=== PATIENT | female | born 1970 | race Caucasian/White ===

== ENCOUNTER 2020-04-10 11:01 | Outpatient (REF) | payer OTHER, SELFPAY | END 2020-04-10 11:02 | disposition home or self-care (01) | LOC: HO.LAB 11:01 | PROVIDERS: Visit Provider Internal Medicine | DX: Z20.828 Contact with and (suspected) exposure to other viral communicable diseases (principal) | CPT/HCPCS: 36415; C9803; U0003 ==

== ENCOUNTER 2020-06-02 12:27 | Emergency (ER) | payer OTHER, SELFPAY ==
--- NOTE | ~2020-06-02 | US_ITS ---
EXAMINATION: PELVIC ULTRASOUND CLINICAL INFORMATION: Large ovarian cyst seen on CT scan COMPARISON: CT abdomen pelvis same day TECHNIQUE: Both transabdominal and endovaginal scanning was performed. Color-flow Doppler imaging was utilized. FINDINGS: An anteverted uterus is present measuring 10.2 x 5.1 x 4.9 cm. The endometrium appears normal at 0.6 cm in thickness. The right ovary measures 5.9 x 4.6 x 5.3 cm for a volume of 6 75 mL and includes a benign appearing 5.1 x 4.2 x 4.2 cm cyst that was also demonstrated on CT scan. It is benign in appearance. The left ovary is not seen. Normal arterial and venous Doppler flow is seen in the right ovary No free fluid is seen. US/US pelvic complete IMPRESSION: Right ovarian simple cyst, almost certainly benign. Follow-up in one year is recommended Guidelines adopted from [facility] Consensus Recommendations (2017): ?Technically adequate study: Should include Transvaginal. Transabdominal as needed and Doppler as needed. Entire cyst should be adequately imaged.?Measurements below are for maximum diameter. 5 cm to 7 cm: Recommend a follow-up ultrasound in one year.
--- NOTE | ~2020-06-02 | US_ITS ---
EXAMINATION: PELVIC ULTRASOUND CLINICAL INFORMATION: Large ovarian cyst seen on CT scan COMPARISON: CT abdomen pelvis same day TECHNIQUE: Both transabdominal and endovaginal scanning was performed. Color-flow Doppler imaging was utilized. FINDINGS: An anteverted uterus is present measuring 10.2 x 5.1 x 4.9 cm. The endometrium appears normal at 0.6 cm in thickness. The right ovary measures 5.9 x 4.6 x 5.3 cm for a volume of 6 75 mL and includes a benign appearing 5.1 x 4.2 x 4.2 cm cyst that was also demonstrated on CT scan. It is benign in appearance. The left ovary is not seen. Normal arterial and venous Doppler flow is seen in the right ovary No free fluid is seen. US/US transvaginal IMPRESSION: Right ovarian simple cyst, almost certainly benign. Follow-up in one year is recommended Guidelines adopted from [facility] Consensus Recommendations (2017): ?Technically adequate study: Should include Transvaginal. Transabdominal as needed and Doppler as needed. Entire cyst should be adequately imaged.?Measurements below are for maximum diameter. 5 cm to 7 cm: Recommend a follow-up ultrasound in one year.
--- NOTE | ~2020-06-02 | US_ITS ---
EXAMINATION: PELVIC ULTRASOUND CLINICAL INFORMATION: Large ovarian cyst seen on CT scan COMPARISON: CT abdomen pelvis same day TECHNIQUE: Both transabdominal and endovaginal scanning was performed. Color-flow Doppler imaging was utilized. FINDINGS: An anteverted uterus is present measuring 10.2 x 5.1 x 4.9 cm. The endometrium appears normal at 0.6 cm in thickness. The right ovary measures 5.9 x 4.6 x 5.3 cm for a volume of 6 75 mL and includes a benign appearing 5.1 x 4.2 x 4.2 cm cyst that was also demonstrated on CT scan. It is benign in appearance. The left ovary is not seen. Normal arterial and venous Doppler flow is seen in the right ovary No free fluid is seen. US/US pelvic ovarian doppler IMPRESSION: Right ovarian simple cyst, almost certainly benign. Follow-up in one year is recommended Guidelines adopted from [facility] Consensus Recommendations (2017): ?Technically adequate study: Should include Transvaginal. Transabdominal as needed and Doppler as needed. Entire cyst should be adequately imaged.?Measurements below are for maximum diameter. 5 cm to 7 cm: Recommend a follow-up ultrasound in one year.
--- NOTE | ~2020-06-02 | CT_ITS ---
EXAMINATION: CT ABDOMEN AND PELVIS WITH CONTRAST CLINICAL INFORMATION: Right lower quadrant pain COMPARISON: CT abdomen pelvis 09/08/2005, report only and ultrasound abdomen 05/07/2014 TECHNIQUE: Multidetector volumetric images were obtained from the superior aspect of the liver through the pubic symphysis following administration 85 mL of Omnipaque 350 intravenous contrast. Sagittal and coronal reformatted images were obtained on the technologist's workstation. Oral contrast: No This CT examination was performed using dose optimization techniques as appropriate, variously including the following: *Automated exposure control *Adjustment of mA and/or kV according to patient size (this includes techniques or standardized protocols for targeted exams where dose is matched to indication/reason for exam; i.e. extremities or head) *Use of iterative reconstruction technique DLP: 1778 mGy-cm FINDINGS: LUNG BASES: The visualized lung bases are unremarkable. LIVER, GALLBLADDER, AND BILIARY TREE: The liver is enlarged measuring over 26 cm in greatest length and demonstrates hepatic steatosis. No liver masses or bile duct dilatation is seen. The gallbladder is unremarkable with no evidence of radiopaque gallstones, gallbladder wall thickening, or obvious pericholecystic inflammatory changes. PANCREAS: Unremarkable. SPLEEN: Unremarkable. ADRENAL GLANDS: Unremarkable. KIDNEYS AND URETERS: The kidneys are normal in size, shape, and attenuation. No hydronephrosis, hydroureter, or calculi seen. No perinephric stranding. BLADDER: Unremarkable. GASTROINTESTINAL TRACT: The small and large bowel are unremarkable. The appendix is unremarkable. ABDOMINAL WALL: No significant hernia is appreciated. LYMPH NODES: Normal. VASCULAR: Unremarkable. PELVIC VISCERA: Anteverted uterus appears normal. A right ovarian water density cyst is present measuring 5.7 x 4.5 x 5.2 cm. No free intraperitoneal fluid is seen. OSSEOUS STRUCTURES: Degenerative changes are present predominantly at L4-L5 and L5-S1. CT/CT abdomen pelvis w con IMPRESSION: 1. Enlarged fatty liver 2. 5.7 cm right ovarian cyst.
[2020-06-02 14:21] VITALS: BP 140/84; PULSE 70; RESP 18; TEMP 36.6; O2SAT 97; BMI 54.7
[2020-06-02 15:26] LABS: Glucose Urine UA NEG (NEG); Leukocyte Esterase Urine NEG (NEG); Nitrite Urine NEG (NEG); Urine Blood TRACE (NEG); Urine Ketones NEG (NEG); Urine Protein NEG (NEG-TRACE)
[2020-06-02 15:27] LABS: Appearance Urine CLEAR; Color Urine YELLOW
[2020-06-02 15:55] LABS: Bacteria Urine 1+ /LPF; Squamous Epithelial Cell Urine 2+ /LPF; WBC Urine 0 /HPF (0-4)
[2020-06-02 16:06] LABS: MANUAL DIFF FLAG NO
[2020-06-02 16:16] LABS: Basophils Absolute Auto 0.1 X10*3/uL (0.0-0.2); Basophils Percent Auto 0.5 % (0-2); Eosinophils Absolute Auto 0.3 X10*3/uL (0.0-0.4); Eosinophils Percent Auto 3.5 % (0-4); Hematocrit 40.2 % (37-47); Hemoglobin 12.6 g/dl (12.0-16.0); Imm Gran Abs Auto 0.04 X10*3/uL (0.00-0.03); Imm Gran Pct Auto 0.4 % (0.0-0.4); Lymphocytes Absolute Auto 2.9 X10*3/uL (1.2-4.9); Lymphocytes Percent Auto 29.5 % (20-40); Mean Corpuscular HGB Conc 31.3 g/dl (31.0-35.0); Mean Corpuscular Hemoglobin 24.2 pg (27.0-33.0); Mean Corpuscular Volume 77.2 fL (80-98); Mean Platelet Volume 10.3 fL (9.4-12.3); Monocytes Absolute Auto 0.5 X10*3/uL (0.1-1.2); Monocytes Percent Auto 4.9 % (2-11); Neutrophils Percent Auto 61.2 % (45-73); Platelet Count 372 X10*3/uL (160-400); Red Blood Count 5.21 X10*6/uL (4.20-5.50); Red Cell Distribution Width 15.3 % (11.0-16.0); White Blood Count 9.8 X10*3/uL (4.8-10.8)
[2020-06-02 16:36] LABS: Alanine Aminotransferase 14 U/L (0-31); Albumin Level 3.9 g/dL (3.5-5.0); Alkaline Phosphatase 79 U/L (39-117); Anion Gap 14 (12-20); Aspartate Amino Transferase 13 U/L (5-31); Bilirubin Total 0.5 mg/dL (0.0-1.0); Blood Urea Nitrogen 9 mg/dL (9-16); Calcium 8.5 mg/dL (8.4-10.2); Carbon Dioxide 25 mmol/L (22-29); Chloride 103 mmol/L (96-108); Creatinine Clr Calc Pharmacy 134.1; Estimated Glomerular Filt Rate > 60; Glucose Random 134 mg/dL (60-115); Potassium 4.2 mmol/L (3.3-5.1); Sodium 138 mmol/L (135-145)
[2020-06-02] MEDS: iohexoL 350 MG/ML 100 ML INFUS..BTL IV (16:59)
[2020-06-02 17:58] VITALS: PULSE 69; RESP 17; TEMP 37.2; O2SAT 98
--- NOTE | 2020-06-02 20:14 | ED_ITS ---
HPI - Abdominal Pain General Chief Complaint: Abdominal Pain Stated Complaint: ABD PAIN Time Seen by Provider: 06/02/20 16:29 Source: patient Mode of arrival: ambulatory Limitations: no limitations History of Present Illness HPI narrative: Right-sided lower quadrant abdominal pain for past 4 days gradually and sharp like feeling. Worsened with certain position. There is associated nausea but no vomiting or diarrhea. There is no vaginal bleeding or discharge. There is no dysuria or hematuria. MD elicited complaint: abdominal pain Onset (ago): day(s) Pain Consistency: intermittent Location: none Severity: moderate Quality: stabbing and aching Radiation: RLQ Migration to: no migration Exacerbating factors: nothing Relieving factors: nothing Associated symptoms: nausea Related Data Patient : No Previous Rx's Medication Instructions Recorded ibuprofen 800 mg PO Q8H PRN #30 tab 06/02/20 Allergies Allergy/AdvReac Type Severity Reaction Status Date / Time No Known Allergies Allergy Unknown Verified 06/02/20 14:21 Review of Systems Review of Systems Constitutional: No Weight loss, No Fever, No Chills, No Night Sweats, No Fatigue, No Malaise ENT/Mouth: No Hearing loss, No Ear Pain, No Nasal Congestion, No Sinus Pain, No Hoarseness, No sore throat, No Rhinorrhea, No Swallowing Difficulty Eyes: No Eye Pain, No Swelling, No Redness, No Foreign Body, No Discharge, No Vision Changes Cardiovascular: No Chest Pain, No SOB, No Dyspnea on Exertion, No Orthopnea, No Edema, No Palpitations Respiratory: No Cough, No Sputum, No Wheezing, No Smoke Exposure, No Dyspnea Gastrointestinal: + Nausea, No Vomiting, No Diarrhea, No Constipation, + abdominal Pain, No Hematochezia, No Melena Genitourinary: No Dysuria, No Urinary Frequency, No Hematuria, No Urinary Incontinence, No Urgency, No Flank Pain, No Urinary Flow Changes, No Hesitancy Musculoskeletal: No joint pain, No Myalgias, No Joint Swelling Skin: No Skin Lesions, No rash Neuro: No Weakness, No Numbness, No Paresthesias, No Loss of Consciousness, No Dizziness, No Headache Psych: No Anxiety/Panic, No Depression Heme/Lymph: No Bruising, No Bleeding,No Lymphadenopathy Endocrine: No Polyuria, No Polydipsia, No Temperature Intolerance Yes all other systems are reviewed and are negative Physical Exam Vital Signs: Vital Signs: Last Vital Signs Temp 98.9 F 06/02/20 17:58 Pulse 69 06/02/20 17:58 Resp 17 06/02/20 17:58 BP 140/84 H 06/02/20 14:21 Pulse Ox 98 06/02/20 17:58 Body Mass Index 54.7 Reviewed Const: General: cooperative and healthy appearing; No acute distress or intoxicated appearing Nutritional Appearance: average body habitus Orientation/consciousness: patient oriented x3 HENMT: Head: Yes normal to inspection Ears: hearing grossly normal bilaterally Eyes: General: appearance normal, both eyes and all related structures Visual Cameron: normal visual cameron by confrontation Neck: Neck: Yes normal visual inspection, No positive Brudzinski's sign, No positive Kernig's sign and No tender Thyroid: Thyroid normal Chest: Chest palpation & inspection: normal inspection of the chest Resp: Effort & Inspection: normal respiratory effort Auscultation: clear to auscultation bilaterally Cardio: Jugular venous distension: no JVD Rate: regular rate Rhythm: regular rhythm Heart sounds: S1 normal heart sound present and S2 normal heart sound present GI: Other: Obese Inspection: Yes normal to inspection Palpation (GI): Soft to palpation and Tenderness to palpation present (GI) in the RLQ Percussion: Yes normal to percussion Auscultation: normal bowel sounds : General: Yes no CVA tenderness Back/Spine/Pelvis: Back: no CVA tenderness Skin: General skin exam: no rashes or lesions noted Neuro: General: patient oriented x3 Extrem: General: Yes normal to inspection Course Course Course Narrative: Labs overall reassuring abdominal CT done to rule out appy given right lower quadrant pain however this was unremarkable for acute appy or infectious pathology there was noted to have a large right-sided ovarian cyst subsequently pelvic ovarian ultrasound done showed isolated right-sided ovarian cyst with good flow without evidence of torsion. She is resting comfortably. Will discharge home with short course of NSAIDs and follow-up. Verbalized understanding and comfortable plan. Stable for discharge MDM - Abdominal Pain Lab Data Result diagrams: 06/02/20 15:53 06/02/20 15:53 Labs: Lab Results 06/02/20 06/02/20 06/02/20 Range/Units 14:25 15:53 15:53 WBC 9.8 (4.8-10.8) X10*3/uL RBC 5.21 (4.20-5.50) X10*6/uL Hgb 12.6 (12.0-16.0) g/dl Hct 40.2 (37-47) % MCV 77.2 L (80-98) fL MCH 24.2 L (27.0-33.0) pg MCHC 31.3 (31.0-35.0) g/dl RDW 15.3 (11.0-16.0) % Plt Count 372 (160-400) X10*3/uL MPV 10.3 (9.4-12.3) fL Immature Gran % (Auto) 0.4 (0.0-0.4) % Neut % (Auto) 61.2 (45-73) % Lymph % (Auto) 29.5 (20-40) % [place] % (Auto) 4.9 (2-11) % Eos % (Auto) 3.5 (0-4) % Baso % (Auto) 0.5 (0-2) % Lymph # (Auto) 2.9 (1.2-4.9) X10*3/uL [place] # (Auto) 0.5 (0.1-1.2) X10*3/uL Eos # (Auto) 0.3 (0.0-0.4) X10*3/uL Baso # (Auto) 0.1 (0.0-0.2) X10*3/uL Abs Immat Gran (auto) 0.04 H (0.00-0.03) X10*3/uL Absolute Neuts (auto) 6.0 (2.0-8.3) X10*3/uL Absolute Nucleated RBC 0.000 (0.0-0.012) X10*3/uL Nucleated RBC % (auto) 0.0 (0.0-0.2) /100WBC Hold Blue Top SEE NOTE Sodium (135-145) mmol/L Potassium (3.3-5.1) mmol/L Chloride (96-108) mmol/L Carbon Dioxide (22-29) mmol/L Anion Gap (12-20) BUN (9-16) mg/dL Creatinine (0.5-1.4) mg/dL Estim Creat Clear Calc Estimated GFR Random Glucose (60-115) mg/dL Calcium (8.4-10.2) mg/dL Total Bilirubin (0.0-1.0) mg/dL AST (5-31) U/L ALT (0-31) U/L Alkaline Phosphatase (39-117) U/L Total Protein (6.5-8.0) g/dL Albumin (3.5-5.0) g/dL Urine Color YELLOW Urine Appearance CLEAR Urine pH 6.0 (5.0-8.0) Ur Specific [place] 1.020 (1.005-1.025) Urine Protein NEG (NEG-TRACE) MG/DL Urine Glucose (UA) NEG (NEG) MG/DL Urine Ketones NEG (NEG) MG/DL Urine Blood TRACE (NEG) Urine Nitrite NEG (NEG) Ur Leukocyte Esterase NEG (NEG) Urine RBC 1-4 (0) /HPF Urine WBC 0 (0-4) /HPF Ur Squamous Epith Cells 2+ /LPF Urine Bacteria 1+ /LPF 06/02/20 Range/Units 15:53 WBC (4.8-10.8) X10*3/uL RBC (4.20-5.50) X10*6/uL Hgb (12.0-16.0) g/dl Hct (37-47) % MCV (80-98) fL MCH (27.0-33.0) pg MCHC (31.0-35.0) g/dl RDW (11.0-16.0) % Plt Count (160-400) X10*3/uL MPV (9.4-12.3) fL Immature Gran % (Auto) (0.0-0.4) % Neut % (Auto) (45-73) % Lymph % (Auto) (20-40) % [place] % (Auto) (2-11) % Eos % (Auto) (0-4) % Baso % (Auto) (0-2) % Lymph # (Auto) (1.2-4.9) X10*3/uL [place] # (Auto) (0.1-1.2) X10*3/uL Eos # (Auto) (0.0-0.4) X10*3/uL Baso # (Auto) (0.0-0.2) X10*3/uL Abs Immat Gran (auto) (0.00-0.03) X10*3/uL Absolute Neuts (auto) (2.0-8.3) X10*3/uL Absolute Nucleated RBC (0.0-0.012) X10*3/uL Nucleated RBC % (auto) (0.0-0.2) /100WBC Hold Blue Top Sodium 138 (135-145) mmol/L Potassium 4.2 (3.3-5.1) mmol/L Chloride 103 (96-108) mmol/L Carbon Dioxide 25 (22-29) mmol/L Anion Gap 14 (12-20) BUN 9 (9-16) mg/dL Creatinine 0.83 (0.5-1.4) mg/dL Estim Creat Clear Calc 134.1 Estimated GFR > 60 Random Glucose 134 H (60-115) mg/dL Calcium 8.5 (8.4-10.2) mg/dL Total Bilirubin 0.5 (0.0-1.0) mg/dL AST 13 (5-31) U/L ALT 14 (0-31) U/L Alkaline Phosphatase 79 (39-117) U/L Total Protein 7.0 (6.5-8.0) g/dL Albumin 3.9 (3.5-5.0) g/dL Urine Color Urine Appearance Urine pH (5.0-8.0) Ur Specific [place] (1.005-1.025) Urine Protein (NEG-TRACE) MG/DL Urine Glucose (UA) (NEG) MG/DL Urine Ketones (NEG) MG/DL Urine Blood (NEG) Urine Nitrite (NEG) Ur Leukocyte Esterase (NEG) Urine RBC (0) /HPF Urine WBC (0-4) /HPF Ur Squamous Epith Cells /LPF Urine Bacteria /LPF Discharge Plan Discharge Clinical Impression: Ovarian cyst Qualifiers: Laterality: right Qualified Code(s): N83.201 - Unspecified ovarian cyst, right side Patient Disposition: Home, Self-Care Instructions: Ovarian Cyst (ED) Additional Instructions: Right side ovarian cyst Prescriptions: New ibuprofen 800 mg tablet 800 mg PO Q8H PRN (Reason: pain) Qty: 30 RF: 0 Referrals: Jagdish Evans MD [Primary Care Provider] - 1 week [facility] Past Medical History Medical History (Updated 06/02/20 @ 20:15 by Dominic Clark NP) Asthma Back pain GERD (gastroesophageal reflux disease) Social History Social History Alcohol intake: never Smoking Status: Never smoker Use of substances other than those prescribed or required for medical reasons: No Advance Directives: No Advance Directives Information Provided: Yes
== END 2020-06-02 20:31 | disposition home or self-care (01) ==
PROVIDERS: Emergency Provider Emergency Medicine; PCP Internal Medicine
DX: N83.201 Unspecified ovarian cyst, right side (principal); R10.31 Right lower quadrant pain; K21.9 Gastro-esophageal reflux disease without esophagitis; K76.0 Fatty (change of) liver, not elsewhere classified
CPT/HCPCS: 36415; 74177; 76830; 76856; 80053; 81001; 85025; 93975; 99284; Q9967

== ENCOUNTER 2020-12-11 02:51 | Emergency (ER) | payer OTHER, SELFPAY ==
--- NOTE | ~2020-12-11 | CT_ITS ---
EXAMINATION: CT ABDOMEN AND PELVIS WITH CONTRAST CLINICAL INFORMATION: Back pain, left upper quadrant COMPARISON: CT abdomen pelvis 06/03/2019 TECHNIQUE: Multidetector volumetric images were obtained from the superior aspect of the liver through the pubic symphysis following administration 85 mL of Omnipaque 350 intravenous contrast. Sagittal and coronal reformatted images were obtained on the technologist's workstation. Oral contrast: No This CT examination was performed using dose optimization techniques as appropriate, variously including the following: *Automated exposure control *Adjustment of mA and/or kV according to patient size (this includes techniques or standardized protocols for targeted exams where dose is matched to indication/reason for exam; i.e. extremities or head) *Use of iterative reconstruction technique DLP: 1330 mGy-cm FINDINGS: LUNG BASES: The visualized lung bases are unremarkable. LIVER, GALLBLADDER, AND BILIARY TREE: The liver is again noted to be enlarged measuring over 26 cm in greatest length and demonstrates decreased attenuation consistent with hepatic steatosis. No liver masses or bile duct dilatation is seen. The gallbladder contains a new small calcified stone at the neck of the gallbladder measuring 3 mm in size but is otherwise unremarkable with no evidence of gallbladder wall thickening, or obvious pericholecystic inflammatory changes. PANCREAS: Unremarkable. SPLEEN: Unremarkable. ADRENAL GLANDS: Unremarkable. KIDNEYS AND URETERS: The kidneys are normal in size, shape, and attenuation. No hydronephrosis, hydroureter, or calculi seen. No perinephric stranding. BLADDER: Unremarkable. GASTROINTESTINAL TRACT: The small and large bowel are unremarkable. The appendix is unremarkable. ABDOMINAL WALL: No significant hernia is appreciated. LYMPH NODES: Normal. VASCULAR: Unremarkable. PELVIC VISCERA: Anteverted uterus appears normal. Previously seen benign right ovarian cyst has some.. No free intraperitoneal fluid is seen. OSSEOUS STRUCTURES: Degenerative changes are present predominantly at L4-L5 and L5-S1. CT/CT abdomen pelvis w con IMPRESSION: 1. Enlarged fatty liver 2. Right ovarian cyst has significantly decreased in size.
[2020-12-11 02:59] VITALS: BP 156/81; PULSE 64; RESP 18; TEMP 37; O2SAT 98; BMI 51.7
[2020-12-11 04:29] LABS: Appearance Urine CLEAR; Color Urine YELLOW; Glucose Urine UA NEG (NEG); Leukocyte Esterase Urine NEG (NEG); Nitrite Urine NEG (NEG); Urine Blood NEG (NEG); Urine Ketones NEG (NEG); Urine Protein NEG (NEG-TRACE)
[2020-12-11 05:00] LABS: Basophils Absolute Auto 0.1 X10*3/uL (0.0-0.2); Basophils Percent Auto 0.6 % (0-2); Eosinophils Absolute Auto 0.3 X10*3/uL (0.0-0.4); Eosinophils Percent Auto 3.7 % (0-4); Hematocrit 41.2 % (37-47); Hemoglobin 13.2 g/dl (12.0-16.0); Imm Gran Abs Auto 0.02 X10*3/uL (0.00-0.03); Imm Gran Pct Auto 0.2 % (0.0-0.4); Lymphocytes Percent Auto 32.9 % (20-40); Mean Corpuscular Hemoglobin 24.3 pg (27.0-33.0); Mean Corpuscular Volume 75.7 fL (80-98); Mean Platelet Volume 9.9 fL (9.4-12.3); Monocytes Absolute Auto 0.7 X10*3/uL (0.1-1.2); Monocytes Percent Auto 7.3 % (2-11); Neutrophils Percent Auto 55.3 % (45-73); Platelet Count 347 X10*3/uL (160-400); Red Blood Count 5.44 X10*6/uL (4.20-5.50); Red Cell Distribution Width 15.3 % (11.0-16.0)
[2020-12-11 05:01] LABS: MANUAL DIFF FLAG NO
[2020-12-11] MEDS: ondansetron HCL 4 MG/2 ML VIAL IVPUSH (05:02)
[2020-12-11] MEDS: Ketorolac Tromethamine 15 MG/ML VIAL IVPUSH (05:02)
[2020-12-11] MEDS: Acetaminophen 325 MG TABLET 975 MG PO (05:03)
--- NOTE | 2020-12-11 05:08 | PC.NURSE ---
IV inserted into left forearm. PT medicated per JUN for 8 pain. PT is resting in bed, understands plan to evaluate her pain.
[2020-12-11 05:24] LABS: Alanine Aminotransferase 19 U/L (0-31); Alkaline Phosphatase 74 U/L (39-117); Anion Gap 13 (12-20); Aspartate Amino Transferase 16 U/L (5-31); Bilirubin Total 0.4 mg/dL (0.0-1.0); Blood Urea Nitrogen 8 mg/dL (9-16); Calcium 9.2 mg/dL (8.4-10.2); Carbon Dioxide 25 mmol/L (22-29); Chloride 103 mmol/L (96-108); Creatinine Clr Calc Pharmacy 132.3; Estimated Glomerular Filt Rate > 60; Glucose Random 110 mg/dL (60-115); Lipase 22 U/L (8-78); Sodium 137 mmol/L (135-145); Total Protein 6.9 g/dL (6.5-8.0)
--- NOTE | 2020-12-11 05:52 | PC.NURSE ---
PT transferred to CT scan.
--- NOTE | 2020-12-11 06:00 | ED_ITS ---
HPI - Abdominal Pain General Chief Complaint: Abdominal Pain Stated Complaint: back pain/abd pain Time Seen by Provider: 12/11/20 03:04 Source: patient Mode of arrival: ambulatory History of Present Illness HPI narrative: 50-year-old female who presents without significant past medical history for mid to lower back discomfort that she states has been associated with mild nausea and vomiting that started on Tuesday as well as some diarrhea. Patient states that the pain radiated to the front of her abdomen, specifically the left upper side and she denies any history of kidney stones. Otherwise, she denies any urinary pain/burning/frequency but states that she has been having night sweats and some mild dizziness for the past couple of days. Related Data Previous Rx's Medication Instructions Recorded ibuprofen 800 mg tablet 800 mg PO Q8H PRN #30 tab 06/02/20 Allergies Allergy/AdvReac Type Severity Reaction Status Date / Time No Known Allergies Allergy Unknown Verified 12/11/20 02:59 Review of Systems Review of Systems Pertinent positives and negatives as stated in HPI 10 point review systems is otherwise negative. Physical Exam Vital Signs: Vital Signs: Last Vital Signs Temp 98.2 F 12/11/20 06:30 Pulse 57 12/11/20 06:30 Resp 16 12/11/20 06:30 BP 135/73 12/11/20 06:30 Pulse Ox 98 12/11/20 06:30 Body Mass Index 51.7 VITAL SIGNS: Reviewed. GENERAL: Well developed, well nourished, in no acute distress. HEAD: Normocephalic/atraumatic, EYES: PERRLA, EOMI OROPHARYNX: no oral lesions noted, posterior pharynx clear LUNGS: Normal breath sounds. No adventitious sounds or accessory muscle use. SpO2<98> CARDIOVASCULAR: Regular rate and rhythm without noted murmurs ABDOMEN: Obese, Soft, non-tender, non-distended with bowel sounds, mild CVA tenderness on the left MUSCULOSKELETAL: No tenderness, deformities, or effusions noted on gross inspection. EXTREMITIES: No cyanosis, clubbing or edema. SKIN: Inspection of the skin reveals no rashes NEUROLOGIC: Alert and oriented x 4. Strength and sensation to light touch were grossly intact x 4. Course Course Course Narrative: 50-year-old female with history and clinical presentation suggestive pancreatitis, renal colic, gastritis, gastroenteritis. Review of all investigations without acute findings and on re-evaluation after patient received combination analgesics she reports improvement in her discomfort as well as her nausea. All results were discussed with patient bedside and she was encouraged to follow-up with her primary care provider for re-evaluation. MDM - Abdominal Pain Lab Data Result diagrams: 12/11/20 04:39 12/11/20 04:39 Labs: Lab Results 12/11/20 12/11/20 12/11/20 Range/Units 04:24 04:24 04:39 WBC 9.0 (4.8-10.8) X10*3/uL RBC 5.44 (4.20-5.50) X10*6/uL Hgb 13.2 (12.0-16.0) g/dl Hct 41.2 (37-47) % MCV 75.7 L (80-98) fL MCH 24.3 L (27.0-33.0) pg MCHC 32.0 (31.0-35.0) g/dl RDW 15.3 (11.0-16.0) % Plt Count 347 (160-400) X10*3/uL MPV 9.9 (9.4-12.3) fL Immature Gran % (Auto) 0.2 (0.0-0.4) % Neut % (Auto) 55.3 (45-73) % Lymph % (Auto) 32.9 (20-40) % [place] % (Auto) 7.3 (2-11) % Eos % (Auto) 3.7 (0-4) % Baso % (Auto) 0.6 (0-2) % Lymph # (Auto) 3.0 (1.2-4.9) X10*3/uL [place] # (Auto) 0.7 (0.1-1.2) X10*3/uL Eos # (Auto) 0.3 (0.0-0.4) X10*3/uL Baso # (Auto) 0.1 (0.0-0.2) X10*3/uL Abs Immat Gran (auto) 0.02 (0.00-0.03) X10*3/uL Absolute Neuts (auto) 5.0 (2.0-8.3) X10*3/uL Absolute Nucleated RBC 0.000 (0.0-0.012) X10*3/uL Nucleated RBC % (auto) 0.0 (0.0-0.2) /100WBC Sodium (135-145) mmol/L Potassium (3.3-5.1) mmol/L Chloride (96-108) mmol/L Carbon Dioxide (22-29) mmol/L Anion Gap (12-20) BUN (9-16) mg/dL Creatinine (0.5-1.4) mg/dL Estim Creat Clear Calc Estimated GFR Random Glucose (60-115) mg/dL Calcium (8.4-10.2) mg/dL Total Bilirubin (0.0-1.0) mg/dL AST (5-31) U/L ALT (0-31) U/L Alkaline Phosphatase (39-117) U/L Total Protein (6.5-8.0) g/dL Albumin (3.5-5.0) g/dL Lipase (8-78) U/L Urine Color YELLOW Urine Appearance CLEAR Urine pH 6.0 (5.0-8.0) Ur Specific [place] 1.010 (1.005-1.025) Urine Protein NEG (NEG-TRACE) MG/DL Urine Glucose (UA) NEG (NEG) MG/DL Urine Ketones NEG (NEG) MG/DL Urine Blood NEG (NEG) Urine Nitrite NEG (NEG) Ur Leukocyte Esterase NEG (NEG) Urine Test NEGATIVE (NEGATIVE) 12/11/20 Range/Units 04:39 WBC (4.8-10.8) X10*3/uL RBC (4.20-5.50) X10*6/uL Hgb (12.0-16.0) g/dl Hct (37-47) % MCV (80-98) fL MCH (27.0-33.0) pg MCHC (31.0-35.0) g/dl RDW (11.0-16.0) % Plt Count (160-400) X10*3/uL MPV (9.4-12.3) fL Immature Gran % (Auto) (0.0-0.4) % Neut % (Auto) (45-73) % Lymph % (Auto) (20-40) % [place] % (Auto) (2-11) % Eos % (Auto) (0-4) % Baso % (Auto) (0-2) % Lymph # (Auto) (1.2-4.9) X10*3/uL [place] # (Auto) (0.1-1.2) X10*3/uL Eos # (Auto) (0.0-0.4) X10*3/uL Baso # (Auto) (0.0-0.2) X10*3/uL Abs Immat Gran (auto) (0.00-0.03) X10*3/uL Absolute Neuts (auto) (2.0-8.3) X10*3/uL Absolute Nucleated RBC (0.0-0.012) X10*3/uL Nucleated RBC % (auto) (0.0-0.2) /100WBC Sodium 137 (135-145) mmol/L Potassium 4.0 (3.3-5.1) mmol/L Chloride 103 (96-108) mmol/L Carbon Dioxide 25 (22-29) mmol/L Anion Gap 13 (12-20) BUN 8 L (9-16) mg/dL Creatinine 0.83 (0.5-1.4) mg/dL Estim Creat Clear Calc 132.3 Estimated GFR > 60 Random Glucose 110 (60-115) mg/dL Calcium 9.2 D (8.4-10.2) mg/dL Total Bilirubin 0.4 (0.0-1.0) mg/dL AST 16 (5-31) U/L ALT 19 (0-31) U/L Alkaline Phosphatase 74 (39-117) U/L Total Protein 6.9 (6.5-8.0) g/dL Albumin 4.0 (3.5-5.0) g/dL Lipase 22 (8-78) U/L Urine Color Urine Appearance Urine pH (5.0-8.0) Ur Specific [place] (1.005-1.025) Urine Protein (NEG-TRACE) MG/DL Urine Glucose (UA) (NEG) MG/DL Urine Ketones (NEG) MG/DL Urine Blood (NEG) Urine Nitrite (NEG) Ur Leukocyte Esterase (NEG) Urine Test (NEGATIVE) Discharge Plan Discharge Clinical Impression: Back pain Patient Disposition: Home, Self-Care Instructions: Back Pain (ED), Lower Back Exercises (ED) Additional Instructions: 1. Tylenol 1000 mg, orally, every 6 hours as needed for pain control. Do not exceed 4000 mg within 24 hours. 2. Ibuprofen 400 mg, orally with milk or food, every 6 hours as needed for pain control. 3. Lidocaine patch, these are available [id number], and should be apply to area of maximal pain as directed on the outside packaging. 4. Follow-up with your primary care provider in the next 1-2 days for re- evaluation. Return to the ER for any acute worsening of symptoms. Prescriptions: No Action ibuprofen 800 mg tablet 800 mg PO Q8H PRN (Reason: pain) Qty: 30 RF: 0 Referrals: Jagdish Evans MD [Primary Care Provider] - 2 days Stand Alone Forms: Work/School Release [facility] Past Medical History Source: nursing notes reviewed Medical History Asthma Back pain GERD (gastroesophageal reflux disease) Social History Social History Alcohol intake: never Advance Directives: No Advance Directives Information Provided: Yes Patient : No
[2020-12-11 06:12] LABS: UPreg QC Valid YES; Urine Pregnancy NEGATIVE (NEGATIVE)
[2020-12-11] MEDS: iohexoL 350 MG/ML 100 ML INFUS..BTL IV (06:22)
[2020-12-11 06:30] VITALS: BP 135/73; PULSE 57; RESP 16; TEMP 36.8; O2SAT 98
== END 2020-12-11 07:47 | disposition home or self-care (01) ==
PROVIDERS: Emergency Provider Student in an Organized Health Care Education/Training Program; PCP Internal Medicine
DX: M54.9 Dorsalgia, unspecified (principal)
CPT/HCPCS: 36415; 74177; 80053; 81003; 81025; 83690; 85025; 96374; 96375; 99284; J1885; J2405; Q9967

== ENCOUNTER 2021-03-10 16:58 | Emergency (ER) | payer OTHER, SELFPAY ==
--- NOTE | ~2021-03-10 | XR_ITS ---
EXAMINATION: XR CHEST CLINICAL INFORMATION: Shortness of breath COMPARISON: 03/31/2019 TECHNIQUE: 2 views of the chest were obtained. FINDINGS: No significant abnormality is noted involving the heart, lungs, mediastinum, bony thorax or soft tissues. XR/XR chest 2V IMPRESSION: Unremarkable examination.
[2021-03-10 17:33] VITALS: BP 154/69; PULSE 71; RESP 18; TEMP 37.1; O2SAT 98; BMI 50.2
[2021-03-10 18:18] LABS: MANUAL DIFF FLAG NO
[2021-03-10 18:19] LABS: Basophils Absolute Auto 0.1 X10*3/uL (0.0-0.2); Basophils Percent Auto 0.5 % (0-2); Eosinophils Absolute Auto 0.4 X10*3/uL (0.0-0.4); Eosinophils Percent Auto 4.6 % (0-4); Hematocrit 40.3 % (37.0-47.0); Hemoglobin 12.7 g/dl (12.0-16.0); Imm Gran Abs Auto 0.03 X10*3/uL (0.00-0.03); Imm Gran Pct Auto 0.3 % (0.0-0.4); Lymphocytes Absolute Auto 3.3 X10*3/uL (1.2-4.9); Lymphocytes Percent Auto 35.6 % (20-40); Mean Corpuscular HGB Conc 31.5 g/dl (31.0-35.0); Mean Corpuscular Hemoglobin 24.1 pg (27.0-33.0); Mean Corpuscular Volume 76.5 fL (80.0-98.0); Mean Platelet Volume 9.9 fL (9.4-12.3); Monocytes Absolute Auto 0.7 X10*3/uL (0.1-1.2); Monocytes Percent Auto 7.1 % (2-11); Neutrophils Absolute Auto 4.8 x10*3/uL (2.0-8.3); Neutrophils Percent Auto 51.9 % (45-73); Platelet Count 346 X10*3/uL (160-400); Red Blood Count 5.27 X10*6/uL (4.20-5.50); Red Cell Distribution Width 15.3 % (11.0-16.0); White Blood Count 9.3 X10*3/uL (4.8-10.8)
[2021-03-10 18:38] LABS: Alanine Aminotransferase 14 U/L (0-31); Albumin Level 3.9 g/dL (3.5-5.0); Alkaline Phosphatase 75 U/L (39-117); Anion Gap 12 (12-20); Aspartate Amino Transferase 14 U/L (5-31); Bilirubin Direct < 0.2 mg/dL (0.0-0.5); Bilirubin Total 0.4 mg/dL (0.0-1.0); Blood Urea Nitrogen 10 mg/dL (9-16); Calcium 9.1 mg/dL (8.4-10.2); Carbon Dioxide 25 mmol/L (22-29); Chloride 106 mmol/L (96-108); Estimated Glomerular Filt Rate > 60; Glucose Random 107 mg/dL (60-115); Lipase 24 U/L (8-78); Potassium 4.6 mmol/L (3.3-5.1); Sodium 138 mmol/L (135-145); Total Protein 7.2 g/dL (6.5-8.0)
[2021-03-10 18:39] LABS: COVID-19 Test Negative (Negative)
--- NOTE | 2021-03-10 22:44 | ED_ITS ---
HPI - Nausea/Vomiting/Diarrhea General Chief complaint: Nausea/Vomiting/Diarrhea Stated complaint: diarrhea asthma headache sob Time Seen by Provider: 03/10/21 22:34 Source: patient Mode of arrival: ambulatory Limitations: no limitations History of Present Illness HPI Narrative: 50-year-old female with history of asthma here with multiple complaints. Patient tells me that she has had some abdominal cramping with diarrhea for the last 3 days. She tells me she is having about 4-5 episodes per day but has not had any episodes since waiting here in our emergency department. She denies any associated vomiting or fever. She is also complaining of some cough and some wheezing and has been using her inhaler more frequently. No fevers, chills, productive cough or chest pain. Associated nausea: No Related Data Previous Rx's Medication Instructions Recorded ibuprofen 800 mg tablet 800 mg PO Q8H PRN #30 tab 06/02/20 benzonatate 200 mg capsule 200 mg PO TID PRN #10 cap 03/10/21 prednisone 20 mg tablet 40 mg PO DAILY #10 tab 03/10/21 Allergies Allergy/AdvReac Type Severity Reaction Status Date / Time No Known Allergies Allergy Unknown Verified 12/11/20 02:59 Review of Systems Review of Systems: Yes all other systems are reviewed and are negative Constitutional: Constitutional: Reports no additional constitutional complaints, Reports body ache(s), Denies chills, Denies fever(s), Denies headache(s) and Denies weakness Eyes: Eyes: Reports no additional eye complaints and Denies change in vision ENT: Reports system reviewed and no additional complaints, except as documented, Denies dizziness, Denies headache(s), Denies nasal congestion, Denies nasal discharge and Denies neck pain Cardiovascular: Cardiovascular: Reports no additional cardiovascular complaints, Denies chest pain, Denies leg edema and Denies dyspnea Respiratory: Respiratory: Reports no additional respiratory complaints, Reports cough, Denies dyspnea and Reports wheezing Gastrointestinal: Gastrointestinal: Reports no additional gastrointestinal complaints, Denies abdominal pain, Reports GI cramping, Reports diarrhea, Denies nausea and Denies vomiting Genitourinary: Genitourinary: Reports no additional female genitourinary complaints and Denies urinary incontinence Musculoskeletal: Musculoskeletal: Reports no additional musculoskeletal complaints, Denies back pain, Denies arthralgias, Denies joint swelling, Denies neck pain, Denies numbness and Denies tingling Integumentary/Breasts: Skin/Breast: Reports system reviewed and no additional complaints, except as docu and Denies rash Neurologic: Reports system reviewed and no additional complaints, except as documented, Denies Abnormal speech present, Denies dizziness, Denies headache(s), Denies numbness, Denies tingling and Denies weakness Allergic/Immunologic: Allergic/Immunologic: Reports wheezing PMFSH Past Medical History Attestation statement: The following information was validated with the patient. Source: old records reviewed and nursing notes reviewed Medical History Asthma Back pain GERD (gastroesophageal reflux disease) Social History Social History Alcohol intake: never Patient Tobacco Use Status: Never used Tobacco Use of substances other than those prescribed or required for medical reasons: No Advance Directives: No Advance Directives Information Provided: No Physical Exam Vital Signs: Vital Signs: Last Vital Signs Temp 98.7 F 03/10/21 17:33 Pulse 71 03/10/21 17:33 Resp 18 03/10/21 17:33 BP 154/69 H 03/10/21 17:33 Pulse Ox 98 03/10/21 17:33 BMI result Body Mass Index 50.2 Const: General: cooperative, healthy appearing, comfortable and no acute distress Orientation/consciousness: patient oriented x3 Limitations: no limitations HENMT: Head: Yes normal to inspection Ears: hearing grossly normal bilaterally General nose exam: Normal external nose present Face and sinus: Yes normal facial exam Mouth: Normal oral and palatal mucosa present Throat: Yes posterior oropharynx normal Eyes: General: appearance normal, both eyes and all related structures Pupils: Equal, round and reactive pupils present Neck: Neck: Yes normal visual inspection Chest: Chest palpation & inspection: normal inspection of the chest Resp: Other: mild expiratory wheezing frequent bronchospastic cough Effort & Inspection: normal respiratory effort Cardio: Rate: regular rate Rhythm: regular rhythm Peripheral pulses: Peripheral pulses 2+ throughout GI: Inspection: Yes normal to inspection Palpation (GI): Soft to palpation and nontender Auscultation: normal bowel sounds Back/Spine/Pelvis: Thoracic/Lumbar Spine: thoracic and lumbar spine normal to inspection Skin: General skin exam: no rashes or lesions noted Neuro: General: patient oriented x3, no focal motor deficits and normal sensation to monofilament Cranial nerves: Yes Equal, round and reactive pupils present Cognition (Neuro): normal cognition Speech: No Abnormal speech present Gait exam (Neuro): Normal gait present Motor exam (neuro): 5/5 motor strength present throughout Extrem: General: Yes normal to inspection, Yes no pedal edema and Yes no calf tenderness Course Course Course Narrative: 50-year-old female here with complaints of some diarrhea with abdominal cramping over the last 2 days. No vomiting. On exam no focal abdominal pain and her abdomen is soft. Patient has not had a bowel movement in more than 5 hours. She appears well hydrated with normal labs. Also complaining of some cough and wheezing despite using her home albuterol. On ex am she has some mild expiratory wheezing. Her saturations are normal. She has no tachypnea or tachycardia. Her chest x-ray shows no acute finding her COVID screen is negative. Likely viral syndrome. Will treat with course of prednisone for asthma exacerbation, recommend increase fluids at home and rest. Reviewed worrisome signs and symptoms of when to return to the emergency department. Comfortable discharge home. MDM - Nausea/Vomiting/Diarrhea Medical Records Attestation: I reviewed the patient's medical records. Lab Data Attestation: I reviewed the patient's lab results. Result diagrams: 03/10/21 18:11 03/10/21 18:11 Labs: Lab Results 03/10/21 03/10/21 03/10/21 Range/Units 18:11 18:11 18:11 WBC 9.3 (4.8-10.8) X10*3/uL RBC 5.27 (4.20-5.50) X10*6/uL Hgb 12.7 (12.0-16.0) g/dl Hct 40.3 (37.0-47.0) % MCV 76.5 L (80.0-98.0) fL MCH 24.1 L (27.0-33.0) pg MCHC 31.5 (31.0-35.0) g/dl RDW 15.3 (11.0-16.0) % Plt Count 346 (160-400) X10*3/uL MPV 9.9 (9.4-12.3) fL Immature Gran % (Auto) 0.3 (0.0-0.4) % Neut % (Auto) 51.9 (45-73) % Lymph % (Auto) 35.6 (20-40) % Johnson % (Auto) 7.1 (2-11) % Eos % (Auto) 4.6 H (0-4) % Baso % (Auto) 0.5 (0-2) % Lymph # (Auto) 3.3 (1.2-4.9) X10*3/uL Johnson # (Auto) 0.7 (0.1-1.2) X10*3/uL Eos # (Auto) 0.4 (0.0-0.4) X10*3/uL Baso # (Auto) 0.1 (0.0-0.2) X10*3/uL Abs Immat Gran (auto) 0.03 (0.00-0.03) X10*3/uL Absolute Neuts (auto) 4.8 (2.0-8.3) x10*3/uL Absolute Nucleated RBC 0.000 (0.0-0.012) X10*3/uL Nucleated RBC % (auto) 0.0 (0.0-0.2) /100WBC Sodium 138 (135-145) mmol/L Potassium 4.6 (3.3-5.1) mmol/L Chloride 106 (96-108) mmol/L Carbon Dioxide 25 (22-29) mmol/L Anion Gap 12 (12-20) BUN 10 (9-16) mg/dL Creatinine 0.92 (0.5-1.4) mg/dL Estim Creat Clear Calc 117.0 Estimated GFR > 60 Random Glucose 107 (60-115) mg/dL Calcium 9.1 (8.4-10.2) mg/dL Total Bilirubin 0.4 (0.0-1.0) mg/dL Direct Bilirubin < 0.2 (0.0-0.5) mg/dL AST 14 (5-31) U/L ALT 14 (0-31) U/L Alkaline Phosphatase 75 (39-117) U/L Total Protein 7.2 (6.5-8.0) g/dL Albumin 3.9 (3.5-5.0) g/dL Lipase 24 (8-78) U/L COVID-19 (JOSELINE) Negative (Negative) COVID-19 Clin Com See Note Imaging Data Chest x-ray: Attestation: I personally reviewed and interpreted this imaging study as follows: Radiologist's impression: [id number] [place] [address] XRay Report Signed Patient: Xochilt Thomas MR#: [id number] : 1970 Acct:[id number] Age/Sex: 50 / F ADM Date: 03/10/21 Loc: HO.ED Attending Dr: Ordering Physician: Generic ED Physician Date of Service: 03/10/21 Procedure(s): XR chest 2V Accession Number(s): [id number] cc: Generic ED Physician~ EXAMINATION: XR CHEST CLINICAL INFORMATION: Shortness of breath COMPARISON: 03/31/2019 TECHNIQUE: 2 views of the chest were obtained. FINDINGS: No significant abnormality is noted involving the heart, lungs, mediastinum, bony thorax or soft tissues. XR/XR chest 2V IMPRESSION: Unremarkable examination. Discharge Plan Discharge Clinical Impression: Gastroenteritis, Asthma exacerbation Patient Disposition: Home, Self-Care Instructions: Asthma (ED), Acute Diarrhea (ED) Additional Instructions: your chest x-ray, COVID screen and blood work are all normal. continue to drink fluids Prescriptions: New prednisone 20 mg tablet 40 mg PO DAILY Qty: 10 RF: 0 benzonatate 200 mg capsule 200 mg PO TID PRN (Reason: cough) Qty: 10 RF: 0 No Action ibuprofen 800 mg tablet 800 mg PO Q8H PRN (Reason: pain) Qty: 30 RF: 0 Referrals: Jagdish Evans MD [Primary Care Provider] - 2 days Stand Alone Forms: Work/School Release Interventions: ED Discharge Assessment Last Done: 03/10/21 22:51 Discharge Date/Time: 03/10/21 22:52
== END 2021-03-10 22:52 | disposition home or self-care (01) ==
PROVIDERS: Emergency Provider Emergency Medicine Emergency Medical Services; PCP Internal Medicine
DX: K52.9 Noninfective gastroenteritis and colitis, unspecified (principal); J45.901 Unspecified asthma with (acute) exacerbation; Z79.899 Other long term (current) drug therapy; Z20.822 Contact with and (suspected) exposure to COVID-19
CPT/HCPCS: 36415; 71046; 80048; 80076; 83690; 85025; 87635; 99283; 99284

== ENCOUNTER 2021-03-17 12:14 | Emergency (ER) | payer OTHER, SELFPAY ==
--- NOTE | ~2021-03-17 | XR_ITS ---
EXAMINATION: XR CHEST CLINICAL INFORMATION: Shortness of breath COMPARISON: Chest radiographs 03/10/2021, 03/31/2019 TECHNIQUE: Frontal view of the chest was obtained. FINDINGS: The lungs are clear. There is no airspace consolidation or groundglass opacity. The costophrenic sulci are well-defined. The heart is normal in size. The vascularity is normal. The hilar and mediastinal contours and visualized bony structures are unremarkable. XR/XR chest 1V IMPRESSION: Unremarkable examination.
--- NOTE | ~2021-03-17 | CT_ITS ---
CT head/brain wo con CLINICAL INFORMATION: Reason for Exam pt c headaches and right sided neck pain COMPARISON: No prior CT scan available for comparison. TECHNIQUE: Department standard protocol. This CT examination was performed using dose optimization techniques as appropriate, variously including the following: *Automated exposure control *Adjustment of mA and/or kV according to patient size (this includes techniques or standardized protocols for targeted exams where dose is matched to indication/reason for exam; i.e. extremities or head) *Use of iterative reconstruction technique DLP: 769 mGy-cm FINDINGS: CEREBRAL HEMISPHERES: There is no evidence of intra-axial or extra-axial mass, hemorrhage or acute infarct. BRAIN PARENCHYMA: Normal foster-white matter differentiation. SUBDURAL SPACE: No bleed. BASAL GANGLIA AND PINEAL GLAND: Unremarkable VENTRICLES: Symmetric and normal in size. CEREBELLUM AND BRAINSTEM: No space-occupying mass, hemorrhage or acute infarct. CEREBELLOPONTINE ANGLES: No lesion found. ORBITS: No intraorbital mass. VESSELS: Unremarkable SKULL BASE: Unremarkable INCLUDED SINUSES AT SKULL BASE: Clear SKULL AND SKIN: No fracture or bone lesion found. CT/CT head/brain wo con IMPRESSION: No CT evidence of intracranial space-occupying mass, bleed or infarct. Normal CT scan does not rule out the possibility of hyperacute infarct in the first 12 hours. If patient symptoms persist may consider correlation with MRI, which is more sensitive for early acute infarct.
[2021-03-17 12:41] VITALS: BP 165/77; PULSE 66; RESP 18; TEMP 36.8; O2SAT 98; BMI 50.2
[2021-03-17 16:10] LABS: MANUAL DIFF FLAG NO
[2021-03-17 16:12] LABS: Basophils Absolute Auto 0.1 X10*3/uL (0.0-0.2); Basophils Percent Auto 0.6 % (0-2); Eosinophils Absolute Auto 0.3 X10*3/uL (0.0-0.4); Eosinophils Percent Auto 3.1 % (0-4); Hematocrit 40.8 % (37.0-47.0); Hemoglobin 12.8 g/dl (12.0-16.0); Imm Gran Abs Auto 0.03 X10*3/uL (0.00-0.03); Imm Gran Pct Auto 0.3 % (0.0-0.4); Lymphocytes Absolute Auto 3.4 X10*3/uL (1.2-4.9); Lymphocytes Percent Auto 34.7 % (20-40); Mean Corpuscular HGB Conc 31.4 g/dl (31.0-35.0); Mean Corpuscular Volume 76.5 fL (80.0-98.0); Mean Platelet Volume 10.4 fL (9.4-12.3); Monocytes Absolute Auto 0.7 X10*3/uL (0.1-1.2); Monocytes Percent Auto 7.1 % (2-11); Neutrophils Absolute Auto 5.4 x10*3/uL (2.0-8.3); Neutrophils Percent Auto 54.2 % (45-73); Platelet Count 386 X10*3/uL (160-400); Red Blood Count 5.33 X10*6/uL (4.20-5.50); Red Cell Distribution Width 15.2 % (11.0-16.0); White Blood Count 9.9 X10*3/uL (4.8-10.8)
[2021-03-17 16:26] LABS: Anion Gap 10 (12-20); Blood Urea Nitrogen 8 mg/dL (9-16); Calcium 8.9 mg/dL (8.4-10.2); Carbon Dioxide 26 mmol/L (22-29); Chloride 104 mmol/L (96-108); Creatinine Clr Calc Pharmacy 129.8; Estimated Glomerular Filt Rate > 60; Glucose Random 114 mg/dL (60-115); Sodium 136 mmol/L (135-145)
[2021-03-17 16:31] LABS: COVID-19 Test Negative (Negative)
[2021-03-17 16:32] LABS: B Type Natriuretic Peptide < 10 pg/mL (<100); Troponin-I High Sensitivity < 3.5 ng/L (<3.5-17.0)
--- NOTE | 2021-03-17 17:26 | ED.GENADULT ---
HPI - General Adult General Chief complaint: General Medical Stated complaint: headache/nausea/SOB Time Seen by Provider: 03/17/21 16:55 Source: patient Mode of arrival: ambulatory Limitations: no limitations History of Present Illness HPI narrative: 50-year-old female with a past medical history of asthma presenting to the ED with multiple complaints for the past 8 days which include body aches, lightheadedness when she stands, intermittent headaches right-sided that she describes as pressure and sensation, right-sided neck pain, nausea, cough with white-colored sputum production, chest pain, shortness of breath /dyspnea on exertion, heart flutters, abdominal cramping and resolved diarrhea. She reports that she has been using her albuterol inhaler. She was seen here on 03/10/2021 for same complaints. She denies any measured fevers, dizziness, changes in vision, vomiting, jaw pain, paresthesias, recent travel, bad food exposure, sick contacts, black or bloody stools, constipation, recent hospitalization or antibiotic usage, lower extremity edema or calf tenderness or any other symptoms complaints or concerns at this time. MD complaint: Multiple complaints Onset (ago): day(s) (8) Related Data Previous Rx's Medication Instructions Recorded ibuprofen 800 mg tablet 800 mg PO Q8H PRN #30 tab 06/02/20 benzonatate 200 mg capsule 200 mg PO TID PRN #10 cap 03/10/21 prednisone 20 mg tablet 40 mg PO DAILY #10 tab 03/10/21 azithromycin 250 mg tablet See Rx Instructions .ROUTE 03/17/21 .COMPLEX #6 tab adzxboxkgh-ulyxdszfezxxs-ibkslnre 1 cap PO Q8H PRN #10 cap 03/17/21 50 mg-300 mg-40 mg capsule (Fioricet) diazepam 5 mg tablet (Valium) 5 mg PO TID PRN #14 tab 03/17/21 ondansetron HCl 4 mg tablet 4 mg PO Q8H PRN #14 tab 03/17/21 (Zofran) Allergies Allergy/AdvReac Type Severity Reaction Status Date / Time No Known Allergies Allergy Unknown Verified 12/11/20 02:59 Review of Systems Review of Systems: Constitutional : No Fever, No Chills, No Night Sweats, + Fatigue, + Malaise Cardiovascular : + Chest Pain, + SOB, + NARVAEZ, + Orthopnea, + palpitations Respiratory : + Cough, + Sputum, + Wheezing, + Dyspnea Gastrointestinal : + Nausea, No Vomiting, Resolved Diarrhea, + abdominal cramping, no abdominal pain, Pain, No Hematochezia, No Melena Genitourinary : No irregular bleeding, No Dysuria, No Urinary Frequency, No Hematuria,No Urinary Incontinence, No Urgency, No Flank Pain Musculoskeletal : No joint pain, + Myalgias, No Joint Swelling Skin : No Skin Lesions, No rash Neuro : + headaches, + lightheadedness, No Weakness, No Numbness, No Paresthesias, No Loss of Consciousness, No Dizziness Heme/Lymph: No Lymphadenopathy Endocrine : No Temperature Intolerance Yes all other systems are reviewed and are negative [facility] Past Medical History Attestation statement: The following information was validated with the patient. Medical History Asthma Back pain GERD (gastroesophageal reflux disease) Social History Social History Alcohol intake: never Patient Tobacco Use Status: Never used Tobacco Advance Directives: No Advance Directives Information Provided: No Physical Exam Vital Signs: Vital Signs: Last Vital Signs Temp 98.3 F 03/17/21 12:41 Pulse 75 03/17/21 17:48 Resp 18 03/17/21 17:44 BP 141/66 H 03/17/21 17:48 Pulse Ox 100 03/17/21 17:44 BMI result Body Mass Index 50.2 vital signs have been reviewed as normal and appeared to be correct. Blood pressure normal. Heart rate normal. Respiration rate normal. Temperature normal. Oxygen saturation normal. Appearance: Alert. Oriented X3. No acute distress. Head: Normal external exam. Normocephalic. Atraumatic. No Sanchez signs noted. No raccoon eyes noted Eyes: PERRLA. EOMI. Conjunctiva and sclera normal. Eyelids normal. ENT: EAC normal. TM's Normal. Pharynx normal. Uvula midline. Moist mucous membranes. No trismus noted. No drooling noted. No muffled voice noted. Neck: Normal inspection. Neck supple. FROM. No adenopathy. Thyroid Normal. No meningeal signs. No neck mass noted. CVS: Normal heart rate and rhythm. Heart sound normal. Pulses normal throughout. No murmurs/rales/gallops. Respiratory: No respiratory distress. Painless inspiration. Breath sounds normal. No wheezes/rales/rhonchi noted. Chest nontender. No accessory muscle usage noted or decreased air movement noted. Abdomen: Soft and nontender. Bowel sounds normal in all 4 quadrants. No distention noted. No organomegaly noted. No visible injury noted. Back: No CVA tenderness. Full range of motion noted. No rashes/lesion/induration/fluctuance or signs of infection noted. Skin: Skin warm and dry. Normal skin color. Normal skin turgor. No rashes/lesions/lacerations noted. Extremities: No lower extremity edema. Extremities exhibit normal range of motion. Extremities nontender. Neuro: Oriented X 3. No motor deficit. No sensory deficit. Reflexes normal. Normal steady gait. No focal neuro deficits noted. Vascular: + radial pulses/+ 2 distal pedal pulses/+2 dorsalis pedis b/l. Normal cap refill. No cyanosis noted to upper extremity nails and lower extremity toes nails. Course Course Course Narrative: 18:30pm - CT scan negative for any acute processes therefore at this time I believe patient has viral syndrome and migraine headaches due to her symptoms have been going on for 8 days I do not believe that this is a stroke. Therefore at this time will DC home with symptomatic treatment instructions return if any new or worsening symptoms to follow up with primary care provider. Medical Decision Making [facility] Narrative Medical decision making narrative: 17:20 - 50-year-old female with a past medical history of asthma presenting to the ED with multiple complaints for the past 8 days which include body aches, lightheadedness when she stands, intermittent headaches right-sided that she describes as pressure and sensation, right-sided neck pain, nausea, cough with white-colored sputum production, chest pain, shortness of breath /dyspnea on exertion, heart flutters, abdominal cramping and resolved diarrhea. She reports that she has been using her albuterol inhaler. She was seen here on 03/10/2021 for same complaints. She denies any measured fevers, dizziness, changes in vision, vomiting, jaw pain, paresthesias, recent travel, bad food exposure, sick contacts, black or bloody stools, constipation, recent hospitalization or antibiotic usage, lower extremity edema or calf tenderness or any other symptoms complaints or concerns at this time. On exam patient is alert and oriented x3. Not in any acute distress. No focal Neuro deficits are noted. Normal steady gait. labs were obtained in triage and all within normal limits including troponin BNP. Patient negative for COVID again. Chest x-ray within normal limits no acute processes are noted. EKG is normal sinus rhythm no acute ischemic change are noted. Therefore this time will obtain a CT scan of brain provide symptomatic treatment with 4 mg of Zofran and if all within normal limits will DC home with viral syndrome and symptomatic treatment instructions return if any new or worsening symptoms as all the patient's labs were within normal limits and she had 2- COVID no imaging of her abdomen indicated as patient reports abdominal cramping although her abdomen is soft and nontender and she reports she does not have any pain on palpation either and she is agreeable to this. Will re-evaluate. Medical Records Medical records reviewed: Yes I reviewed the patient's medical records. Lab Data Lab results reviewed: Yes I reviewed the patient's lab results. Result diagrams: 03/17/21 16:05 03/17/21 16:05 Labs: Lab Results 03/17/21 03/17/21 03/17/21 Range/Units 16:05 16:05 16:05 WBC 9.9 (4.8-10.8) X10*3/uL RBC 5.33 (4.20-5.50) X10*6/uL Hgb 12.8 (12.0-16.0) g/dl Hct 40.8 (37.0-47.0) % MCV 76.5 L (80.0-98.0) fL MCH 24.0 L (27.0-33.0) pg MCHC 31.4 (31.0-35.0) g/dl RDW 15.2 (11.0-16.0) % Plt Count 386 (160-400) X10*3/uL MPV 10.4 (9.4-12.3) fL Immature Gran % (Auto) 0.3 (0.0-0.4) % Neut % (Auto) 54.2 (45-73) % Lymph % (Auto) 34.7 (20-40) % Wythe % (Auto) 7.1 (2-11) % Eos % (Auto) 3.1 (0-4) % Baso % (Auto) 0.6 (0-2) % Lymph # (Auto) 3.4 (1.2-4.9) X10*3/uL Wythe # (Auto) 0.7 (0.1-1.2) X10*3/uL Eos # (Auto) 0.3 (0.0-0.4) X10*3/uL Baso # (Auto) 0.1 (0.0-0.2) X10*3/uL Abs Immat Gran (auto) 0.03 (0.00-0.03) X10*3/uL Absolute Neuts (auto) 5.4 (2.0-8.3) x10*3/uL Absolute Nucleated RBC 0.000 (0.0-0.012) X10*3/uL Nucleated RBC % (auto) 0.0 (0.0-0.2) /100WBC Sodium 136 (135-145) mmol/L Potassium 4.0 (3.3-5.1) mmol/L Chloride 104 (96-108) mmol/L Carbon Dioxide 26 (22-29) mmol/L Anion Gap 10 L (12-20) BUN 8 L (9-16) mg/dL Creatinine 0.83 (0.5-1.4) mg/dL Estim Creat Clear Calc 129.8 Estimated GFR > 60 Random Glucose 114 (60-115) mg/dL Calcium 8.9 (8.4-10.2) mg/dL Troponin I High Sens < 3.5 (<3.5-17.0) ng/L B-Natriuretic Peptide < 10 (<100) pg/mL COVID-19 (JOSELINE) (Negative) COVID-19 Clin Com 03/17/21 Range/Units 16:05 WBC (4.8-10.8) X10*3/uL RBC (4.20-5.50) X10*6/uL Hgb (12.0-16.0) g/dl Hct (37.0-47.0) % MCV (80.0-98.0) fL MCH (27.0-33.0) pg MCHC (31.0-35.0) g/dl RDW (11.0-16.0) % Plt Count (160-400) X10*3/uL MPV (9.4-12.3) fL Immature Gran % (Auto) (0.0-0.4) % Neut % (Auto) (45-73) % Lymph % (Auto) (20-40) % Wythe % (Auto) (2-11) % Eos % (Auto) (0-4) % Baso % (Auto) (0-2) % Lymph # (Auto) (1.2-4.9) X10*3/uL Wythe # (Auto) (0.1-1.2) X10*3/uL Eos # (Auto) (0.0-0.4) X10*3/uL Baso # (Auto) (0.0-0.2) X10*3/uL Abs Immat Gran (auto) (0.00-0.03) X10*3/uL Absolute Neuts (auto) (2.0-8.3) x10*3/uL Absolute Nucleated RBC (0.0-0.012) X10*3/uL Nucleated RBC % (auto) (0.0-0.2) /100WBC Sodium (135-145) mmol/L Potassium (3.3-5.1) mmol/L Chloride (96-108) mmol/L Carbon Dioxide (22-29) mmol/L Anion Gap (12-20) BUN (9-16) mg/dL Creatinine (0.5-1.4) mg/dL Estim Creat Clear Calc Estimated GFR Random Glucose (60-115) mg/dL Calcium (8.4-10.2) mg/dL Troponin I High Sens (<3.5-17.0) ng/L B-Natriuretic Peptide (<100) pg/mL COVID-19 (JOSELINE) Negative (Negative) COVID-19 Clin Com See Note Imaging Data Chest x-ray: Attestation: I personally reviewed and interpreted this imaging study as follows: Radiologist's impression: FINDINGS: The lungs are clear. There is no airspace consolidation or groundglass opacity. The costophrenic sulci are well-defined. The heart is normal in size. The vascularity is normal. The hilar and mediastinal contours and visualized bony structures are unremarkable. XR/XR chest 1V IMPRESSION: Unremarkable examination. CT scan of brain without contrast: Attestation: I personally reviewed and interpreted this imaging study as follows: Radiologist's impression: FINDINGS: ? CEREBRAL HEMISPHERES: There is no evidence of intra-axial or extra-axial mass, hemorrhage or acute infarct. BRAIN PARENCHYMA: Normal foster-white matter differentiation. SUBDURAL SPACE: No bleed. BASAL GANGLIA AND PINEAL GLAND: Unremarkable VENTRICLES: Symmetric and normal in size. CEREBELLUM AND BRAINSTEM: No space-occupying mass, hemorrhage or acute infarct. CEREBELLOPONTINE ANGLES: No lesion found. ORBITS: No intraorbital mass. VESSELS: Unremarkable SKULL BASE: Unremarkable INCLUDED SINUSES AT SKULL BASE: Clear SKULL AND SKIN: No fracture or bone lesion found. CT/CT head/brain wo con IMPRESSION: No CT evidence of intracranial space-occupying mass, bleed or infarct. ? Normal CT scan does not rule out the possibility of hyperacute infarct in the first 12 hours. If patient symptoms persist may consider correlation with MRI, which is more sensitive for early acute infarct. ECG Data Attestation: I personally reviewed and interpreted this ECG as follows: Interpretation: Normal sinus rhythm with a ventricular rate of 63 with a normal PA interval normal QRS duration normal QT/ QTC interval. No acute ischemic change are noted. No prior EKGs to compare to at this time. Discharge Plan Discharge Clinical Impression: Acute viral syndrome, Headache, migraine, Bronchitis Patient Disposition: Home, Self-Care Instructions: Migraine Headache (ED), Acute Bronchitis (ED), Viral Syndrome (ED) Prescriptions: New azithromycin 250 mg tablet See Rx Instructions .ROUTE .COMPLEX Qty: 6 RF: 0 ondansetron HCl [Zofran] 4 mg tablet 4 mg PO Q8H PRN (Reason: nausea and vomiting) Qty: 14 RF: 0 diazepam [Valium] 5 mg tablet 5 mg PO TID PRN (Reason: muscle spasm) Qty: 14 RF: 0 byaybbshan-hwjzrwbzpubhw-tahz [Fioricet] 50-300-40 mg capsule 1 cap PO Q8H PRN (Reason: pain) Qty: 10 RF: 0 No Action ibuprofen 800 mg tablet 800 mg PO Q8H PRN (Reason: pain) Qty: 30 RF: 0 prednisone 20 mg tablet 40 mg PO DAILY Qty: 10 RF: 0 benzonatate 200 mg capsule 200 mg PO TID PRN (Reason: cough) Qty: 10 RF: 0 Referrals: Jagdish Evans MD [Primary Care Provider] - 2 days Print Language: Grenadian
--- NOTE | 2021-03-17 17:39 | ECG_ITS ---
Test Reason : HEADACHE Blood Pressure : / mmHG Vent. Rate : 063 BPM Atrial Rate : 063 BPM P-R Int : 148 ms QRS Dur : 092 ms QT Int : 432 ms P-R-T Axes : 054 024 030 degrees QTc Int : 442 ms Normal sinus rhythm Normal ECG When compared with ECG of 09-AUG-2011 13:40, Vent. rate has decreased BY 38 BPM Referred By: Carmelita Raya Electronically Signed By:BOOGIE MANN MD
[2021-03-17] MEDS: Ondansetron ODT 4 MG TAB.RAPDIS TRANSLINGU (17:43)
[2021-03-17 17:44] VITALS: BP 138/71; PULSE 61; RESP 18; O2SAT 100
[2021-03-17 17:46] VITALS: BP 138/71; PULSE 65
[2021-03-17 17:47] VITALS: BP 137/64; PULSE 74
[2021-03-17 17:48] VITALS: BP 141/66; PULSE 75
[2021-03-17] MEDS: Ketorolac Tromethamine 30 MG/ML VIAL 15 MG IM (19:11)
[2021-03-17] MEDS: Butalb/Acetamin/Caff 50/325/40 TABLET 1 TAB PO (19:11)
== END 2021-03-17 19:18 | disposition home or self-care (01) ==
PROVIDERS: Emergency Provider Emergency Medicine; PCP Internal Medicine
DX: B34.9 Viral infection, unspecified (principal); G43.909 Migraine, unspecified, not intractable, without status migrainosus; J40 Bronchitis, not specified as acute or chronic; R06.02 Shortness of breath; Z20.822 Contact with and (suspected) exposure to COVID-19
CPT/HCPCS: 36415; 70450; 71045; 80048; 83880; 84484; 85025; 87635; 93005; 96372; 99284; J1885

== ENCOUNTER 2021-11-16 09:17 | Outpatient (REF) | payer OTHER, SELFPAY ==
[2021-11-16 10:09] LABS: COVID-19 Test Negative (Negative); IDNOW Serial# 9DB6401D
== END 2021-11-16 09:18 | disposition home or self-care (01) ==
LOC: HO.LAB 09:17
PROVIDERS: PCP Internal Medicine; Visit Provider Internal Medicine
DX: Z20.822 Contact with and (suspected) exposure to COVID-19 (principal)
CPT/HCPCS: 87635; C9803

== ENCOUNTER 2021-12-24 05:54 | Emergency (ER) | payer OTHER, SELFPAY ==
--- NOTE | ~2021-12-24 | CT_ITS ---
EXAMINATION: CT ABDOMEN AND PELVIS WITHOUT CONTRAST CLINICAL INFORMATION: Right-sided flank pain COMPARISON: CT abdomen pelvis 12/11/2020 TECHNIQUE: Multidetector volumetric imaging was performed from the superior aspect of the liver through the pubic symphysis. Sagittal and coronal reformatted images were obtained on the technologist's workstation. This CT examination was performed using dose optimization techniques as appropriate, variously including the following: *Automated exposure control *Adjustment of mA and/or kV according to patient size (this includes techniques or standardized protocols for targeted exams where dose is matched to indication/reason for exam; i.e. extremities or head) *Use of iterative reconstruction technique DLP: 1491 mGy-cm FINDINGS: LUNG BASES: The visualized lung bases are unremarkable. LIVER, GALLBLADDER, AND BILIARY TREE: The liver is again noted to be enlarged measuring 22 cm decreased from 26 cm in greatest length and still demonstrates decreased attenuation consistent with hepatic steatosis. No liver masses or bile duct dilatation is seen. Again seen is a small calcified stone at the neck of the gallbladder measuring 3 mm in size but is otherwise unremarkable with no evidence of gallbladder wall thickening, or obvious pericholecystic inflammatory changes. PANCREAS: Unremarkable. SPLEEN: Unremarkable. ADRENAL GLANDS: Unremarkable. KIDNEYS AND URETERS: The kidneys are normal in size, shape, and attenuation. No hydronephrosis, hydroureter, or calculi seen. No perinephric stranding. BLADDER: Unremarkable. GASTROINTESTINAL TRACT: The small and large bowel are unremarkable aside from some minimal colonic diverticular changes without diverticulitis. The appendix is unremarkable. ABDOMINAL WALL: No significant hernia is appreciated. LYMPH NODES: Normal. VASCULAR: Unremarkable. PELVIC VISCERA: Anteverted uterus appears normal. An abnormal adnexal mass is not seen. No free intraperitoneal fluid is seen. OSSEOUS STRUCTURES: Degenerative changes are present predominantly at L4-L5 and L5-S1. CT/CT abdomen pelvis wo IV con IMPRESSION: 1. Enlarged fatty liver, however decreased in size since the prior study 2. A cause for the patient's right-sided flank pain has not been found.
[2021-12-24 06:35] VITALS: BP 146/73; PULSE 74; RESP 19; TEMP 36.9; O2SAT 97; BMI 50.9
[2021-12-24 08:50] VITALS: BP 127/78; RESP 14; TEMP 36.8; O2SAT 99
--- NOTE | 2021-12-24 08:54 | ED.FEMALEGU ---
HPI - Female Genitourinary General Chief complaint: Urogenital-Female Stated complaint: lower/middle back pain Time Seen by Provider: 12/24/21 08:49 Source: patient Mode of arrival: ambulatory Limitations: no limitations History of Present Illness HPI Narrative: 51 yo female with history of GERD, asthma here with complaints of mid/low back pain with radiation to right abdomen since yesterday. No urinary symptoms, fevers, chills, nausea, vomiting, diarrhea. Related Data Previous Rx's Medication Instructions Recorded ibuprofen 800 mg tablet 800 mg PO Q8H PRN pain #30 tabs 06/02/20 benzonatate 200 mg capsule 200 mg PO TID PRN cough #10 caps 03/10/21 prednisone 20 mg tablet 40 mg PO DAILY #10 tabs 03/10/21 azithromycin 250 mg tablet See Rx Instructions PO .COMPLEX #6 03/17/21 tabs vckxcaxjkb-eyvusidzqnpst-uguernrx 1 cap PO Q8H PRN pain #10 caps 03/17/21 50 mg-300 mg-40 mg capsule (Fioricet) diazepam 5 mg tablet (Valium) 5 mg PO TID PRN muscle spasm #14 03/17/21 tabs ondansetron HCl 4 mg tablet 4 mg PO Q8H PRN nausea and 03/17/21 (Zofran) vomiting #14 tabs Allergies Allergy/AdvReac Type Severity Reaction Status Date / Time No Known Allergies Allergy Unknown Verified 12/24/21 06:34 Review of Systems Review of Systems: Yes all other systems are reviewed and are negative Constitutional: Constitutional: Reports no additional constitutional complaints, Denies body ache(s), Denies chills, Denies fever(s), Denies headache(s) and Denies weakness Eyes: Eyes: Reports no additional eye complaints and Denies change in vision ENT: Reports system reviewed and no additional complaints, except as documented, Denies dizziness, Denies headache(s), Denies nasal congestion, Denies nasal discharge and Denies neck pain Cardiovascular: Cardiovascular: Reports no additional cardiovascular complaints, Denies chest pain, Denies leg edema and Denies dyspnea Respiratory: Respiratory: Reports no additional respiratory complaints, Denies cough and Denies dyspnea Gastrointestinal: Gastrointestinal: Reports no additional gastrointestinal complaints, Reports abdominal pain, Denies diarrhea, Denies nausea and Denies vomiting Genitourinary: Genitourinary: Reports no additional female genitourinary complaints and Denies urinary incontinence Musculoskeletal: Musculoskeletal: Reports no additional musculoskeletal complaints, Reports back pain, Denies arthralgias, Denies joint swelling, Denies neck pain, Denies numbness and Denies tingling Integumentary/Breasts: Skin/Breast: Reports system reviewed and no additional complaints, except as docu and Denies rash Neurologic: Reports system reviewed and no additional complaints, except as documented, Denies Abnormal speech present, Denies dizziness, Denies headache(s), Denies numbness, Denies tingling and Denies weakness [facility] Past Medical History Attestation statement: The following information was validated with the patient. Source: old records reviewed and nursing notes reviewed Medical History Asthma Back pain GERD (gastroesophageal reflux disease) Social History Social History Alcohol intake: never Patient Tobacco Use Status: Never used Tobacco Advance Directives: No Advance Directives Information Provided: No Physical Exam Vital Signs: Vital Signs: Last Vital Signs Temp 98.3 F 12/24/21 11:10 Pulse 56 12/24/21 11:10 Resp 18 12/24/21 11:10 BP 150/82 H 12/24/21 11:10 Pulse Ox 100 12/24/21 11:10 O2 Del Method 12/24/21 11:10 BMI result Body Mass Index 50.9 Const: General: cooperative, healthy appearing, comfortable and no acute distress Orientation/consciousness: patient oriented x3 Limitations: no limitations HEENT: Head: Yes normal to inspection Ears: hearing grossly normal bilaterally General nose exam: Normal external nose present Face and sinus: Yes normal facial exam Mouth: Normal oral and palatal mucosa present Throat: Yes posterior oropharynx normal Eyes: General: appearance normal, both eyes and all related structures Pupils: Equal, round and reactive pupils present Neck: Neck: Yes normal visual inspection Chest: Chest palpation & inspection: normal inspection of the chest Resp: Effort & Inspection: normal respiratory effort Auscultation: clear to auscultation bilaterally Cardio: Rate: regular rate Rhythm: regular rhythm Peripheral pulses: Peripheral pulses 2+ throughout GI: Inspection: Yes normal to inspection Palpation (GI): Soft to palpation and Tenderness to palpation present (GI) (RUQ/RLQ) Auscultation: normal bowel sounds : General: Yes no CVA tenderness Back/Spine/Pelvis: Back: no CVA tenderness Thoracic/Lumbar Spine: thoracic and lumbar spine normal to inspection Skin: General skin exam: no rashes or lesions noted Neuro: General: patient oriented x3, no focal motor deficits and normal sensation to monofilament Cranial nerves: Yes Equal, round and reactive pupils present Cognition (Neuro): normal cognition Speech: No Abnormal speech present Gait exam (Neuro): Normal gait present Motor exam (neuro): 5/5 motor strength present throughout Extrem: General: Yes normal to inspection Course Course Course Narrative: 1000-Ct shows small calcified stone in GB measuring 3mm with no evidence of acute kim. No leukocytosis or fever. Normal liver panel and lipase. Pain well controlled after toradol. Likely biliary colic. Reviewed this with patient. Will refer to general surgery for follow-up outpatient. UA shows moderate RBC. No signs of infection. No gross hematuria. Reviewed worrisome signs/symptoms with patient and when to seek additional care. Comfortable with discharge home. MDM - Female Genitourinary MDM Narrative Medical decision making narrative: 51 yo female here with back pain with radiation to right abdomen since yesterday Will need labs, UA, CT, analgesia Differential Diagnosis Differential diagnosis: Likely urinary tract infection (pyelo, renal colic, cholecystitis ) Medical Records Attestation: I reviewed the patient's medical records. Lab Data Attestation: I reviewed the patient's lab results. Result diagrams: 12/24/21 09:12/24/21 09:28 Labs: Lab Results 12/24/21 12/24/21 12/24/21 Range/Units 09:28 09:28 09:28 WBC 10.5 (4.8-10.8) X10*3/uL RBC 5.60 H (4.20-5.50) X10*6/uL Hgb 13.4 (12.0-16.0) g/dl Hct 42.6 (37.0-47.0) % MCV 76.1 L (80.0-98.0) fL MCH 23.9 L (27.0-33.0) pg MCHC 31.5 (31.0-35.0) g/dl RDW 15.9 (11.0-16.0) % Plt Count 384 (160-400) X10*3/uL MPV 10.2 (9.4-12.3) fL Immature Gran % (Auto) 0.5 H (0.0-0.4) % Neut % (Auto) 55.9 (45-73) % Lymph % (Auto) 33.7 (20-40) % Crisp % (Auto) 6.6 (2-11) % Eos % (Auto) 2.6 (0-4) % Baso % (Auto) 0.7 (0-2) % Lymph # (Auto) 3.5 (1.2-4.9) X10*3/uL Crisp # (Auto) 0.7 (0.1-1.2) X10*3/uL Eos # (Auto) 0.3 (0.0-0.4) X10*3/uL Baso # (Auto) 0.1 (0.0-0.2) X10*3/uL Abs Immat Gran (auto) 0.05 H (0.00-0.03) X10*3/uL Absolute Neuts (auto) 5.9 (2.0-8.3) x10*3/uL Absolute Nucleated RBC 0.000 (0.0-0.012) X10*3/uL Nucleated RBC % (auto) 0.0 (0.0-0.2) /100WBC Sodium 138 (135-145) mmol/L Potassium 4.4 (3.3-5.1) mmol/L Chloride 103 (96-108) mmol/L Carbon Dioxide 24 (22-29) mmol/L Anion Gap 15 (12-20) BUN 10 (9-16) mg/dL Creatinine 0.87 (0.5-1.4) mg/dL Estim Creat Clear Calc 123.5 Estimated GFR > 60 Random Glucose 108 (60-115) mg/dL Calcium 9.1 (8.4-10.2) mg/dL Total Bilirubin 0.5 (0.0-1.0) mg/dL Direct Bilirubin 0.2 (0.0-0.5) mg/dL AST 16 (5-31) U/L ALT 19 (0-31) U/L Alkaline Phosphatase 76 (39-117) U/L Total Protein 7.3 (6.5-8.0) g/dL Albumin 4.0 (3.5-5.0) g/dL Lipase 26 (8-78) U/L Urine Color Yellow Urine Appearance Clear Urine pH 5.5 (5.0-9.0) Ur Specific Artemas 1.010 (1.005-1.025) Urine Protein Negative (Neg-Trace) mg/dL Urine Glucose (UA) Negative (Negative) mg/dL Urine Ketones Negative (Negative) mg/dL Urine Blood Moderate (2+) H (Negative) Urine Nitrite Negative (Negative) Ur Leukocyte Esterase Negative (Negative) Urine RBC 0-2 (0-2) /HPF Urine WBC 0-5 (0-5) /HPF Ur Squamous Epith Cells 3-5 (0-2) /HPF Urine Bacteria None Seen (None Seen) Hyaline Casts 0-2 (0-2) /LPF Imaging Data CT scan - abdomen: Attestation: I personally reviewed and interpreted this imaging study as follows: Radiologist's impression: [place] [id number] CT Scan Report Signed Patient: Xochilt Thomas MR#: [id number] : 1970 Acct:[id number] Age/Sex: 51 / F ADM Date: 12/24/21 Loc: .ED Attending Dr: Ordering Physician: Lindsay Sampson NP Date of Service: 12/24/21 Procedure(s): CT abdomen pelvis wo IV con Accession Number(s): [id number] cc: Lindsay Sampson NP~ EXAMINATION: CT ABDOMEN AND PELVIS WITHOUT CONTRAST? CLINICAL INFORMATION: Right-sided flank pain? COMPARISON: CT abdomen pelvis 12/11/2020? TECHNIQUE: Multidetector volumetric imaging was performed from the superior aspect of the liver through the pubic symphysis. Sagittal and coronal reformatted images were obtained on the technologist's workstation.? This CT examination was performed using dose optimization techniques as appropriate, variously including the following: *Automated exposure control *Adjustment of mA and/or kV according to patient size (this includes techniques or standardized protocols for targeted exams where dose is matched to indication/reason for exam; i.e. extremities or head) *Use of iterative reconstruction technique DLP: 1491 mGy-cm FINDINGS: LUNG BASES: The visualized lung bases are unremarkable.? LIVER, GALLBLADDER, AND BILIARY TREE: The liver is again noted to be enlarged measuring 22 cm decreased from 26 cm in greatest length and still demonstrates decreased attenuation consistent with hepatic steatosis. No liver masses or bile duct dilatation is seen. Again seen is a small calcified stone at the neck of the gallbladder measuring 3 mm in size but is otherwise unremarkable with no evidence of gallbladder wall thickening, or obvious pericholecystic inflammatory changes. PANCREAS: Unremarkable.? SPLEEN: Unremarkable.? ADRENAL GLANDS: Unremarkable.? KIDNEYS AND URETERS: The kidneys are normal in size, shape, and attenuation. No hydronephrosis, hydroureter, or calculi seen. No perinephric stranding. ? BLADDER: Unremarkable.? GASTROINTESTINAL TRACT: The small and large bowel are unremarkable aside from some minimal colonic diverticular changes without diverticulitis. The appendix is unremarkable.? ABDOMINAL WALL: No significant hernia is appreciated.? LYMPH NODES: Normal. VASCULAR: Unremarkable. PELVIC VISCERA: Anteverted uterus appears normal. An abnormal adnexal mass is not seen. No free intraperitoneal fluid is seen. OSSEOUS STRUCTURES: Degenerative changes are present predominantly at L4-L5 and L5-S1.? CT/CT abdomen pelvis wo IV con IMPRESSION: 1.? Enlarged fatty liver, however decreased in size since the prior study 2.? A cause for the patient's right-sided flank pain has not been found. ? Discharge Plan Discharge Clinical Impression: Gallstone Patient Disposition: Home, Self-Care Instructions: Gallstones (ED) Additional Instructions: Low fat diet Return for severe pain, fever, vomiting Follow-up with general surgery for removal for continued episodes Prescriptions: No Action ibuprofen 800 mg tablet 800 mg PO Q8H PRN (Reason: pain) Qty: 30 0RF prednisone 20 mg tablet 40 mg PO DAILY Qty: 10 0RF benzonatate 200 mg capsule 200 mg PO TID PRN (Reason: cough) Qty: 10 0RF azithromycin 250 mg tablet See Rx Instructions .ROUTE .COMPLEX Qty: 6 0RF Rx Instructions: take 500 mg today (day 1), then 250 mg for 4 days (days 2-5) ondansetron HCl [Zofran] 4 mg tablet 4 mg PO Q8H PRN (Reason: nausea and vomiting) Qty: 14 0RF diazepam [Valium] 5 mg tablet 5 mg PO TID PRN (Reason: muscle spasm) Qty: 14 0RF tynrsfoacc-ailwnljclxykq-xgzj [Fioricet] 50-300-40 mg capsule 1 cap PO Q8H PRN (Reason: pain) Qty: 10 0RF Referrals: Isaías Pickard MD [Physician] - 1 week Stand Alone Forms: Work/School Release
[2021-12-24] MEDS: Ketorolac Tromethamine 60 MG/2 ML VIAL IM (09:31)
[2021-12-24 09:33] LABS: MANUAL DIFF FLAG NO
[2021-12-24 09:39] LABS: Appearance Urine Clear; Color Urine Yellow; Glucose Urine UA Negative (Negative); Leukocyte Esterase Urine Negative (Negative); Nitrite Urine Negative (Negative); PH 5.5 (5.0-9.0); UMIC TRIGGER UACC YES; Urine Blood Moderate (2+) (Negative); Urine Ketones Negative (Negative); Urine Protein Negative (Neg-Trace)
[2021-12-24 09:49] LABS: Bacteria Urine None Seen (None Seen); Hyaline Casts Urine 0-2 /LPF (0-2); RBC Urine 0-2 /HPF (0-2); WBC Urine 0-5 /HPF (0-5)
[2021-12-24 09:50] LABS: Basophils Absolute Auto 0.1 X10*3/uL (0.0-0.2); Basophils Percent Auto 0.7 % (0-2); Eosinophils Absolute Auto 0.3 X10*3/uL (0.0-0.4); Eosinophils Percent Auto 2.6 % (0-4); Hematocrit 42.6 % (37.0-47.0); Hemoglobin 13.4 g/dl (12.0-16.0); Imm Gran Abs Auto 0.05 X10*3/uL (0.00-0.03); Imm Gran Pct Auto 0.5 % (0.0-0.4); Lymphocytes Absolute Auto 3.5 X10*3/uL (1.2-4.9); Lymphocytes Percent Auto 33.7 % (20-40); Mean Corpuscular HGB Conc 31.5 g/dl (31.0-35.0); Mean Corpuscular Hemoglobin 23.9 pg (27.0-33.0); Mean Corpuscular Volume 76.1 fL (80.0-98.0); Mean Platelet Volume 10.2 fL (9.4-12.3); Monocytes Absolute Auto 0.7 X10*3/uL (0.1-1.2); Monocytes Percent Auto 6.6 % (2-11); Neutrophils Absolute Auto 5.9 x10*3/uL (2.0-8.3); Neutrophils Percent Auto 55.9 % (45-73); Platelet Count 384 X10*3/uL (160-400); Red Cell Distribution Width 15.9 % (11.0-16.0); White Blood Count 10.5 X10*3/uL (4.8-10.8)
[2021-12-24 10:01] LABS: Alanine Aminotransferase 19 U/L (0-31); Alkaline Phosphatase 76 U/L (39-117); Anion Gap 15 (12-20); Aspartate Amino Transferase 16 U/L (5-31); Bilirubin Direct 0.2 mg/dL (0.0-0.5); Bilirubin Total 0.5 mg/dL (0.0-1.0); Blood Urea Nitrogen 10 mg/dL (9-16); Calcium 9.1 mg/dL (8.4-10.2); Carbon Dioxide 24 mmol/L (22-29); Chloride 103 mmol/L (96-108); Creatinine Clr Calc Pharmacy 123.5; Estimated Glomerular Filt Rate > 60; Glucose Random 108 mg/dL (60-115); Potassium 4.4 mmol/L (3.3-5.1); Sodium 138 mmol/L (135-145); Total Protein 7.3 g/dL (6.5-8.0)
[2021-12-24 10:56] LABS: Lipase 26 U/L (8-78)
[2021-12-24 11:10] VITALS: BP 150/82; PULSE 56; RESP 18; TEMP 36.8; O2SAT 100
== END 2021-12-24 11:24 | disposition home or self-care (01) ==
PROVIDERS: Nurse Practitioner Family; Emergency Provider Emergency Medicine; PCP Internal Medicine
DX: K80.80 Other cholelithiasis without obstruction (principal); M54.50 Low back pain, unspecified; R10.9 Unspecified abdominal pain; Z79.899 Other long term (current) drug therapy
CPT/HCPCS: 36415; 74176; 80048; 80076; 81001; 83690; 85025; 96372; 99284; J1885

== ENCOUNTER 2022-11-04 21:46 | Emergency (ER) | payer OTHER, SELFPAY ==
--- NOTE | 2022-11-04 | ECG_ITS ---
Test Reason : cp Blood Pressure : / mmHG Vent. Rate : 061 BPM Atrial Rate : 061 BPM P-R Int : 160 ms QRS Dur : 100 ms QT Int : 416 ms P-R-T Axes : 004 004 031 degrees QTc Int : 418 ms Normal sinus rhythm Low voltage QRS Borderline ECG When compared with ECG of 17-MAR-2021 17:53, No significant change was found Referred By: Mickie Diez Electronically Signed By:BRITTANY AVILES
--- NOTE | ~2022-11-04 | XR_ITS ---
XR/XR chest 2V IMPRESSION: Unremarkable chest examination. EXAMINATION: XR CHEST CLINICAL INFORMATION: Chest pain COMPARISON: Chest x-ray 03/17/2021 TECHNIQUE: 2 views of the chest were obtained. FINDINGS: No significant abnormality is noted involving the heart, lungs, mediastinum, bony thorax or soft tissues.
[2022-11-04 21:48] VITALS: BP 142/86; PULSE 62; RESP 22; TEMP 36.8; O2SAT 96; BMI 50.2
[2022-11-04 22:11] LABS: MANUAL DIFF FLAG NO
[2022-11-04 22:13] LABS: Basophils Absolute Auto 0.1 X10*3/uL (0.0-0.2); Basophils Percent Auto 0.7 % (0-2); Eosinophils Absolute Auto 0.4 X10*3/uL (0.0-0.4); Eosinophils Percent Auto 4.3 % (0-4); Hemoglobin 12.6 g/dl (12.0-16.0); Imm Gran Abs Auto 0.03 X10*3/uL (0.00-0.03); Imm Gran Pct Auto 0.3 % (0.0-0.4); Lymphocytes Absolute Auto 3.3 X10*3/uL (1.2-4.9); Lymphocytes Percent Auto 33.6 % (20-40); Mean Corpuscular HGB Conc 31.5 g/dl (31.0-35.0); Mean Corpuscular Hemoglobin 23.6 pg (27.0-33.0); Mean Corpuscular Volume 74.8 fL (80.0-98.0); Mean Platelet Volume 10.1 fL (9.4-12.3); Monocytes Absolute Auto 0.7 X10*3/uL (0.1-1.2); Monocytes Percent Auto 6.8 % (2-11); Neutrophils Absolute Auto 5.4 x10*3/uL (2.0-8.3); Neutrophils Percent Auto 54.3 % (45-73); Platelet Count 342 X10*3/uL (160-400); Red Blood Count 5.35 X10*6/uL (4.20-5.50); Red Cell Distribution Width 15.6 % (11.0-16.0); White Blood Count 9.9 X10*3/uL (4.8-10.8)
[2022-11-04 22:25] LABS: COVID-19 Test Negative (Negative); IDNOW Serial# BCCEAD1C
[2022-11-04 22:30] LABS: Alanine Aminotransferase 17 U/L (0-31); Albumin Level 3.8 g/dL (3.5-5.0); Alkaline Phosphatase 68 U/L (39-117); Anion Gap 16 (12-20); Aspartate Amino Transferase 13 U/L (5-31); Bilirubin Total 0.3 mg/dL (0.0-1.0); Blood Urea Nitrogen 11 mg/dL (9-16); Calcium 9.2 mg/dL (8.4-10.2); Carbon Dioxide 21 mmol/L (22-29); Chloride 105 mmol/L (96-108); Creatinine Clr Calc Pharmacy 125.3; Estimated Glomerular Filt Rate > 60; Glucose Random 108 mg/dL (60-115); Sodium 138 mmol/L (135-145); Total Protein 7.3 g/dL (6.5-8.0)
[2022-11-04 22:37] LABS: Troponin-I High Sensitivity < 2.7 ng/L (<3.5-17.0)
[2022-11-04 22:42] VITALS: BP 153/92; PULSE 56; RESP 19; TEMP 36.9; O2SAT 98
--- NOTE | 2022-11-04 22:43 | ED.ASTHMA ---
HPI - Asthma General Chief Complaint: Asthma Stated Complaint: Chest Pain/asthma Time Seen by Provider: 11/04/22 22:35 Source: patient Mode of arrival: ambulatory Limitations: no limitations History of Present Illness HPI Narrative: 51-year-old female with history of asthma came in for evaluation of SOB with wheezing and coughing for 3 days, mid chest pain for 1 day. Known history of asthma patient use albuterol at home with no relief for the past 3 days patient overall feel body ache, no recent travel, no recent exposure to a sick contacts, no lower extremity swelling or tenderness. Patient with coughing is getting sharp mid chest pain with no radiation that comes and goes mainly worsening with coughing. No fever, no chills. Related Data Home Medications Medication Instructions Recorded Confirmed albuterol sulfate 2.5 mg/3 mL mg inhalation Q6H PRN wheezing 12/29/21 01/22/22 (0.083 %) solution for nebulization albuterol sulfate 90 mcg/actuation 2 puff inhalation Q4H PRN wheezing 12/29/21 01/22/22 aerosol inhaler (ProAir HFA) fluticasone furoate 200 1 ea inhalation DAILY 12/29/21 01/22/22 mcg-vilanterol 25 mcg/dose inhalation powder (Breo Ellipta) omeprazole 20 mg capsule,delayed 20 mg PO DAILY 12/29/21 01/22/22 release Previous Rx's Medication Instructions Recorded ibuprofen 800 mg tablet 800 mg PO Q8H PRN pain #30 tabs 06/02/20 benzonatate 200 mg capsule 200 mg PO TID PRN cough #10 caps 03/10/21 prednisone 20 mg tablet 40 mg PO DAILY #10 tabs 03/10/21 azithromycin 250 mg tablet See Rx Instructions PO .COMPLEX #6 03/17/21 tabs etkdqxwgpc-xjijxscacfwvr-yacyhhzr 1 cap PO Q8H PRN pain #10 caps 03/17/21 50 mg-300 mg-40 mg capsule (Fioricet) diazepam 5 mg tablet (Valium) 5 mg PO TID PRN muscle spasm #14 03/17/21 tabs ondansetron HCl 4 mg tablet 4 mg PO Q8H PRN nausea and 03/17/21 (Zofran) vomiting #14 tabs azithromycin 250 mg tablet See Rx Instructions PO .COMPLEX #6 11/04/22 (Zithromax Z-Ji) tabs prednisone 20 mg tablet 20 mg PO BID #10 tabs 11/04/22 Allergies Allergy/AdvReac Type Severity Reaction Status Date / Time No Known Allergies Allergy Unknown Verified 11/04/22 21:47 Review of Systems Review of Systems: All other systems are reviewed and are negative Constitutional: Reports as per HPI and Reports no additional constitutional complaints Eyes: Reports as per HPI and Reports no additional eye complaints Reports system reviewed and no additional complaints, except as documented Cardiovascular: Reports as per HPI and Reports no additional cardiovascular complaints Respiratory: Reports as per HPI and Reports no additional respiratory complaints Gastrointestinal: Reports as per HPI and Reports no additional gastrointestinal complaints Genitourinary: Reports no additional female genitourinary complaints Musculoskeletal: Reports no additional musculoskeletal complaints Skin/Breast: Reports system reviewed and no additional complaints, except as docu Psychiatric: Reports no additional psychiatric complaints Endocrine: Reports no additional endocrine complaints Hematologic/Lymphatic: Reports no additional hematologic/lymphatic complaints Allergic/Immunologic: Reports no additional allergic/immunologic complaints Reports system reviewed and no additional complaints, except as documented and Reports Abnormal speech present COUNTS INCLUDE 234 BEDS AT THE [facility] Past Medical History Medical History Asthma Back pain GERD (gastroesophageal reflux disease) Social History Social History Household Members: Spouse Housing: House Alcohol intake: never Patient Tobacco Use Status: Never used Tobacco Advance Directives: No Advance Directives Information Provided: No Physical Exam Vital Signs: Vital Signs: Last Vital Signs Temp 98.3 F 11/04/22 21:48 Pulse 62 11/04/22 21:48 Resp 22 H 11/04/22 21:48 BP 142/86 H 11/04/22 21:48 Pulse Ox 96 11/04/22 21:48 O2 Del Method Room Air 11/04/22 21:48 BMI result Body Mass Index 50.2 vital signs have been reviewed as appeared to be correct. Blood pressure normal. Heart rate normal. Respiration rate normal. Temperature normal. Oxygen saturation normal. Appearance: Alert. Oriented X3. No acute distress. Head: Normal external exam. Normocephalic. Atraumatic. No Sanchez signs noted. No raccoon eyes noted Eyes: PERRLA. EOMI. Conjunctiva and sclera normal. Eyelids normal. ENT: TM's Normal. Pharynx normal. Uvula midline. Moist mucous membranes. No trismus noted. No drooling noted. No muffled voice noted. Neck: Normal inspection. Neck supple. FROM. No adenopathy. Thyroid Normal. No meningeal signs. No neck mass noted. CVS: Normal heart rate and rhythm. Heart sound normal. No murmurs noted. Pulses normal throughout. Respiratory: No respiratory distress. Painless inspiration. Breath sounds normal. Diffuse expiratory wheezing with prolonged expiration. mid chest reproducible tenderness localized to the mid sternum, no step-off or deformity. No accessory muscle usage noted or decreased air movement noted. Abdomen: Soft and nontender. Bowel sounds normal in all 4 quadrants. No distention noted. No organomegaly noted. No visible injury noted. Back: No CVA tenderness. Full range of motion noted. Skin: Skin warm and dry. Normal skin color. Normal skin turgor. No rashes/lesions/lacerations noted. Extremities: No lower extremity edema. Extremities exhibit normal range of motion. Extremities nontender. Neuro: Oriented X 3. Cranial nerve exam: II-XII are grossly intact No motor deficit. No sensory deficit. Reflexes normal. Course Reevaluation(s) Reevaluation #1: 51-year-old female with history of asthma came in with SOB and CP, physical exam is revealing acute asthma exacerbation patient had partial improvement with bronchodilator and prednisone. Troponin is negative with unremarkable EKG. Will discharge home on bronchodilator ( patient has enough albuterol inhaler and for the nebulizer at home) and short course of prednisone with a course of Z-Ji. Time: 23:00 Medical Decision Making Differential Diagnosis Differential Diagnoses: The differential diagnosis associated with the presentation includes ( ACS, pneumonia, asthma exacerbation, bronchitis, URI, pneumothorax, ACS, electrolyte abnormality, severe anemia.) Admission/Observation Consideration of admission/observation: Escalation of care including admission/observation considered Lab Data MDM Lab Attestation statement: I reviewed the patient's lab results. 11/04/22 22:07 11/04/22 22:07 Labs: Lab Results 11/04/22 11/04/22 11/04/22 Range/Units 22:07 22:07 22:07 WBC 9.9 (4.8-10.8) X10*3/uL RBC 5.35 (4.20-5.50) X10*6/uL Hgb 12.6 (12.0-16.0) g/dl Hct 40.0 (37.0-47.0) % MCV 74.8 L (80.0-98.0) fL MCH 23.6 L (27.0-33.0) pg MCHC 31.5 (31.0-35.0) g/dl RDW 15.6 (11.0-16.0) % Plt Count 342 (160-400) X10*3/uL MPV 10.1 (9.4-12.3) fL Immature Gran % (Auto) 0.3 (0.0-0.4) % Neut % (Auto) 54.3 (45-73) % Lymph % (Auto) 33.6 (20-40) % Bollinger % (Auto) 6.8 (2-11) % Eos % (Auto) 4.3 H (0-4) % Baso % (Auto) 0.7 (0-2) % Lymph # (Auto) 3.3 (1.2-4.9) X10*3/uL Bollinger # (Auto) 0.7 (0.1-1.2) X10*3/uL Eos # (Auto) 0.4 (0.0-0.4) X10*3/uL Baso # (Auto) 0.1 (0.0-0.2) X10*3/uL Abs Immat Gran (auto) 0.03 (0.00-0.03) X10*3/uL Absolute Neuts (auto) 5.4 (2.0-8.3) x10*3/uL Absolute Nucleated RBC 0.000 (0.0-0.012) X10*3/uL Nucleated RBC % (auto) 0.0 (0.0-0.2) /100WBC Sodium 138 (135-145) mmol/L Potassium 4.0 (3.3-5.1) mmol/L Chloride 105 (96-108) mmol/L Carbon Dioxide 21 L (22-29) mmol/L Anion Gap 16 (12-20) BUN 11 (9-16) mg/dL Creatinine 0.85 (0.5-1.4) mg/dL Estim Creat Clear Calc 125.3 Estimated GFR > 60 Random Glucose 108 (60-115) mg/dL Calcium 9.2 (8.4-10.2) mg/dL Total Bilirubin 0.3 (0.0-1.0) mg/dL AST 13 (5-31) U/L ALT 17 (0-31) U/L Alkaline Phosphatase 68 (39-117) U/L Troponin I High Sens < 2.7 (<3.5-17.0) ng/L Total Protein 7.3 (6.5-8.0) g/dL Albumin 3.8 (3.5-5.0) g/dL COVID-19 (JOSELINE) (Negative) COVID-19 Clin Com 11/04/22 Range/Units 22:07 WBC (4.8-10.8) X10*3/uL RBC (4.20-5.50) X10*6/uL Hgb (12.0-16.0) g/dl Hct (37.0-47.0) % MCV (80.0-98.0) fL MCH (27.0-33.0) pg MCHC (31.0-35.0) g/dl RDW (11.0-16.0) % Plt Count (160-400) X10*3/uL MPV (9.4-12.3) fL Immature Gran % (Auto) (0.0-0.4) % Neut % (Auto) (45-73) % Lymph % (Auto) (20-40) % Bollinger % (Auto) (2-11) % Eos % (Auto) (0-4) % Baso % (Auto) (0-2) % Lymph # (Auto) (1.2-4.9) X10*3/uL Bollinger # (Auto) (0.1-1.2) X10*3/uL Eos # (Auto) (0.0-0.4) X10*3/uL Baso # (Auto) (0.0-0.2) X10*3/uL Abs Immat Gran (auto) (0.00-0.03) X10*3/uL Absolute Neuts (auto) (2.0-8.3) x10*3/uL Absolute Nucleated RBC (0.0-0.012) X10*3/uL Nucleated RBC % (auto) (0.0-0.2) /100WBC Sodium (135-145) mmol/L Potassium (3.3-5.1) mmol/L Chloride (96-108) mmol/L Carbon Dioxide (22-29) mmol/L Anion Gap (12-20) BUN (9-16) mg/dL Creatinine (0.5-1.4) mg/dL Estim Creat Clear Calc Estimated GFR Random Glucose (60-115) mg/dL Calcium (8.4-10.2) mg/dL Total Bilirubin (0.0-1.0) mg/dL AST (5-31) U/L ALT (0-31) U/L Alkaline Phosphatase (39-117) U/L Troponin I High Sens (<3.5-17.0) ng/L Total Protein (6.5-8.0) g/dL Albumin (3.5-5.0) g/dL COVID-19 (JOSELINE) Negative (Negative) COVID-19 Clin Com See Note Independent Interpretation I performed an independent interpretation of an: Plain X-Ray ( Chest: No acute intrathoracic pathology.) Chronic Conditions Patient?s care impacted by: Other ( Asthma.) Discharge Plan Discharge Clinical Impression: Asthma with acute exacerbation, Acute chest wall pain Patient Disposition: Home, Self-Care Instructions: Asthma (ED) Prescriptions: New azithromycin [Zithromax Z-Ji] 250 mg tablet See Rx Instructions .ROUTE .COMPLEX Qty: 6 0RF Rx Instructions: For 250 mg dose pack: take 500 mg today (day 1), then 250 mg for 4 days (days 2-5) prednisone 20 mg tablet 20 mg PO BID Qty: 10 0RF No Action ibuprofen 800 mg tablet 800 mg PO Q8H PRN (Reason: pain) Qty: 30 0RF prednisone 20 mg tablet 40 mg PO DAILY Qty: 10 0RF benzonatate 200 mg capsule 200 mg PO TID PRN (Reason: cough) Qty: 10 0RF azithromycin 250 mg tablet See Rx Instructions .ROUTE .COMPLEX Qty: 6 0RF Rx Instructions: take 500 mg today (day 1), then 250 mg for 4 days (days 2-5) ondansetron HCl [Zofran] 4 mg tablet 4 mg PO Q8H PRN (Reason: nausea and vomiting) Qty: 14 0RF diazepam [Valium] 5 mg tablet 5 mg PO TID PRN (Reason: muscle spasm) Qty: 14 0RF lempikukss-svkiqjuovpwjw-wawc [Fioricet] 50-300-40 mg capsule 1 cap PO Q8H PRN (Reason: pain) Qty: 10 0RF omeprazole 20 mg capsule,delayed release(DR/EC) 20 mg PO DAILY albuterol sulfate [ProAir HFA] 90 mcg/actuation HFA aerosol inhaler 2 puff inhalation Q4H PRN (Reason: wheezing) albuterol sulfate 2.5 mg /3 mL (0.083 %) solution for nebulization inhalation Q6H PRN (Reason: wheezing) fluticasone furoate-vilanterol [Breo Ellipta] 200-25 mcg/dose blister with device 1 ea inhalation DAILY Referrals: Jagdish Evans III, MD [Primary Care Provider] -
[2022-11-04] MEDS: predniSONE 20 MG TABLET 40 MG PO (22:46)
[2022-11-04] MEDS: Albuterol Sulfate (0.083%) 2.5 MG/3 ML VIAL.NEB 5 MG INHALE (22:54)
[2022-11-04] MEDS: Albuterol/Iprat 2.5/0.5MG 3 ML AMPUL.NEB INHALE (22:54)
[2022-11-04 22:55] VITALS: PULSE 59; RESP 16; O2SAT 99
[2022-11-04 23:37] LABS: Influenza A PCR NEGATIVE (Negative); Influenza B PCR NEGATIVE (Negative); Resp Syncy Virus RNA Qual PCR NEGATIVE (Negative); SARS COV2 PCR INHOUSE NEGATIVE (Negative)
[2022-11-04 23:41] VITALS: BP 157/67; PULSE 86; RESP 18; TEMP 36.6; O2SAT 99
--- NOTE | 2022-11-04 23:43 | MHC.EDTECH ---
This tech assumed care of patient at 2300,patient ambulated to bathroom without difficulty, vitals taken and patient is resting comfortably at this time.
== END 2022-11-05 00:50 | disposition home or self-care (01) ==
PROVIDERS: Emergency Provider Emergency Medicine; PCP Internal Medicine
DX: J45.901 Unspecified asthma with (acute) exacerbation (principal); R07.89 Other chest pain; J45.909 Unspecified asthma, uncomplicated; Z20.822 Contact with and (suspected) exposure to COVID-19; Z20.828 Contact with and (suspected) exposure to other viral communicable diseases; Z79.899 Other long term (current) drug therapy
CPT/HCPCS: 0241U; 36415; 71046; 80053; 84484; 85025; 87635; 93005; 94640; 99284; 99285

== ENCOUNTER → 2022-11-04 21:57 | Outpatient (BNV) | payer OTHER, SELFPAY | PROVIDERS: Emergency Provider Emergency Medicine; PCP Internal Medicine; Visit Provider Internal Medicine | DX: R07.9 Chest pain, unspecified (principal); R94.31 Abnormal electrocardiogram [ECG] [EKG] | CPT/HCPCS: 93010 ==

== ENCOUNTER 2023-02-28 13:57 | Outpatient (REF) | payer OTHER, SELFPAY ==
[2023-02-28 16:32] LABS: Estimated Average Glucose 131 mg/dL; Hemoglobin A1C 151.5016 umol/L; Hemoglobin A1c % 6.2 % (<6.0)
[2023-02-28 16:36] LABS: Alanine Aminotransferase 17 U/L (0-31); Albumin Level 3.8 g/dL (3.5-5.0); Alkaline Phosphatase 69 U/L (39-117); Anion Gap 12 (12-20); Aspartate Amino Transferase 12 U/L (5-31); Bilirubin Total 0.2 mg/dL (0.0-1.0); Blood Urea Nitrogen 10 mg/dL (9-16); Calcium 8.7 mg/dL (8.4-10.2); Carbon Dioxide 24 mmol/L (22-29); Chloride 105 mmol/L (96-108); Cholesterol 186 mg/dL (<200); Estimated Glomerular Filt Rate > 60; Glucose Random 98 mg/dL (60-115); HDL Cholesterol 47 mg/dL (>40); LDL Cholesterol Calculated 93 mg/dL (<100); Potassium 3.7 mmol/L (3.3-5.1); Sodium 137 mmol/L (135-145); Total Protein 7.4 g/dL (6.5-8.0); Triglycerides 232 mg/dL (<150)
[2023-03-01 07:50] LABS: HIV AB/AG Nonreactive (Nonreactive); HIV Num 1 0.05 S/CO (0.00-0.99); ~Hepatitis C Antibody Nonreactive (Nonreactive)
== END 2023-02-28 13:58 | disposition home or self-care (01) ==
LOC: HO.HHCL 13:57
PROVIDERS: Visit Provider General Practice
DX: Z00.01 Encounter for general adult medical examination with abnormal findings (principal); R03.0 Elevated blood-pressure reading, without diagnosis of hypertension
CPT/HCPCS: 36415; 80053; 80061; 83036; 86803; 87389

== ENCOUNTER 2023-04-13 12:16 | Outpatient (REF) | payer OTHER, SELFPAY ==
[2023-04-14 13:05] LABS: Influenza A PCR NEGATIVE (Negative); Influenza B PCR NEGATIVE (Negative); Resp Syncy Virus RNA Qual PCR NEGATIVE (Negative); SARS COV2 PCR INHOUSE NEGATIVE (Negative)
== END 2023-04-13 12:17 | disposition home or self-care (01) ==
LOC: HO.HHCLNP 12:16
PROVIDERS: Visit Provider Emergency Medicine
DX: Z11.52 Encounter for screening for COVID-19 (principal); J06.9 Acute upper respiratory infection, unspecified
CPT/HCPCS: 0241U; 87070

== ENCOUNTER 2023-05-03 14:56 | Outpatient (REF) | payer OTHER, SELFPAY ==
--- NOTE | ~2023-05-03 | XR_ITS ---
EXAMINATION: XR CHEST CLINICAL INFORMATION: Persistent asthma. Acute exacerbation of cough. COMPARISON: Chest 11/04/2022 TECHNIQUE: 2 views of the chest were obtained. FINDINGS: The lungs are well-expanded and clear of acute pneumonic process. There is slight bilateral prominent hilar markings and bronchial wall thickening likely reactive airway disease. No pleural effusion or thickening seen Heart size and pulmonary vascularity is normal. No gross bony abnormality seen. XR/XR chest 2V IMPRESSION: Findings suspicious for reactive airway disease without any consolidation or pleural effusion.
== END 2023-05-03 14:57 | disposition home or self-care (01) ==
LOC: HO.MAMMO 14:56
PROVIDERS: PCP General Practice; Visit Provider General Practice
DX: Z12.31 Encounter for screening mammogram for malignant neoplasm of breast (principal); J45.41 Moderate persistent asthma with (acute) exacerbation
CPT/HCPCS: 71046; 77063; 77067

== ENCOUNTER → 2023-05-03 15:15 | Outpatient (BNV) | payer OTHER, SELFPAY | PROVIDERS: PCP General Practice; Visit Provider Radiology Diagnostic Radiology | DX: Z12.31 Encounter for screening mammogram for malignant neoplasm of breast (principal) | CPT/HCPCS: 77063; 77067 ==

== ENCOUNTER 2023-05-11 09:22 | Emergency (ER) | payer OTHER, SELFPAY ==
--- NOTE | 2023-05-11 | ECG_ITS ---
Test Reason : cp Blood Pressure : / mmHG Vent. Rate : 082 BPM Atrial Rate : 082 BPM P-R Int : 162 ms QRS Dur : 100 ms QT Int : 366 ms P-R-T Axes : 048 010 038 degrees QTc Int : 427 ms Normal sinus rhythm Low voltage QRS Borderline ECG When compared with ECG of 04-NOV-2022 21:57, No significant change was found Referred By: Generic ED Physician Electronically Signed By:BRITTANY AVILES
--- NOTE | ~2023-05-11 | XR_ITS ---
EXAMINATION: XR CHEST CLINICAL INFORMATION: Cough. Difficulty breathing COMPARISON: 05/03/2023 TECHNIQUE: Frontal view of the chest was obtained. FINDINGS: Heart and pulmonary vessels normal. Lungs clear. No pleural effusion. XR/XR chest 1V IMPRESSION: No active disease.
[2023-05-11 10:06] VITALS: BP 149/77; PULSE 71; RESP 24; TEMP 36.6; O2SAT 97; BMI 51.6
[2023-05-11 10:42] LABS: COVID-19 Test Negative (Negative); IDNOW Serial# 58CA691E; Influenza A Negative (Negative); Influenza B2 Negative (Negative)
--- NOTE | 2023-05-11 12:14 | ED.GENADULT ---
HPI - General Adult General Chief complaint: Upper Respiratory Symptoms Stated complaint: Chest pain, asthma Time Seen by Provider: 05/11/23 12:04 History of Present Illness HPI narrative: patient complains of 10 days of cough and shortness of breath, she did see her doctor a week ago who started her on a steroid taper but her asthma symptoms continue and she is using her machine frequently, she did take 10 mg of prednisone today She has no nausea or vomiting she is tolerating p.o., her chest does hurt but only when she coughs no other chest pain, no abdominal pain no leg swelling no calf pain Related Data Home Medications Medication Instructions Recorded Confirmed albuterol sulfate 2.5 mg/3 mL mg inhalation Q6H PRN wheezing 12/29/21 01/22/22 (0.083 %) solution for nebulization albuterol sulfate 90 mcg/actuation 2 puff inhalation Q4H PRN wheezing 12/29/21 01/22/22 aerosol inhaler (ProAir HFA) fluticasone furoate 200 1 ea inhalation DAILY 12/29/21 01/22/22 mcg-vilanterol 25 mcg/dose inhalation powder (Breo Ellipta) omeprazole 20 mg capsule,delayed 20 mg PO DAILY 12/29/21 01/22/22 release Previous Rx's Medication Instructions Recorded ibuprofen 800 mg tablet 800 mg PO Q8H PRN pain #30 tabs 06/02/20 benzonatate 200 mg capsule 200 mg PO TID PRN cough #10 caps 03/10/21 prednisone 20 mg tablet 40 mg (2 x 20 mg) PO DAILY #10 tabs 03/10/21 azithromycin 250 mg tablet See Rx Instructions PO .COMPLEX #6 03/17/21 tabs ddocmgzvvu-figytclfxmsju-evbkibxw 1 cap PO Q8H PRN pain #10 caps 03/17/21 50 mg-300 mg-40 mg capsule (Fioricet) diazepam 5 mg tablet (Valium) 5 mg PO TID PRN muscle spasm #14 03/17/21 tabs ondansetron HCl 4 mg tablet 4 mg PO Q8H PRN nausea and 03/17/21 (Zofran) vomiting #14 tabs azithromycin 250 mg tablet See Rx Instructions PO .COMPLEX #6 11/04/22 (Zithromax Z-Ji) tabs prednisone 20 mg tablet 20 mg PO BID #10 tabs 11/04/22 azithromycin 250 mg tablet See Rx Instructions PO .COMPLEX #6 05/11/23 (Zithromax Z-Ji) tabs prednisone 10 mg tablet 10 mg PO DIRECTED #39 tabs 05/11/23 Allergies Allergy/AdvReac Type Severity Reaction Status Date / Time No Known Allergies Allergy Unknown Verified 05/11/23 10:05 [facility] Past Medical History Source: nursing notes reviewed Medical History Asthma Back pain GERD (gastroesophageal reflux disease) Social History Social History Household Members: Spouse Housing: House Alcohol intake: never Patient Tobacco Use Status: Never used Tobacco Advance Directives: No Advance Directives Information Provided: Yes Physical Exam ED Vital Signs: Vital Signs - 24 hr 05/11/23 10:06 05/11/23 12:33 05/11/23 14:25 Temperature 97.9 F 97.2 F Pulse Rate 71 80 78 Respiratory Rate 24 H 18 18 Blood Pressure 149/77 H 125/65 Pulse Oximetry 97 100 Oxygen Delivery Method Room Air Room Air BMI result Body Mass Index 51.6 general appearance is no acute distress, she is speaking full sentences, comfortable appearing The eyes no redness or discharge The pharynx is clear without redness swelling or exudate membranes are moist Neck is supple Chest had good air movement but there was bilateral expiratory wheezing The heart no murmur auscultated Abdomen soft nontender Extremities no calf tenderness or swelling Neuro gait and balance are normal, interaction comprehension and expression are normal Course Course Course Narrative: testing for COVID and flu was negative EKG was normal sinus rhythm, no acute ischemic changes no acute ST elevations Chest x-ray was negative Patient responded well to an albuterol treatment with decreased wheezing, pen very improved shortness of breath, she was not short of breath on discharge despite faint wheezing As she has been coughing with sputum production for over 10 days I wrote a prescription for Zithromax antibiotic As her taper from primary doctor for asthma is now down to 10 mg a day I am restarting it we will do a taper starting with a few days at 60 to make sure she has enough steroid in her system Well-appearing patient tolerating p.o. breathing easily is discharged feeling improved Medications Administered Discontinued Medications Generic Name Dose Route Start Last Admin Trade Name Freq PRN Reason Stop Dose Admin Albuterol Sulfate 7.5 mg/ 10 mg 05/11/23 12:17 05/11/23 12:32 Albuterol Sulfate 2.5 mg INHALE 05/11/23 12:18 10 mg ONCE ONE Administration Medical Decision Making Lab Data Labs: Lab Results 05/11/23 Range/Units 10:17 COVID-19 (JOSELINE) Negative (Negative) COVID-19 Clin Com See Note Influenza Type A (ANGY) Negative (Negative) Influenza Type B (ANGY) Negative (Negative) Influenza A & B Note See Note Discharge Plan Discharge Clinical Impression: Asthma, Bronchitis Patient Disposition: Home, Self-Care Additional Instructions: chest x-ray did not show any visible pneumonia, EKG was normal, testing for COVID and flu were negative Your breathing improved with the treatment As you are still having asthma symptoms your daily dose of 10 mg of steroid is too low so we are starting again with a higher dose of steroid As you have been coughing for 10 days without improvement we are treating bronchitis with Zithromax antibiotic Return any time for difficulty breathing, any worse condition or any concerns Prescriptions: New azithromycin [Zithromax Z-Ji] 250 mg tablet See Rx Instructions .ROUTE .COMPLEX Qty: 6 0RF Rx Instructions: For 250 mg dose pack: take 500 mg today (day 1), then 250 mg for 4 days (days 2-5) prednisone 10 mg tablet 10 mg PO DIRECTED Qty: 39 0RF Rx Instructions: see taper instructions 60 mg p.o. once a day for 3 days, then 40 mg p.o. once a day for 3 days then 20 mg p.o. once a day for 3 days then 10 mg p.o. once a day for 3 days No Action ibuprofen 800 mg tablet 800 mg PO Q8H PRN (Reason: pain) Qty: 30 0RF prednisone 20 mg tablet 40 mg PO DAILY Qty: 10 0RF benzonatate 200 mg capsule 200 mg PO TID PRN (Reason: cough) Qty: 10 0RF azithromycin 250 mg tablet See Rx Instructions .ROUTE .COMPLEX Qty: 6 0RF Rx Instructions: take 500 mg today (day 1), then 250 mg for 4 days (days 2-5) ondansetron HCl [Zofran] 4 mg tablet 4 mg PO Q8H PRN (Reason: nausea and vomiting) Qty: 14 0RF diazepam [Valium] 5 mg tablet 5 mg PO TID PRN (Reason: muscle spasm) Qty: 14 0RF ulvezjpcec-feoaphbulvsyp-nmqc [Fioricet] 50-300-40 mg capsule 1 cap PO Q8H PRN (Reason: pain) Qty: 10 0RF azithromycin [Zithromax Z-Ji] 250 mg tablet See Rx Instructions .ROUTE .COMPLEX Qty: 6 0RF Rx Instructions: For 250 mg dose pack: take 500 mg today (day 1), then 250 mg for 4 days (days 2-5) prednisone 20 mg tablet 20 mg PO BID Qty: 10 0RF omeprazole 20 mg capsule,delayed release(DR/EC) 20 mg PO DAILY albuterol sulfate [ProAir HFA] 90 mcg/actuation HFA aerosol inhaler 2 puff inhalation Q4H PRN (Reason: wheezing) albuterol sulfate 2.5 mg /3 mL (0.083 %) solution for nebulization inhalation Q6H PRN (Reason: wheezing) fluticasone furoate-vilanterol [Breo Ellipta] 200-25 mcg/dose blister with device 1 ea inhalation DAILY Stand Alone Forms: Work/School Release
[2023-05-11] MEDS: Albuterol Sulfate 7.5 MG, Albuterol Sulfate (0.083%) 2.5 MG 10 MG INHALE (12:32)
[2023-05-11 12:33] VITALS: PULSE 80; RESP 18; O2SAT 94
[2023-05-11 14:25] VITALS: BP 125/65; PULSE 78; RESP 18; TEMP 36.2; O2SAT 100
[2023-05-11] MEDS: predniSONE 20 MG TABLET 60 MG PO (15:00)
== END 2023-05-11 15:05 | disposition home or self-care (01) ==
PROVIDERS: Emergency Provider Emergency Medicine; PCP General Practice
DX: J45.909 Unspecified asthma, uncomplicated (principal); J40 Bronchitis, not specified as acute or chronic; Z11.52 Encounter for screening for COVID-19; R06.02 Shortness of breath
CPT/HCPCS: 71045; 87502; 87635; 93005; 94640; 99284

== ENCOUNTER → 2023-05-11 09:31 | Outpatient (BNV) | payer OTHER, SELFPAY | PROVIDERS: Emergency Provider Emergency Medicine; PCP General Practice; Visit Provider Internal Medicine | DX: R07.9 Chest pain, unspecified (principal); R94.31 Abnormal electrocardiogram [ECG] [EKG] | CPT/HCPCS: 93010 ==

== ENCOUNTER 2023-06-28 11:14 | Emergency (ER) | payer OTHER, SELFPAY ==
--- NOTE | ~2023-06-28 | XR_ITS ---
EXAMINATION: XR CHEST CLINICAL INFORMATION: Pneumonia COMPARISON: 05/11/2023 TECHNIQUE: Frontal view of the chest was obtained. FINDINGS: The heart and pulmonary vessels appear normal. No convincing evidence of consolidation or lung masses. Some mild peribronchial thickening is seen. There is some ill-defined patchy nodular density seen in the left mid lung/lower lobe which could represent subtle interstitial infiltrate. No pleural effusions are seen. XR/XR chest 1V IMPRESSION: Mild peribronchial thickening with possible subtle interstitial infiltrate left mid lung/lower lobe.
[2023-06-28 11:28] VITALS: BP 119/77; PULSE 92; RESP 20; TEMP 37; O2SAT 94; BMI 63.6
--- NOTE | 2023-06-28 11:33 | ED_ITS ---
HPI - General Adult General Chief complaint: Dyspnea Stated complaint: Flu symptoms sent by urgentcare Time Seen by Provider: 06/28/23 11:55 Source: patient and RN notes reviewed Mode of arrival: ambulatory Limitations: no limitations History of Present Illness HPI narrative: This is a 52-year-old female, with a history of asthma, presenting to the emergency department with complaints of shortness of breath, congestion, cough x3 days. Patient states that she developed congestion, cough, chills, and shortness of breath 3 days ago which has since worsened since yesterday. She was seen by her primary care physician and was given 40 mg of prednisone, and albuterol. Their concern as her oxygen saturation did not go above 95%. Patient reporting subjective fevers, chills, wheezing. She reports tightness sensation in her chest however denies chest pain. No abdominal pain, nausea, vomiting or diarrhea. She has a former smoker. Denies any recent hospitalizations or surgeries. No other complaints or concerns at this time. MD complaint: Shortness breath, cough Onset (ago): day(s) Radiation: non-radiation Relieving factors: none Exacerbating factors: none Associated symptoms: fever/chills and nausea/vomiting Treatments prior to arrival: none Related Data Home Medications Medication Instructions Recorded Confirmed albuterol sulfate 2.5 mg/3 mL mg inhalation Q6H PRN wheezing 12/29/21 01/22/22 (0.083 %) solution for nebulization albuterol sulfate 90 mcg/actuation 2 puff inhalation Q4H PRN wheezing 12/29/21 01/22/22 aerosol inhaler (ProAir HFA) fluticasone furoate 200 1 ea inhalation DAILY 12/29/21 01/22/22 mcg-vilanterol 25 mcg/dose inhalation powder (Breo Ellipta) omeprazole 20 mg capsule,delayed 20 mg PO DAILY 12/29/21 01/22/22 release Previous Rx's Medication Instructions Recorded ibuprofen 800 mg tablet 800 mg PO Q8H PRN pain #30 tabs 06/02/20 benzonatate 200 mg capsule 200 mg PO TID PRN cough #10 caps 03/10/21 prednisone 20 mg tablet 40 mg (2 x 20 mg) PO DAILY #10 tabs 03/10/21 azithromycin 250 mg tablet See Rx Instructions PO .COMPLEX #6 03/17/21 tabs cdoantrbgu-szxffooxvbhuq-pmwmyfad 1 cap PO Q8H PRN pain #10 caps 03/17/21 50 mg-300 mg-40 mg capsule (Fioricet) diazepam 5 mg tablet (Valium) 5 mg PO TID PRN muscle spasm #14 03/17/21 tabs ondansetron HCl 4 mg tablet 4 mg PO Q8H PRN nausea and 03/17/21 (Zofran) vomiting #14 tabs azithromycin 250 mg tablet See Rx Instructions PO .COMPLEX #6 11/04/22 (Zithromax Z-Ji) tabs prednisone 20 mg tablet 20 mg PO BID #10 tabs 11/04/22 azithromycin 250 mg tablet See Rx Instructions PO .COMPLEX #6 05/11/23 (Zithromax Z-Ji) tabs prednisone 10 mg tablet 10 mg PO DIRECTED #39 tabs 05/11/23 azithromycin 250 mg tablet 250 mg PO DAILY 4 days #4 tabs 06/28/23 prednisone 20 mg tablet 40 mg (2 x 20 mg) PO DAILY 4 days 06/28/23 #8 tabs Allergies Allergy/AdvReac Type Severity Reaction Status Date / Time No Known Allergies Allergy Unknown Verified 05/11/23 10:05 Review of Systems Review of Systems: Yes all other systems are reviewed and are negative Constitutional: Constitutional: Reports as per [facility] Past Medical History Medical History Asthma Back pain GERD (gastroesophageal reflux disease) Social History Social History Household Members: Spouse Housing: House Alcohol intake: never Patient Tobacco Use Status: Never used Tobacco Smoked in Last 30 Days: No Use of substances other than those prescribed or required for medical reasons: No Advance Directives: No Physical Exam ED Vital Signs: Vital Signs - 24 hr 06/28/23 11:28 06/28/23 14:21 06/28/23 14:35 Temperature 98.6 F Pulse Rate 92 92 93 Respiratory Rate 20 20 18 Blood Pressure 119/77 141/63 H Pulse Oximetry 94 93 Oxygen Delivery Method Room Air Room Air 06/28/23 15:10 06/28/23 15:10 06/28/23 15:17 Temperature 98 F Pulse Rate 93 Respiratory Rate 18 Blood Pressure 131/69 Pulse Oximetry 88 L 93 93 Oxygen Delivery Method Room Air Room Air Room Air BMI result Body Mass Index 63.6 Const General: cooperative, comfortable and no acute distress Orientation/consciousness: patient oriented x3 Limitations: no limitations HENMT Head: Yes normal to inspection, Yes normocephalic and Yes atraumatic Ears: hearing grossly normal bilaterally and TM's normal bilaterally General nose exam: Normal external nose present Face and sinus: Yes normal facial exam Mouth: Normal oral and palatal mucosa present, oropharynx normal and moist mucous membranes Throat: Yes posterior oropharynx normal, Yes tonsils normal and Yes uvula midline Eyes General: appearance normal, both eyes and all related structures Eyelids: Yes eyelids normal Conjunctivae: conjunctivae normal Sclerae: sclerae normal Pupils: Equal, round and reactive pupils present EOM: EOMs intact bilaterally Neck Neck: Yes normal visual inspection, Yes full ROM and Yes no lymphadenopathy Lymphatic: no lymphadenopathy noted Chest Chest palpation & inspection: normal inspection of the chest Resp Other: Diminished lung sounds throughout all lung cameron. No wheezes, rales, auscultated Effort & Inspection: normal respiratory effort and able to speak in complete sentences Auscultation: clear to auscultation bilaterally, no crackles, no rales, no rhonchi and no wheezes Cardio Rate: regular rate Rhythm: regular rhythm Heart sounds: S1 normal heart sound present and S2 normal heart sound present GI Inspection: Yes normal to inspection Skin General skin exam: no rashes or lesions noted Trauma: no lacerations or abrasions Wounds: no wounds Neuro General: patient oriented x3 and moves all extremities Cranial nerves: Yes Equal, round and reactive pupils present Extrem General: Yes normal to inspection Right upper extremity: normal to inspection Left upper extremity: normal to inspection Right lower extremity: normal to inspection Left lower extremity: normal to inspection Course Course Course Narrative: RME: 52-year-old female presents ED for URI symptoms. Patient has history of asthma. Patient coughing with yellow phlegm for the past couple of days. Patient's CT urgent care this morning O2 sat 93-95% on room air. Treatment prednisone ordered. X-ray ordered. COVID/influenza swab ordered. Patient received prednisone 40 this morning. Ordered another 20. ED bronchodilators ordered placed Reevaluation(s) Reevaluation #1: Patient feeling better after receiving 1st dose of Zithromax, prednisone, and updraft. Patient feels comfortable for discharge. Walking O2 saturation maintained at 95% on room air. Patient will be discharged with antibiotics, prednisone, and encouraged plenty of rest, and hydration. Given return precautions. She understands and agrees with plan. Patient stable for discharge. Time: 14:47 Medications Administered Discontinued Medications Generic Name Dose Route Start Last Admin Trade Name Kings PRN Reason Stop Dose Admin Albuterol/Ipratropium 3 ml 06/28/23 14:20 06/28/23 14:24 Albuterol/Iprat 2.5/0.5mg 3 Ml Ampul.Neb INHALE 06/28/23 14:21 3 ml ONCE ONE Administration Azithromycin 500 mg 06/28/23 13:07 06/28/23 13:22 Azithromycin 500 Mg Tablet PO 06/28/23 13:08 500 mg ONCE ONE Administration Prednisone 20 mg 06/28/23 11:32 06/28/23 12:10 Prednisone 20 Mg Tablet PO 06/28/23 11:33 20 mg ONCE ONE Administration Medical Decision Making Medical Decision Making [facility] Narrative: This is a 52-year-old female presenting to the emergency department for evaluation of congestion, cough, and shortness of breath for the last 3 days. On arrival, vital signs within normal limits. Lungs are diminished throughout all lung cameron. She already received 20 mg of prednisone outpatient and was given a 2nd dose of prednisone 40 mg in the waiting room. Differential diagnoses include URI, bronchitis, pneumonia,, COVID, asthma exacerbation. Plan: Viral swabs, chest x-ray Differential Diagnosis Differential Diagnoses: The differential diagnosis associated with the presentation includes See above Admission/Observation Consideration of admission/observation: Escalation of care including admission/observation considered Escalation of care including admission/observation considered however given workup today not warranted at this time. Lab Data [facility] Lab Attestation statement: I reviewed the patient's lab results. Labs: Lab Results 06/28/23 Range/Units 11:36 Influenza Type A (PCR) NEGATIVE (Negative) Influenza Type B (PCR) NEGATIVE (Negative) RSV RNA Qual (PCR) NEGATIVE (Negative) SARS-CoV-2 RNA (RT-PCR) NEGATIVE (Negative) Radiology Impression Discussion of test interpretation with radiology: I have reviewed the radiologist's reading. External Record Review External record reviewed: Inpatient record, Office record, Outpatient record, Prior outpatient labs, Prior outpatient radiology, Primary care record and Outside ED record Discharge Plan Discharge Clinical Impression: Pneumonia, Acute upper respiratory infection Patient Disposition: Home, Self-Care Instructions: Pneumonia (ED) Additional Instructions: Your seen in the emergency department due to cough, and shortness breath. You tested negative for flu, RSV, and COVID. Your chest x-ray is concerning for a developing pneumonia. We are giving you your 1st dose of antibiotics in the department. Please start the course tomorrow. We are also continuing on prednisone, please take as prescribed, take this tomorrow. Drink plenty of fluids get plenty of rest. Continue at home nebulizing treatment as needed for shortness of breath. If any new or worsening symptoms occur including but not limited to chest pain, shortness of breath please return for re-evaluation. Prescriptions: New azithromycin 250 mg tablet 250 mg PO DAILY 4 Days Qty: 4 0RF Rx Instructions: start on day 2 of therapy prednisone 20 mg tablet 40 mg PO DAILY 4 Days Qty: 8 0RF No Action ibuprofen 800 mg tablet 800 mg PO Q8H PRN (Reason: pain) Qty: 30 0RF prednisone 20 mg tablet 40 mg PO DAILY Qty: 10 0RF benzonatate 200 mg capsule 200 mg PO TID PRN (Reason: cough) Qty: 10 0RF azithromycin 250 mg tablet See Rx Instructions .ROUTE .COMPLEX Qty: 6 0RF Rx Instructions: take 500 mg today (day 1), then 250 mg for 4 days (days 2-5) ondansetron HCl [Zofran] 4 mg tablet 4 mg PO Q8H PRN (Reason: nausea and vomiting) Qty: 14 0RF diazepam [Valium] 5 mg tablet 5 mg PO TID PRN (Reason: muscle spasm) Qty: 14 0RF tyggazfwnc-comwbbspwzjvi-fxrz [Fioricet] 50-300-40 mg capsule 1 cap PO Q8H PRN (Reason: pain) Qty: 10 0RF azithromycin [Zithromax Z-Ji] 250 mg tablet See Rx Instructions .ROUTE .COMPLEX Qty: 6 0RF Rx Instructions: For 250 mg dose pack: take 500 mg today (day 1), then 250 mg for 4 days (days 2-5) prednisone 20 mg tablet 20 mg PO BID Qty: 10 0RF azithromycin [Zithromax Z-Ji] 250 mg tablet See Rx Instructions .ROUTE .COMPLEX Qty: 6 0RF Rx Instructions: For 250 mg dose pack: take 500 mg today (day 1), then 250 mg for 4 days (days 2-5) prednisone 10 mg tablet 10 mg PO DIRECTED Qty: 39 0RF Rx Instructions: see taper instructions 60 mg p.o. once a day for 3 days, then 40 mg p.o. once a day for 3 days then 20 mg p.o. once a day for 3 days then 10 mg p.o. once a day for 3 days omeprazole 20 mg capsule,delayed release(DR/EC) 20 mg PO DAILY albuterol sulfate [ProAir HFA] 90 mcg/actuation HFA aerosol inhaler 2 puff inhalation Q4H PRN (Reason: wheezing) albuterol sulfate 2.5 mg /3 mL (0.083 %) solution for nebulization inhalation Q6H PRN (Reason: wheezing) fluticasone furoate-vilanterol [Breo Ellipta] 200-25 mcg/dose blister with device 1 ea inhalation DAILY Stand Alone Forms: Work/School Release Interventions: ED Discharge Assessment Last Done: 06/28/23 15:17 Discharge Date/Time: 06/28/23 15:12
[2023-06-28] MEDS: predniSONE 20 MG TABLET PO (12:10)
[2023-06-28 12:24] LABS: Influenza A PCR NEGATIVE (Negative); Influenza B PCR NEGATIVE (Negative); Resp Syncy Virus RNA Qual PCR NEGATIVE (Negative); SARS COV2 PCR INHOUSE NEGATIVE (Negative)
[2023-06-28] MEDS: Azithromycin 500 MG TABLET PO (13:22)
[2023-06-28 14:21] VITALS: PULSE 92; RESP 20; O2SAT 95
[2023-06-28] MEDS: Albuterol/Iprat 2.5/0.5MG 3 ML AMPUL.NEB INHALE (14:24)
[2023-06-28 14:35] VITALS: BP 141/63; PULSE 93; RESP 18; O2SAT 93
[2023-06-28 15:10] VITALS: O2SAT 88; O2SAT 93
[2023-06-28 15:17] VITALS: BP 131/69; PULSE 93; RESP 18; TEMP 36.6; O2SAT 93
== END 2023-06-28 15:12 | disposition home or self-care (01) ==
PROVIDERS: Physician Assistant; Emergency Provider Emergency Medicine; PCP General Practice
DX: J18.9 Pneumonia, unspecified organism (principal); J06.9 Acute upper respiratory infection, unspecified; R06.02 Shortness of breath; R05.9 Cough, unspecified; R11.2 Nausea with vomiting, unspecified; Z11.52 Encounter for screening for COVID-19; Z20.822 Contact with and (suspected) exposure to COVID-19
CPT/HCPCS: 0241U; 71045; 94640; 99284; 99285

== ENCOUNTER 2023-07-04 12:13 | Outpatient (REF) | payer OTHER, SELFPAY ==
[2023-07-04 13:13] LABS: MANUAL DIFF FLAG NO
[2023-07-04 13:34] LABS: Basophils Absolute Auto 0.1 X10*3/uL (0.0-0.2); Basophils Percent Auto 0.6 % (0-2); Eosinophils Absolute Auto 0.3 X10*3/uL (0.0-0.4); Eosinophils Percent Auto 1.9 % (0-4); Hematocrit 44.3 % (37.0-47.0); Hemoglobin 14.2 g/dl (12.0-16.0); Imm Gran Abs Auto 0.17 X10*3/uL (0.00-0.03); Imm Gran Pct Auto 1.1 % (0.0-0.4); Lymphocytes Absolute Auto 4.4 X10*3/uL (1.2-4.9); Lymphocytes Percent Auto 27.3 % (20-40); Mean Corpuscular HGB Conc 32.1 g/dl (31.0-35.0); Mean Corpuscular Hemoglobin 23.6 pg (27.0-33.0); Mean Corpuscular Volume 73.6 fL (80.0-98.0); Mean Platelet Volume 10.3 fL (9.4-12.3); Monocytes Absolute Auto 1.2 X10*3/uL (0.1-1.2); Monocytes Percent Auto 7.6 % (2-11); Neutrophils Absolute Auto 9.8 x10*3/uL (2.0-8.3); Neutrophils Percent Auto 61.5 % (45-73); Platelet Count 493 X10*3/uL (160-400); Red Blood Count 6.02 X10*6/uL (4.20-5.50); Red Cell Distribution Width 15.9 % (11.0-16.0)
[2023-07-04 14:19] LABS: Alanine Aminotransferase 28 U/L (0-31); Albumin Level 3.7 g/dL (3.5-5.0); Alkaline Phosphatase 93 U/L (39-117); Anion Gap 16 (12-20); Aspartate Amino Transferase 22 U/L (5-31); Bilirubin Total 0.5 mg/dL (0.0-1.0); Blood Urea Nitrogen 12 mg/dL (9-16); Calcium 8.9 mg/dL (8.4-10.2); Carbon Dioxide 29 mmol/L (22-29); Chloride 95 mmol/L (96-108); Estimated Glomerular Filt Rate 55; Glucose Random 172 mg/dL (60-115); Lipase 55 U/L (8-78); Potassium 2.8 mmol/L (3.3-5.1); Sodium 137 mmol/L (135-145); Total Protein 7.8 g/dL (6.5-8.0)
[2023-07-04 15:22] LABS: Estimated Average Glucose 140 mg/dL; Hemoglobin A1c % 6.5 % (<6.0)
[2023-07-04 17:49] LABS: Magnesium 2.4 mg/dL (1.6-2.6)
== END 2023-07-04 12:14 | disposition home or self-care (01) ==
LOC: HO.HHCL 12:13
PROVIDERS: Visit Provider Emergency Medicine
DX: J18.9 Pneumonia, unspecified organism (principal); I10 Essential (primary) hypertension; E87.8 Other disorders of electrolyte and fluid balance, not elsewhere classified; T50.2X5A Adverse effect of carbonic-anhydrase inhibitors, benzothiadiazides and other diuretics, initial encounter; R73.03 Prediabetes
CPT/HCPCS: 36415; 80053; 83036; 83690; 83735; 85025

== ENCOUNTER 2023-07-04 18:34 | Emergency (ER) | payer OTHER, SELFPAY ==
[2023-07-04 18:39] VITALS: BP 146/92; PULSE 87; RESP 16; TEMP 36.8; O2SAT 98; BMI 53.7
--- NOTE | 2023-07-04 18:40 | ED_ITS ---
HPI - General Adult General Chief complaint: Recheck/Abnormal Lab/Rx Stated complaint: Doctor sent patient in, potassium levels are low Time Seen by Provider: 07/05/23 02:18 Source: patient Mode of arrival: ambulatory Limitations: no limitations History of Present Illness HPI narrative: Patient comes to the emergency room complaining that she has a low potassium. Patient states that for the last few days she has been taking prednisone and azithromycin for pneumonia. Patient denies nausea vomiting or diarrhea. Patient went to see her primary care physician today for a follow-up, labs were done, potassium was 2.8. Patient received a phone call at home asking her to come to the emergency room for low potassium. Patient states that she is otherwise asymptomatic. Patient denies any chest pain or shortness of breath, no palpitations. Patient states that her primary care physician switched her medication today from hydrochlorothiazide to lisinopril and does seem tablets p.o., which are waiting for her at the pharmacy Related Data Home Medications Medication Instructions Recorded Confirmed albuterol sulfate 2.5 mg/3 mL mg inhalation Q6H PRN wheezing 12/29/21 01/22/22 (0.083 %) solution for nebulization albuterol sulfate 90 mcg/actuation 2 puff inhalation Q4H PRN wheezing 12/29/21 01/22/22 aerosol inhaler (ProAir HFA) fluticasone furoate 200 1 ea inhalation DAILY 12/29/21 01/22/22 mcg-vilanterol 25 mcg/dose inhalation powder (Breo Ellipta) omeprazole 20 mg capsule,delayed 20 mg PO DAILY 12/29/21 01/22/22 release Previous Rx's Medication Instructions Recorded ibuprofen 800 mg tablet 800 mg PO Q8H PRN pain #30 tabs 06/02/20 benzonatate 200 mg capsule 200 mg PO TID PRN cough #10 caps 03/10/21 prednisone 20 mg tablet 40 mg (2 x 20 mg) PO DAILY #10 tabs 03/10/21 azithromycin 250 mg tablet See Rx Instructions PO .COMPLEX #6 03/17/21 tabs ehdjsuwpeq-svcjiqellrlvk-jjezemzs 1 cap PO Q8H PRN pain #10 caps 03/17/21 50 mg-300 mg-40 mg capsule (Fioricet) diazepam 5 mg tablet (Valium) 5 mg PO TID PRN muscle spasm #14 03/17/21 tabs ondansetron HCl 4 mg tablet 4 mg PO Q8H PRN nausea and 03/17/21 (Zofran) vomiting #14 tabs azithromycin 250 mg tablet See Rx Instructions PO .COMPLEX #6 11/04/22 (Zithromax Z-Ji) tabs prednisone 20 mg tablet 20 mg PO BID #10 tabs 11/04/22 azithromycin 250 mg tablet See Rx Instructions PO .COMPLEX #6 05/11/23 (Zithromax Z-Ji) tabs prednisone 10 mg tablet 10 mg PO DIRECTED #39 tabs 05/11/23 azithromycin 250 mg tablet 250 mg PO DAILY 4 days #4 tabs 06/28/23 prednisone 20 mg tablet 40 mg (2 x 20 mg) PO DAILY 4 days 06/28/23 #8 tabs Allergies Allergy/AdvReac Type Severity Reaction Status Date / Time No Known Allergies Allergy Unknown Verified 07/04/23 18:45 Review of Systems 2 Review of Systems: Constitutional : No Weight loss, No Fever, No Chills, No Night Sweats, No Fatigue, No Malaise ENT/Mouth : No Hearing loss, No Ear Pain, No Nasal Congestion, No Sinus Pain, No Hoarseness, No sore throat, No Rhinorrhea, No Swallowing Difficulty Eyes: No Eye Pain, No Swelling, No Redness, No Foreign Body, No Discharge, No Vision Changes Cardiovascular : No Chest Pain, No SOB, No Dyspnea on Exertion, No Orthopnea, No Edema, No Palpitations Respiratory : Complaining of Cough, productive, recovering from pneumonia, intermittent wheezing, no dyspnea at this time Gastrointestinal : No Nausea, No Vomiting, No Diarrhea, No Constipation, No abdominal Pain, No Hematochezia, No Melena Genitourinary : no irregular bleeding, No Dysuria, No Urinary Frequency, No Hematuria, No Urinary Incontinence, No Urgency, No Flank Pain, No Urinary Flow Changes, No Hesitancy Musculoskeletal : No joint pain, No Myalgias, No Joint Swelling Skin : No Skin Lesions, No rash Neuro : No Weakness, No Numbness, No Paresthesias, No Loss of Consciousness, No Dizziness, No Headache Psych : No Anxiety/Panic, No Depression, No SI/HI/AH/VH, No Social Issues, Heme/Lymph: No Bruising, No Bleeding,No Lymphadenopathy Endocrine : No Polyuria, No Polydipsia, No Temperature Intolerance PMFSH Past Medical History Medical History GERD (gastroesophageal reflux disease) Back pain Asthma Social History Social History Household Members: Spouse Housing: House Alcohol intake: never Patient Tobacco Use Status: Never used Tobacco Smoked in Last 30 Days: No Advance Directives: No Advance Directives Information Provided: Yes Physical Exam ED Vital Signs: Vital Signs - 24 hr 07/04/23 18:39 07/05/23 01:23 Temperature 98.3 F 98.0 F Pulse Rate 87 73 Respiratory Rate 16 18 Blood Pressure 146/92 H 147/88 H Pulse Oximetry 98 96 Oxygen Delivery Method Room Air Room Air BMI result Body Mass Index 53.7 Const Other: Appearance: Alert. Oriented X3. No acute distress. Eyes: Pupils equal, round and reactive to light. ENT: Pharynx normal. Neck: Normal inspection. Neck supple. No lymph nodes noted. No crepitus CVS: Normal heart rate and rhythm. Pulses normal. Normal S1 and S2 Respiratory: No respiratory distress. Breath sounds normal. No Wheezing. No rales Abdomen: Soft and nontender. No rigidity. No distention. Skin: Skin warm and dry. Normal skin color. Normal skin turgor. Extremities: No lower extremity edema. No Lacerations. No Rash Neuro: Oriented X 3. No motor deficit. No sensory deficit. Moving all extremities. No slurred speech. CN 2 through 12 grossly intact Psych: calm, cooperative, normal affect Course Course Course Narrative: This is a rapid medical exam: Additional HPI, ROS, PE not included below will be deferred to primary provider. Patient is a 52-year-old female presenting to the ED stating that her doctor advised her to come to the ED for low potassium, believes the level was 2.8. Recently seen here on 06/27 and diagnosed with pneumonia. Plan: repeat labs Medications Administered Discontinued Medications Generic Name Dose Route Start Last Admin Trade Name Freq PRN Reason Stop Dose Admin Potassium Chloride 60 meq 07/05/23 02:19 07/05/23 02:27 Potassium Chloride Packet 20 Meq Packet PO 07/05/23 02:20 60 meq ONCE ONE Administration Medical Decision Making Medical Decision Making [facility] Narrative: -my interpretation of labs: Patient's white blood cell count 16.0, likely due to taking prednisone. Patient has normal blood pressure, no fever or tachycardia, sepsis not suspected. Potassium earlier today was 2.8, repeat 3.1, very close to normal. -patient was given a dose of p.o. potassium in the emergency room of 60 mEq, patient instructed to follow-up with her primary care physician. -my interpretation of EKG: Normal sinus rhythm, heart rate 78, no ST segment depression or elevation, no T-wave inversion, QTC 449, no obvious abnormality indicating hypokalemia Differential Diagnosis Differential Diagnoses: The differential diagnosis associated with the presentation includes (Lab error, hypokalemia, medication side effect) Lab Data MDM Lab Attestation statement: I reviewed the patient's lab results. 07/04/23 19:05 Labs: Lab Results 07/04/23 Range/Units 19:05 Sodium 135 (135-145) mmol/L Potassium 3.1 L (3.3-5.1) mmol/L Chloride 96 (96-108) mmol/L Carbon Dioxide 28 (22-29) mmol/L Anion Gap 14 (12-20) BUN 13 (9-16) mg/dL Creatinine 0.98 (0.5-1.4) mg/dL Estim Creat Clear Calc 101.7 Estimated GFR 60 Random Glucose 176 H (60-115) mg/dL Calcium 8.6 (8.4-10.2) mg/dL Critical Care Time Critical Care Time Critical Care Time: Yes Total Critical Care Time: 35 Attestation: I have personally provided critical care time. Time includes review of lab data, radiology results, discussion with consultants, and monitoring for potential decompensation. Intervention performed as documented. Discharge Plan Discharge Clinical Impression: Acute hypokalemia Patient Disposition: Home, Self-Care Instructions: Hypokalemia (ED), Potassium Content of Foods List (ED) Additional Instructions: Please follow-up with your primary care physician tomorrow. If you have any worsening or new symptoms, please return to the emergency room or call 911 Prescriptions: No Action ibuprofen 800 mg tablet 800 mg PO Q8H PRN (Reason: pain) Qty: 30 0RF prednisone 20 mg tablet 40 mg PO DAILY Qty: 10 0RF benzonatate 200 mg capsule 200 mg PO TID PRN (Reason: cough) Qty: 10 0RF azithromycin 250 mg tablet See Rx Instructions .ROUTE .COMPLEX Qty: 6 0RF Rx Instructions: take 500 mg today (day 1), then 250 mg for 4 days (days 2-5) ondansetron HCl [Zofran] 4 mg tablet 4 mg PO Q8H PRN (Reason: nausea and vomiting) Qty: 14 0RF diazepam [Valium] 5 mg tablet 5 mg PO TID PRN (Reason: muscle spasm) Qty: 14 0RF depuetwmeb-kysywwwuzcpzg-jqnq [Fioricet] 50-300-40 mg capsule 1 cap PO Q8H PRN (Reason: pain) Qty: 10 0RF azithromycin [Zithromax Z-Ji] 250 mg tablet See Rx Instructions .ROUTE .COMPLEX Qty: 6 0RF Rx Instructions: For 250 mg dose pack: take 500 mg today (day 1), then 250 mg for 4 days (days 2-5) prednisone 20 mg tablet 20 mg PO BID Qty: 10 0RF azithromycin [Zithromax Z-Ji] 250 mg tablet See Rx Instructions .ROUTE .COMPLEX Qty: 6 0RF Rx Instructions: For 250 mg dose pack: take 500 mg today (day 1), then 250 mg for 4 days (days 2-5) prednisone 10 mg tablet 10 mg PO DIRECTED Qty: 39 0RF Rx Instructions: see taper instructions 60 mg p.o. once a day for 3 days, then 40 mg p.o. once a day for 3 days then 20 mg p.o. once a day for 3 days then 10 mg p.o. once a day for 3 days azithromycin 250 mg tablet 250 mg PO DAILY 4 Days Qty: 4 0RF Rx Instructions: start on day 2 of therapy prednisone 20 mg tablet 40 mg PO DAILY 4 Days Qty: 8 0RF omeprazole 20 mg capsule,delayed release(DR/EC) 20 mg PO DAILY albuterol sulfate [ProAir HFA] 90 mcg/actuation HFA aerosol inhaler 2 puff inhalation Q4H PRN (Reason: wheezing) albuterol sulfate 2.5 mg /3 mL (0.083 %) solution for nebulization inhalation Q6H PRN (Reason: wheezing) fluticasone furoate-vilanterol [Breo Ellipta] 200-25 mcg/dose blister with device 1 ea inhalation DAILY
--- NOTE | 2023-07-04 18:42 | ECG_ITS ---
Test Reason : LOW K Blood Pressure : / mmHG Vent. Rate : 078 BPM Atrial Rate : 078 BPM P-R Int : 156 ms QRS Dur : 106 ms QT Int : 394 ms P-R-T Axes : 008 001 036 degrees QTc Int : 449 ms Normal sinus rhythm Normal ECG When compared with ECG of 11-MAY-2023 09:31, No significant change was found Referred By: Darlin Alcala Electronically Signed By:BOOGIE MANN MD
[2023-07-04 19:22] LABS: Anion Gap 14 (12-20); Blood Urea Nitrogen 13 mg/dL (9-16); Calcium 8.6 mg/dL (8.4-10.2); Carbon Dioxide 28 mmol/L (22-29); Chloride 96 mmol/L (96-108); Creatinine Clr Calc Pharmacy 101.7; Estimated Glomerular Filt Rate 60; Glucose Random 176 mg/dL (60-115); Potassium 3.1 mmol/L (3.3-5.1); Sodium 135 mmol/L (135-145)
[2023-07-05 01:23] VITALS: BP 147/88; PULSE 73; RESP 18; TEMP 36.7; O2SAT 96
[2023-07-05] MEDS: Potassium Chloride Packet 20 MEQ PACKET 60 MEQ PO (02:27)
[2023-07-05 02:43] VITALS: BP 147/88; PULSE 73; RESP 18; TEMP 36.6; O2SAT 98
== END 2023-07-05 02:44 | disposition home or self-care (01) ==
PROVIDERS: Registered Nurse Emergency; Emergency Provider Emergency Medicine; PCP General Practice
DX: E87.6 Hypokalemia (principal); J45.909 Unspecified asthma, uncomplicated
CPT/HCPCS: 36415; 80048; 93005; 99283; 99284

== ENCOUNTER → 2023-07-04 18:42 | Outpatient (BNV) | payer OTHER, SELFPAY | PROVIDERS: Emergency Provider Emergency Medicine; PCP General Practice; Visit Provider Internal Medicine Cardiovascular Disease | DX: E87.6 Hypokalemia (principal) | CPT/HCPCS: 93010 ==

== ENCOUNTER 2023-07-13 16:14 | Outpatient (REF) | payer OTHER, SELFPAY ==
[2023-07-13 18:45] LABS: Anion Gap 11 (12-20); Blood Urea Nitrogen 7 mg/dL (9-16); Calcium 8.6 mg/dL (8.4-10.2); Carbon Dioxide 27 mmol/L (22-29); Chloride 104 mmol/L (96-108); Estimated Glomerular Filt Rate > 60; Potassium 4.1 mmol/L (3.3-5.1); Sodium 138 mmol/L (135-145)
[2023-07-13 19:37] LABS: Glucose Random 99 mg/dL (60-115)
== END 2023-07-13 16:15 | disposition home or self-care (01) ==
LOC: HO.HHCL 16:14
PROVIDERS: Visit Provider General Practice
DX: E87.6 Hypokalemia (principal)
CPT/HCPCS: 36415; 80048

== ENCOUNTER 2023-07-17 12:35 | Emergency (ER) | payer OTHER, SELFPAY ==
--- NOTE | ~2023-07-17 | XR_ITS ---
EXAMINATION: XR CHEST CLINICAL INFORMATION: Cough and shortness of breath COMPARISON: None available. TECHNIQUE: 2 views of the chest were obtained. FINDINGS: Moderate peribronchial thickening. No significant abnormality is otherwise noted involving the heart, lungs, mediastinum, bony thorax or soft tissues. XR/XR chest 2V IMPRESSION: Moderate nonspecific peribronchial thickening. No focal consolidation.
[2023-07-17 12:42] VITALS: BP 132/72; PULSE 88; RESP 22; TEMP 36.9; O2SAT 90; BMI 49.6
--- NOTE | 2023-07-17 12:43 | ED.SOB ---
HPI - SOB/Dyspnea General Chief Complaint: Dyspnea Stated Complaint: Difficulty breathing - asthma Time Seen by Provider: 07/17/23 12:51 Source: patient Mode of arrival: ambulatory History of Present Illness HPI Narrative: 52-year-old female who presents with worsening shortness of breath after being recently treated for pneumonia and completed antibiotics and steroids a few days ago. Has a history of asthma for which she is taking her medications, has also started seasonal allergy medications and denies any fevers or chills at this time. Related Data Home Medications ?Medication ?Instructions ?Recorded ?Confirmed albuterol sulfate 2.5 mg/3 mL mg inhalation Q6H PRN wheezing 12/29/21 01/22/22 (0.083 %) solution for nebulization albuterol sulfate 90 mcg/actuation 2 puff inhalation Q4H PRN wheezing 12/29/21 01/22/22 aerosol inhaler (ProAir HFA) fluticasone furoate 200 1 ea inhalation DAILY 12/29/21 01/22/22 mcg-vilanterol 25 mcg/dose inhalation powder (Breo Ellipta) omeprazole 20 mg capsule,delayed 20 mg PO DAILY 12/29/21 01/22/22 release Previous Rx's ?Medication ?Instructions ?Recorded ibuprofen 800 mg tablet 800 mg PO Q8H PRN pain #30 tabs 06/02/20 benzonatate 200 mg capsule 200 mg PO TID PRN cough #10 caps 03/10/21 prednisone 20 mg tablet 40 mg (2 x 20 mg) PO DAILY #10 tabs 03/10/21 azithromycin 250 mg tablet See Rx Instructions PO .COMPLEX #6 03/17/21 tabs piiqvxyquf-rnlmidnubdiem-lonypeqw 1 cap PO Q8H PRN pain #10 caps 03/17/21 50 mg-300 mg-40 mg capsule (Fioricet) diazepam 5 mg tablet (Valium) 5 mg PO TID PRN muscle spasm #14 03/17/21 tabs ondansetron HCl 4 mg tablet 4 mg PO Q8H PRN nausea and 03/17/21 (Zofran) vomiting #14 tabs azithromycin 250 mg tablet See Rx Instructions PO .COMPLEX #6 11/04/22 (Zithromax Z-Ji) tabs prednisone 20 mg tablet 20 mg PO BID #10 tabs 11/04/22 azithromycin 250 mg tablet See Rx Instructions PO .COMPLEX #6 02/07/24 (Zithromax Z-Ji) tabs prednisone 10 mg tablet 10 mg PO DIRECTED #39 tabs 05/11/23 azithromycin 250 mg tablet 250 mg PO DAILY 4 days #4 tabs 06/28/23 prednisone 20 mg tablet 40 mg (2 x 20 mg) PO DAILY 4 days 06/28/23 #8 tabs oseltamivir 75 mg capsule (Tamiflu) 75 mg PO BID 5 days #10 caps 07/17/23 Allergies Allergy/AdvReac Type Severity Reaction Status Date / Time No Known Allergies Allergy Unknown Verified 07/17/23 12:45 Review of Systems Review of Systems: Pertinent positives and negatives as stated in [facility] Past Medical History Source: nursing notes reviewed Medical History GERD (gastroesophageal reflux disease) Back pain Asthma Social History Social History Household Members: Spouse Housing: House Alcohol intake: never Patient Tobacco Use Status: Never used Tobacco Advance Directives: No Advance Directives Information Provided: Yes Physical Exam Vital Signs: Vital Signs: Last Vital Signs Temp 98.6 F 07/17/23 14:28 Pulse 92 07/17/23 14:28 Resp 20 07/17/23 14:28 BP 140/80 H 07/17/23 14:28 Pulse Ox 93 07/17/23 14:28 O2 Del Method Room Air 07/17/23 14:28 BMI result Body Mass Index 49.6 VITAL SIGNS: Reviewed. GENERAL: Well developed, well nourished, in no acute distress. HEAD: Normocephalic/atraumatic EYES: PERRLA, EOMI EARS: Ext canals without abnormality, TMs non-bulging and non-erythematous NOSE: Nares patent bilateral OROPHARYNX: no oral lesions noted, posterior pharynx clear and non-erythematous without noted tonsillar enlargement/erythema/exudates NECK: Supple, no adenopathy LUNGS: Decreased breath sounds throughout with trace expiratory wheeze, mild tachypnea. SpO2<93> CARDIOVASCULAR: Regular rate and rhythm without noted murmurs ABDOMEN: Soft, non-tender, non-distended with bowel sounds. MUSCULOSKELETAL: No tenderness, deformities, or effusions noted on gross inspection. EXTREMITIES: No cyanosis, clubbing or edema. SKIN: Inspection of the skin reveals no rashes NEUROLOGIC: Alert and oriented x 4. Strength and sensation to light touch were grossly intact x 4. Course Course Course Narrative: This is an RME: Additional HPI, ROS, PE not included below will be deferred to primary provider. Patient is a 52-year-old female who presents emergency department reporting shortness of breath x 3 days, worse today, reports pulse oximeter at home 93-94%. States she was seen here a couple of weeks ago diagnosed with pneumonia and states that she has since completed her course of antibiotics. Reports she was feeling much better and then suddenly her symptoms returned. She does state over the past 2 weeks she has been dizzy, worse with exertion Plan: labs, CXR, EKG, viral panel Medications Administered Discontinued Medications Generic Name Dose Route Start Last Admin Trade Name Freq PRN Reason Stop Dose Admin Albuterol Sulfate 5 mg/ 0 mg 07/17/23 12:59 07/17/23 13:04 Albuterol/Ipratropium 3 ml INHALE 07/17/23 13:00 7.5 each ONCE ONE Administration Medical Decision Making Medical Decision Making [facility] Narrative: 52-year-old female with history and clinical presentation, DDX: Asthma exacerbation, viral illness. INTERVENTION: ED Bronch protocol, viral test, chest XR I reviewed all investigations and hematologic indices are negative for leukocytosis/anemia or thrombocytopenia. Chemistry indices are negative for ANNIKA/electrolyte/liver enzyme derangements. Viral testing positive for influenza a and patient received 1st dose of Tamiflu here in the emergency room and will be discharged with remaining course. Chest x-ray consistent with asthma and viral illness. On re-evaluation oxygenating well on room air without residual tachypnea and reporting improvement. Differential Diagnosis Differential Diagnoses: The differential diagnosis associated with the presentation includes Please see the discussion above Admission/Observation Consideration of admission/observation: Escalation of care including admission/observation considered Please see the discussion above Lab Data [facility] Lab Attestation statement: I reviewed the patient's lab results. Please see the discussion above 07/17/23 13:08 07/17/23 13:08 Labs: Lab Results 07/17/23 Range/Units 13:08 WBC 8.4 (4.8-10.8) X10*3/uL RBC 5.20 (4.20-5.50) X10*6/uL Hgb 12.5 (12.0-16.0) g/dl Hct 38.2 (37.0-47.0) % MCV 73.5 L (80.0-98.0) fL MCH 24.0 L (27.0-33.0) pg MCHC 32.7 (31.0-35.0) g/dl RDW 17.2 H (11.0-16.0) % Plt Count 317 D (160-400) X10*3/uL MPV 9.7 (9.4-12.3) fL Immature Gran % (Auto) 0.2 (0.0-0.4) % Neut % (Auto) 84.7 H (45-73) % Lymph % (Auto) 7.1 L (20-40) % [place] % (Auto) 7.9 (2-11) % Eos % (Auto) 0.0 (0-4) % Baso % (Auto) 0.1 (0-2) % Lymph # (Auto) 0.6 L (1.2-4.9) X10*3/uL [place] # (Auto) 0.7 (0.1-1.2) X10*3/uL Eos # (Auto) 0.0 (0.0-0.4) X10*3/uL Baso # (Auto) 0.0 (0.0-0.2) X10*3/uL Abs Immat Gran (auto) 0.02 (0.00-0.03) X10*3/uL Absolute Neuts (auto) 7.1 (2.0-8.3) x10*3/uL Absolute Nucleated RBC 0.000 (0.0-0.012) X10*3/uL Nucleated RBC % (auto) 0.0 (0.0-0.2) /100WBC Sodium 139 (135-145) mmol/L Potassium 3.6 (3.3-5.1) mmol/L Chloride 108 (96-108) mmol/L Carbon Dioxide 22 (22-29) mmol/L Anion Gap 13 (12-20) BUN 8 L (9-16) mg/dL Creatinine 0.71 (0.5-1.4) mg/dL Estim Creat Clear Calc 147.3 Estimated GFR > 60 Random Glucose 119 H (60-115) mg/dL Calcium 8.6 (8.4-10.2) mg/dL Total Bilirubin 0.3 (0.0-1.0) mg/dL AST 20 (5-31) U/L ALT 20 (0-31) U/L Alkaline Phosphatase 61 (39-117) U/L Total Protein 6.8 (6.5-8.0) g/dL Albumin 3.5 (3.5-5.0) g/dL Influenza Type A (PCR) POSITIVE A (Negative) Influenza Type B (PCR) NEGATIVE (Negative) RSV RNA Qual (PCR) NEGATIVE (Negative) SARS-CoV-2 RNA (RT-PCR) NEGATIVE (Negative) Independent Interpretation I performed an independent interpretation of an: EKG Interpretation: Sinus tachycardia, HR-114, no STEMI, AR/QRS/QTC is within normal limits. Radiology Impression Discussion of test interpretation with radiology: I have reviewed the radiologist's reading. Radiologist Impression: Please see the discussion above External Record Review External record reviewed: Outpatient record, Prior outpatient labs and Prior outpatient radiology Chronic Conditions Asthma Critical Care Time Critical Care Time Critical Care Time: Yes Total Critical Care Time: 45 Attestation: I personally attest to this time spent taking care of the patient. Discharge Plan Discharge Clinical Impression: Asthma exacerbation, Viral syndrome, Influenza A Patient Disposition: Home, Self-Care Instructions: Asthma (ED), Influenza (ED), Viral Syndrome (ED) Additional Instructions: 1. Resume all home medications as prescribed. 2. Please complete the entire course of Tamiflu as prescribed. 3. Follow-up with your primary care doctor. Return to the ER for any worsening symptoms. Prescriptions: New oseltamivir [Tamiflu] 75 mg capsule 75 mg PO BID 5 Days Qty: 10 0RF No Action ibuprofen 800 mg tablet 800 mg PO Q8H PRN (Reason: pain) Qty: 30 0RF prednisone 20 mg tablet 40 mg PO DAILY Qty: 10 0RF benzonatate 200 mg capsule 200 mg PO TID PRN (Reason: cough) Qty: 10 0RF azithromycin 250 mg tablet See Rx Instructions .ROUTE .COMPLEX Qty: 6 0RF Rx Instructions: take 500 mg today (day 1), then 250 mg for 4 days (days 2-5) ondansetron HCl [Zofran] 4 mg tablet 4 mg PO Q8H PRN (Reason: nausea and vomiting) Qty: 14 0RF diazepam [Valium] 5 mg tablet 5 mg PO TID PRN (Reason: muscle spasm) Qty: 14 0RF sepdqkjxmt-tqvqopabgwmzu-qyqw [Fioricet] 50-300-40 mg capsule 1 cap PO Q8H PRN (Reason: pain) Qty: 10 0RF azithromycin [Zithromax Z-Ji] 250 mg tablet See Rx Instructions .ROUTE .COMPLEX Qty: 6 0RF Rx Instructions: For 250 mg dose pack: take 500 mg today (day 1), then 250 mg for 4 days (days 2-5) prednisone 20 mg tablet 20 mg PO BID Qty: 10 0RF azithromycin [Zithromax Z-Ji] 250 mg tablet See Rx Instructions .ROUTE .COMPLEX Qty: 6 0RF Rx Instructions: For 250 mg dose pack: take 500 mg today (day 1), then 250 mg for 4 days (days 2-5) prednisone 10 mg tablet 10 mg PO DIRECTED Qty: 39 0RF Rx Instructions: see taper instructions 60 mg p.o. once a day for 3 days, then 40 mg p.o. once a day for 3 days then 20 mg p.o. once a day for 3 days then 10 mg p.o. once a day for 3 days azithromycin 250 mg tablet 250 mg PO DAILY 4 Days Qty: 4 0RF Rx Instructions: start on day 2 of therapy prednisone 20 mg tablet 40 mg PO DAILY 4 Days Qty: 8 0RF omeprazole 20 mg capsule,delayed release(DR/EC) 20 mg PO DAILY albuterol sulfate [ProAir HFA] 90 mcg/actuation HFA aerosol inhaler 2 puff inhalation Q4H PRN (Reason: wheezing) albuterol sulfate 2.5 mg /3 mL (0.083 %) solution for nebulization inhalation Q6H PRN (Reason: wheezing) fluticasone furoate-vilanterol [Breo Ellipta] 200-25 mcg/dose blister with device 1 ea inhalation DAILY Referrals: Kay Faust MD [Primary Care Provider] - Print Language: Turkmen
--- NOTE | 2023-07-17 12:46 | ECG_ITS ---
Test Reason : DIZZINESS Blood Pressure : / mmHG Vent. Rate : 114 BPM Atrial Rate : 114 BPM P-R Int : 138 ms QRS Dur : 096 ms QT Int : 336 ms P-R-T Axes : 066 086 022 degrees QTc Int : 463 ms Sinus tachycardia Low voltage QRS Cannot rule out Anterior infarct , age undetermined Abnormal ECG When compared with ECG of 04-JUL-2023 18:59, Minimal criteria for Anterior infarct are now Present Nonspecific T wave abnormality now evident in Inferior leads Referred By: Armida Lindsay Electronically Signed By:BRITTANY AVILES
[2023-07-17] MEDS: Albuterol Sulfate 5 MG, Albuterol/Iprat 2.5/0.5MG 3 ML 3 ML INHALE (13:04)
[2023-07-17 13:07] VITALS: PULSE 87; RESP 23; O2SAT 94
[2023-07-17 13:11] LABS: MANUAL DIFF FLAG NO
[2023-07-17 13:15] LABS: Basophils Percent Auto 0.1 % (0-2); Hematocrit 38.2 % (37.0-47.0); Hemoglobin 12.5 g/dl (12.0-16.0); Imm Gran Abs Auto 0.02 X10*3/uL (0.00-0.03); Imm Gran Pct Auto 0.2 % (0.0-0.4); Lymphocytes Absolute Auto 0.6 X10*3/uL (1.2-4.9); Lymphocytes Percent Auto 7.1 % (20-40); Mean Corpuscular HGB Conc 32.7 g/dl (31.0-35.0); Mean Corpuscular Volume 73.5 fL (80.0-98.0); Mean Platelet Volume 9.7 fL (9.4-12.3); Monocytes Absolute Auto 0.7 X10*3/uL (0.1-1.2); Monocytes Percent Auto 7.9 % (2-11); Neutrophils Absolute Auto 7.1 x10*3/uL (2.0-8.3); Neutrophils Percent Auto 84.7 % (45-73); Platelet Count 317 X10*3/uL (160-400); Red Cell Distribution Width 17.2 % (11.0-16.0); White Blood Count 8.4 X10*3/uL (4.8-10.8)
[2023-07-17 13:31] LABS: Alanine Aminotransferase 20 U/L (0-31); Albumin Level 3.5 g/dL (3.5-5.0); Alkaline Phosphatase 61 U/L (39-117); Anion Gap 13 (12-20); Aspartate Amino Transferase 20 U/L (5-31); Bilirubin Total 0.3 mg/dL (0.0-1.0); Blood Urea Nitrogen 8 mg/dL (9-16); Calcium 8.6 mg/dL (8.4-10.2); Carbon Dioxide 22 mmol/L (22-29); Chloride 108 mmol/L (96-108); Creatinine Clr Calc Pharmacy 147.3; Estimated Glomerular Filt Rate > 60; Glucose Random 119 mg/dL (60-115); Potassium 3.6 mmol/L (3.3-5.1); Sodium 139 mmol/L (135-145); Total Protein 6.8 g/dL (6.5-8.0)
[2023-07-17 13:55] LABS: Influenza A PCR POSITIVE (Negative); Influenza B PCR NEGATIVE (Negative); Resp Syncy Virus RNA Qual PCR NEGATIVE (Negative); SARS COV2 PCR INHOUSE NEGATIVE (Negative)
[2023-07-17 14:28] VITALS: BP 140/80; PULSE 92; RESP 20; TEMP 37; O2SAT 93
--- NOTE | 2023-07-17 14:30 | PC.NURSE ---
patient reporting some improvement after breathing treatment. remains on room air, speaking in full clear sentences.
[2023-07-17] MEDS: Acetaminophen 325 MG TABLET 975 MG PO (15:48)
[2023-07-17] MEDS: Oseltamivir Phosphate 75 MG CAPSULE PO (15:49)
[2023-07-17 15:53] VITALS: BP 140/80; PULSE 92; RESP 18; TEMP 37; O2SAT 93
== END 2023-07-17 15:54 | disposition home or self-care (01) ==
PROVIDERS: Nurse Practitioner Family; Emergency Provider Student in an Organized Health Care Education/Training Program; PCP General Practice
DX: J45.901 Unspecified asthma with (acute) exacerbation (principal); J10.1 Influenza due to other identified influenza virus with other respiratory manifestations; B34.9 Viral infection, unspecified
CPT/HCPCS: 0241U; 36415; 71046; 80053; 85025; 93005; 94640; 99284; 99285

== ENCOUNTER → 2023-07-17 12:46 | Outpatient (BNV) | payer OTHER, SELFPAY | PROVIDERS: Emergency Provider Student in an Organized Health Care Education/Training Program; PCP General Practice; Visit Provider Internal Medicine | DX: R94.31 Abnormal electrocardiogram [ECG] [EKG] (principal) | CPT/HCPCS: 93010 ==

== ENCOUNTER 2023-07-18 00:33 | Inpatient (IN) | payer OTHER, SELFPAY ==
[2023-07-18] VITALS (15 sets, daily range): BP systolic 118–151; BP diastolic 67–84; PULSE 76–108; RESP 16–30; TEMP 36.2–38.2; O2SAT 91–98; BMI 47.7; BMI 46.9
--- NOTE | ~2023-07-18 | XR_ITS ---
EXAMINATION: XR CHEST CLINICAL INFORMATION: Cough. Shortness of breath. COMPARISON: 07/17/2023 TECHNIQUE: 2 views of the chest were obtained. FINDINGS: The cardiomediastinal silhouette is stable. There is lingular scarring or subsegmental atelectasis. Bronchial thickening is again seen. The lungs are otherwise clear. The bony structures and soft tissues are unremarkable. XR/XR chest 2V IMPRESSION: Stable bronchial thickening. Stable minimal lingular subsegmental atelectasis or scarring. No new consolidation. No significant change.
--- NOTE | 2023-07-18 01:48 | ED.GENADULT ---
HPI - General Adult General Chief complaint: Upper Respiratory Symptoms Stated complaint: asthma Time Seen by Provider: 07/18/23 01:39 History of Present Illness HPI narrative: The patient is a 52-year-old woman with a history of asthma. Over the past 3 days she has had worsening shortness of breath and fevers. She was seen here earlier today and tested positive for influenza A. She was started on oseltamivir. After leaving the hospital she became more and more short of breath and she felt that her asthma was getting worse and worse. She took 20 mg of prednisone (a leftover tablet she had at home) and ultimately came to the emergency room because she felt that she could not breathe. Related Data Home Medications ?Medication ?Instructions ?Recorded ?Confirmed albuterol sulfate 2.5 mg/3 mL mg inhalation Q6H PRN wheezing 12/29/21 01/22/22 (0.083 %) solution for nebulization albuterol sulfate 90 mcg/actuation 2 puff inhalation Q4H PRN wheezing 12/29/21 01/22/22 aerosol inhaler (ProAir HFA) fluticasone furoate 200 1 ea inhalation DAILY 12/29/21 01/22/22 mcg-vilanterol 25 mcg/dose inhalation powder (Breo Ellipta) omeprazole 20 mg capsule,delayed 20 mg PO DAILY 12/29/21 01/22/22 release Previous Rx's ?Medication ?Instructions ?Recorded ibuprofen 800 mg tablet 800 mg PO Q8H PRN pain #30 tabs 06/02/20 benzonatate 200 mg capsule 200 mg PO TID PRN cough #10 caps 03/10/21 prednisone 20 mg tablet 40 mg (2 x 20 mg) PO DAILY #10 tabs 03/10/21 azithromycin 250 mg tablet See Rx Instructions PO .COMPLEX #6 03/17/21 tabs hfkzwnnmhw-lrtccydhhhzgx-mybcgdjh 1 cap PO Q8H PRN pain #10 caps 03/17/21 50 mg-300 mg-40 mg capsule (Fioricet) diazepam 5 mg tablet (Valium) 5 mg PO TID PRN muscle spasm #14 03/17/21 tabs ondansetron HCl 4 mg tablet 4 mg PO Q8H PRN nausea and 03/17/21 (Zofran) vomiting #14 tabs azithromycin 250 mg tablet See Rx Instructions PO .COMPLEX #6 11/04/22 (Zithromax Z-Ji) tabs prednisone 20 mg tablet 20 mg PO BID #10 tabs 11/04/22 azithromycin 250 mg tablet See Rx Instructions PO .COMPLEX #6 05/11/23 (Zithromax Z-Ji) tabs prednisone 10 mg tablet 10 mg PO DIRECTED #39 tabs 05/11/23 azithromycin 250 mg tablet 250 mg PO DAILY 4 days #4 tabs 06/28/23 prednisone 20 mg tablet 40 mg (2 x 20 mg) PO DAILY 4 days 06/28/23 #8 tabs oseltamivir 75 mg capsule (Tamiflu) 75 mg PO BID 5 days #10 caps 07/17/23 Allergies Allergy/AdvReac Type Severity Reaction Status Date / Time No Known Allergies Allergy Unknown Verified 07/18/23 01:01 [facility] Past Medical History Medical History GERD (gastroesophageal reflux disease) Back pain Asthma Social History Social History Household Members: Spouse Housing: House Alcohol intake: never Patient Tobacco Use Status: Never used Tobacco Advance Directives: No Advance Directives Information Provided: Yes Physical Exam ED Vital Signs: Vital Signs - 24 hr 07/18/23 00:58 07/18/23 01:25 07/18/23 01:25 Temperature 100.7 F H Pulse Rate 108 H Respiratory Rate 22 H Blood Pressure 151/75 H Pulse Oximetry 98 91 L 91 L Oxygen Delivery Method Room Air Room Air Room Air 07/18/23 02:24 Temperature Pulse Rate 96 Respiratory Rate 20 Blood Pressure Pulse Oximetry Oxygen Delivery Method BMI result Body Mass Index 47.7 Const Other: The patient is a 52-year-old woman who looks somewhat chronically ill and who looks fairly short of breath. HENMT Other: Face is symmetrical, mucous membranes moist Eyes Other: Pupils are round equal, conjunctivae are clear Neck Other: No JVD Resp Other: The patient is tachypneic. She has markedly diminished air entry bilaterally associated with inspiratory and expiratory wheezes bilaterally Cardio Rate: tachycardic Rhythm: regular rhythm Heart sounds: S1 normal heart sound present and S2 normal heart sound present GI Other: Abdomen is soft and nontender Skin Other: Skin is pale and dry Neuro Other: The patient is awake and alert. Cranial nerves are grossly intact. She moves her extremities normally. Extrem Other: No pitting edema. No calf asymmetry. Medications Administered Discontinued Medications Generic Name Dose Route Start Last Admin Trade Name Kings PRN Reason Stop Dose Admin Acetaminophen 975 mg 07/18/23 02:19 07/18/23 03:06 Acetaminophen 325 Mg Tablet PO 07/18/23 02:20 975 mg ONCE ONE Administration Albuterol Sulfate 7.5 mg/ 10 mg 07/18/23 02:15 07/18/23 02:23 Albuterol Sulfate 2.5 mg INHALE 07/18/23 02:16 10 mg ONCE ONE Administration Ibuprofen 400 mg 07/18/23 02:19 07/18/23 03:06 Ibuprofen 400 Mg Tablet PO 07/18/23 02:20 400 mg ONCE ONE Administration Prednisone 60 mg 07/18/23 01:48 07/18/23 02:01 Prednisone 20 Mg Tablet PO 07/18/23 01:49 60 mg ONCE ONE Administration Medical Decision Making Medical Decision Making [facility] Narrative: The patient is a 52-year-old woman with a history of significant asthma who has been sick for 2 or 3 days with fevers and respiratory symptoms. She was seen in the emergency room earlier today and tested positive for influenza A. She was started on oseltamivir. She was discharged. After discharge she became increasingly short of breath with increasing wheezing. She returned to the emergency room. Here she has been quite tachypneic with very borderline oxygen saturations. She was given a 10 mg albuterol bronchodilator treatment with no significant improvement in her symptoms although her breath sounds increased somewhat. Her oxygen saturations remained borderline and she remains tachypneic. Given her degree of illness and her influenza I think hospitalization would be reasonable. She has received steroids. She would earlier received oseltamivir. She will also receive magnesium. She will be admitted to the hospitalist service. Lab Data 07/18/23 03:27 07/18/23 03:27 Labs: Lab Results 07/18/23 07/18/23 Range/Units 03:27 03:32 WBC 10.3 (4.8-10.8) X10*3/uL RBC 5.32 (4.20-5.50) X10*6/uL Hgb 12.8 (12.0-16.0) g/dl Hct 39.6 (37.0-47.0) % MCV 74.4 L (80.0-98.0) fL MCH 24.1 L (27.0-33.0) pg MCHC 32.3 (31.0-35.0) g/dl RDW 17.2 H (11.0-16.0) % Plt Count 306 (160-400) X10*3/uL MPV 9.8 (9.4-12.3) fL Immature Gran % (Auto) 0.4 (0.0-0.4) % Neut % (Auto) 84.2 H (45-73) % Lymph % (Auto) 8.5 L (20-40) % [place] % (Auto) 6.8 (2-11) % Eos % (Auto) 0.0 (0-4) % Baso % (Auto) 0.1 (0-2) % Lymph # (Auto) 0.9 L (1.2-4.9) X10*3/uL [place] # (Auto) 0.7 (0.1-1.2) X10*3/uL Eos # (Auto) 0.0 (0.0-0.4) X10*3/uL Baso # (Auto) 0.0 (0.0-0.2) X10*3/uL Abs Immat Gran (auto) 0.04 H (0.00-0.03) X10*3/uL Absolute Neuts (auto) 8.7 H (2.0-8.3) x10*3/uL Absolute Nucleated RBC 0.000 (0.0-0.012) X10*3/uL Nucleated RBC % (auto) 0.0 (0.0-0.2) /100WBC VBG pH 7.45 H (7.32-7.43) VBG pCO2 34 mmHg VBG pO2 47 mmHg VBG HCO3 24 (22-26) mmol/L VBG O2 Saturation 76.0 % VBG Base Excess 0.9 mmol/L Sodium 135 (135-145) mmol/L Potassium 3.5 (3.3-5.1) mmol/L Chloride 103 (96-108) mmol/L Carbon Dioxide 22 (22-29) mmol/L Anion Gap 14 (12-20) BUN 9 (9-16) mg/dL Creatinine 0.86 (0.5-1.4) mg/dL Estim Creat Clear Calc 126.2 Estimated GFR > 60 Random Glucose 173 H (60-115) mg/dL Calcium 8.4 (8.4-10.2) mg/dL Magnesium 1.8 (1.6-2.6) mg/dL Discharge Plan Discharge Clinical Impression: Influenza A, Acute asthma exacerbation Patient Disposition: Admitted As Inpatient Print Language: Kazakh
[2023-07-18] MEDS: predniSONE 20 MG TABLET 60 MG PO (02:01)
--- NOTE | 2023-07-18 02:10 | PC.NURSE ---
Addendum entered by Myah Aguayo 07/18/23 03:52: dr. alaniz aware pt meets sirs criteria. Original Note: pt brought into [facility], pt reporting sob/cough. wheezling ausc bilat. sats 91% on RA. Dr. Alaniz made aware. 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
[2023-07-18] MEDS: Albuterol Sulfate 7.5 MG, Albuterol Sulfate (0.083%) 2.5 MG 10 MG INHALE (02:23)
--- NOTE | 2023-07-18 02:40 | PC.NURSE ---
pt o2 sats remain 89-91% on RA following breathing tx. Dr. Alaniz aware; cxr ordered.
[2023-07-18] MEDS: Ibuprofen 400 MG TABLET PO (03:06)
[2023-07-18] MEDS: Acetaminophen 325 MG TABLET 975 MG PO (03:06)
[2023-07-18 03:33] LABS: MANUAL DIFF FLAG NO
[2023-07-18 03:35] LABS: Basophils Percent Auto 0.1 % (0-2); Hematocrit 39.6 % (37.0-47.0); Hemoglobin 12.8 g/dl (12.0-16.0); Imm Gran Abs Auto 0.04 X10*3/uL (0.00-0.03); Imm Gran Pct Auto 0.4 % (0.0-0.4); Lymphocytes Absolute Auto 0.9 X10*3/uL (1.2-4.9); Lymphocytes Percent Auto 8.5 % (20-40); Mean Corpuscular HGB Conc 32.3 g/dl (31.0-35.0); Mean Corpuscular Hemoglobin 24.1 pg (27.0-33.0); Mean Corpuscular Volume 74.4 fL (80.0-98.0); Mean Platelet Volume 9.8 fL (9.4-12.3); Monocytes Absolute Auto 0.7 X10*3/uL (0.1-1.2); Monocytes Percent Auto 6.8 % (2-11); Neutrophils Absolute Auto 8.7 x10*3/uL (2.0-8.3); Neutrophils Percent Auto 84.2 % (45-73); Platelet Count 306 X10*3/uL (160-400); Red Blood Count 5.32 X10*6/uL (4.20-5.50); Red Cell Distribution Width 17.2 % (11.0-16.0); White Blood Count 10.3 X10*3/uL (4.8-10.8)
[2023-07-18 03:38] LABS: VBG Base Excess 0.9 mmol/L; VBG HCO3 24 mmol/L (22-26); VBG pCO2 34 mmHg; VBG pH 7.45 (7.32-7.43); VBG pO2 47 mmHg
[2023-07-18 03:39] LABS: Venous Blood Gas Refer to POC result
[2023-07-18 03:50] LABS: Anion Gap 14 (12-20); Blood Urea Nitrogen 9 mg/dL (9-16); Calcium 8.4 mg/dL (8.4-10.2); Carbon Dioxide 22 mmol/L (22-29); Chloride 103 mmol/L (96-108); Creatinine Clr Calc Pharmacy 126.2; Estimated Glomerular Filt Rate > 60; Glucose Random 173 mg/dL (60-115); Magnesium 1.8 mg/dL (1.6-2.6); Potassium 3.5 mmol/L (3.3-5.1); Sodium 135 mmol/L (135-145)
--- NOTE | 2023-07-18 03:50 | PC.NURSE ---
Dr. bowman made aware pt still having labored breathing, slight wheezing on ausc, sats 91% on RA, pt sitting in tripod position. iv established labs drawn. sinus tach on monitor. bp stable. awaiting further orders. pt speaking full clear sentences. skin wpd.
--- NOTE | 2023-07-18 03:52 | PM.IMHP ---
History of Present Illness Date of Service: 07/18/23 Chief Complaint: Dyspnea This is a 52-year-old female with pertinent history of asthma not on home oxygen, gastroesophageal reflux disease, essential hypertension who presents to the emergency department for evaluation of dyspnea. Patient states her symptoms started 2 days prior to presentation. Patient was seen in the ER 1 day prior to presentation when she tested positive for influenza A. Patient was discharged with p.o. prednisone and p.o. Tamiflu. Patient states her symptoms continued and her dyspnea progressed, which is worse with ambulation. Also has associated wheezing and nonproductive cough. Admits chills but no documented temperature. No chest discomfort, palpitations, abdominal pain, changes in urinary or bowel habits. In the emergency department, patient was found to be tachypneic and wheezing despite multiple DuoNeb treatments. Review of Systems Constitutional: Constitutional: Reports fatigue Cardiovascular: Cardiovascular: Reports dyspnea on exertion Respiratory: Respiratory: Reports cough, Reports dyspnea on exertion and Reports wheezing Gastrointestinal: Gastrointestinal: Reports no additional gastrointestinal complaints Genitourinary: Genitourinary: Reports no additional female genitourinary complaints Endocrine: Endocrine: Reports fatigue Allergic/Immunologic: Allergic/Immunologic: Reports wheezing [facility] Medical History GERD (gastroesophageal reflux disease) Back pain Asthma Pertinent family history: No family history of early CAD Social History Household Members: Spouse Housing: House Alcohol intake: never Patient Tobacco Use Status: Never used Tobacco Advance Directives: No Advance Directives Information Provided: Yes Meds Allergies Allergy/AdvReac Type Severity Reaction Status Date / Time No Known Allergies Allergy Unknown Verified 07/18/23 01:01 Active Medications: Current Medications Acetaminophen (Acetaminophen 325 Mg Tablet) 650 mg PO Q6H PRN PRN Reason: Pain, Mild (Pain Scale 1-3) Enoxaparin Sodium (Enoxaparin Sodium 40 Mg/0.4 Ml Syringe) 40 mg SUBCUT Q24H JOSE RAFAEL Magnesium Sulfate (Magnesium Sulfate/H2o) 2 gm in 50 mls @ 25 mls/hr IV ONCE ONE Stop: 07/18/23 05:48 Melatonin (Melatonin 3 Mg Tablet) 6 mg PO BEDTIME PRN PRN Reason: Insomnia Methylprednisolone Sodium Succinate (Methylprednisolone Sod Succ 40 Mg/Ml Vial) 40 mg IVPUSH Q12H [facility] Ondansetron HCl (Ondansetron Hcl 4 Mg/2 Ml Vial) 4 mg IVPUSH Q8H PRN PRN Reason: Nausea and Vomiting Oseltamivir Phosphate (Oseltamivir Phosphate 75 Mg Capsule) 75 mg PO Q12H [facility] Stop: 07/22/23 16:01 Sodium Chloride (0.9 % Sodium Chloride Flush 3 Ml Syringe) 3 ml IVFLUSH QSHIFT [facility] Home Medications ?Medication ?Instructions ?Recorded ?Confirmed ?Last Taken ?Type albuterol sulfate 2.5 mg/3 mL mg inhalation Q6H PRN wheezing 12/29/21 01/22/22 Unknown History (0.083 %) solution for nebulization albuterol sulfate 90 mcg/actuation 2 puff inhalation Q4H PRN wheezing 12/29/21 01/22/22 Unknown History aerosol inhaler (ProAir HFA) fluticasone furoate 200 1 ea inhalation DAILY 12/29/21 01/22/22 Unknown History mcg-vilanterol 25 mcg/dose inhalation powder (Breo Ellipta) omeprazole 20 mg capsule,delayed 20 mg PO DAILY 12/29/21 01/22/22 Unknown History release Physical Exam Vital Signs and Narrative: Vital Signs: Last Vital Signs Temp 100.7 F H 07/18/23 00:58 Pulse 96 07/18/23 02:24 Resp 20 07/18/23 02:24 BP 151/75 H 07/18/23 00:58 Pulse Ox 91 L 07/18/23 01:25 O2 Del Method Room Air 07/18/23 01:25 BMI result Body Mass Index 47.7 Middle-aged female lying in bed in mild distress Neck supple, no JVD Regular rate and rhythm, S1-S2 heard Tachypnea with bilateral wheezing Abdomen soft nontender, no guarding, no rigidity Patient is awake, alert and oriented to self, place, time and person ; no focal motor deficit Psych: Normal mood No pedal edema Results Labs 07/18/23 03:27 07/18/23 03:27 Labs: Laboratory Results - last 24 hr 07/18/23 07/18/23 03:27 03:32 MCV 74.4 L MCH 24.1 L MCHC 32.3 RDW 17.2 H Plt Count 306 MPV 9.8 Immature Gran % (Auto) 0.4 Neut % (Auto) 84.2 H Lymph % (Auto) 8.5 L [place] % (Auto) 6.8 Eos % (Auto) 0.0 Baso % (Auto) 0.1 Lymph # (Auto) 0.9 L [place] # (Auto) 0.7 Eos # (Auto) 0.0 Baso # (Auto) 0.0 Abs Immat Gran (auto) 0.04 H Absolute Neuts (auto) 8.7 H Absolute Nucleated RBC 0.000 Nucleated RBC % (auto) 0.0 VBG pH 7.45 H VBG pCO2 34 VBG pO2 47 VBG HCO3 24 VBG O2 Saturation 76.0 VBG Base Excess 0.9 Anion Gap 14 Estim Creat Clear Calc 126.2 Estimated GFR > 60 Random Glucose 173 H Calcium 8.4 Magnesium 1.8 Imaging Radiologist's Impressions: Impressions Chest X-Ray 07/18/23 03:01 IMPRESSION: Stable bronchial thickening. Stable minimal lingular subsegmental atelectasis or scarring. No new consolidation. No significant change. Assessment and Plan (1) Acute asthma exacerbation: Status: Acute (2) Influenza A: Status: Acute Plan This is a 52-year-old female with pertinent history of asthma not on home oxygen, gastroesophageal reflux disease, essential hypertension who presents to the emergency department for evaluation of dyspnea. #. Acute respiratory distress due to acute exacerbation of asthma in the setting of influenza a: Will admit patient and initiate IV steroids. Ordered IV magnesium in the ER. Scheduled and p.r.n. DuoNebs. Continue home inhaler #. Viral sepsis due to influenza a: Resuscitated with IV crystalloids and obtain lactic acid/blood cultures. Defer antibiotics #. Gastroesophageal reflux disease: On PPI #. Essential hypertension: On lisinopril #. Obesity: Counseled regarding diet and exercise Med rec pending DVT prophylaxis: Lovenox Full code Quality Stroke Does the patient have a stroke diagnosis?: No VTE Prior VTE?: No VTE Risk Level:: Medical - moderate - high VTE Device Contraindication: Treatment Not Indicated VTE Drug Contraindication: N/A - Med Ordered
[2023-07-18 04:23] LABS: Lactic Acid 1.2 mmol/L (0.5-2.0)
[2023-07-18] MEDS: Magnesium Sulfate/H2O 2 GM/50 ML PIGGYBACK IV (04:27)
[2023-07-18] MEDS: Oseltamivir Phosphate 75 MG CAPSULE PO ×2 (04:27→19:43)
[2023-07-18] MEDS: 0.9 % Sodium Chloride 500 ML IV (04:28)
--- NOTE | 2023-07-18 04:33 | PC.NURSE ---
mag infusion set for [address] Levy verbal order. ivf infusing. pt previously placed on 2L NC by Dr. Alaniz, removed per Dr. Levy as long as o2 remains greater than 90% on RA. pt medicated per jun. fever resolved. nsr on monitor. call castelan within reach.
--- NOTE | 2023-07-18 05:45 | PC.NURSE ---
pt refusing to use purewick/commode wants to ambulate to the bathroom. pt appears diaphoretic, vitals as documented. lung sounds wheezing throughout. Dr. Levy and RT notified.
[2023-07-18] MEDS: Albuterol/Iprat 2.5/0.5MG 3 ML AMPUL.NEB INHALE ×5 (05:51→19:43)
[2023-07-18] MEDS: methylPREDNISolone Sod Succ 40 MG/ML VIAL IVPUSH ×2 (08:03→19:43)
[2023-07-18] MEDS: 0.9 % Sodium Chloride Flush 3 ML SYRINGE IVFLUSH ×3 (08:03→19:43)
--- NOTE | 2023-07-18 08:17 | PC.NURSE ---
patient refused Lovenox as she is ambulatory and sees no need for it. Lungs with wheezing throughout all cameron after breathing treatment
--- NOTE | 2023-07-18 12:42 | MHC.CM.PN ---
PT REPORTS SHE LIVES WITH HER S/O AND IS INDEPENDENT WITH CARE PT HAS NO SERVICES AND USES A NEBULIZER FOR DME SHE DECLINES TO COMPLETE A HCP AT THIS TIME PCP: [facility] NOTICE DELIVERED DCP: HOME NO SERVICES VIA PRIVATE TRANSPORT
--- NOTE | 2023-07-18 13:07 | PHA.MEDREC ---
Pharmacy Consult ? Medication Reconciliation Pharmacy has completed the medication reconciliation. SPOKE TO PATIENT TO CONFIRM MEDICATIONS. SHE STATES SHE IS ONLY ON POTASSIUM EVERY OTHER DAY NOW HER LEVELS ARE NORMALIZED AND SHE WAS DISCONTINUED OFF OF METFORMIN.
[2023-07-18] MEDS: Loratadine 10 MG TABLET PO (13:59)
[2023-07-18] MEDS: Omeprazole 40 MG CAPSULE.DR PO (13:59)
[2023-07-18] MEDS: lisinopriL 10 MG TABLET PO (13:59)
[2023-07-18] MEDS: Fluticasone/Vilanterol 200/25 BLST.W.DEV 1 PUFF INHALE (14:34)
[2023-07-18] MEDS: guaiFENesin DM 200/20/10 ML 10 ML SYRUP PO (21:19)
[2023-07-19] VITALS (9 sets, daily range): BP systolic 129–146; BP diastolic 70–79; PULSE 70–88; RESP 14–20; TEMP 36.4–36.6; O2SAT 92–98
[2023-07-19] MEDS: Albuterol/Iprat 2.5/0.5MG 3 ML AMPUL.NEB INHALE ×5 (01:57→19:56)
[2023-07-19] MEDS: guaiFENesin DM 200/20/10 ML 10 ML SYRUP PO ×3 (03:20→17:28)
[2023-07-19] MEDS: Omeprazole 40 MG CAPSULE.DR PO (05:30)
[2023-07-19 05:54] LABS: MANUAL DIFF FLAG NO
[2023-07-19 06:14] LABS: Hemoglobin 11.9 g/dl (12.0-16.0); Imm Gran Abs Auto 0.05 X10*3/uL (0.00-0.03); Imm Gran Pct Auto 0.6 % (0.0-0.4); Lymphocytes Absolute Auto 1.3 X10*3/uL (1.2-4.9); Lymphocytes Percent Auto 14.8 % (20-40); Mean Corpuscular HGB Conc 31.3 g/dl (31.0-35.0); Mean Corpuscular Volume 76.6 fL (80.0-98.0); Mean Platelet Volume 9.9 fL (9.4-12.3); Monocytes Absolute Auto 0.5 X10*3/uL (0.1-1.2); Monocytes Percent Auto 6.1 % (2-11); Neutrophils Absolute Auto 6.7 x10*3/uL (2.0-8.3); Neutrophils Percent Auto 78.5 % (45-73); Platelet Count 304 X10*3/uL (160-400); Red Blood Count 4.96 X10*6/uL (4.20-5.50); Red Cell Distribution Width 17.5 % (11.0-16.0); White Blood Count 8.6 X10*3/uL (4.8-10.8)
[2023-07-19 06:27] LABS: Anion Gap 11 (12-20); Blood Urea Nitrogen 10 mg/dL (9-16); Calcium 8.5 mg/dL (8.4-10.2); Carbon Dioxide 24 mmol/L (22-29); Chloride 106 mmol/L (96-108); Creatinine Clr Calc Pharmacy 139.5; Estimated Glomerular Filt Rate > 60; Glucose Random 163 mg/dL (60-115); Potassium 4.2 mmol/L (3.3-5.1); Sodium 137 mmol/L (135-145)
[2023-07-19] MEDS: Loratadine 10 MG TABLET PO (08:09)
[2023-07-19] MEDS: methylPREDNISolone Sod Succ 40 MG/ML VIAL IVPUSH ×2 (08:09→23:25)
[2023-07-19] MEDS: Oseltamivir Phosphate 75 MG CAPSULE PO ×2 (08:09→23:25)
[2023-07-19] MEDS: lisinopriL 10 MG TABLET PO (08:09)
[2023-07-19] MEDS: 0.9 % Sodium Chloride Flush 3 ML SYRINGE IVFLUSH ×3 (08:09→23:28)
[2023-07-19] MEDS: Potassium Chloride ER 10 MEQ TABLET.ER PO (08:09)
[2023-07-19] MEDS: Fluticasone/Vilanterol 200/25 BLST.W.DEV 1 PUFF INHALE (08:29)
--- NOTE | 2023-07-19 10:45 | P.PNIM_ITS ---
Subjective Subjective Date of Service: 07/19/23 Interval History: Continues to have significant expiratory wheezing. Is dyspneic and tachypneic. Minimal improvement since admission Constitutional Constitutional: Reports fatigue Cardiovascular Cardiovascular: Reports dyspnea on exertion Respiratory Respiratory: Reports cough, Reports dyspnea on exertion and Reports wheezing Gastrointestinal Gastrointestinal: Reports no additional gastrointestinal complaints Endocrine Endocrine: Reports fatigue Allergic/Immunologic Allergic/Immunologic: Reports wheezing Physical Exam 2 Vital Signs: Vital Signs: Last Vital Signs Temp 97.9 F 07/19/23 07:03 Pulse 74 07/19/23 08:31 Resp 18 07/19/23 08:31 BP 129/76 07/19/23 07:03 Pulse Ox 95 07/19/23 07:03 O2 Del Method Room Air 07/19/23 07:03 BMI result Body Mass Index 46.9 Middle-aged female lying in bed in mild distress Neck supple, no JVD Regular rate and rhythm, S1-S2 heard Tachypnea with bilateral wheezing Abdomen soft nontender, no guarding, no rigidity Patient is awake, alert and oriented to self, place, time and person ; no focal motor deficit Psych: Normal mood No pedal edema Objective Data Active Medications Acetaminophen (Acetaminophen 325 Mg Tablet) 650 mg PO Q6H PRN PRN Reason: Pain, Mild (Pain Scale 1-3) Albuterol/Ipratropium (Albuterol/Iprat 2.5/0.5mg 3 Ml Ampul.Neb) 3 ml INHALE RQ4H WHILE AWAKE [facility] Last Admin: 07/19/23 08:30 Dose: 3 ml Documented By: ESTELA Albuterol/Ipratropium (Albuterol/Iprat 2.5/0.5mg 3 Ml Ampul.Neb) 3 ml INHALE Q4H PRN PRN Reason: Wheezing Last Admin: 07/19/23 01:57 Dose: 3 ml Documented By: MICHELLE Enoxaparin Sodium (Enoxaparin Sodium 40 Mg/0.4 Ml Syringe) 40 mg SUBCUT DAILY [facility] [place] Last Admin: 07/19/23 08:17 Dose: Not Given Documented By: OBED Non-Admin Reason: Patient Refused Fluticasone/Vilanterol (Fluticasone/Vilanterol 200/25 Blst.W.Dev) 1 puff INHALE RDAILY [facility] Last Admin: 07/19/23 08:29 Dose: 1 puff Documented By: ESTELA Guaifenesin/Dextromethorphan (Guaifenesin Dm 200/20/10 Ml 10 Ml Syrup) 10 ml PO Q6H PRN PRN Reason: Cough Last Admin: 07/19/23 10:42 Dose: 10 ml Documented By: OBED Lisinopril (Lisinopril 10 Mg Tablet) 10 mg PO DAILY [facility] [place]; Protocol Last Admin: 07/19/23 08:09 Dose: 10 mg Documented By: OBED Loratadine (Loratadine 10 Mg Tablet) 10 mg PO DAILY [facility] [place] Last Admin: 07/19/23 08:09 Dose: 10 mg Documented By: OBED Melatonin (Melatonin 3 Mg Tablet) 6 mg PO BEDTIME PRN PRN Reason: Insomnia Methylprednisolone Sodium Succinate (Methylprednisolone Sod Succ 40 Mg/Ml Vial) 40 mg IVPUSH Q12H [facility] [place] Last Admin: 07/19/23 08:09 Dose: 40 mg Documented By: OBED Omeprazole (Omeprazole 40 Mg Capsule.Dr) 40 mg PO DAILY@0630 [facility] Last Admin: 07/19/23 05:30 Dose: 40 mg Documented By: CASTSANTHOSH Ondansetron HCl (Ondansetron Hcl 4 Mg/2 Ml Vial) 4 mg IVPUSH Q8H PRN PRN Reason: Nausea and Vomiting Oseltamivir Phosphate (Oseltamivir Phosphate 75 Mg Capsule) 75 mg PO BID [facility] Stop: 07/22/23 21:01 Last Admin: 07/19/23 08:09 Dose: 75 mg Documented By: OBED Potassium Chloride (Potassium Chloride Er 10 Meq Tablet.Er) 10 meq PO DAILY [facility] [place] Last Admin: 07/19/23 08:09 Dose: 10 meq Documented By: OBED Sodium Chloride (0.9 % Sodium Chloride Flush 3 Ml Syringe) 3 ml IVFLUSH QSHIFT [facility] Last Admin: 07/19/23 08:09 Dose: 3 ml Documented By: OBED Labs 07/19/23 05:38 07/19/23 05:38 Labs: Laboratory Results - last 24 hr 07/19/23 05:38 MCV 76.6 L MCH 24.0 L MCHC 31.3 RDW 17.5 H Plt Count 304 MPV 9.9 Immature Gran % (Auto) 0.6 H Neut % (Auto) 78.5 H Lymph % (Auto) 14.8 L [place] % (Auto) 6.1 Eos % (Auto) 0.0 Baso % (Auto) 0.0 Lymph # (Auto) 1.3 [place] # (Auto) 0.5 Eos # (Auto) 0.0 Baso # (Auto) 0.0 Abs Immat Gran (auto) 0.05 H Absolute Neuts (auto) 6.7 Absolute Nucleated RBC 0.000 Nucleated RBC % (auto) 0.0 Anion Gap 11 L Estim Creat Clear Calc 139.5 Estimated GFR > 60 Random Glucose 163 H Calcium 8.5 Microbiology Microbiology Results: Microbiology 07/18/23 04:07 Blood Culture - Preliminary Blood - Venous No growth after 24 hours. 07/18/23 04:06 Blood Culture - Preliminary Blood - Venous No growth after 24 hours. Assessment and Plan (1) Acute asthma exacerbation: Status: Acute Plan This is a 52-year-old female with pertinent history of asthma not on home oxygen, gastroesophageal reflux disease, essential hypertension who presents to the emergency department for evaluation of dyspnea. #. Acute respiratory distress due to acute exacerbation of asthma in the setting of influenza a: Continue IV steroids. Scheduled and p.r.n. DuoNebs. Continue home inhaler #. Viral sepsis due to influenza a: Resuscitated with IV crystalloids and obtained lactic acid/blood cultures. Defer antibiotics #. Gastroesophageal reflux disease: On PPI #. Essential hypertension: On lisinopril #. Obesity: Counseled regarding diet and exercise DVT prophylaxis: Lovenox Full code Reason for continued hospitalization: IV steroids in a patient with asthma exacerbation. Anticipate home discharge tomorrow Quality Stroke Does the patient have a stroke diagnosis?: No VTE Prior VTE?: No VTE Risk Level:: Medical - moderate - high VTE Device Contraindication: Treatment Not Indicated VTE Drug Contraindication: N/A - Med Ordered
--- NOTE | 2023-07-19 14:29 | MHC.CM.PN ---
Per MD rounds no discharge today. Patient continues with dyspnea. DP Home self care. Patient will arrange for transportation home.
[2023-07-20] VITALS (8 sets, daily range): BP systolic 137–146; BP diastolic 68–80; PULSE 68–79; RESP 14–19; TEMP 36–36.9; O2SAT 93–96
[2023-07-20] MEDS: Omeprazole 40 MG CAPSULE.DR PO (06:17)
[2023-07-20] MEDS: guaiFENesin DM 200/20/10 ML 10 ML SYRUP PO ×2 (06:20→21:30)
[2023-07-20] MEDS: Fluticasone/Vilanterol 200/25 BLST.W.DEV 1 PUFF INHALE (07:29)
[2023-07-20] MEDS: Albuterol/Iprat 2.5/0.5MG 3 ML AMPUL.NEB INHALE ×4 (07:29→20:21)
[2023-07-20] MEDS: methylPREDNISolone Sod Succ 40 MG/ML VIAL IVPUSH (07:32)
[2023-07-20] MEDS: 0.9 % Sodium Chloride Flush 3 ML SYRINGE IVFLUSH ×3 (07:32→21:30)
[2023-07-20] MEDS: lisinopriL 10 MG TABLET PO (07:34)
[2023-07-20] MEDS: Oseltamivir Phosphate 75 MG CAPSULE PO ×2 (07:34→21:30)
[2023-07-20] MEDS: Potassium Chloride ER 10 MEQ TABLET.ER PO (07:34)
[2023-07-20] MEDS: Loratadine 10 MG TABLET PO (07:34)
--- NOTE | 2023-07-20 12:49 | MHC.CM.PN ---
PER MD ROUNDS, PT MAY DC TODAY, CM WILL CONTINUE TO FOLLOW FOR ANY CHANGE IN DC PLAN
[2023-07-20] MEDS: methylPREDNISolone Sod Succ 125 MG/2 ML VIAL 60 MG IVPUSH ×2 (14:05→21:32)
--- NOTE | 2023-07-20 14:18 | P.PNIM_ITS ---
Subjective Subjective Date of Service: 07/20/23 Interval History: Continues to be short of breath with minimal exertion. Review of Systems Denies chest pain Admits shortness of breath with minimal exertion Denies nausea vomiting diarrhea Denies fever chills Physical Exam 2 Vital Signs: Vital Signs: Last Vital Signs Temp 96.8 F 07/20/23 07:11 Pulse 70 07/20/23 11:45 Resp 16 07/20/23 11:45 BP 146/75 H 07/20/23 07:11 Pulse Ox 96 07/20/23 07:11 O2 Del Method Room Air 07/20/23 07:11 BMI result Body Mass Index 46.9 Const: Other: Awake alert no acute distress Resp: Other: Diminished at bases with dense expiratory wheezes throughout Cardio: Other: No S4; positive S1-S2; no S3 murmurs rubs or gallops GI: Other: Soft nontender nondistended normoactive bowel sounds Extrem: Other: No edema bilaterally Objective Data Active Medications Acetaminophen (Acetaminophen 325 Mg Tablet) 650 mg PO Q6H PRN PRN Reason: Pain, Mild (Pain Scale 1-3) Albuterol/Ipratropium (Albuterol/Iprat 2.5/0.5mg 3 Ml Ampul.Neb) 3 ml INHALE RQ4H WHILE AWAKE [facility] Last Admin: 07/20/23 11:45 Dose: 3 ml Documented By: CATALINA Albuterol/Ipratropium (Albuterol/Iprat 2.5/0.5mg 3 Ml Ampul.Neb) 3 ml INHALE Q4H PRN PRN Reason: Wheezing Last Admin: 07/19/23 01:57 Dose: 3 ml Documented By: MICHELLE Enoxaparin Sodium (Enoxaparin Sodium 40 Mg/0.4 Ml Syringe) 40 mg SUBCUT DAILY [facility] Last Admin: 07/20/23 07:36 Dose: Not Given Documented By: CONSTANTINO Non-Admin Reason: Patient Refused Fluticasone/Vilanterol (Fluticasone/Vilanterol 200/25 Blst.W.Dev) 1 puff INHALE RDAILY [facility] Last Admin: 07/20/23 07:29 Dose: 1 puff Documented By: CATALINA Guaifenesin/Dextromethorphan (Guaifenesin Dm 200/20/10 Ml 10 Ml Syrup) 10 ml PO Q6H PRN PRN Reason: Cough Last Admin: 07/20/23 06:20 Dose: 10 ml Documented By: AILYN Lisinopril (Lisinopril 10 Mg Tablet) 10 mg PO DAILY [facility]; Protocol Last Admin: 07/20/23 07:34 Dose: 10 mg Documented By: CONSTANTINO Loratadine (Loratadine 10 Mg Tablet) 10 mg PO DAILY [facility] Last Admin: 07/20/23 07:34 Dose: 10 mg Documented By: CONSTANTINO Melatonin (Melatonin 3 Mg Tablet) 6 mg PO BEDTIME PRN PRN Reason: Insomnia Methylprednisolone Sodium Succinate (Methylprednisolone Sod Succ 125 Mg/2 Ml Vial) 60 mg IVPUSH Q6H [facility] Last Admin: 07/20/23 14:05 Dose: 60 mg Documented By: CONSTANTINO Omeprazole (Omeprazole 40 Mg Capsule.Dr) 40 mg PO DAILY@0630 [facility] Last Admin: 07/20/23 06:17 Dose: 40 mg Documented By: AILYN Ondansetron HCl (Ondansetron Hcl 4 Mg/2 Ml Vial) 4 mg IVPUSH Q8H PRN PRN Reason: Nausea and Vomiting Oseltamivir Phosphate (Oseltamivir Phosphate 75 Mg Capsule) 75 mg PO BID [facility] Stop: 07/22/23 21:01 Last Admin: 07/20/23 07:34 Dose: 75 mg Documented By: CONSTANTINO Potassium Chloride (Potassium Chloride Er 10 Meq Tablet.Er) 10 meq PO DAILY [facility] Last Admin: 07/20/23 07:34 Dose: 10 meq Documented By: CONSTANTINO Sodium Chloride (0.9 % Sodium Chloride Flush 3 Ml Syringe) 3 ml IVFLUSH QSHIFT [facility] Last Admin: 07/20/23 14:05 Dose: 3 ml Documented By: CONSTANTINO Labs 07/19/23 05:38 07/19/23 05:38 Microbiology Microbiology Results: Microbiology 07/18/23 04:06 Blood Culture - Preliminary Blood - Venous No growth after 48 hours. 07/18/23 04:07 Blood Culture - Preliminary Blood - Venous No growth after 48 hours. Assessment and Plan (1) Acute asthma exacerbation: Status: Acute (2) Influenza A: Status: Acute (3) GERD (gastroesophageal reflux disease): Status: Acute Plan This is a 52-year-old female with pertinent history of asthma not on home oxygen, gastroesophageal reflux disease, essential hypertension who presents to the emergency department for evaluation of dyspnea. Found to have influenza a with asthma exacerbation 1.Acute respiratory distress due to acute exacerbation of asthma in the setting of influenza a -continue pulse dose steroids; increase to 60 mg IV q.6 -DuoNebs q.4 hours while awake 2.Viral sepsis due to influenza a.. Resolved 3.Gastroesophageal reflux disease -PPI as ordered 4.Essential hypertension -acceptable control on current therapies -adjust as indicated Lovenox Full code Requires ongoing hospitalization for IV steroids to treat asthma exacerbation. High risk for outpatient failure at this time Quality Stroke Does the patient have a stroke diagnosis?: No VTE Prior VTE?: No VTE Risk Level:: Medical - moderate - high VTE Device Contraindication: Treatment Not Indicated VTE Drug Contraindication: N/A - Med Ordered
[2023-07-21] MEDS: methylPREDNISolone Sod Succ 125 MG/2 ML VIAL 60 MG IVPUSH ×3 (02:52→13:44)
[2023-07-21 03:17] VITALS: BP 133/64; PULSE 71; RESP 16; TEMP 36.3; O2SAT 94
[2023-07-21] MEDS: Omeprazole 40 MG CAPSULE.DR PO (05:48)
[2023-07-21] MEDS: guaiFENesin DM 200/20/10 ML 10 ML SYRUP PO (05:48)
[2023-07-21 08:00] VITALS: BP 139/80; PULSE 71; RESP 16; TEMP 36; O2SAT 93
[2023-07-21 08:31] VITALS: BP 133/64
[2023-07-21] MEDS: lisinopriL 10 MG TABLET PO (08:31)
[2023-07-21] MEDS: 0.9 % Sodium Chloride Flush 3 ML SYRINGE IVFLUSH (08:31)
[2023-07-21] MEDS: Oseltamivir Phosphate 75 MG CAPSULE PO (08:31)
[2023-07-21] MEDS: Potassium Chloride ER 10 MEQ TABLET.ER PO (08:32)
[2023-07-21] MEDS: Loratadine 10 MG TABLET PO (08:32)
[2023-07-21] MEDS: Fluticasone/Vilanterol 200/25 BLST.W.DEV 1 PUFF INHALE (08:50)
[2023-07-21 08:51] VITALS: PULSE 71; RESP 16; O2SAT 94
[2023-07-21] MEDS: Albuterol/Iprat 2.5/0.5MG 3 ML AMPUL.NEB INHALE ×2 (08:51→11:19)
[2023-07-21 11:20] VITALS: PULSE 78; RESP 15; O2SAT 94
--- NOTE | 2023-07-21 12:26 | P.CDIM_ITS ---
PROVIDER RESPONSE TEXT: To clarify, the appropriate diagnosis supported by the clinical indicators: Mild intermittent: with exacerbation QUERY TEXT: PHYSICIAN'S DOCUMENTATION REQUEST Date of Query: 07/21/2023 09:47 AM EDT Patient Name: Xochilt Thomas Admit Date: 07/20/2023 Dear Humberto Springer, A review of the medical record indicates additional documentation may be needed. Please review below and update the documentation accordingly. The diagnosis of asthma was documented in the record on 07/20/23. Additional clinical indicators from the record include: presented with shortness of breath, found to have Influenza A and Asthma exacerbation pulse dose steroids; increase to 60 mg IV q.6 -DuoNebs q.4 hours while awake Based on the above, please clarify in the Progress Notes further specificity regarding the type and a cuity of the asthma: Mild intermittent Please specify if with or without acute exacerbation or status asthmaticus Mild persistent Please specify if with or without acute exacerbation or status asthmaticus Moderate persistent Please specify if with or without acute exacerbation or status asthmaticus Severe persistent Please specify if with or without acute exacerbation or status asthmaticus Exercise induced Please specify if with or without acute exacerbation or status asthmaticus Chronic obstructive asthma and indicate if with acute lower respiratory infection Please specify if with or without acute exacerbation or status asthmaticus Asthma with underlying COPD and indicate if with acute lower respiratory infection Please specify if with or without acute exacerbation or status asthmaticus Other (explain) Clinically unable to determine (explain) Thank you, Wendy Wooten RN Use of terms such as suspected, likely, concern for, or probable (associated with a specific diagnosi s that is being evaluated, monitored, or treated as if it exists) are acceptable and can be coded in the inpatient se tting, when documented at the time of discharge. Please use your independent medical judgment in providing your response. THIS QUERY IS PART OF THE PERMANENT MEDICAL RECORD
--- NOTE | 2023-07-21 12:34 | P.DS_ITS ---
DS: Providers Provider Date of Service: 07/21/23 Date of admission: 07/20/23 14:24 Date of discharge: 07/21/23 Primary care physician: Kay Faust MD DS: Diagnosis Discharge Diagnosis (1) Acute asthma exacerbation: Status: Acute (2) Influenza A: Status: Acute (3) GERD (gastroesophageal reflux disease): Status: Acute DS: Summary Hospital Course Hospital Course: 52-year-old female with pertinent history of asthma not on home oxygen, gastroesophageal reflux disease, essential hypertension who presents to the emergency department for evaluation of dyspnea. Patient states her symptoms started 2 days prior to presentation. Patient was seen in the ER 1 day prior to presentation when she tested positive for influenza A. Patient was discharged with p.o. prednisone and p.o. Tamiflu. Patient states her symptoms continued and her dyspnea progressed, which is worse with ambulation. Also has associated wheezing and nonproductive cough. Admits chills but no documented temperature. No chest discomfort, palpitations, abdominal pain, changes in urinary or bowel habits. Hospital course Admitted to general medical floor and started on pulse dose steroids and aggressive DuoNeb therapies. Over the course next 48 hours patient improved to the point where she was ambulating with minimal shortness of breath. At this point in time she is medically acceptable to discharged home to complete 3 days of azithromycin and a prednisone taper. She states she has a nebulizer and supplies at home and will do treatments q.4 hours while awake for the next 3 days. She will follow up with PCP next available Time Attestation Discharge Coordination Time (in mins): 35 Quality: Safe Use of Opioids Does Pt have an Active Cancer Diagnosis on the Problem List?: No Quality: Stroke Does the patient have a stroke diagnosis?: No Physical Exam Vital Signs: Vital Signs: Last Vital Signs Temp 96.8 F 07/21/23 08:00 Pulse 78 07/21/23 11:20 Resp 15 07/21/23 11:20 BP 133/64 07/21/23 08:31 Pulse Ox 93 07/21/23 08:00 O2 Del Method Room Air 07/21/23 08:00 BMI result Body Mass Index 46.9 Const: Other: Awake alert no acute distress Resp: Other: Diminished at bases with dense expiratory wheezes throughout Cardio: Other: No S4; positive S1-S2; no S3 murmurs rubs or gallops GI: Other: Soft nontender nondistended normoactive bowel sounds Extrem: Other: No edema bilaterally DS: Data Data Completed and Pending Labs on day of discharge: Preliminary micro results at discharge 07/18/23 04:06 Blood Culture - Preliminary Blood - Venous No growth after 48 hours. 07/18/23 04:07 Blood Culture - Preliminary Blood - Venous No growth after 48 hours. Discharge Plan Discharge Anticipated Discharge Date/Time: 07/21/23 12:27 Patient Disposition: Home, Self-Care Discharge Diagnosis: Mild intermittent asthma with exacerbation Referrals: Kay Faust MD [Primary Care Provider] - 1 Week Discharge Medications: New azithromycin 500 mg tablet 500 mg PO DAILY 3 Days Qty: 3 0RF prednisone 10 mg tablet See Rx Instructions .Route .COMPLEX Qty: 45 0RF Rx Instructions: 10 mg orally; 5 tabs p.o. daily x3 days; 4 tabs p.o. daily x3 days; 3 tabs daily x3 days; 2 tabs daily x3 days; 1 tab daily x3 days Continued potassium chloride 10 mEq tablet extended release 10 meq PO Q48H lisinopril 10 mg tablet 10 mg PO DAILY cetirizine 10 mg tablet 10 mg PO DAILY omeprazole 40 mg capsule,delayed release(DR/EC) 40 mg PO DAILY@0630 olopatadine 0.1 % drops 1 drp ophthalmic (eye) BID Patient Comments: takes ass needed albuterol sulfate [ProAir HFA] 90 mcg/actuation HFA aerosol inhaler 2 puff inhalation Q4H PRN (Reason: wheezing) fluticasone furoate-vilanterol [Breo Ellipta] 200-25 mcg/dose blister with device 1 ea inhalation BEDTIME Discharge Orders: Discharge Order (Routine); Ordered 07/21/23 Ordered By: Humberto Springer Diet: Advance to usual diet Activity on Discharge: As tolerated Stand Alone Forms: Patient Portal Discharge page, Work/School Release Print Language: Sinhala Care Plan Goals: Resume all medications as taken prior to hospital Health Concerns: Take azithromycin 500 mg daily for 3 days; prednisone taper as outlined Plan of Treatment: Follow-up with PCP next available appointment Assessment: See discharge summary
--- NOTE | 2023-07-21 12:45 | MHC.CM.PN ---
DP: PT HAS BEEN MEDICALLY CLEARED FOR DC HOME, NO SERVICES. PT HAS OWN RIDE HOME.
== END 2023-07-21 13:58 | disposition home or self-care (01) | DRG 872 ==
LOC: HO.ED 03:13 → HO.EDOVER 03:54 → HO.S3 07:33
PROVIDERS: Admitting Provider Student in an Organized Health Care Education/Training Program; Emergency Provider Emergency Medicine; PCP General Practice; Visit Provider Hospitalist
DX: A41.89 Other specified sepsis (principal); J45.21 Mild intermittent asthma with (acute) exacerbation; Z68.42 Body mass index [BMI] 45.0-49.9, adult; R06.03 Acute respiratory distress; I10 Essential (primary) hypertension; Z71.3 Dietary counseling and surveillance; E66.9 Obesity, unspecified; J10.1 Influenza due to other identified influenza virus with other respiratory manifestations; K21.9 Gastro-esophageal reflux disease without esophagitis; Z87.891 Personal history of nicotine dependence; Z79.51 Long term (current) use of inhaled steroids; Z79.899 Other long term (current) drug therapy
CPT/HCPCS: 36415; 71046; 80048; 82803; 83605; 83735; 85025; 87040; 94640; 99285; J2919; J2920; J3475

== ENCOUNTER → 2023-07-18 03:49 | Outpatient (BNV) | payer OTHER, SELFPAY | PROVIDERS: Admitting Provider Student in an Organized Health Care Education/Training Program; Emergency Provider Emergency Medicine; PCP General Practice; Visit Provider Student in an Organized Health Care Education/Training Program | DX: J45.901 Unspecified asthma with (acute) exacerbation (principal); R06.03 Acute respiratory distress; J10.1 Influenza due to other identified influenza virus with other respiratory manifestations; K21.9 Gastro-esophageal reflux disease without esophagitis | CPT/HCPCS: 99222; 99232; 99233; 99239 ==

== ENCOUNTER 2023-09-16 14:42 | Outpatient (REF) | payer OTHER, SELFPAY ==
[2023-09-16 15:44] LABS: MANUAL DIFF FLAG NO
[2023-09-16 15:49] LABS: Basophils Absolute Auto 0.1 X10*3/uL (0.0-0.2); Basophils Percent Auto 0.8 % (0-2); Eosinophils Absolute Auto 0.4 X10*3/uL (0.0-0.4); Eosinophils Percent Auto 4.4 % (0-4); Hematocrit 38.4 % (37.0-47.0); Hemoglobin 12.7 g/dl (12.0-16.0); Imm Gran Abs Auto 0.03 X10*3/uL (0.00-0.03); Imm Gran Pct Auto 0.3 % (0.0-0.4); Lymphocytes Absolute Auto 3.7 X10*3/uL (1.2-4.9); Lymphocytes Percent Auto 38.3 % (20-40); Mean Corpuscular HGB Conc 33.1 g/dl (31.0-35.0); Mean Corpuscular Hemoglobin 24.6 pg (27.0-33.0); Mean Corpuscular Volume 74.4 fL (80.0-98.0); Mean Platelet Volume 9.6 fL (9.4-12.3); Monocytes Absolute Auto 0.8 X10*3/uL (0.1-1.2); Monocytes Percent Auto 8.8 % (2-11); Neutrophils Absolute Auto 4.5 x10*3/uL (2.0-8.3); Neutrophils Percent Auto 47.4 % (45-73); Platelet Count 345 X10*3/uL (160-400); Red Blood Count 5.16 X10*6/uL (4.20-5.50); Red Cell Distribution Width 15.9 % (11.0-16.0); White Blood Count 9.5 X10*3/uL (4.8-10.8)
[2023-09-16 16:07] LABS: Estimated Average Glucose 131 mg/dL; Hemoglobin A1c % 6.2 % (<6.0)
[2023-09-16 16:13] LABS: Anion Gap 10 (12-20); Blood Urea Nitrogen 10 mg/dL (9-16); Calcium 8.9 mg/dL (8.4-10.2); Carbon Dioxide 25 mmol/L (22-29); Chloride 106 mmol/L (96-108); Estimated Glomerular Filt Rate > 60; Glucose Random 91 mg/dL (60-115); Potassium 3.9 mmol/L (3.3-5.1); Sodium 137 mmol/L (135-145)
[2023-09-16 16:34] LABS: Erythrocyte Sedimentation Rate 6 MM/HR (0-20)
[2023-09-19 17:18] LABS: IgA 161 mg/dL (47-310); IgG 1089 mg/dL (600-1640); IgM 56 mg/dL (50-300)
[2023-09-21 10:24] LABS: Class Alternaria alternata 0; Class Aspergillus fumigatus 0; Class Bermuda Grass 1; Class Birch 1; Class Cat Dander 2; Class Cladosporium herbarum 0; Class Cockroach 1; Class Common Ragweed 2; Class Cottonwood 1; Class Derm. pterony 2; Class Dermatophagoides farinae 1; Class Dog Dander 4; Class Elm 1; Class Maple Box Elder 0/1; Class Mountain Cedar 1; Class Mouse Urine Protein 4; Class Mugwort 3; Class Oak 0/1; Class Penicillium crysogenum 0; Class Rough Pigweed 0/1; Class Sheep Sorrel 0/1; Class Sycamore 0/1; Class Timothy Grass 3; Class Walnut Tree 1; Class White Ash 2; Class White Mulberry 0/1; D001 IgE D pteronyssinus 0.79 kU/L; D002 - IgE D farinae 0.61 kU/L; E001 - IgE Cat Dander 1.33 kU/L; G002 IgE Bermuda Grass 0.61 kU/L; G006 - IgE Timothy Grass 6.14 kU/L; I006-IgE Cockroach, German 0.38 kU/L; Immunoglobulin E 736 kU/L (<OR=114); M001 IgE Penicillium chrysogen <0.10 kU/L; M002 - IgE Cladosporium herbar <0.10 kU/L; M003 - IgE Aspergillus fumigat <0.10 kU/L; M006 - IgE Alternaria alternat <0.10 kU/L; T001 IgE Maple/Box Elder 0.34 kU/L; T003 IgE Common Silver Birch 0.68 kU/L; T007 - IgE Oak, White 0.33 kU/L; T008 IgE Elm, American 0.43 kU/L; T010 - IgE Walnut 0.61 kU/L; T011 - IgE Maple Leaf Sycamore 0.29 kU/L; T014 - IgE Cottonwood 0.56 kU/L; T070 - IgE White Mulberry 0.13 kU/L; W001 - IgE Ragweed, Short 1.62 kU/L; W006 - IgE Mugwort 3.56 kU/L; W014 IgE Pigweed, Common 0.21 kU/L; W018 IgE Sheep Sorrel 0.22 kU/L
== END 2023-09-16 14:43 | disposition home or self-care (01) ==
LOC: HO.LAB 14:42
PROVIDERS: Emergency Medicine; PCP General Practice; Visit Provider Hospitalist
DX: T50.2X5A Adverse effect of carbonic-anhydrase inhibitors, benzothiadiazides and other diuretics, initial encounter (principal); E87.6 Hypokalemia; T78.40XA Allergy, unspecified, initial encounter; J45.909 Unspecified asthma, uncomplicated; I10 Essential (primary) hypertension; R73.03 Prediabetes; R91.1 Solitary pulmonary nodule
CPT/HCPCS: 36415; 80048; 82784; 82785; 83036; 83735; 85025; 85652; 86003

== ENCOUNTER 2023-09-16 14:42 | Outpatient (AMB) | payer OTHER, SELFPAY ==
--- NOTE | 2023-09-16 14:53 | MHC.OFFVIS ---
Vital Signs 09/16/23 14:59 Height 5 ft 9 in Weight 332 lb BMI 49.0 Pulse 68 Pulse Source Pulse Oximeter Pulse Oximetry (%) 97 Oxygen Delivery Method Room Air Intake Visit Reasons: asthma Horticultural Technical Officer Required: No Allergies No Known Allergies Allergy (Unknown, Verified 09/16/23 15:02) HPI Comments Details: The patient is here for pulmonary evaluation. The patient is a 52 year woman with known severe persistent athma. she started with asthma. She had been followed closely by [facility] for many years. Although for the last several months she has been to the ER urgent care at least once or twice a month. She is required prednisone regularly. She feels like her asthma is not controlled. Currently she feels better and even a based on she does have some underlying wheezing. The patient has tried numerous inhalers. Usually the nebulizer more effective for her she does use it to 3 times a day. The patient may be a candidate for biologics in view of her severe persistent asthma that is poorly controlled at this time. Will go ahead and request blood work and will go ahead and try to maximize respiratory therapy for now she is also limited by financial expenses. Inhalers very expensive and therefore hard for her to manage the expenses. therefore, will be consider it with her financial limitations as well. I did reassure her that if she does qualify biologics we can try to get her some patient assistance. [facility] Medical History (Updated 09/17/23 @ 11:29 by Sebastien Garcia MD) Allergic Allergies GERD (gastroesophageal reflux disease) Back pain Asthma Social History Household Members: Significant Other Housing: House Do you presently have visiting nurse or other home services: No Alcohol intake: never Patient Tobacco Use Status: Former Tobacco user Tobacco use type: Cigarette Second Hand Smoke Exposure: No service: No Review of Systems Const Denies fever(s) Eyes Reports no additional complaints ENT Reports nasal congestion Card Denies chest pain Resp Reports cough and Reports wheezing GI Reports no additional complaints Musc Reports no additional complaints Skin/Breast Denies rash Endo Reports no additional complaints Aller/Immun Reports wheezing Physical Exam Vital Signs: Last Vital Signs Pulse 68 09/16/23 14:59 Pulse Ox 97 09/16/23 14:59 Oxygen Delivery Method Room Air 09/16/23 14:59 BMI result Body Mass Index 49.0 Const General: comfortable HEENT Head: Yes normocephalic Neck Neck: Yes supple Chest Chest palpation & inspection: normal inspection of the chest Resp Effort & Inspection: normal respiratory effort Auscultation: wheezes Cardio Heart sounds: S1 normal heart sound present and S2 normal heart sound present GI Palpation (GI): Soft to palpation Skin General skin exam: no rashes or lesions noted Extrem General: No clubbing Assessment & Plan Assessment & Plan (1) Asthma: Code(s): J45.909 - Unspecified asthma, uncomplicated Category: Medical Qualifiers: Asthma complication type: uncomplicated Asthma persistence: persistent Asthma severity: severe Qualified Code(s): J45.50 - Severe persistent asthma, uncomplicated (2) Allergies: Code(s): T78.40XA - Allergy, unspecified, initial encounter Category: Medical Qualifiers: Encounter type: initial encounter Qualified Code(s): T78.40XA - Allergy, unspecified, initial encounter Plan bloodword and allergy testing PFTs start Wixela SUN as needed consider LAMA Likely a good candidate for Biologic therapy F/U 2-3 months Orders: Orders Immunoglobulins,IgG IgA IgM 09/16/23 J45.909 - Unspecified asthma, uncomplicated, T78.40XA - Allergy, unspecified, initial encounter Immunoglobulin E 09/16/23 J45.909 - Unspecified asthma, uncomplicated, T78.40XA - Allergy, unspecified, initial encounter Resp Allergy Profile Region I 09/16/23 J45.909 - Unspecified asthma, uncomplicated, R91.1 - Solitary pulmonary nodule, T78.40XA - Allergy, unspecified, initial encounter PFT pulmonary function test Today J45.50 - Severe persistent asthma, uncomplicated Erythrocyte Sedimentation Rate 09/16/23 J45.909 - Unspecified asthma, uncomplicated, T78.40XA - Allergy, unspecified, initial encounter Complete Blood Count Auto Diff 09/16/23 J45.909 - Unspecified asthma, uncomplicated, T78.40XA - Allergy, unspecified, initial encounter Medications: New fluticasone propion-salmeterol 500-50 mcg/dose (Wixela Inhub) 1 inh inhalation Q12H 60 ea 11RF 30 days Coding Level of Care Code Est Pt Level 4 (40894) Diagnoses Severe persistent asthma without complication J45.50 Asthma complication type: uncomplicated Asthma persistence: persistent Asthma severity: severe Allergy, initial encounter T78.40XA Encounter type: initial encounter Time Spent (min) 1234
[2023-09-16 14:59] VITALS: PULSE 68; O2SAT 97; BMI 49.0
== END 2023-09-16 15:25 | disposition home or self-care (01) ==
PROVIDERS: PCP General Practice; Visit Provider Hospitalist
DX: J45.50 Severe persistent asthma, uncomplicated (principal); T78.40XA Allergy, unspecified, initial encounter
CPT/HCPCS: 99214

== ENCOUNTER 2024-01-05 14:42 | Outpatient (AMB) | payer OTHER, SELFPAY ==
[2024-01-05 14:53] VITALS: BP 134/70; PULSE 73; O2SAT 98; BMI 45.6
--- NOTE | 2024-01-05 14:53 | MHC.OFFVIS ---
Vital Signs 01/05/24 14:53 Height 5 ft 9 in Weight 308 lb 10.354 oz BMI 45.6 BP 134/70 Blood Pressure Location Lt brachial Position Sitting Pulse 73 Pulse Source Pulse Oximeter Pulse Oximetry (%) 98 Oxygen Delivery Method Room Air Intake Visit Reasons: asthma Head Of Digital Required: No Allergies No Known Allergies Allergy (Unknown, Verified 01/05/24 14:56) HPI Comments Details: The patient is a 52 year woman with known severe persistent athma. she started with asthma. She had been followed closely by [facility] for many years. Although for the last several months she has been to the ER urgent care at least once or twice a month. She is required prednisone regularly. She feels like her asthma is not controlled. Currently she feels better and even a based on she does have some underlying wheezing. The patient has tried numerous inhalers. Usually the nebulizer more effective for her she does use it to 3 times a day. The patient may be a candidate for biologics in view of her severe persistent asthma that is poorly controlled at this time. Will go ahead and request blood work and will go ahead and try to maximize respiratory therapy for now she is also limited by financial expenses. Inhalers very expensive and therefore hard for her to manage the expenses. therefore, will be consider it with her financial limitations as well. I did reassure her that if she does qualify biologics we can try to get her some patient assistance. 01/05/2024 the patient is here for pulmonary follow-up visit. She is still having hard time with breathing. Still has significant symptoms on a daily basis. I did send her Wixela to the pharmacy. She ended up getting some Breo which is fine. Although still not effective for her. Will go ahead and optimize her therapy to Cristobal at this time. We did look at her blood work. She has significant allergies with an elevated eosinophil count and also an elevated IgE count. She has severe persistent asthma with multiple exacerbations even this year. The patient will benefit from biologic therapy. I believe Dupixent would be a good option if she continues to be symptomatic and not responsive to respiratory therapy. She had to undergo pulmonary function studies. In the meantime the patient he has been complaining of a cough and also a itching sensation of her throat. Explained to her the importance of coming off the ANGELIQUE-inhibitor switching over to an ARB. She will call her primary care doctor. Otherwise if her symptoms worsen she can always call me and I can always switch her for now. Therefore, she will start the Trelegy and the next visit we can talk about biologic therapy. Symptoms are only getting worse she can always call me again start the process at earlier time. [facility] Medical History (Updated 09/17/23 @ 11:29 by Sebastien Garcia MD) Allergic Allergies GERD (gastroesophageal reflux disease) Back pain Asthma Social History Household Members: Significant Other Housing: House Do you presently have visiting nurse or other home services: No Alcohol intake: never Patient Tobacco Use Status: Former Tobacco user Tobacco use type: Cigarette Second Hand Smoke Exposure: No service: No Review of Systems Const Denies fever(s) Eyes Reports no additional complaints ENT Reports nasal congestion Card Denies chest pain Resp Reports cough and Reports wheezing GI Reports no additional complaints Musc Reports no additional complaints Skin/Breast Denies rash Endo Reports no additional complaints Aller/Immun Reports wheezing Physical Exam Vital Signs: Last Vital Signs Pulse 73 01/05/24 14:53 BP 134/70 01/05/24 14:53 Pulse Ox 98 01/05/24 14:53 Oxygen Delivery Method Room Air 01/05/24 14:53 BMI result Body Mass Index 45.6 Const General: comfortable HEENT Head: Yes normocephalic Neck Neck: Yes supple Chest Chest palpation & inspection: normal inspection of the chest Resp Effort & Inspection: normal respiratory effort Auscultation: wheezes Cardio Heart sounds: S1 normal heart sound present and S2 normal heart sound present GI Palpation (GI): Soft to palpation Skin General skin exam: no rashes or lesions noted Extrem General: No clubbing Assessment & Plan Assessment & Plan (1) Asthma: Code(s): J45.909 - Unspecified asthma, uncomplicated Category: Medical Qualifiers: Asthma complication type: uncomplicated Asthma persistence: persistent Asthma severity: severe Qualified Code(s): J45.50 - Severe persistent asthma, uncomplicated (2) Allergies: Code(s): T78.40XA - Allergy, unspecified, initial encounter Category: Medical Qualifiers: Encounter type: initial encounter Qualified Code(s): T78.40XA - Allergy, unspecified, initial encounter Plan start Trelegy stop Wixela SUN as needed good candidate for Biologic therapy: Dupixent would likely be most effective for her needs to have her PFTs F/U 2-3 months Medications: New taxsdjtoxhf-auzlxfyxa-aemfkvbr 200-62.5-25 mcg (Trelegy Ellipta) 1 inh inhalation DAILY 60 ea 12RF 30 days Coding Level of Care Code Est Pt Level 4 (10061) Diagnoses Severe persistent asthma without complication J45.50 Asthma complication type: uncomplicated Asthma persistence: persistent Asthma severity: severe Allergy, initial encounter T78.40XA Encounter type: initial encounter Time Spent (min) 16
== END 2024-01-05 15:17 | disposition home or self-care (01) ==
PROVIDERS: PCP General Practice; Visit Provider Hospitalist
DX: J45.50 Severe persistent asthma, uncomplicated (principal); T78.40XA Allergy, unspecified, initial encounter
CPT/HCPCS: 99214

== ENCOUNTER → 2024-01-05 14:42 | Outpatient (BNVA) | payer OTHER, SELFPAY | PROVIDERS: PCP General Practice; Visit Provider Hospitalist ==

== ENCOUNTER 2024-01-31 09:54 | Outpatient (REF) | payer OTHER, SELFPAY ==
[2024-02-02 02:24] LABS: Lyme Abs Screen <0.90 index
[2024-02-02 10:04] LABS: RPR Rapid Plasma Reagin NON-REACTIVE (NON-REACTIVE)
== END 2024-01-31 09:55 | disposition home or self-care (01) ==
LOC: HO.HHCL 09:54
PROVIDERS: Visit Provider Emergency Medicine
DX: R21 Rash and other nonspecific skin eruption (principal)
CPT/HCPCS: 36415; 86592; 86617; 86618

== ENCOUNTER → 2024-05-08 15:00 | Outpatient (BNV) | payer OTHER, SELFPAY | PROVIDERS: PCP General Practice; Visit Provider Internal Medicine | DX: Z12.31 Encounter for screening mammogram for malignant neoplasm of breast (principal) | CPT/HCPCS: 77063; 77067 ==

== ENCOUNTER 2024-06-18 15:14 | Outpatient (AMB) | payer OTHER, SELFPAY ==
[2024-06-18 15:46] VITALS: BP 108/72; PULSE 65; O2SAT 99; BMI 51.1
--- NOTE | 2024-06-18 15:46 | MHC.OFFVIS ---
Vital Signs 06/18/24 15:46 Height 5 ft 9 in Weight 346 lb 2.012 oz BMI 51.1 BP 108/72 Blood Pressure Location Rt radial Position Sitting Pulse 65 Pulse Source Pulse Oximeter Pulse Oximetry (%) 99 Oxygen Delivery Method Room Air Intake Visit Reasons: asthma Allergies No Known Allergies Allergy (Unknown, Verified 06/18/24 15:49) HPI Comments Details: The patient is a 53 year woman with known severe persistent athma. she started with asthma. She had been followed closely by [facility] for many years. Although for the last several months she has been to the ER urgent care at least once or twice a month. She is required prednisone regularly. She feels like her asthma is not controlled. Currently she feels better and even a based on she does have some underlying wheezing. The patient has tried numerous inhalers. Usually the nebulizer more effective for her she does use it to 3 times a day. The patient may be a candidate for biologics in view of her severe persistent asthma that is poorly controlled at this time. Will go ahead and request blood work and will go ahead and try to maximize respiratory therapy for now she is also limited by financial expenses. Inhalers very expensive and therefore hard for her to manage the expenses. therefore, will be consider it with her financial limitations as well. I did reassure her that if she does qualify biologics we can try to get her some patient assistance. 01/05/2024 the patient is here for pulmonary follow-up visit. She is still having hard time with breathing. Still has significant symptoms on a daily basis. I did send her Wixela to the pharmacy. She ended up getting some Breo which is fine. Although still not effective for her. Will go ahead and optimize her therapy to Trelegy at this time. We did look at her blood work. She has significant allergies with an elevated eosinophil count and also an elevated IgE count. She has severe persistent asthma with multiple exacerbations even this year. The patient will benefit from biologic therapy. I believe Dupixent would be a good option if she continues to be symptomatic and not responsive to respiratory therapy. She had to undergo pulmonary function studies. In the meantime the patient he has been complaining of a cough and also a itching sensation of her throat. Explained to her the importance of coming off the ANGELIQUE-inhibitor switching over to an ARB. She will call her primary care doctor. Otherwise if her symptoms worsen she can always call me and I can always switch her for now. Therefore, she will start the Trelegy and the next visit we can talk about biologic therapy. Symptoms are only getting worse she can always call me again start the process at earlier time. 06/18/2024 the patient is here for a pulmonary follow-up visit. Overall she is doing fair. She has had significant issues with breathing. Significant wheezing and multiple visits to urgent care and her primary care requiring prednisone. She is still having wheezing right now. She was not able to get the Trelegy but she has been on the Wixela at the higher dose. She is still having have to use her rescue inhaler on a daily basis. In addition to that she developed the dermatitis of an unclear etiology. We did look at her blood work and it looks as she does have significant eosinophilia and also significant elevations in her IgE from her allergies. Therefore based on the fact that she has atopic dermatitis severe asthma and not responding to respiratory therapy and requiring prednisone frequently she will be a great candidate for Dupixent. I will send a request to our nurse to start the process for authorization to start the Dupixent at this time. In the meantime also some prednisone to to start it also Incruse to further maximize her respiratory capacity. She will continue with the allergy medicines. The patient follow-up in 3-4 months. If she has any issues before that she will call for an earlier assessment. [facility] Medical History (Updated 09/17/23 @ 11:29 by Sebastien Garcia MD) Allergic Allergies GERD (gastroesophageal reflux disease) Back pain Asthma Social History Household Members: Significant Other Housing: House Do you presently have visiting nurse or other home services: No Alcohol intake: never Patient Tobacco Use Status: Former Tobacco user Tobacco use type: Cigarette Second Hand Smoke Exposure: No service: No Review of Systems Const Denies fever(s) Eyes Reports no additional complaints ENT Reports nasal congestion Card Denies chest pain and Reports dyspnea on exertion Resp Reports cough, Reports dyspnea on exertion and Reports wheezing GI Reports no additional complaints Musc Reports no additional complaints Skin/Breast Denies rash Endo Reports no additional complaints Aller/Immun Reports wheezing Physical Exam Vital Signs: Last Vital Signs Pulse 65 06/18/24 15:46 BP 108/72 06/18/24 15:46 Pulse Ox 99 06/18/24 15:46 Oxygen Delivery Method Room Air 06/18/24 15:46 BMI result Body Mass Index 51.1 Const General: comfortable HEENT Head: Yes normocephalic Neck Neck: Yes supple Chest Chest palpation & inspection: normal inspection of the chest Resp Effort & Inspection: normal respiratory effort and prolonged expiratory phase Auscultation: wheezes Cardio Heart sounds: S1 normal heart sound present and S2 normal heart sound present GI Palpation (GI): Soft to palpation Skin General skin exam: no rashes or lesions noted Extrem General: No clubbing Assessment & Plan Assessment & Plan (1) Asthma: Code(s): J45.909 - Unspecified asthma, uncomplicated Category: Medical Qualifiers: Asthma complication type: uncomplicated Asthma persistence: persistent Asthma severity: severe Qualified Code(s): J45.50 - Severe persistent asthma, uncomplicated (2) Allergies: Code(s): T78.40XA - Allergy, unspecified, initial encounter Category: Medical Qualifiers: Encounter type: initial encounter Qualified Code(s): T78.40XA - Allergy, unspecified, initial encounter Plan continue Wixela start Incruse SUN as needed good candidate for Biologic therapy:start Dupixent needs to have her PFTs F/U 3-4 months Orders: Orders PFT pulmonary function test Today J45.50 - Severe persistent asthma, uncomplicated Medications: New umeclidinium 62.5 mcg/actuation (Incruse Ellipta) 1 inh inhalation DAILY 30 ea 11RF 30 days J45.909 - Unspecified asthma, uncomplicated prednisone PO daily; Take 2 tabs daily x 5 days, then 1 tablet daily x 5 days 15 tabs 0RF 10 days Coding Level of Care Code Est Pt Level 4 (03843) Diagnoses Severe persistent asthma without complication J45.50 Asthma complication type: uncomplicated Asthma persistence: persistent Asthma severity: severe Allergy, initial encounter T78.40XA Encounter type: initial encounter Time Spent (min) 17
--- OUTSIDE RECORDS SUMMARY | 2024-06-18 17:45 | XMS_ITS | Encounter Summary ---
Author Organization [email or web address] Address [address] [place] [address] [address] [place] [address] Care Team Providers Care Cardroom Plastic Card Grader Name Role Phone Kay Faust MD Primary Care Provider [phone] Reason for Visit * Reason Onset Date Comments Med Refill 09/14/2023 Encounter Details Date Type Department Care Team ([facility] st Contact Info) Description 09/14/2023 Refill [facility] MEDICINE [address] [place], [place] [phone] Kay Faust MD [address] [place], [place] [phone] Social History Tobacco Use Types Packs/Day Years Used Date Smoking Tobacco: Former Cigarettes Q uit: 11/05/2002 Passive Smoke Exposure: Past Smokeless Tobacco: Never Alcohol Use Standard Drinks/Week Comments Yes 1 (1 standard drink = 0.6 oz pur e alcohol) Depression Answer Date Recorded Patient Health Questionnaire-9 Score 0 02/28/2023 Patient Health Questionnaire-9 Score 0 02/28/2023 Last PHQ-9: Questionnaire Data Not on file 1 04/30/2022 Housing Stability Answer Date Recorded What is your housing situation today? I have keisha guidry 02/14/[address] you li ve. Do you have problems with any of the following? None of the above 02/14/2023 Food Insecurity Answer Date Recorded Within the past 12 months, y ou worried that your food would run out before you got money to buy more: Never True 02/14/2023 Within the past 12 months,th e food you bought just didn't last and you didn't have enough money to get more: Never True Transportation Answer Date Recorded In the past 12 months, has l ack of transportation kept you from medical appts, meetings, work or from getting things needed for daily living? No 02/14/2023 Utilities Answer Date Recorded In the past 12 months, has t he electric, gas, oil or water company threatened to shut off services in your home? No 02/14/2023 Depression Answer Date Recorded Patient Health Questionnaire-2 Score 0 02/28/2023 Comments Unknown Sex and Gender Information Value Date Recorded Sex Assigned at Female 02/01/2022 10:19 AM EDT Legal Sex Female 10:19 AM EDT Gender Identity Female 02/01/2022 10:19 AM EDT Sexual Orientation Straight 02/01/2022 10 :19 AM EDT documented as of this encounter Plan of Treatment Upcoming Encounters Date Type Department Care Team (Late st Contact Info) Description 06/27/2024 11:30 AM EDT Clinical Support [facility] MEDICINE [address] [place] [address] documented as of this encounter Visit Diagnoses Not on filedocumented in this encounter Additional Health Concerns Assessment Noted Time PHQ-9 Depression Total Score: 0 02/29/20 23 1:21 PM EST documented as of this encounter Care Teams Cardroom Plastic Card Grader Relationship Specialty Start Date End Date Kay Faust MD [address] [place] [address] PCP - General Family Medicine 12/02/22 documented as of this encounter
--- OUTSIDE RECORDS SUMMARY | 2024-06-18 17:45 | XMS_ITS | Encounter Summary ---
Author Organization [employer] Address [address] [place] [address] 7 [place] [address] Care Team Providers Care Braided Rug Maker Name Role Phone Kay Faust MD Primary Care Provider [phone] Reason for Referral * Consultation (Routine) - Authorized Specialty Diagnoses / Procedures Referred By Contac t Referred To Contact Optometry Diagnoses Blurry vision, bilateral Kay Faust MD [address] [place] [address] Phone: tel: fax: Referral ID Status Reason Start Date Expiration Date Visits Requested Visits Authorized [id number] Authorized Specialty Services Required 05/02/2024 05/02/2025 1 1 Encounter Details Date Type Department Care Team (Late st Contact Info) Description 05/02/2024 Orders Only [facility] MEDICINE [address] [place] [address] Kay Faust MD [address] [place], [place] [phone] Blurry vision, bilateral (Primary Dx) Social History Tobacco Use Types Packs/Day Years Used Date Smoking Tobacco: Former Cigarettes Q uit: 11/05/2002 Passive Smoke Exposure: Past Smokeless Tobacco: Never Alcohol Use Standard Drinks/Week Comments Yes 1 (1 standard drink = 0.6 oz pur e alcohol) Alcohol Answer Date Recorded How often do you have a drink containing alcohol ? 0 04/19/2024 How many drinks containing a lcohol do you have on a typical day when you are drinking? 0 04/19/2024 How often do you have six or more drinks on one occasion? 0 04/19/2024 Depression Answer Date Recorded Patient Health Questionnaire-9 [...] Description 06/27/2024 11:30 AM EDT Clinical Support [facility] MEDICINE [address] [place] [phone] Scheduled Referrals Name Type Priority Associated Diagnoses Orde r Schedule Referral to Optometry, Internal Outpatient Referral Routine Blurry vision, bilateral Expected: 05/02/2024 (Approximate), Expires: 05/02/2025 documented as of this encounter Procedures Procedure Name Priority Date/Time Associated Diagnosis Comments BI MAMMOGRAM SCREENING TOMOSYNTHESIS BILATERAL Routine 05/08/2024 2:50 PM EST documented in this encounter Results * BI Mammogram Screening Tomosynthesis Bilateral (05/08/2024 2:50 PM EST) Anatomical Region Laterality Modality Breast Bilateral Mammography 05/08/2024 2:50 PM EST Narrative 05/14/2024 5:39 PM EST ? [facility] ? [address] ?[place] [address] ? Mammography Report ? Signed ? Patient: Senuta,Xochilt Leola ?MR#: [id number] ?? [id number] ? : 1970 ?Acct:[id number] ? Age/Sex: 53 / F ?ADM Date: 05/08/24 ? Loc: HO.MAMMO ? Attending Dr: Kay Faust MD ? Ordering Physician: Kay Faust ?Results: 1Negative ? Date of Service: 05/08/24 ?Follow Up: 1 Year From Orig ?? inal Mammogram ? Procedure(s): MM tomosynthesis screening BI ?? Accession Number(s): [id number] ? cc: Kay Faust ? EXAMINATION: ?? MM SCREENING DIGITAL BREAST TOMOSYNTHESIS, BILATERAL ? CLINICAL INFORMATION: ? Screening. Asymptomatic. ? COMPARISON: ?? Mammography: Comparison is made with available priors ? TECHNIQUE: ?? Digital breast mammography with tomosynthesis is performed in both the ?? craniocaudal and mediolateral oblique views along with computer-aided ?? detection (CAD). ? FINDINGS: ?? There are scattered areas of fibroglandular density (ACR BI-RADS breast ?? composition Category b). ? There are no significant masses, abnormal calcifications, or other ?? abnormalities. ? MM/MM tomosynthesis screening BI ?? IMPRESSION: ?? No mammographic evidence of malignancy. ? ASSESSMENT: ? BI-RADS BI-RADS 1 - Negative ? RECOMMENDATION: ?? Routine annual mammography screening. ? 1 year F/U ? This examination should not preclude the clinical evaluation of a ?? suspicious palpable abnormality. ? This patient's information was entered into a reminder system with a ?? target due date for their next mammogram. ? Electronically signed by: ??Mayuri Pulliam DO ??05/14/2024 05:36 PM EST ?? RP ? Dictated By: ?Mayuri Pulliam DO ? Signed By: ?<Electronically signed by Mayuri Pulliam, DO in OV> ? 05/14/24 173 ? DD/ 1450 ? TD/TT: 05/08/24 1505 ? Plating Department Helper: ? Procedure Note Rambo Webster - 05/14/2024 [facility] [address] [place] [address] Mammography Report Signed Patient: Xochilt Thomas Ann#: [id number] : 1970Acct:[id number] Age/Sex: 53 / FADM Date: 05/08/24 Loc: HO.MAMMO Attending Dr: Kay Faust MD Ordering Physician: Amelia Faustults: 1Negative Date of Service: 05/08/24Follow Up: 1 Year From Orig inal Mammogram Procedure(s): MM tomosynthesis screening BI Accession Number(s): [id number] cc: Kay Faust EXAMINATION: MM SCREENING DIGITAL BREAST TOMOSYNTHESIS, BILATERAL CLINICAL INFORMATION: Screening. Asymptomatic. COMPARISON: Mammography: Comparison is made with available priors TECHNIQUE: Digital breast mammography with tomosynthesis is performed in both the craniocaudal and mediolateral oblique views along with computer-aided detection (CAD). FINDINGS: There are scattered areas of fibroglandular density (ACR BI-RADS breast composition Category b). There are no significant masses, abnormal calcifications, or other abnormalities. MM/MM tomosynthesis screening BI IMPRESSION: No mammographic evidence of malignancy. ASSESSMENT: BI-RADS BI-RADS 1 - Negative RECOMMENDATION: Routine annual mammography screening. 1 year F/U This examination should not preclude the clinical evaluation of a suspicious palpable abnormality. This patient's information was entered into a reminder system with a target due date for their next mammogram. Electronically signed by: Mayuri Pulliam DO 05/14/2024 05:36 PM EST RP Dictated By: Mayuri Pulliam DO Signed By: <Electronically signed by Mayuri Pulliam DO in OV> 05/14/24 1736 DD/ 1450 TD/TT: 05/08/24 1505 Plating Department Helper: Kay Faust MD IMG BI PROCEDURES Final Result documented in this encounter Visit Diagnoses Diagnosis Blurry vision, bilateral- Primary Other specified visual disturbances documented in this encounter Additional Health Concerns Assessment Noted Time PHQ-9 Depression Total Score: 0 02/29/20 23 1:21 PM EST documented as of this encounter Care Teams Braided Rug Maker Relationship Specialty Start Date End Date Kay Faust MD [address] [place] [address] PCP - General Family Medicine 12/02/22 documented as of this encounter
--- OUTSIDE RECORDS SUMMARY | 2024-06-18 17:45 | XMS_ITS | Encounter Summary ---
Author Organization [employer] Address [address] [facility] [address] [place] [address] Care Team Providers Care Kaiawhina Name Role Phone Kay Faust MD Primary Care Provider [phone] Encounter Details Date Type Department Care Team ([facility] st Contact Info) Description 05/18/2023 Telephone [facility] MEDICINE [address] [place], [place] [phone] Zane Harris MD [address] [place], [place] [phone] Social History Tobacco Use Types Packs/Day Years Used Date Smoking Tobacco: Former Cigarettes Q uit: 11/05/2002 Smokeless Tobacco: Never Alcohol Use Standard Drinks/Week [...] Description 06/27/2024 11:30 AM EDT Clinical Support [facility] MEDICINE [address] [place] [address] documented as of this encounter Visit Diagnoses Not on filedocumented in this encounter Additional Health Concerns Assessment Noted Time PHQ-9 Depression Total Score: 0 02/29/20 23 1:21 PM EST documented as of this encounter Care Teams Kaiawhina Relationship Specialty Start Date End Date Kay Faust MD [address] [place] [address] PCP - General Family Medicine 12/02/22 documented as of this encounter
--- OUTSIDE RECORDS SUMMARY | 2024-06-18 17:45 | XMS_ITS | Encounter Summary ---
Author Organization [employer] Address [address] [place] [address] 7 [place] [address] Care Team Providers Care Grain Elevator Operator Name Role Phone Kay Faust MD Primary Care Provider [phone] Reason for Visit * Reason Onset Date Comments Med Refill 08/20/2023 Encounter Details Date Type Department Care Team ([facility] st Contact Info) Description 08/20/2023 Refill [facility] MEDICINE [address] [place], [place] [phone] Kay Faust MD [address] [place], [place] [phone] Moderate persistent asthma without complication Social History Tobacco Use Types Packs/Day Years [...] your housing situation today? I have keisha chao 02/14/[address] you li [...] Description 06/27/2024 11:30 AM EDT Clinical Support [facility] MEDICINE [address] [place] [address] documented as of this encounter Visit Diagnoses Diagnosis Moderate persistent asthma without complication documented in this encounter Additional Health Concerns Assessment Noted Time PHQ-9 Depression Total Score: 0 02/29/20 23 1:21 PM EST documented as of this encounter Care Teams Grain Elevator Operator Relationship Specialty Start Date End Date Kay Faust MD [address] [place] [address] PCP - General Family Medicine 12/02/22 documented as of this encounter
--- OUTSIDE RECORDS SUMMARY | 2024-06-18 17:45 | XMS_ITS | Encounter Summary ---
Author Organization [employer] Address [address] [place] [address] [address] [place] [address] Care Team Providers Care Munitions Factory Worker Name Role Phone Kay Faust MD Primary Care Provider [phone] Reason for Visit * Reason Comments Med Refill Encounter Details Date Type Department Care Team (Late st Contact Info) Description 11/16/2023 Refill [facility] MEDICINE [address] [place], [place] [phone] Kay Faust MD [address] [place], [place] [phone] Moderate persistent asthma without complication Social History [...] Description 06/27/2024 11:30 AM EDT Clinical Support [facility] MEDICINE [address] [place] [address] documented as of this encounter Visit Diagnoses Diagnosis Moderate persistent asthma without complication documented in this encounter Additional Health Concerns Assessment Noted Time PHQ-9 Depression Total Score: 0 02/29/20 23 1:21 PM EST documented as of this encounter Care Teams Munitions Factory Worker Relationship Specialty Start Date End Date Kay Faust MD [address] [place] [address] PCP - General Family Medicine 12/02/22 documented as of this encounter
--- OUTSIDE RECORDS SUMMARY | 2024-06-18 17:45 | XMS_ITS | Encounter Summary ---
Author Organization [employer] Address [address] [facility] [address] [place] [address] Care Team Providers Care Moisture Meter Operator Name Role Phone Kay Faust MD Primary Care Provider [phone] Reason for Visit * Reason Comments Asthma Encounter Details Date Type Department Care Team ([facility] st Contact Info) Description 06/05/2024 6:00 PM EST Office Visit [facility] [address] [place], [place] [id number] Abby Diego MD [address] [place], [place] [phone] Moderate persistent asthma with exacerbation (Primary Dx); Primary hypertension; Cough in adult patient Social History Tobacco Use Types Packs/Day Years [...] AM EDT documented as of this encounter Last Filed Vital Signs Vital Sign Reading Time Taken Comments Blood Pressure 160/90 06/05/2024 6:26 PM EST Pulse 71 06/05/2024 5:35 PM EST Temperature 35.4 ??C (95.8 ??F) 06/05/2024 5:[address] Respiratory Rate 20 06/05/2024 5:35 PM EST Oxygen Saturation - - Inhaled Oxygen Concentration - - Weight 157 kg (345 lb 3.2 oz) 06/05/2024 5:35 PM EST Height 175.3 cm (5' 9 ) 06/05/2024 5:35 PM EST Body Mass Index 50.98 06/05/2024 5:35 PM EST documented in this encounter Progress Notes * Abby Diego MD - 06/05/2024 6:00 PM EST SUBJECTIVE: Xochilt Thomas is a 53 y.o. year old female who presents for Walk In Center/asthma . Denies recentillness, injury, or hospitalization. Acute Concerns: Patient complains of exacerbation of shortness of breath, cough with clear phlegm and pleuritic chest pain for the past 2 days. She has not had any fever, chills or nausea. She has been doing albuterol inhaler 2-3 times per day for the past 2 days with partial improvement of symptoms. Social History Social History Narrative Lives with BF and dog Sister lives nearby, brothers [employer], employment Patient Active Problem List Diagnosis Severe persistent asthma without complication Seasonal allergies Gastroesophageal reflux disease without esophagitis HTN (hypertension) Class 3 severe obesity with serious comorbidity and body mass index (BMI) of 45.0 to 49.9 in adult ([facility]) Pre-diabetes Diuretic-induced hypokalemia Moderate persistent asthma with exacerbation Cyst of right ovary Dyslipidemia Obstructive sleep apnea hypopnea, mild Heartburn No family history on file. Review of Systems Constitutional: Negative for chills, fatigue and fever. HENT: Positive for congestion. Negative for ear pain, nosebleeds, rhinorrhea, sinus pressure, sore throat and trouble swallowing. Eyes: Negative for pain and discharge. Respiratory: Positive for cough and shortness of breath. Negative for chest tightness. Cardiovascular: Positive for chest pain. Negative for palpitations and leg swelling. Gastrointestinal: Negative for abdominal pain, blood in stool, constipation, diarrhea and nausea. Endocrine: Negative for polydipsia and polyuria. Genitourinary: Negative for dysuria, frequency, genital sores, pelvic pain and vaginal discharge. Musculoskeletal: Negative for back pain and neck pain. Skin: Negative for rash. Allergic/Immunologic: Negative for environmental allergies. Neurological: Positive for headaches. Negative for dizziness, seizures, weakness and light-headedness. Hematological: Negative for adenopathy. Psychiatric/Behavioral: Negative for agitation, behavioral problems, self-injury and suicidal ideas. OBJECTIVE: Vitals: 06/05/24 1735 06/05/24 1826 BP: (!) 165/91 (!) 160/90 BP Location: Left arm Right arm Patient Position: Sitting Sitting BP Cuff Size: Large adult Adult Pulse: 71 Resp: 20 Temp: 95.8 ??F (35.4 ??C) TempSrc: Oral Weight: 345 lb 3.2 oz (157 kg) Height: 5' 9 (1.753 m) Physical Exam HENT: Right Ear: Tympanic membrane and ear canal normal. Left Ear: Tympanic membrane and ear canal normal. Nose: Mucosal edema present. Right Turbinates: Swollen. Left Turbinates: Swollen. Mouth/Throat: Mouth: Mucous membranes are moist. Pharynx: No oropharyngeal exudate or posterior oropharyngeal erythema. Eyes: Pupils: Pupils are equal, round, and reactive to light. Cardiovascular: Rate and Rhythm: Regular rhythm. Pulses: Normal pulses. Heart sounds: Normal heart sounds. No murmur heard. Pulmonary: Breath sounds: Examination of the right-upper field reveals wheezing. Examination of the left-upperfield reveals wheezing. Examination of the right- middle field reveals wheezing. Examination of the left-middle field reveals wheezing. Examination of the right-lower field reveals wheezing. Examination of the left-lower field reveals wheezing. Wheezing present. Abdominal: General: Bowel sounds are normal. Palpations: Abdomen is soft. Tenderness: There is no abdominal tenderness. Musculoskeletal: General: Normal range of motion. Cervical back: Neck supple. Skin: General: Skin is warm. Neurological: General: No focal deficit present. Mental Status: She is alert and oriented to person, place, and time. Psychiatric: Mood and Affect: Mood normal. Behavior: Behavior normal. Office Visit on 06/05/2024 Component Date Value Ref Range Status Rapid COVID Ag 06/05/2024 Negative Final QC Media Lot # 06/05/2024 [id number] Final Lot# Expiration Date 06/05/2024 71,826 Final Influenza A 06/05/2024 Negative Negative, Indeterminate Final QC Media Lot # 06/05/2024 [id number] Final Lot# Expiration Date 06/05/2024 10,826 Final Influenza B 06/05/2024 Negative Negative, Indeterminate Final QC Media Lot # 06/05/2024 [id number] Final Lot# Expiration Date 06/05/2024 10,826 Final Problem List Items Addressed This Visit Moderate persistent asthma with exacerbation - Primary Prednisone 50 mg PO x 1 dose today, she will continue 40 mg daily for the next 5 days. Continue albuterol inhaler every 4-6 hours as needed shortness of breath, restart Breo daily Rapid viral test done today are negative, reconsult as needed fever, chills, worsening sputum production. She will be out of work for 2 days Relevant Medications predniSONE (Deltasone) tablet 50 mg (Completed) HTN (hypertension) Uncontrolled, probably related to asthma exacerbation. Continue losartan 100 mg use CPAP every night, she will follow-up BP with RN in 3 to 4 weeks Treat asthma exacerbation. Other Visit Diagnoses Cough in adult patient Relevant Orders POCT Rapid Covid-19 BinaxNOW (Completed) POCT Rapid Influenza A CAMPBELL ID NOW (Completed) POCT Rapid Influenza B CAMPBELL ID NOW (Completed) Follow Up: Current Outpatient Medications on File Prior to Visit Medication Sig Dispense Refill albuterol (2.5 MG/3ML) 0.083% nebulizer solution Take 3 mL (2.5 mg) by nebulization every 6 (six) hours if needed for wheezing. 75 mL 11 albuterol 108 (90 Base) MCG/ACT inhaler Inhale 2 puffs every 4 (four) hours if needed for wheezing or shortness of breath. 36 g 11 fluticasone (Flonase) 50 MCG/ACT nasal spray Administer 1 spray into each nostril Once per day. 16 g 2 Fluticasone-Salmeterol (Wixela Inhub) 500-50 MCG/ACT aerosol powder Inhale 1 Inhalation. 2 times daily. 60 each 2 ipratropium-albuterol (Duo-Neb) 0.5-2.5 mg/3 mL nebulizer solution Take 3 mL by nebulization every 8 (eight) hours if needed for wheezing or shortness of breath. 180 mL 11 losartan (Cozaar) 100 MG tablet Take 1 tablet (100 mg) by mouth Once per day. 90 tablet 3 montelukast (Singulair) 10 MG tablet TAKE 1 TABLET BY MOUTH ONCE DAILY 90 tablet 3 omeprazole (PriLOSEC) [address] capsule Take 1 capsule (40 mg) by mouth before breakfast. Do not crush or chew. 90 capsule 3 sodium chloride ([place] Nasal [place]) 0.65 % nasal spray Administer 1 spray into each nostril if needed for congestion. 30 mL 12 triamcinolone (Kenalog) 0.1 % cream APPLY TOPICALLY TWICE DAILY 30 g 1 [DISCONTINUED] triamcinolone (Kenalog) 0.1 % cream Apply topically 2 times daily. 30 g 1 No current facility-administered medications on file prior to visit. documented in this encounter Miscellaneous Notes * Assessment & Plan Note - Abby Diego MD - 06/05/2024 7:03 PM EST Associated Problem(s): Moderate persistent asthma with exacerbation Prednisone 50 mg PO x 1 dose today, she will continue 40 mg daily for the next 5 days. Continue albuterol inhaler every 4-6 hours as needed shortness of breath, restart Breo daily Rapid viral test done today are negative, reconsult as needed fever, chills, worsening sputum production. She will be out of work for 2 days * Assessment & Plan Note - Abby Diego MD - 06/05/2024 7:02 PM EST Associated Problem(s): HTN (hypertension) Uncontrolled, probably related to asthma exacerbation. Continue losartan 100 mg use CPAP every night, she will follow-up BP with RN in 3 to 4 weeks Treat asthma exacerbation. documented in this encounter Plan of Treatment Upcoming Encounters Date Type Department Care Team (Late st Contact Info) Description 06/27/2024 11:30 [place] [address] documented as of this encounter Procedures Procedure Name Priority Date/Time Associated Diagnosis Comments POCT INFLUENZA B (ID NOW RAPID MOLECULAR) Routine 06/05/2024 5:53 PM EST Cough in adult patient POCT INFLUENZA A (ID NOW RAPID MOLECULAR) Routine 06/05/2024 5:53 PM EST Cough in adult patient POCT RAPID COVID ANTIGEN Routine 06/05/2024 5:52 PM EST Cough in adult patient documented in this encounter Results * POCT Rapid Influenza B CAMPBELL ID NOW (06/05/2024 5:53 PM EST) Influenza B Negative Negative, Indeterminate [facility] QC Media Lot # [id number] [facility] Lot# Expiration Date 82 [facility] Swab 06/05/2024 5:53 PM EST Abby Diego MD POINT OF CARE TEST ENTER /EDIT ORDERABLES Final Result Performing Organization Address City/[facility]/ZIP Co de Phone Number [facility] [address] [place] [phone] * POCT Rapid Influenza A CAMPBELL ID NOW (06/05/2024 5:53 PM EST) Influenza A Negative Negative, Indeterminate [facility] QC Media Lot # [id number] [facility] Lot# Expiration Date [facility] Swab 06/05/2024 5:53 PM EST Abby Diego MD POINT OF CARE TEST ENTER /EDIT ORDERABLES Final Result Performing Organization Address City/[facility]/ZIP Co de Phone Number [facility] [address] [place] [phone] * POCT Rapid Covid-19 BinaxNOW (06/05/2024 5:52 PM EST) Pathologist [facility] Rapid COVID Ag Negative QC Media Lot # [id number] Lot# Expiration Date Swab 06/05/2024 5:52 PM EST Abby Diego MD POINT OF CARE TEST ENTER /EDIT ORDERABLES Final Result documented in this encounter Visit Diagnoses Diagnosis Moderate persistent asthma with exacerbation- Primary Unspecified asthma, with exacerbation Primary hypertension Unspecified essential hypertension Cough in adult patient documented in this encounter Administered Medications Inactive Administered Medications - up to 3 most recent administrations Medication Order MAR Action Action Date Dose Rate Site predniSONE (Deltasone) tablet 50 mg 50 mg, Oral, Once, On Tue06/05/24 at 1830, For 1 doseIndications:Moderate persistent asthma with exacerbation Given 06/05/2024 6:30 PM EST 50 mg documented in this encounter Additional Health Concerns Assessment Noted Time PHQ-9 Depression Total Score: 0 02/29/20 23 1:21 PM EST documented as of this encounter Care Teams Moisture Meter Operator Relationship Specialty Start Date End Date Kay Faust MD [address] [place] [address] PCP - General Family Medicine 12/02/22 documented as of this encounter
--- OUTSIDE RECORDS SUMMARY | 2024-06-18 17:45 | XMS_ITS | Encounter Summary ---
Author Organization [employer] Address [address] [place] [address] [address] [place] [address] Care Team Providers Care Stem Assembler Name Role Phone Kay Faust MD Primary Care Provider [phone] Reason for Visit * Reason Onset Date Comments recall 05/25/2024 Encounter Details Date Type Department Care Team ([facility] st Contact Info) Description 05/25/2024 Telephone [facility] [address] [place] [address] Kay Faust MD [address] [place], [place] [phone] recall Social History Tobacco Use Types Packs/Day Years [...] AM EDT documented as of this encounter Miscellaneous Notes * Telephone Encounter - America Boss [place] - 05/25/2024 9:16 AM EST Telephone call to patient to schedule a recall appointment. No answer, Left voicemail to return call to clinic.. Recall letter sent. Visit type: Physical Appointment notes: Physical Month due: May With: Govind Please schedule appointment above if patient returns call documented in this encounter Plan of Treatment Upcoming Encounters Date Type Department Care Team (Late st Contact Info) Description 06/27/2024 11:30 AM EDT Clinical Support [facility] [address] [place] [address] documented as of this encounter Visit Diagnoses Not on filedocumented in this encounter Additional Health Concerns Assessment Noted Time PHQ-9 Depression Total Score: 0 02/29/20 23 1:21 PM EST documented as of this encounter Care Teams Stem Assembler Relationship Specialty Start Date End Date Kay Faust MD [address] [place] [address] PCP - General Family Medicine 12/02/22 documented as of this encounter
--- OUTSIDE RECORDS SUMMARY | 2024-06-18 17:45 | XMS_ITS | Clinical Summary ---
Author Organization [employer] Address [address] [place] [address] [address] [place] [address] Care Team Providers Care Systems Engineer Name Role Phone Kay Faust MD Primary Care Provider [phone] Allergies No known active allergies Medications omeprazole (PriLOSEC) [address] capsule Take 1 capsule (40 mg) by mouth before breakfast. Do not crush or chew. 90 capsule 3 024 Active fluticasone (Flonase) 50 MCG/ACT nasal spray Administer 1 spray into each nostril Once per day. 16 g 2 024 Active sodium chloride ([place] Nasal [place]) 0.65 % nasal spray Administer 1 spray into each nostril if needed for congestion. 30 mL 12 024 2024 Active montelukast (Singulair) 10 MG tablet TAKE 1 TABLET BY MOUTH ONCE DAILY 90 tablet 3 024 Active albuterol 108 (90 Base) MCG/ACT inhalerIndicati ons:Severe persistent asthma without complication Inhale 2 puffs every 4 (four) hours if needed for wheezing or shortness of breath. 36 g 11 024 2024 Active Fluticasone-Jose G meterol ([place] Inhub) 500-50 MCG/ACT aerosol powder Inhale 1 Inhalation. 2 times daily. 60 each 2 024 Active ipratropium-alb uterol (Duo-Neb) 0.5-2.5 mg/3 mL nebulizer solutionIndicat ions:Severe persistent asthma with exacerbation Take 3 mL by nebulization every 8 (eight) hours if needed for wheezing or shortness of breath. 180 mL 11 025 2025 Active albuterol (2.5 MG/3ML) 0.083% nebulizer solutionIndicat ions:Severe persistent asthma with exacerbation Take 3 mL (2.5 mg) by nebulization every 6 (six) hours if needed for wheezing. 75 mL 2025 Active losartan (Cozaar) 100 MG tablet Take 1 tablet (100 mg) by mouth Once per day. 90 tablet 3 025 2025 Active triamcinolone (Kenalog) 0.1 % cream APPLY TOPICALLY TWICE DAILY 30 g Active cetirizine (ZyrTEC) 10 MG tablet Take 1 tablet (10 mg) by mouth in the morning. 90 tablet 3 024 2024 Discontinued(T herapy completed) zinc gluconate 50 MG tabletIndicatio ns:Frequently sick Take 1 tablet (50 mg) by mouth Once per day. 90 tablet 3 024 2024 Discontinued(T herapy completed) ascorbic acid (Vitamin C) 500 MG tabletIndicatio ns:Frequently sick Take 1 tablet (500 mg) by mouth Once per day. 90 tablet 3 024 2024 Discontinued(T herapy completed) Ketotifen Fumarate 0.035 % solution Administer 1 drop into affected eye(s) if needed in the morning and at bedtime (eye redness, itching). 10 mL 024 2024 Discontinued(T herapy completed) triamcinolone (Kenalog) 0.1 % cream Apply topically 2 times daily. 30 g 024 2024 Discontinued predniSONE (Deltasone) 10 MG tabletIndicatio ns:Severe persistent asthma with exacerbation Take by oral route daily. 6 tabs (=60mg) on day 1-2; 5 tabs (=50mg) on day 3-4; 4 tabs (=40mg) on day 5-6; 3 tabs (=30mg) on day 7-8; 2 tabs (=20mg) on day 9-10; 1 tab on day 11-12; 1/2 tab on day 13-14 43 tablet 025 2024 Discontinued(T herapy completed) amLODIPine (Norvasc) 5 MG tabletIndicatio ns:Primary hypertension Take 1 tablet (5 mg) by mouth Once per day. 30 tablet 11 025 2024 Discontinued(T herapy completed) guaiFENesin-cod eine (Robitussin-AC) 100-10 MG/5ML syrup TAKE 5 ML BY MOUTH EVERY 6 HOURS NEEDED FOR COUGH 024 2024 Discontinued(T herapy completed) predniSONE (Deltasone) 20 MG tablet Take 2 tablets (40 mg) by mouth Once per day for 5 days. 10 tablet 025 2024 Hospital, Clinic, or Other Facility Administered Medication Ordered Dose Route Frequency Start Date End Date Status predniSONE (Deltasone) tablet 10 mgIndications:Moderat e persistent asthma with exacerbation 10 mg PO Once 06/05/2024 06/05/2024 Discont inued predniSONE (Deltasone) tablet 50 mgIndications:Moderat e persistent asthma with exacerbation 50 mg PO Once 06/05/2024 06/05/2024 Ended Active Problems Problem Noted Date Diagnosed Date Dyslipidemia 04/09/2024 Moderate persistent asthma with exacerbation Assessment & Plan (06/05/2024 7:03 PM EST): Prednisone 50 mg PO x 1 dose today, she will continue 40 mg daily for the next 5 days. Continue albuterol inhaler every 4-6 hours as needed shortness of breath, restart Breo daily Rapid viral test done today are negative, reconsult as needed fever, chills, worsening sputum production. She will be out of work for 2 days Assessment & Plan (11/02/2023 9:23 AM EDT): Albuterol neb STAT and continue q4h x 2d then q8h prn sob Medrol pack x 1w Continue Advair bid, she'll be out of work x3 d to avoid exposure to fumes. Advised to wear a face mask/protective at work. Diuretic-induced hypokalemia 07/04/2023 Class 3 severe obesity with serious comorbidity and body mass index (BMI) of 45.0 to 49.9 in adult 06/10/2023 Assessment & Plan (02/26/2024 12:31 PM EST): Discussed med and surgical supports for weight loss She is not interested in surgery Would like to know more about medication options Pre-diabetes 06/10/2023 Assessment & Plan (10/22/2023 4:26 PM EDT): A1C 6.1 Continue Metformin for prevention of progression to DM2 Assessment & Plan (09/07/2023 6:18 PM EDT): Pt had hb1AC 6.5 <---6.2 possibly in setting of steroid use -pt will need to f closely w PCP to monitor hb1AC -advised to resume metformin -states has at home but not using Assessment & Plan (06/10/2023 12:31 PM EST): A1C 6.2 Consider Metformin HTN (hypertension) 03/03/2023 Assessment & Plan (06/05/2024 7:02 PM EST): Uncontrolled, probably related to asthma exacerbation. Continue losartan 100 mg use CPAP every night, she will follow-up BP with RN in 3 to 4 weeks Treat asthma exacerbation. Assessment & Plan (02/26/2024 12:30 PM EST): Continue Losartan 50mg x 2 weeks, monitor BP at home, if > 140/90 there, double losartan to 100mg Continue to monitor at home Had normal nuclear stress test (12/2023) and normal echocardiogram (10/2023) Assessment & Plan (10/22/2023 4:25 PM EDT): Not at goal on 10mg Lisinopril, increase to 20mg daily - followup BMP in 2 weeks Continue to monitor at home Going to have nuclear stress test next week and normal echocardiogram in August 2023 Assessment & Plan (09/07/2023 6:19 PM EDT): -not taking lisinopril for KRISHNAN/blurry vision ,at least stopped 2 weeks ago -pt would like to try again med again given is not sure if symptoms were from med or possibly flu infection? -advised pt to resume lisinopril but if having symptoms while taking med to call clinic and will need to eval another agent as amlodipine ? -to f BP w PCP Assessment & Plan (07/13/2023 9:51 PM EDT): Not at goal on 10mg Lisinopril Continue to monitor at home Going to have nuclear stress test next week and echocardiogram in August 2023 Assessment & Plan (06/10/2023 12:33 PM EST): Continue to monitor BP 2-3 times per week Start chlorthalidone 25mg daily BMP: Lab Results Component Value Date CREATININE 0.83 02/28/2023 K 3.7 02/28/2023 Lipid Panel: LDL 93 ASCVD Risk: 3.3%. no statin indicated EKG: Obtain baseline at f/u - Aerobic exercise to reduce BP. Initial goal of 30 min walk 3-5x/week. Increase as tolerated. - low-sodium diet (goal: <2g/day) and heart healthy diet such as DASH to reduce BP and prevent ASCVD. - Seek immediate medical attention for chest pain, palpitations, SOB, syncope, or sudden changes in mental status. - Do not change or discontinue current prescriptions without first consulting health care provider Assessment & Plan (03/03/2023 12:36 PM EST): Will monitor at home Consider starting ACEi/ARB at next visit Severe persistent asthma without complication Assessment & Plan (02/26/2024 12:29 PM EST): Continue Trelegy, Montelukast, SUN Avoid triggers to the greatest extent possible F/u with pulmonology about the possibility of biologics Assessment & Plan (10/22/2023 4:30 PM EDT): Frequent exacerbations and illnesses winter/spring Awaiting PFT scheduling, then will see Dr. Garcia in follow-up and likely add biologic for asthma control Continue Advair, SUN prn inhaler when out, switch to Duonebs when home for nebulizer - reviewed her RAT panel, discussed allergen avoidance/other triggers are viral illnesses, hand wash, mask, and trial Vit C/zinc Assessment & Plan (09/07/2023 6:18 PM EDT): -CXR 07/2023 Stable bronchial thickening. Stable minimal lingular subsegmental atelectasis or scarring. No new consolidation. No significant change Pt w symptoms of uncontrolled seasonal allergies and asthma exacerbation likely trigger from allergies.Does have wheezing on exam Also pt is Not using Breo-ellipta for high copayment for pt -I called pharmacy today and was explained either Advair or Symbicort will have lower copayment--px today Advair diskus 500/50 1 puff BID sent instead w lower copayment - 25$ -pt agreed w change -Start montelukast start,cetirizine prn -advised to start Advair only after completes Oral steroids prescribed today -alarm signs nad symptoms discussed -excuse letter for 72 h -f pulm next week --advised to discuss w pulm about option for biologic tx for her asthma -will need to update vaccines as p20,last COVID 19 booster -hold now that is feeling sick -has already apt w PCP scheduled already for 10/17/2023 Assessment & Plan (07/29/2023 1:40 PM EDT): Albuterol PRN Patient is still on prednisone I advise to finish it Patient educated to avoid asthma triggers Assessment & Plan (07/13/2023 9:52 PM EDT): Frequent exacerbations this fall and winter 2022 [place] [facility] [place] FMLA paperwork completed for work Continue Breo, SUN prn Consider smoking cessation Assessment & Plan (03/03/2023 12:37 PM EST): FMLA paperwork completed for work Assessment & Plan (11/27/2022 2:02 PM EDT): continue Breo, SUN Trigger avoidance Has regular pulm f/u Educated about WIC for exacerbation Seasonal allergies 11/27/2022 Assessment & Plan (11/27/2022 2:02 PM EDT): Zyrtec prn Singulair not helpful Gastroesophageal reflux disease without esophagi tis 11/27/2022 Cyst of right ovary 06/06/2020 Obstructive sleep apnea hypopnea, mild 6 Heartburn 04/16/2013 Resolved Problems Problem Noted Date Diagnosed Date Resolved Date Morbid obesity with body mas s index of 50.0-59.9 in adult 04/09/2024 04/19/2024 Dizziness 07/29/2023 03/13/2024 Assessment & Plan (07/29/2023 1:40 PM EDT): Most likely patient is still dehydrated I advise to increase fluids Change position slowly Meclizine prescribed today to take PRN Excuse for work will be extended for patient to fully recover Nausea 07/29/2023 03/13/2024 Assessment & Plan (07/29/2023 1:39 PM EDT): Small sip and bites Metoclopramide PRN Encounters Date Type Department Care Team Description 06/05/2024 6:00 PM EST Office Visit [facility] [address] [place] [phone] Abby Diego MD Moderate persistent asthma with exacerbation (Primary Dx); Primary hypertension; Cough in adult patient 05/30/2024 Refill [facility] [address] [place] [phone] Zane Harris MD 05/28/2024 Orders Only [facility] [address] [place] [phone] Kay Faust MD 05/25/2024 Telephone [facility] [address] [place] [phone] Kay Faust MD recall 05/02/2024 Orders Only [facility] [address] [place] [phone] Kay Faust MD Blurry vision, bilateral (Primary Dx) 04/13/2024 3:30 PM EST Office Visit [facility] [address] [place] [phone] Kay Faust MD Acute non-recurrent maxillary sinusitis (Primary Dx); Acute cough; Rash 04/13/2024 Travel 04/11/2024 Telephone [facility] [address], [place] [phone] Nayely Norman MD 04/09/2024 6:00 PM EST Office Visit [facility] [address] [place] [phone] Nayely Norman MD Severe persistent asthma without complication (Primary Dx); Acute cough; Primary hypertension 04/09/[address] [phone] Kay Faust MD Nurse Triage 04/05/2024 1:00 PM EST Office Visit [facility] [address] [address] Dg Meier MD Acute non-recurrent frontal sinusitis (Primary Dx); Severe persistent asthma with exacerbation 04/05/2024 Telephone [facility] [address] [place] [phone] Sloane Serna, JI Rash concerns/SOB; [facility] triage 03/23/2024 Refill [facility] [address], [place] [phone] Mehnaz Hadley RN Elevated blood pressure reading in office with diagnosis of hypertension from Last 3 Months Immunizations Name Administration Dates Next Due INFLUENZA INJECTABLE QUADRIV ALANT CCIIV4 MDCK Multi-dose vial 01/22/2018,02/06/2017 Influenza Injectable Quadriv alant Preservative Free IIV4 MDCK 01/10/2021,12/15/2018 Influenza injectable quadriv alent preservative free 02/05/2022 Influenza, IIV3, injectable 02/05/2022,0 12/18/2019,01/11/2016,01/24,01/22/2014,04/16/2013 Influenza, seasonal, injecta ble, preservative free 02/16/2024 Pneumococcal Conjugate PCV 20 02/16/2024 Pneumococcal Polysaccharide PPSV23 05/02/2015 Tdap 01/30/2015 Social History Tobacco Use Types Packs/Day Years Used Date Smoking Tobacco: Former Cigarettes Q uit: 11/05/2002 Passive Smoke Exposure: Past Smokeless Tobacco: Never Tobacco Cessation:Counseling Given: Not Answered Alcohol Use Standard Drinks/Week Comments Yes 1 [...] Orientation Straight 02/01/2022 10 :19 AM EDT Last Filed Vital Signs Vital Sign Reading Time Taken Comments Blood Pressure 160/90 06/05/2024 6:26 PM EST Pulse 71 06/05/2024 5:35 PM EST Temperature 35.4 ??C (95.8 ??F) 06/05/2024 5:35 PM ES T Respiratory Rate 20 06/05/2024 5:35 PM EST Oxygen Saturation 98% 04/13/2024 3:20 PM EST Inhaled Oxygen Concentration - - Weight 157 kg (345 lb 3.2 oz) 06/05/2024 5:35 PM EST Height 175.3 cm (5' 9 ) 06/05/2024 5:35 PM EST Body Mass Index 50.98 06/05/2024 5:35 PM EST Plan of Treatment Upcoming Encounters Date Type Department Care Team (Late st Contact Info) Description 06/27/2024 11:30 AM EDT Clinical Support [address] [address] Health Maintenance Due Date Last Done Comments CT Colonography 1970 Colonoscopy 1970 FIT 1970 FOBT 1970 Sigmoidoscopy 1970 Hepatitis B Vaccines (1 of 3 - 19+ 3-dose series) 1989 Zoster Vaccines (1 of 2) 2020 COVID-19 Vaccine ( season) 2023 01/08/2022, 07/03/2021, 02/13/2021, Additional history exists SDOH Screening 02/15/2024 02/14/2023 Depression Screening 02/29/2024 02/28/2023, 02/29/20 23 Diabetes: Hemoglobin A1C 09/15/202409/15/2 024, 07/04/2023, 02/28/2023 DTaP/Tdap/Td Vaccines (2 - Td or Tdap) 01/30/2025 01/30/2015 Alcohol/Substance Use Screening 04/19/2025 04/19/2024 Tobacco Screening 04/19/2025 04/19/2024 Mammogram 05/08/2025 05/08/2024, 05/03/2023 Cervical Cancer Screening 12/22/2025 HPV/Cotest 12/22/2025 12/22/2020 Pap Smear 12/22/2025 12/22/2020 Colorectal Cancer Screening 04/13/2026 FIT DNA/Cologuard 04/13/2026 04/13/2023 Lipid Panel 02/29/2028 02/28/2023 RSV Patients and Patients Aged 60 years or older (1 - 1-dose 75+ series) 2045 HIV Screening Completed 02/28/2023 Hepatitis C Screening Completed 02/28/2023 Influenza Vaccine Completed 02/16/2024, , 02/05/2022, Additional history exists Pneumococcal Vaccine: 50+ Years Completed 02/16/2024, 05/02/2015 HIB Vaccines Aged Out No longer eligi ble based on patient's age to complete this topic HPV Vaccines Aged Out No longer eligi ble based on patient's age to complete this topic Hepatitis A Vaccines Aged Out No long er eligible based on patient's age to complete this topic IPV Vaccines Aged Out No longer eligi ble based on patient's age to complete this topic Meningococcal Vaccine Aged Out No ana rosemarie eligible based on patient's age to complete this topic RSV under 20 months Aged Out No longe r eligible based on patient's age to complete this topic Rotavirus Vaccines Aged Out No longer eligible based on patient's age to complete this topic Procedures Procedure Name Priority Date/Time Associated Diagnosis Comments POCT INFLUENZA B (ID NOW RAPID MOLECULAR) Routine 06/05/2024 5:53 PM EST Cough in adult patient POCT INFLUENZA A (ID NOW RAPID MOLECULAR) Routine 06/05/2024 5:53 PM EST Cough in adult patient POCT RAPID COVID ANTIGEN Routine 06/05/2024 5:52 PM EST Cough in adult patient BI MAMMOGRAM SCREENING TOMOSYNTHESIS BILATERAL Routine 05/08/2024 2:50 PM EST POCT INFLUENZA B Routine 04/13/2024 3:26 PM EST Acute cough POCT INFLUENZA A Routine 04/13/2024 3:26 PM EST Acute cough POCT RAPID COVID ANTIGEN Routine 04/13/2024 3:26 PM EST Acute cough POCT INFLUENZA A (ID NOW RAPID MOLECULAR) Routine 04/09/2024 6:22 PM EST Severe persistent asthma without complication POCT COVID-19 AG CAMPBELL ID NOW Routine 04/09/2024 6:22 PM EST Severe persistent asthma without complication POCT INFLUENZA B (ID NOW RAPID MOLECULAR) Routine 04/09/2024 6:21 PM EST Severe persistent asthma without complication POCT RAPID STREP A Routine 04/09/2024 6: 20 PM EST Severe persistent asthma without complication POCT INFLUENZA B (ID NOW RAPID MOLECULAR) Routine 04/05/2024 12:11 PM EST Severe persistent asthma with exacerbation POCT INFLUENZA A (ID NOW RAPID MOLECULAR) Routine 04/05/2024 12:11 PM EST Severe persistent asthma with exacerbation POCT RAPID COVID ANTIGEN Routine 04/05/2024 12:11 PM EST Severe persistent asthma with exacerbation HEMOGLOBIN A1C Routine 09/16/2023 3:42 PM EDT LAB COLOGUARD?? COLON CANCER SCREEN Routine 04/13/2023 11:53 AM EST Encounter for routine adult medical exam with abnormal findings HEPATITIS C ANTIBODY Routine 02/28/2023 1:59 PM EST Encounter for routine adult medical exam with abnormal findings HIV 1/2 ANTIGEN/ANTIBODY, FOURTH GENERATION W/RFL Routine 02/28/2023 1:59 PM EST Encounter for routine adult medical exam with abnormal findings LIPID PANEL, STANDARD Routine 02/28/2023 1:59 PM EST Encounter for routine adult medical exam with abnormal findings HM PAP/HPV Routine 12/22/2020 from Last 3 Months or Most Recently Relevant to Health Maintenance Results * POCT Rapid Influenza B CAMPBELL ID NOW (06/05/2024 5:53 PM EST) Only the most recent of3 resultswithin the time period is included. [facility] Influenza B Negative Negative, Indeterminate [facility] QC Media Lot # [id number] [facility] Lot# Expiration Date [facility] Swab 06/05/2024 5:53 PM EST Abby Diego MD POINT OF CARE TEST ENTER /EDIT ORDERABLES Final Result Performing Organization Address [facility]/ZIP Co de Phone Number [facility] [address] [place] [phone] * POCT Rapid Influenza A CAMPBELL ID NOW (06/05/2024 5:53 PM EST) Only the most recent of3 resultswithin the time period is included. [facility] Influenza A Negative Negative, Indeterminate [facility] QC Media Lot # [id number] [facility] Lot# Expiration Date [facility] Swab 06/05/2024 5:53 PM EST Abby Diego MD POINT OF CARE TEST ENTER /EDIT ORDERABLES Final Result Performing Organization Address City/[facility]/ZIP Co de Phone Number [facility] [address] [place] [phone] * POCT Rapid Covid-19 BinaxNOW (06/05/2024 5:52 PM EST) Only the most recent of3 resultswithin the time period is included. [facility] Rapid COVID Ag Negative QC Media Lot # [id number] Lot# Expiration Date Swab 06/05/2024 5:52 PM EST Abby Diego MD POINT OF CARE TEST ENTER /EDIT ORDERABLES Final Result * BI Mammogram Screening Tomosynthesis Bilateral (05/08/2024 2:50 PM EST) Anatomical Region Laterality Modality Breast Bilateral Mammography 05/08/2024 2:50 PM EST Narrative 05/14/2024 5:39 PM EST ? [facility] ? [address] ?[place] [address] ? Mammography Report ? Signed ? Patient: Senuta,Xochilt Leola ?MR#: [id number] ?? [id number] ? : 1970 ?Acct:[id number] ? Age/Sex: 53 / F ?ADM Date: 05/08/24 ? Loc: HO.MAMMO ? Attending Dr: Kay Faust MD ? Ordering Physician: Kay Faust ?Results: 1Negative ? Date of Service: 05/08/24 ?Follow Up: 1 Year From Orig ?? inal Mammogram ? Procedure(s): MM tomosynthesis screening BI ?? Accession Number(s): [id number] ? cc: Kay Faust ? EXAMINATION: ?? [...] ??Mayuri Pulliam DO ??05/14/2024 05:36 PM EST ? Dictated By: ?Mayuri Pulliam DO ? Signed By: ?<Electronically signed by Mayuri Pulliam, DO in OV> ? 05/14/24 1736 ? DD/ 1450 ? TD/TT: 05/08/24 1505 ? Radar Engineering Teacher: ? Procedure Note Doneduardo, Image - 05/14/2024 [facility] [address] [place] [address] Mammography Report Signed Patient: Xochilt Thomas [facility]#: [id number] : 1970Acct:[id number] Age/Sex: 53 / FADM Date: 05/08/24 Loc: HO.MAMMO Attending Dr: Kay Faust MD Ordering Physician: Amelia Faustults: 1Negative Date of Service: 05/08/24Follow Up: 1 Year From Orig inal Mammogram Procedure(s): MM tomosynthesis screening BI Accession Number(s): [id number] cc: Kay Faust EXAMINATION: MM SCREENING DIGITAL [...] 05/14/24 1736 DD/ 1450 TD/TT: 05/08/24 1505 Radar Engineering Teacher: Kay Faust MD IMG BI PROCEDURES Final Result * POCT Rapid Influenza B OSOM (04/13/2024 3:26 PM EST) Rapid Influenza B Ag Negative Negative, Indeterminate QC Media Lot # [id number] Lot# Expiration Date Swab 04/13/2024 3:26 PM EST Kay Faust MD POINT OF CARE TEST ENTER/EDIT ORDERABLES Final Result * POCT Rapid Influenza A OSOM (04/13/2024 3:26 PM EST) Pathologist [facility] Rapid Influenza A Ag Negative Negative, Indeterminate QC Media Lot # [id number] Lot# Expiration Date Swab Nasopharyngeal structure / Unknown 04/13/2024 3:26 PM EST Kay Faust MD POINT OF CARE TEST ENTER/EDIT ORDERABLES Final Result * POCT Rapid Covid-19 CAMPBELL ID NOW (04/09/2024 6:22 PM EST) Pathologist [facility] Coronavirus Antigen PCR Negative Negative, Indeterminate, None Detected, Invalid, Specimen unsatisfactory for evaluation, Weakly Positive QC Media Lot # [id number] Lot# Expiration Date 101 Swab 04/09/2024 6:22 PM EST Nayely Norman MD POINT OF CARE TEST ENTER/ED IT ORDERABLES Final Result * POCT rapid strep A manually resulted (04/09/2024 6:20 PM EST) Pathologist [facility] Rapid Strep A Screen Negative Negative, None Detected QC Media Lot # [id number] Lot# Expiration Date 9886, Swab 04/09/2024 6:20 PM EST Nayely Norman MD POINT OF CARE TEST ENTER/ED IT ORDERABLES Final Result * (ABNORMAL) Hemoglobin A1c (09/16/2023 3:42 PM EDT) Pathologist [facility] Hemoglobin A1c 6.2(H) <6.0 % [facility] Comment:Hemoglobin A1C Refer ence Range Adults: 4.8 - 6.0 % Non diabetic: < 6.0 % Goal: < 7.0 %Additional Action Suggested: > 8.0 %Note: Hemoglobin A1c results are invalid for patients with abnormal amounts of HbF. Blood transfusions may impact the HbA1c concentration in the patient sample. Estimated Average Glucose 131 mg/dL [facility] Comment:eAG = Estimated ave rage glucose which is %A1C expressed asaverage glucose, using the formula of the [id number] Glucose study (ADAG), Diabetes Care, Vol.31,#8,Nov. 2007 09/16/2023 3:42 PM EDT 09/16/2023 3:42 PM EDT Zane Harris MD LAB BLOOD ORDERABLES Final Resul t [facility] [address] [place] [phone] * Cologuard?? colon cancer screening (04/13/2023 11:53 AM EST) Cologuard Result Negative Negative 04/24/19 1:03 AM EST [facility] (IA #:[id number]) Comment: NEGATIVE TEST RESULT. A negative Cologuard result indicates a low likelihood that a colorectal cancer (CRC) or advanced adenoma (adenomatous polyps with more advanced pre-malignant features) ??is present. The chance that a person with a negative Cologuard test has a colorectal cancer is less than 1 in 1500 (negative predictive value >99.9%) or has an ??advanced adenoma is less than ??5.3% (negative predictive value 94.7%). These data are based on a prospective cross-sectional study of 10,000 individuals at average risk for colorectal cancer who were screened with both Cologuard and colonoscopy. (Farideh Castelan al, N Engl J Med 2014;370(14):1286- 1297) The normal value (reference range) for this assay is negative. COLOGUARD RE-SCREENING RECOMMENDATION: Periodic colorectal cancer screening is an important part of preventive healthcare for asymptomatic individuals at average risk for colorectal cancer. ??Following a negative Cologuard result, the [place] [employer] and U.S. Multi-Society Task Force screening guidelines recommend a Cologuard re-screening interval of 3 years. References: [place] [employer] Guideline for Colorectal Cancer Screening: https://www.cancer.org/cancer/smryo-ghjqlq-luxxqh/yifjujhpc-irhekthvo-exwofqp/ac s-rec ommendations.html.; Jose Manuel DK, Harpreet DUNNE, Bailee CummingsK, Colorectal Cancer Screening: Recommendations for Physicians and Patients from the U.S. Multi-Society Task Force on Colorectal Cancer Screening , Am J Gastroenterology 2017; 112:6964-9681. TEST DESCRIPTION: Composite algorithmic analysis of stool DNA-biomarkers with hemoglobin immunoassay. ?? Quantitative values of individual biomarkers are not reportable and are not associated with individual biomarker result reference ranges. Cologuard is intended for colorectal cancer screening of adults of either sex, 45 years or older, who are at average-risk for colorectal cancer (CRC). Cologuard has been approved for use by the U.S. FDA. The performance of Cologuard was established in a cross sectional study of average-risk adults aged 50-84. Cologuard performance in patients ages 45 to 49 years was estimated by sub-group analysis of near-age groups. Colonoscopies performed for a positive result may find as the most clinically significant lesion: colorectal cancer [4.0%], advanced adenoma (including sessile serrated polyps greater than or equal to 1cm diameter) [20%] or non- advanced adenoma [31%]; or no colorectal neoplasia [45%]. These estimates are derived from a prospective cross-sectional screening study of 10,000 individuals at average risk for colorectal cancer who were screened with both Cologuard and colonoscopy. (Farideh Cope. et al, N Engl J Med 2014;370(14):8567-5184.) Cologuard may produce a false negative or false positive result (no colorectal cancer or precancerous polyp present at colonoscopy follow up). A negative Cologuard test result does not guarantee the absence of CRC or advanced adenoma (pre-cancer). The current Cologuard screening interval is every 3 years. ([place] [employer] and U.S. Multi-Society Task Force). Cologuard performance data in a 10,000 patient pivotal study using colonoscopy as the reference method can be accessed at the following location: www.Encore.fm/results. Additional description of the Cologuard test process, warnings and precautions can be found at www.[employer]iord.brand eins Verlag. Stool specimen (specimen) 04/13/2023 11:53 AM EST 04/14/2023 12:57 PM EST us Kay Faust MD LAB MOLECULAR DIAGNOSTICS [facility]AM[facility] SERRA Final Result [facility] (CLIA #:[id number]) [address] [place] [address], * Hepatitis C Ab (02/28/2023 1:59 PM EST) Hepatitis C Antibody Nonreactive Nonreactive [facility] Comment:Antibodies to HCV no t detected; does not exclude early acuteHCV infection. Blood Venous blood specimen / Unknown 02/28/2023 1:59 PM EST 02/28/2023 4:15 PM EST Kay Faust MD LAB BLOOD ORDERABLES Final Res ult Performing Organization Address [facility]/ZIP Co de Phone Number [facility] [address] [place] [phone] * HIV-1/2 Antigen and Antibodies, Fourth Generation, with Reflexes (02/28/2023 1:59 PM EST) HIV AB/AG Nonreactive Nonreactive [facility] Comment:HIV-1 p24 Ag and/or HIV-1/HIV-2 Ab not detected.A test result that is nonreactive does not exclude thepossibility of exposure to or infection with HIV-1 and/orHIV-2. Nonreactive results in this assay for individualswith prior exposure to HIV-1 and/or HIV-2 may be due toantigen and antibody levels that are below the limit ofdetection of this assay.The AdVolume HIV Ag/Ab Combo assay result andsupplemental assay results should be interpreted inconjunction with the patient's clinical presentation,history and other laboratory results. If the results areinconsistent with clinical evidence, additional testing issuggested to confirm the result. Blood Venous blood specimen / Unknown 02/28/2023 1:59 PM EST 02/28/2023 4:15 PM EST Kay Faust MD LAB BLOOD ORDERABLES Final Res ult Performing Organization Address City/[facility]/ZIP Co de Phone Number [facility] [address] [place] [address] [phone] * (ABNORMAL) Lipid Panel, Standard (02/28/2023 1:59 PM EST) Triglycerides 232(H) <150 mg/dL [facility] Comment:Desirable Triglyceri de: less than 150 mg/dLBorderline High Triglyceride 150-199 mg/dLHigh Triglyceride: 200-499 mg/dLVery High Triglyceride: greater than or equal to 5OO mg/dL Cholesterol 186 <200 mg/dL [facility] Comment:Desirable Cholestero l: less than 200 mg/dLBorderline High Cholesterol: 200-239 mg/dLHigh Cholesterol: greater than 239 mg/dL LDL Cholesterol Calculated 93 <100 mg/dL [facility] Comment:Desirable LDL: less than 100 mg/dLNear Optimal/Above Optimal LDL: 110- 129 mg/dLBorderline High LDL: 130-159 mg/dLHigh LDL: 160-189 mg/dLVery High LDL: greater than or equal to 190 mg/dL HDL Cholesterol 47 >40 mg/dL [facility] Comment:Desirable HDL: great er than 40 mg/dL Note: This HDL assay may give artificially low results in patients with liver disease. Blood Venous blood specimen / Unknown 02/28/2023 1:59 PM EST 02/28/2023 4:15 PM EST Kay Faust MD LAB BLOOD ORDERABLES Final Res ult [facility] [address] [place] [phone] * Pap Smear (12/22/2020) Pap Negative for intraephithelial lesion or malignancy Negative for intraephithelial lesion or malignancy, Other HPV Not Detected Undetected, Indeterminate, Quantitative, Not Detected Historical Provider HEALTH MAINTENANCE Final Result from Last 3 Months or Most Recently Relevant to Health Maintenance Insurance [employer] 33 [place]13 Care Teams Systems Engineer Relationship Specialty Start Date End Date Kay Faust MD [address] [place] [phone] PCP - General Family Medicine 12/02/22
--- OUTSIDE RECORDS SUMMARY | 2024-06-18 17:45 | XMS_ITS | Encounter Summary ---
Author Organization [employer] Address [address] [facility] [address] [place] [address] Care Team Providers Care Technical Operations Vice President Name Role Phone Kay Faust MD Primary Care Provider Reason for Visit * Reason Comments Med Refill Encounter Details Date Type Department Care Team (Late st Contact Info) Description 05/30/2024 Refill [facility] [address] [place] [address] [phone] Zane Harris MD [address] [place], [place] [phone] Social History Tobacco Use Types Packs/Day Years [...] Description 06/27/2024 11:30 AM EDT Clinical Support [facility] MEDICINE [address] [place] [address] documented as of this encounter Visit Diagnoses Not on filedocumented in this encounter Additional Health Concerns Assessment Noted Time PHQ-9 Depression Total Score: 0 02/29/20 23 1:21 PM EST documented as of this encounter Care Teams Technical Operations Vice President Relationship Specialty Start Date End Date Kay Faust MD [address] [place] [address] PCP - General Family Medicine 12/02/22 documented as of this encounter
--- OUTSIDE RECORDS SUMMARY | 2024-06-18 17:45 | XMS_ITS | Data Portability ---
Author Organization [facility], [address] Address [address] [place] [address] Assessment Encounter Date Assessment Date Assessment LastModified by Organization Details LastModified Time 05/04/2022 05/04/2022 Viral illness is likely, consider flu like illness. Symptomatic treatment reviewed, letter for work Not available 05/04/2022 11:39:55 Plan of Treatment Reminders Order Date Submit Date Provider Last Modified By Organization Details Last Modified Time Details Appointments None recorded. Lab rapid flu (A+B) 2022 023 lisseth ne1 [address], [address] [place] [address], [place], [phone], 11:35:29 Referral None recorded. Procedures None recorded. Surgeries None recorded. Imaging None recorded. Medication Orders prednisone [address] [facility] #[id number], [address] [place], [address], 3 09:15:59 olopatadine 0.1 % eye drops [address] [facility] #[id number], [address] [place], [address], 3 09:15:59 Patient TargetsNo targets recorded. Patient Instructions Encounter Date Encounter Id Patient Instructions Last Modified By Organization Details Last Modified Time 05/04/2022 [id number] nausea and vomiting: care instructions Not available 05/04/2022 11:35:29 upper respirator y infection (cold): care instructions Not available 05/04/2022 11:35:29 Try small amount s of clear liquids frequently. If vomiting occurs, wait 30-60 minutes before trying clear liquids again. Once you are able to tolerate clear liquids for at least 6 hours without vomiting, you can advance to a soft diet consisting of foods such as bananas, rice, applesauce, toast, crackers, and other foods rich in carbohydrates and low on fats and spices. If the diet is tolerated for 12-24 hours, you can slowly add other foods to your diet. If vomiting occurs, you should go back to clear liquids only and work your way back to a normal diet as outlined above. If much worse, you should seek treatment immediately. An upper respiratory infection is a viral illness that typically self-resolves within 7-10 days. Treatment is supportive, including, rest, fluids, humidifier, and sometimes cough suppressants and/or nasal decongestants to help reduce symptoms until your body's immune system kills the virus and the body self-recovers. If symptoms worsen, return to clinic. You may take over the counter cold/cough medications such as Dayquil/Nyquil, Mucinex or Robitussin for treatment of symptoms. If you have high blood pressure or take blood pressure medicine, you should avoid anything with a decongestant (such as Sudafed) and use Coricidin HBP Cold and Flu for your symptoms. Ok to add Aleve to your Tylenol for your body aches and ear pain Not available 05/04/2022 11:40:17 06/29/2022 [id number] You are having a n asthma exacerbation and bronchospasm. These can occur due to environmental exposure. Make sure that you carry your albuterol inhaler with you. Currently your exam does not suggest anything worrisome like pneumonia or a bacterial infection. The following are my recommendations to help you with your symptoms and recovery. 1. Start an antihistamine like loratadine or cetirizine. 2. Do not take any decongestants at this time because this will dry out that tract too much. If you have a lot of nasal congestion you can try nasal decongestants, but I would not take them more than 5 days. 3. Make sure you use your nebulizer machine if you have one. 4. Salt Water Gargles 5. Saline nasal spray is helpful. I would be seen again if you develop any of the following. 1. Cough last longer than 3 weeks - and has not worsened 2. You develop a thick productive cough 3. Develop shortness of breath or wheezing 4. Develop achy feel or discomfort in a specific chest location 5. Fever > 100.5 I would go immediately to the Emergency Room if you develop: 1. Chest Pain 2. Severe Shortness of breath 3. Coughing up Blood. 4. significant wheezing 5. light headedness. Thank you for using [facility] today - please don't hesitate to contact up or return to see if you have any questions or concerns. [email or web address] Not available 06/29/2022 09:14:38 Reason for Referral None Reported. Results Created Date Observation Date Name Description Value Unit Range Abnormal Flag Note LastModifiedBy Organization Detail LastModifiedTime 05/04/19 23 05/04/2022 rapid flu (A+B) Unknown Analyte Normal = Negati ve Not Available _juan pablo ruiz [address] [place], [address], 05/04/2022 11:00:32 05/04/19 23 05/04/2022 rapid flu (A+B) Unknown Analyte Normal = Negati ve Not Available _juan pablo ruiz [address] [place], [address], 05/04/2022 11:00:32 05/04/19 23 05/04/2022 rapid flu (A+B) Unknown Analyte negati ve Not Available _juan pablo ruiz [address] [place], [address], 05/04/2022 11:00:32 05/04/19 23 05/04/2022 rapid flu (A+B) Unknown Analyte negati ve Not Available _juan pablo ruiz [address], [address], 05/04/2022 11:00:32 Result Notes None recorded. Problems Name Problem SNOMED Code Status Onset Date Resolution Date Notes Provider Name and Address Organization Details Recorded Time Asthma 314977901 Active 023 FITO Juarez null, PA - [facility] 3 10:57:54 Acid reflux 560008899 Active 023 IRIS ARELY Juarez null, PA - [facility] 3 10:59:16 Arthritis 0453582 Active 023 FITO Juarez null, PA - [facility] 3 10:59:50 Problem Notes None recorded. Medical Equipment None Reported. Allergies No known drug allergies Medications Name Sig Start Date Stop Date Status Note LastModified by Organization Details LastModified Time prednisone 10 mg tablet 4 pills po qd x 3 days, 3 pills po qd x 3 days, 2 pills po qd x 2 days, 1 pills po qd x 2 days 2022 active Not Available Not Available Not Avai lable albuterol sulfate 2.5 mg/3 mL (0.083 %) solution for nebulizatio n USE 1 VIAL VIA NEBULIZER EVERY 6 HOURS NEEDED FOR WHEEZE/SH ORTNESS OF BREATH active Not Available Not Available No t Available albuterol sulfate 1.25 mg/3 mL solution for nebulizatio n Inhale 3 mL 3 times a day by inhalatio n route. active Not Available Not Available No t Available olopatadine 0.1 % eye drops INSTILL 1 DROP TWICE A DAY BY OPHTHALMI C ROUTE FOR 30 DAYS. active Not Available Not Available No t Available methylpredn isolone 4 mg tablets in a dose pack TAKE 6 TABLETS ON DAY 1 DIRECTED ON PACKAGE AND DECREASE BY 1 TAB EACH DAY FOR A TOTAL OF 6 DAYS 06/29 completed Not Available Not Available Not Available albuterol sulfate HFA 90 mcg/actuati on aerosol inhaler TAKE 2 PUFFS BY MOUTH EVERY 4 HOURS NEEDED FOR COUGH OR WHEEZING active Not Available Not Available No t Available omeprazole active Not Available Not Av ailable Not Available Zyrtec active Not Available Not Availa ble Not Available Breo Ellipta 100 mcg-25 mcg/dose powder for inhalation TAKE 1 PUFF BY MOUTH EVERY DAY FOR 90 DAYS active Not Available Not Available No t Available Breo Ellipta 200 mcg-25 mcg/dose powder for inhalation TAKE 1 PUFF BY MOUTH EVERY DAY active Not Available Not Available No t Available Paxlovid 300 mg (150 mg x 2)-100 mg tablets in a dose pack TAKE 3 TABLETS BY MOUTH TWICE A DAY FOR 5 DAYS 06/29 completed Not Available Not Available Not Available albuterol 90 mcg-budeson leanne 80 mcg/actuati on HFA aerosol inhaler Inhale by inhalatio n route. active Not Available Not Available No t Available Vitals Date Recorded Body height Body mass index (BMI) Body weight Pain severity - 0-10 verbal numeric rating [Score] - Reported Respiratory rate Heart rate Oxygen saturation Oxygen saturation in Arterial blood by Pulse oximetry Body temperature Systolic blood pressure Diastolic blood pressure Provider Name and Address Organization Details Last Updated DateTime 3 175.26 cm 49.5 kg/m2 915653. 44 g 5 20 /min 74 /min 99 % 99 % 97.8 [degF] 163 mm[Hg] 93 mm[Hg] Sandra Marlow PA - [facility] 3 08:35:50 Date Recorded Body height Body mass index (BMI) Body weight Body temperature Respiratory rate Heart rate Oxygen saturation Oxygen saturation in Arterial blood by Pulse oximetry Systolic blood pressure Diastolic blood pressure Provider Name and Address Organization Details Last Updated DateTime 3 175.26 cm 49.5 kg/m2 497350. 44 g 98.4 [degF] 20 /min 68 /min 98 % 98 % 139 mm[Hg] 97 mm[Hg] FITO Juarez PA - [facility] 3 11:01:51 Social History Question Answer Notes LastModified by Organizat ion Details LastModified Time Tobacco Smoking Status Former Smoker FITO drake PA - [facility] 05/04/2022 11:00:02 What Is Your Level Of Alcohol Consumption? None Information not available 05/04/2022 What Is Your Water Source? City Information not available 05/04/2022 What Is Your Heat Source? Gas Information not available 05/04/2022 Have You Had Direct Contact, Or Contact During Intimacy, With Monkeypox Rash, Scabs, Or Body Fluids From A Person With Monkeypox? No Information not available 05/04/2022 Do You Use Any Illicit Or Recreational Drugs? No Information not available 05/04/2022 Have You Recently Traveled Abroad? No Information not available 05/04/2022 Do You Or Have You Ever Used Any Other Forms Of Tobacco Or Nicotine? No Information not available 05/04/2022 Sex: Unknown Functional Status None recorded. Mental Status None recorded. Family History Relationship Description Onset Age of this Age Resolved Age Notes LastModified by Organization Details LastModified Time Father No current problems or disability Not available 10:59:24 Mother No current problems or disability Not available 10:59:24 Notes:History of hypertensio n Medical History No medical history recorded. Gynecological History Statement/Question Response Date of LMP 04/11/2022 Obstetrics History GPAL:G 0 P 0 0 0 0 Immunizations Vaccine Type Date Status Note Provider Nam e and Address Organization Details Recorded Time Influenza, MDCK, quadrivalent, PF 9 completed Sandra Ele null, PA - [facility] 06/29/2022 08:32:41 Influenza, MDCK, quadrivalent, PF 1 completed Sandra Ele null, PA - [facility] 06/29/2022 08:32:41 Influenza, MDCK, quadrivalent, preservative 8 completed Sandra Ele null, PA - [facility] 06/29/2022 08:32:41 COVID-19, mRNA, LNP-S, PF, 100 mcg/0.5mL dose or 50 mcg/0.25mL dose 2 completed Sandra Irvine null, PA - [facility] 06/29/2022 08:32:41 COVID-19, mRNA, LNP-S, PF, 100 mcg/0.5mL dose or 50 mcg/0.25mL dose 1 completed Sandra Irvine null, PA - [facility] 06/29/2022 08:32:41 COVID-19, mRNA, LNP-S, PF, 100 mcg/0.5mL dose or 50 mcg/0.25mL dose 1 completed Sandra Irvine null, PA - [facility] 06/29/2022 08:32:41 COVID-19, mRNA, LNP-S, PF, 100 mcg/0.5mL dose or 50 mcg/0.25mL dose 1 completed Sandra Ele null, PA - [facility] 06/29/2022 08:32:41 COVID-19, mRNA, LNP-S, bivalent, PF, 30 mcg/0.3 mL dose 2 completed Sandra Irvine null, PA - [facility] 06/29/2022 08:32:41 pneumococcal polysaccharide PPV23 6 completed Sandra Irvine null, PA - [facility] 06/29/2022 08:32:42 Tdap 5 completed Sandra Irvine null, PA - [facility] 06/29/2022 08:32:42 Influenza, split virus, trivalent, preservative 4 completed Sandra Ele null, PA - [facility] 06/29/2022 08:32:42 Influenza, split virus, trivalent, preservative 0 completed Sandra Ele null, PA - [facility] 06/29/2022 08:32:42 Influenza, split virus, trivalent, preservative 6 completed Sandra Ele null, PA - [facility] 06/29/2022 08:32:42 Influenza, split virus, trivalent, preservative 4 completed Sandra Irvine null, PA - [facility] 06/29/2022 08:32:42 Influenza, split virus, trivalent, preservative 5 completed Sandra Ele null, PA - [facility] 06/29/2022 08:32:42 Influenza, split virus, quadrivalent, PF 2 completed Sandra Ele null, PA - [facility] 06/29/2022 08:32:42 Past Encounters Encounter ID Performer Location Encounter Start Date Encounter Closed Date Diagnosis/Indication Diagnosis SNOMED-CT Code Diagnosis ICD10 Code Diagnosis Note [id number] [address] [facility] [place] [address] 06/18/2021 09:28:53 06/18/2021 09:59:33 [id number] [address] [facility] [place] [address] 06/12/2019 10:34:03 06/12/2019 11:28:10 [id number] [address] [place] [address] [place] [address] 02/02/2021 09:16:12 02/02/2021 10:55:41 [id number] [address] [place] [address] [place] [address] 07/12/2017 09:26:55 07/12/2017 10:50:42 [id number] [address] [place] [address] [place] [address] 09/23/2020 16:41:56 09/23/2020 18:08:22 [id number] [address] [facility] [place] [address] 01/31/2018 10:45:03 01/31/2018 13:27:29 [id number] [address] [facility] [place] [address] 11/09/2019 08:07:21 11/09/2019 09:09:00 [id number] [address] [facility] [place] [address] 08/06/2021 10:08:32 08/06/2021 13:38:40 [id number] Subhash Gaines DO [address] [facility] [place] [address] 05/04/2022 10:38:50 05/04/2022 11:38:10 Acute upper respiratory infection 28324850 J06.9 [id number] KILO MONTEIRO [address] [address] 06/29/2022 08:23:26 06/29/2022 09:17:45 Elevated blood-pressure reading without diagnosis of hypertension 698725200 R03.0 You blood pressure was elevated during your visit with us and you do not have a history of Hypertensi on or taking blood pressure medication s currently. This is important to monitor and address with your PCP. Undiagnose d hypertensi on that remains untreated can lead to:1. Kidney Failure2. Stroke3. Congestive Heart Failure. Please get a blood pressure cuff and keep a journal of your daily blood pressure. Once in the AM and Once in a PM. Please schedule an appointmen t with your Primary Care Doctor to discuss the results of your journal. Allergic rhinitis 949056 04 J30.9 Allergic conjunctivitis 861147742 H10.13 Exacerbati on of intermittent asthma 626965981 J45.21 follow up with your pulmonolog ist tomorrow as scheduled. Take you broken nebulizer machine with you - so they may be able to switch it out. Health Concerns Section Related Observation LastModified by Organization Detai ls LastModified Time None Recorded Concern Status LastModified by Organization Details LastModified Time None Recorded Advance Directives Directive None Recorded Payers Encounter Date Sequence Insurance Name Policy Number Policy Kaur Covered Member ID Kaur Member ID Guarantor Name 06/18/2021 1 [facility] [id number] Xochilt A Senuta [id number] X[employer] A Senuta 08/06/2021 1 [facility] [id number] Xochilt A Senuta [id number] Xochilt A Senuta 05/04/2022 1 [facility] [id number] Xochilt A Senuta [id number] Xochilt A Senuta 06/29/2022 1 [facility] [id number] Xochilt A Senuta [id number] Xochilt A Senuta Notes Date Note Type Note Provider Name and Address Organization Details Recorded Time 05/04/2022 text/html Not feeling well x 3 days: cough, body aches, R ear pain, N/V x 2 yesterdayCovid negative yesterday. Taking Tylenol, Robitussin DM. Sleep disturbed by body aches. Juventinoanumarianna Gaines, DO [address] [place], [address], [place] - [facility] 05/04/2022 11:40:33 06/29/2022 text/html Sinus Complaints UCReported bypatient.Location:s inus pain Associated Symptoms:nasal discharge from both nostrils;difficulty breathing;Post nasal drip;nasal passage blockage bilaterally;eye itching Onset/Timing:worse in am; initially started 2days ago Quality:worsening Duration:chronic Context:worse with seasonal allergen exposure;worse with environmental exposure Alleviating factors:Cold compresses to eyes.Notes:The patient reports was helping her niece move from her old apartment. She was in her old apartment and there was dust and mice feces and all kinds of environmental exposures. Started to develop asthma exacerbation and her eyes and nose have been running non stop. Feeling bad. Nebulizer machine is broken. 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 Denies fever. Looking for relief. KILO MOTNEIRO [address] [place], [address], [place] PA [facility] 06/29/2022 09:19:38 OBGyn Episode No OBEpisode recorded.
--- OUTSIDE RECORDS SUMMARY | 2024-06-18 17:45 | XMS_ITS | Clinical Summary ---
Author Organization [facility] it Address [address] [place] [address] Care Team Providers Care Vp Customer Service Name Role Phone Jagdish Evans MD Primary Care Provider [phone] Allergies No known active allergies Medications albuterol 2.5 mg /3 mL (0.083 %) nebulizer solution USE 1 VIAL VIA NEBULIZER EVERY 6 HOURS NEEDED FOR WHEEZE/SHORTNE SS OF BREATH 3 Active albuterol HFA (PROAIR HFA ; PROVENTIL HFA ; VENTOLIN HFA) 90 mcg/actuation inhaler INHALE 2 PUFFS INTO THE LUNGS EVERY 4 HOURS NEEDED FOR COUGH OR WHEEZING 3 Active fluticasone furoate-vilante roL (Breo Ellipta) 200-25 mcg/dose inhaler TAKE 1 PUFF BY MOUTH EVERY DAY 2 Active omeprazole (PriLOSEC) [address] capsule Take 1 capsule by mouth daily. 2 Active triamcinolone (NASACORT) 55 mcg nasal inhaler 55 mcg by Nasal route daily. 9 Active Active Problems Problem Noted Date Diagnosed Date Dyslipidemia 04/09/2024 Asthma 04/09/2024 Morbid obesity with body mass index of 50.0-59.9 in adult 04/09/2024 Cyst of right ovary 06/06/2020 Obstructive sleep apnea hypopnea, mild 6 Allergic rhinitis due to allergen 01/30/2015 Heartburn 04/16/2013 Immunizations Name Administration Dates Next Due Influenza Quadravalent, MDCK , 0.5ml, with preservative (Flucelvax) 6mo and older 01/22/2018,02/06/2017 Influenza trivalent, with pr eservative (Fluzone; Afluria) 6mo and older 02/05/2022,12/18/2019,01/11/2016,01/24,01/22/2014,04/16/2013 Moderna SARS-CoV-2 COVID-19, mRNA, LNP-S, preservative free 07/07/2020 Pneumococcal polysaccharide 23 valent (Pneumovax 23) 2yo and older 05/02/2015 Tdap Tetanus diptheria acell ular pertussis (Boostrix; Adacel) 7yo and older 01/30/2015 Surgical History Surgery Date Site/Laterality Comments BREAST BIOPSY 2016 Left PROCEDURE: BX BREAST; PERC NEEDLE CORE W/IMAG GUID; COMMENT: b9 Medical History Medical History Date Comments Asthma DX:Asthma Dyslipidemia DX:Dyslipidemia Tubal ligation status DX:Tubal l igation status Family History Medical History Relation Name Comments Hypertension Brother Coronary artery disease Mother cabg x 3; htn, high chol Hypertension Sister Breast cancer Neg Hx Relation Name Status Comments Brother Father Alive Mother Sister Social History Tobacco Use Types Packs/Day Years Used Date Smoking Tobacco: Former Smokeless Tobacco: Never Alcohol Use Standard Drinks/Week Comments Yes 0 (1 standard drink = 0.6 oz pur e alcohol) Comments Unknown Sex and Gender Information Value Date Recorded Sex Assigned at Not on file Legal Sex Female 6:14 AM EST Gender Identity Not on file Sexual Orientation Not on file Obstetrics History Last Filed Vital Signs Vital Sign Reading Time Taken Comments Blood Pressure 118/82 06/30/2022 2:49 PM EDT Sitting L Arm Pulse 79 06/30/2022 2:49 PM EDT Temperature - - Respiratory Rate - - Oxygen Saturation - - Inhaled Oxygen Concentration - - Weight 154 kg (340 lb 3.2 oz) 2:49 PM EDT Height 175.3 cm (5' 9 ) 06/30/2022 2:49 PM EDT Body Mass Index 50.24 06/30/2022 2:49 PM EDT Plan of Treatment Health Maintenance Due Date Last Done Comments Hepatitis B Vaccines (1 of 3 - 19+ 3-dose series) 1989 Pneumococcal Vaccine: 50+ Years (2 of 2 - PCV) 05/02/2016 05/02/2015 Pneumococcal Vaccine: Pediatrics (0 to 5 Years) and At-Risk Patients (6 to 64 Years) (2 of 2 - PCV) 05/02/2016 05/02/2015 Zoster Vaccines (1 of 2) 2020 Breast Cancer Screening 02/21/2021 02/22/20 19, 02/16/2018, 02/14/2017 Colorectal Cancer Screening: Colonoscopy 03/07/2022 Social Influencers of Health Screening 03/07/2022 Cholesterol Screening (Lipid Panel) 09/13/2023 09/12/2018 COVID-19 Vaccine (3 - season) 2023 02/13/2021, 07/07/2020 Influenza Vaccine (#1) 2023 , 12/18/2019, 01/22/2018, Additional history exists Depression Screening 02/29/2024 02/28/2023 DTaP,Tdap,and Td Vaccines (2 - Td or Tdap) 01/30/2025 01/30/2015 Cervical Cancer Screening: HPV 12/22/2025 12/22/2020 Hepatitis C Screening Completed 05/25/2016 HIV Screening Completed 02/28/2023, 05/25/2016 HIB Vaccines Aged Out No longer eligi [...] on patient's age to complete this topic MMR Vaccines Aged Out No longer eligi ble based on patient's age to complete this topic Meningococcal ACWY Vaccine Aged Out N o longer eligible based on patient's age to complete this topic Meningococcal B Vacine Aged Out No lo nger eligible based on patient's age to complete this topic RSV Immunization Patients Under 20 months Aged Out No longer eligible based on patient's age to complete this topic Varicella Vaccines Aged Out No longer eligible based on patient's age to complete this topic Procedures Procedure Name Priority Date/Time Associated Diagnosis Comments HM HPV Routine 12/22/2020 SCR MAMMO BI INCL CAD Routine 02/21/2019 2:58 PM EST Encounter for other screening for malignant neoplasm of breast LIPID PANEL Routine 09/12/2018 HEPATITIS C SCREENING Routine 05/25/2016 HIV SCREENING Routine 05/25/2016 from Last 3 Months or Most Recently Relevant to Health Maintenance Results * Cervical Cancer Screening: HPV (12/22/2020) Cervical Cancer Screening: HPV Negative, Abstracted Historical Provider MD HEALTH MAINTENANCE Final Result * SCR MAMMO BI INCL CAD (02/21/2019 2:58 PM EST) Anatomical Region Laterality Modality Radiographic Cynthia ging 02/16/2018 3:10 PM EST Narrative 02/22/2019 9:15 AM EST This is a summary report. The complete report is available in the patient's medical record. If you cannot access the medical record, please contact the sending organization for a detailed fax or copy. Full field digital screening mammography, reviewed with CAD and compared to previous. ??The breasts are composed of fatty and fibroglandular tissue. ??No suspicious mass, architectural distortion or suspicious calcifications are identified. IMPRESSION: : No mammographic evidence of malignancy. BIRADS 1-Negative; N. 5 year breast cancer risk assessment 1.3 % Lifetime breast cancer risk assessment 11.8 % Breast cancer risk category Low (<15%) Procedure Note Renata Roy MD - 03/23/2022 This is a summary report. The complete report is available in thepatient's medical record. If you cannot access the medical record, pleasecontact the sending organization for a detailed fax or copy. Full field digital screening mammography, reviewed with CAD and comparedto previous. The breasts are composed of fatty and fibroglandular tissue.No suspicious mass, architectural distortion or suspicious calcificationsare identified. IMPRESSION: : No mammographic evidence of malignancy. BIRADS 1-Negative; N. 5 year breast cancer risk assessment 1.3 % Lifetime breast cancer risk assessment 11.8 % Breast cancer risk category Low (<15%) Erica FERNANDO IMG XR PROCEDURES Final Result * (ABNORMAL) Lipid panel (09/12/2018) [facility] LDL/HDL Ratio 5(A) 0 - 4 Triglycerides 484(A) 0 - 150 mg/dL Cholesterol 185 0 - 200 mg/dL HDL 40 >=40 mg/dL LDL Cholesterol 49 0 - 100 mg/dL Blood Venous blood specimen / Unknown Result [facility] Provider LAB BLOOD ORDERABLES Sudha l Result * HIV Screening (05/25/2016) [facility] HIV Screening Abstracted Result [facility] Provider HEALTH MAINTENANCE Final Result * Hepatitis C Screening (05/25/2016) [facility] Hepatitis C Screening Abstracted Result [facility] Provider HEALTH MAINTENANCE Final Result from Last 3 Months or Most Recently Relevant to Health Maintenance Care Teams Vp Customer Service Relationship Specialty Start Date End Date Jagdish Evans MD PCP - General Internal Medicine 05/13/14
--- OUTSIDE RECORDS SUMMARY | 2024-06-18 17:45 | XMS_ITS | Encounter Summary ---
Author Organization [employer] Address [address] [facility] [address] [place] [address] Care Team Providers Care Restaurant Team Member Name Role Phone Kay Faust MD Primary Care Provider [phone] Encounter Details Date Type Department Care Team ([facility] st Contact Info) Description 05/28/2024 Orders Only [facility] MEDICINE [address] [place], [place] [phone] Kay Faust MD [address] [place], [place] [phone] Social History Tobacco Use Types Packs/Day Years [...] Description 06/27/2024 11:30 AM EDT Clinical Support [facility] MEDICINE [address] [place] [address] documented as of this encounter Visit Diagnoses Not on filedocumented in this encounter Additional Health Concerns Assessment Noted Time PHQ-9 Depression Total Score: 0 02/29/20 23 1:21 PM EST documented as of this encounter Care Teams Restaurant Team Member Relationship Specialty Start Date End Date Kay Faust MD [address] [place] [address] PCP - General Family Medicine 12/02/22 documented as of this encounter
== END 2024-06-18 16:19 | disposition home or self-care (01) ==
LOC: HO.HPS 15:15
PROVIDERS: PCP General Practice; Visit Provider Hospitalist
DX: J45.50 Severe persistent asthma, uncomplicated (principal); T78.40XA Allergy, unspecified, initial encounter
CPT/HCPCS: 99214

== ENCOUNTER 2024-07-21 20:07 | Emergency (ER) | payer OTHER, SELFPAY ==
--- NOTE | ~2024-07-21 | XR_ITS ---
CLINICAL HISTORY: pain Left shoulder, 3 views COMPARISON: None FINDINGS: No acute fracture. No dislocation. Unremarkable soft tissues. IMPRESSION: No acute findings. This document has been electronically signed by: Severino Coronel MD on 07/21/2024 21:29:13
--- NOTE | 2024-07-21 20:35 | ED.GENADULT ---
HPI - General Adult General Chief complaint: General Medical Stated complaint: rt shoulder pain Time Seen by Provider: 07/21/24 21:07 Source: patient Mode of arrival: ambulatory Limitations: no limitations History of Present Illness ED Provider: Dr. Kaelyn Barrientos HPI narrative: Patient comes to the emergency room complaining of left shoulder pain for couple of days. Patient states that she does not remember any trauma. Patient states that she does a lot of heavy lifting at work. Patient does not remember any specific injuries. Patient states that after work, she started feeling a bit of pain, went to sleep and when she woke up it was hurting more. Patient has no pain on the wrist or elbow or clavicle, only when she abducts the arm, she feels most pain in the shoulder anteriorly. Related Data Home Medications ?Medication ?Instructions ?Recorded ?Confirmed albuterol sulfate 90 mcg/actuation 2 puff inhalation Q4H PRN wheezing 12/29/21 07/18/23 aerosol inhaler (ProAir HFA) cetirizine 10 mg tablet 10 mg PO DAILY 07/18/23 07/18/23 olopatadine 0.1 % eye drops 1 drp ophthalmic (eye) BID 07/18/23 07/18/23 omeprazole 40 mg capsule,delayed 40 mg PO DAILY@0630 07/18/23 07/18/23 release montelukast 10 mg tablet 10 mg PO DAILY 09/16/23 (Singulair) nebulizers 09/16/23 albuterol sulfate 2.5 mg/3 mL mg inhalation Q6H PRN wheezing 06/18/24 (0.083 %) solution for nebulization ipratropium 0.5 mg-albuterol 3 mg ml inhalation Q8H PRN wheezing 06/18/24 (2.5 mg base)/3 mL nebulization soln losartan 100 mg tablet 100 mg PO DAILY 06/18/24 Previous Rx's ?Medication ?Instructions ?Recorded fluticasone 500 mcg-salmeterol 50 1 inh inhalation Q12H 30 days #60 09/16/23 mcg/dose blistr powdr for ea inhalation (Wixela Inhub) prednisone 20 mg tablet See Rx Instructions PO DAILY 10 06/18/24 days #15 tabs umeclidinium 62.5 mcg/actuation 1 inh inhalation DAILY 30 days #30 06/18/24 blister powder for inhalation ea (Incruse Ellipta) dupilumab 300 mg/2 mL subcutaneous See Rx Instructions subcut Q2W 4 07/13/24 pen injector (Dupixent) weeks #4 mL cyclobenzaprine 5 mg tablet 5 mg PO TID PRN muscle spasm #10 07/21/24 tabs ketorolac 10 mg tablet 10 mg PO Q8H PRN pain #12 tabs 07/21/24 Allergies Allergy/AdvReac Type Severity Reaction Status Date / Time No Known Allergies Allergy Unknown Verified 07/21/24 20:40 Review of Systems Review of Systems: Constitutional : No Weight loss, No Fever, No Chills, No Night Sweats, No Fatigue, No Malaise ENT/Mouth : No Hearing loss, No Ear Pain, No Nasal Congestion, No Sinus Pain, No Hoarseness, No sore throat, No Rhinorrhea, No Swallowing Difficulty Eyes: No Eye Pain, No Swelling, No Redness, No Foreign Body, No Discharge, No Vision Changes Cardiovascular : No Chest Pain, No SOB, No Dyspnea on Exertion, No Orthopnea, No Edema, No Palpitations Respiratory : No Cough, No Sputum, No Wheezing, No Smoke Exposure, No Dyspnea Gastrointestinal : No Nausea, No Vomiting, No Diarrhea, No Constipation, No abdominal Pain, No Hematochezia, No Melena Genitourinary : no irregular bleeding, No Dysuria, No Urinary Frequency, No Hematuria, No Urinary Incontinence, No Urgency, No Flank Pain, No Urinary Flow Changes, No Hesitancy Musculoskeletal : Complaining of left shoulder pain with no obvious trauma, No Myalgias, No Joint Swelling Skin : No Skin Lesions, No rash Neuro : No Weakness, No Numbness, No Paresthesias, No Loss of Consciousness, No Dizziness, No Headache Psych : No Anxiety/Panic, No Depression, No SI/HI/AH/VH, No Social Issues, Heme/Lymph: No Bruising, No Bleeding,No Lymphadenopathy Endocrine : No Polyuria, No Polydipsia, No Temperature Intolerance [facility] Past Medical History Medical History Allergic Allergies GERD (gastroesophageal reflux disease) Back pain Asthma Social History Social History Household Members: Significant Other Housing: House Do you presently have visiting nurse or other home services: No Alcohol intake: never Patient Tobacco Use Status: Former Tobacco user Tobacco use type: Cigarette Second Hand Smoke Exposure: No Advance Directives: No Advance Directives Information Provided: No Do you have a plan to hurt others: No Plan service: No Physical Exam ED Vital Signs: Vital Signs - 24 hr 07/21/24 20:36 Temperature 98.6 F Pulse Rate 75 Respiratory Rate 20 Blood Pressure 151/83 H Pulse Oximetry 96 Oxygen Delivery Method Room Air BMI result Body Mass Index 50.2 Const Other: Appearance: Alert. Oriented X3. No acute distress. Eyes: Pupils equal, round and reactive to light. ENT: Pharynx normal. Neck: Normal inspection. Neck supple. No lymph nodes noted. No crepitus CVS: Normal heart rate and rhythm. Pulses normal. Normal S1 and S2 Respiratory: No respiratory distress. Breath sounds normal. No Wheezing. No rales Abdomen: Soft and nontender. No rigidity. No distention. Skin: Skin warm and dry. Normal skin color. Normal skin turgor. Extremities: No lower extremity edema. No Lacerations. No Rash. Patient able to flex and extend the wrist and elbow on the left side and bilaterally., range of motion on the right side. Left shoulder has pain abducting the arm. No obvious deformity, no ecchymosis Neuro: Oriented X 3. No motor deficit. No sensory deficit. Moving all extremities. No slurred speech. CN 2 through 12 grossly intact Psych: calm, cooperative, normal affect Course Course Course Narrative: This is an RME: Additional HPI, ROS, PE not included below will be deferred to primary provider. RME assessment and note performed by: Brea Florez PA-C This is a [id number]-female, with a hx of asthma and GERD, who presents to the ER with concerns for left shoulder pain. 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 Unable to move left shoulder secondary to pain. Taken tylenol without relief. Plan: Labs, EKG, left shoulder x-ray Medical Decision Making Medical Decision Making MDM Narrative: X-rays does not show any acute abnormalities I discussed the physical exam with the patient, patient may have bursitis versus labrum tear versus tendon tear versus rupture, versus shoulder impingement syndrome Patient was given a dose of IM ketorolac in the emergency room Discussed with the patient that if in 2-3 days she does not have any improvement, she may need to follow-up with orthopedics and her primary care physician, patient may need an MRI to rule out a rotator cuff injury Patient was provided with a sling Differential Diagnosis Differential Diagnoses: The differential diagnosis associated with the presentation includes (As above) Lab Data MDM Lab Attestation statement: I reviewed the patient's lab results. 07/21/24 20:45 07/21/24 20:45 Labs: Lab Results 07/21/24 Range/Units 20:45 WBC 9.6 (4.8-10.8) X10*3/uL RBC 4.72 (4.20-5.50) X10*6/uL Hgb 12.5 (12.0-16.0) g/dl Hct 37.7 (37.0-47.0) % MCV 79.9 L (80.0-98.0) fL MCH 26.5 L (27.0-33.0) pg MCHC 33.2 (31.0-35.0) g/dl RDW 14.5 (11.0-16.0) % Plt Count 321 (160-400) X10*3/uL MPV 9.5 (9.4-12.3) fL Immature Gran % (Auto) 0.2 (0.0-0.4) % Neut % (Auto) 55.9 (45-73) % Lymph % (Auto) 32.6 (20-40) % [place] % (Auto) 8.1 (2-11) % Eos % (Auto) 2.7 (0-4) % Baso % (Auto) 0.5 (0-2) % Lymph # (Auto) 3.1 (1.2-4.9) X10*3/uL [place] # (Auto) 0.8 (0.1-1.2) X10*3/uL Eos # (Auto) 0.3 (0.0-0.4) X10*3/uL Baso # (Auto) 0.1 (0.0-0.2) X10*3/uL Abs Immat Gran (auto) 0.02 (0.00-0.03) X10*3/uL Absolute Neuts (auto) 5.4 (2.0-8.3) x10*3/uL Absolute Nucleated RBC 0.000 (0.0-0.012) X10*3/uL Nucleated RBC % (auto) 0.0 (0.0-0.2) /100WBC Sodium 141 (135-145) mmol/L Potassium 3.9 (3.3-5.1) mmol/L Chloride 109 H (96-108) mmol/L Carbon Dioxide 23 (22-29) mmol/L Anion Gap 13 (12-20) BUN 11 (9-16) mg/dL Creatinine 0.80 (0.5-1.4) mg/dL Estim Creat Clear Calc 130.1 Estimated GFR > 60 Random Glucose 133 H (60-115) mg/dL Calcium 8.2 L D (8.4-10.2) mg/dL Magnesium 2.0 (1.6-2.6) mg/dL Total Bilirubin 0.2 (0.0-1.0) mg/dL Direct Bilirubin < 0.2 (0.0-0.5) mg/dL AST 23 (5-31) U/L ALT 21 (0-31) U/L Alkaline Phosphatase 62 (39-117) U/L Troponin I High Sens < 2.7 (<3.5-17.0) ng/L Total Protein 6.3 L (6.5-8.0) g/dL Albumin 3.6 (3.5-5.0) g/dL Independent Interpretation I performed an independent interpretation of an: EKG (My interpretation of EKG: Normal sinus rhythm, heart rate 75, no ST segment depression or elevation, no T-wave inversion, QTC 435) and Plain X-Ray Interpretation: No acute fracture. No dislocation. Unremarkable soft tissues. IMPRESSION: No acute findings. Discharge Plan Discharge Clinical Impression: Arthralgia of left shoulder region Patient Disposition: Home, Self-Care Instructions: Shoulder Pain (ED) Additional Instructions: Please follow-up with your primary care physician tomorrow. If you have any worsening or new symptoms, please return to the emergency room or call 911 Prescriptions: New ketorolac 10 mg tablet 10 mg PO Q8H PRN (Reason: pain) Qty: 12 0RF Rx Instructions: Do not use this medication with other NSAIDs cyclobenzaprine 5 mg tablet 5 mg PO TID PRN (Reason: muscle spasm) Qty: 10 0RF No Action Dupixent Pen 300 mg/2 mL pen injector See Rx Instructions subcut Q2W 28 Days Qty: 4 11RF Rx Instructions: loading dose: 600mg SC x 1, then 300mg SC every 2 weeks cetirizine 10 mg tablet 10 mg PO DAILY omeprazole 40 mg capsule,delayed release(DR/EC) 40 mg PO DAILY@0630 olopatadine 0.1 % drops 1 drp ophthalmic (eye) BID Patient Comments: takes ass needed albuterol sulfate [ProAir HFA] 90 mcg/actuation HFA aerosol inhaler 2 puff inhalation Q4H PRN (Reason: wheezing) losartan 100 mg tablet 100 mg PO DAILY ipratropium-albuterol 0.5 mg-3 mg(2.5 mg base)/3 mL solution for nebulization inhalation Q8H PRN (Reason: wheezing) albuterol sulfate 2.5 mg /3 mL (0.083 %) solution for nebulization inhalation Q6H PRN (Reason: wheezing) Incruse Ellipta 62.5 mcg/actuation blister with device 1 inh inhalation DAILY 30 Days Qty: 30 11RF prednisone 20 mg tablet See Rx Instructions PO DAILY 10 Days Qty: 15 0RF Rx Instructions: PO daily; Take 2 tabs daily x 5 days, then 1 tablet daily x 5 days montelukast [Singulair] 10 mg tablet 10 mg PO DAILY (DME) nebulizers Misc See Rx Instructions .ROUTE Rx Instructions: As directed fluticasone propion-salmeterol [Wixela Inhub] 500-50 mcg/dose blister with device 1 inh inhalation Q12H 30 Days Qty: 60 11RF Referrals: Sandra Barrios PA-C [Phys[facility]] - 07/30/24 Stand Alone Forms: Work/School Release Print Language: Guatemalan
[2024-07-21 20:36] VITALS: BP 151/83; PULSE 75; RESP 20; TEMP 37; O2SAT 96; BMI 50.2
--- NOTE | 2024-07-21 20:37 | ECG_ITS ---
Test Reason : CP Blood Pressure : */* mmHG Vent. Rate : 75 BPM Atrial Rate : 75 BPM P-R Int : 156 ms QRS Dur : 96 ms QT Int : 390 ms P-R-T Axes : 59 12 51 degrees QTcB Int : 435 ms Normal sinus rhythm Low voltage QRS Borderline ECG When compared with ECG of 17-Jul-2023 13:16, Vent. rate has decreased by 39 bpm Questionable change in QRS axis Nonspecific T wave abnormality no longer evident in Inferior leads Referred By: Brea Florez Electronically Signed By: BOOGIE MANN MD
[2024-07-21 20:51] LABS: MANUAL DIFF FLAG NO
[2024-07-21 20:52] LABS: Basophils Absolute Auto 0.1 X10*3/uL (0.0-0.2); Basophils Percent Auto 0.5 % (0-2); Eosinophils Absolute Auto 0.3 X10*3/uL (0.0-0.4); Eosinophils Percent Auto 2.7 % (0-4); Hematocrit 37.7 % (37.0-47.0); Hemoglobin 12.5 g/dl (12.0-16.0); Imm Gran Abs Auto 0.02 X10*3/uL (0.00-0.03); Imm Gran Pct Auto 0.2 % (0.0-0.4); Lymphocytes Absolute Auto 3.1 X10*3/uL (1.2-4.9); Lymphocytes Percent Auto 32.6 % (20-40); Mean Corpuscular HGB Conc 33.2 g/dl (31.0-35.0); Mean Corpuscular Hemoglobin 26.5 pg (27.0-33.0); Mean Corpuscular Volume 79.9 fL (80.0-98.0); Mean Platelet Volume 9.5 fL (9.4-12.3); Monocytes Absolute Auto 0.8 X10*3/uL (0.1-1.2); Monocytes Percent Auto 8.1 % (2-11); Neutrophils Absolute Auto 5.4 x10*3/uL (2.0-8.3); Neutrophils Percent Auto 55.9 % (45-73); Platelet Count 321 X10*3/uL (160-400); Red Blood Count 4.72 X10*6/uL (4.20-5.50); Red Cell Distribution Width 14.5 % (11.0-16.0); White Blood Count 9.6 X10*3/uL (4.8-10.8)
--- OUTSIDE RECORDS SUMMARY | 2024-07-21 20:59 | XMS_ITS | Encounter Summary ---
Author Organization [employer] Address [address] [place] [address] [address] [place] [address] Care Team Providers Care Garment Sewer Hand Name Role Phone Kay Faust MD Primary Care Provider [phone] Reason for Visit * Reason Comments Med Refill Encounter Details Date Type Department Care Team (Late st Contact Info) Description 11/16/[address] [facility] MEDICINE [address], [place] [phone] Kay Faust MD [address] [place], [place] [phone] Moderate persistent asthma without complication Social History [...] Care Team (Late st Contact Info) Description 08/07/2024 1:45 PM EDT Office Visit [facility] OPTOMETRY [address] [place] [address] Shanda Mccarthy, OD [address] [place] [address] 09/28/2024 9:30 AM EDT Office Visit [facility] MEDICINE [address] [place] [address] Bindu Aceves MD [address] [place] [address] documented as of this encounter Visit Diagnoses Diagnosis Moderate persistent asthma without complication documented in this encounter Additional Health Concerns Assessment Noted Time PHQ-9 Depression Total Score: 0 02/29/20 23 1:21 PM EST documented as of this encounter Care Teams Garment Sewer Hand Relationship Specialty Start Date End Date Kay Faust MD [address] [place] [phone] PCP - General Family Medicine 12/02/22 documented as of this encounter
--- OUTSIDE RECORDS SUMMARY | 2024-07-21 20:59 | XMS_ITS | Encounter Summary ---
Author Organization [employer] Address [address] [place] [address] 7 [place] [address] Care Team Providers Care Health Inspector Food Name Role Phone Kay Faust MD Primary Care Provider [phone] Reason for Referral * Consultation (Routine) - Closed Specialty Diagnoses / Procedures Referred By Contac t Referred To Contact Optometry Diagnoses Blurry vision, bilateral Kay Faust MD [address] [place] [address] Phone: tel: fax: Referral ID Status Reason Start Date Expiration Date V isits Requested Visits Authorized [id number] Closed Specialty Services Required 05/02/2024 05/02/2025 1 1 Encounter Details Date Type Department Care Team (Late st Contact Info) Description 05/02/2024 Orders Only [facility] [address] [place] [address] Kay Faust MD [address] [place], [place] [phone] Blurry vision, bilateral (Primary Dx) Social History [...] Description 08/07/2024 1:45 PM EDT Office Visit [facility]OM[facility] [address] [place] [address] Shanda Mccarthy OD [address] [place] [address] 09/28/2024 9:30 AM EDT Office Visit [facility] [address] [place] [address] Bindu Aceves MD [address] [place] [address] Scheduled Referrals Name Type Priority Associated Diagnoses [...] EST Narrative 05/14/2024 5:39 PM EST ? [facility] [place] ? [address] ?[place] [address] ? Mammography Report ? Signed ? Patient: Senuta,Xochilt Leola ?MR#: [id number] ?? [id number] ? : 1970 ?Acct:[id number] ? Age/Sex: 53 / F ?ADM Date: 05/08/ ? Loc: HO.MAMMO ? Attending Dr: Kay Faust MD ? Ordering Physician: Kay Faust ?Results: 1Negative ? Date of Service: 05/08/ ?Follow Up: 1 Year From Orig ?? inal Mammogram ? Procedure(s): MM tomosynthesis screening BI ?? Accession Number(s): [id number] ? cc: Kay Faust ? EXAMINATION: ?? [...] ? Signed By: ?<Electronically signed by Mayuri Pulliam DO in OV> ? 05/14/24 1736 ? DD/ 1450 ? TD/TT: 05/08/24 1505 ? Etcher Apprentice Photoengraving: ? Procedure Note Darin, Image - 05/14/2024 [facility] [address] [place] [address] [place] [address] Mammography Report Signed Patient: Xochilt Thomas [facility]#: [id number] : 1970Acct:[id number] Age/Sex: 53 / FADM Date: 05/08/24 Loc: GABIO Attending Dr: Kay Faust MD Ordering Physician: Amelia Faustults: 1Negative Date of Service: 05/08/24Follow Up: 1 Year From Orig inal Mammogram Procedure(s): MM tomosynthesis screening BI Accession Number(s): [id number] cc: Kay Faust EXAMINATION: MM SCREENING DIGITAL [...] Mayuri Pulliam DO 05/14/2024 05:36 PM EST Dictated By: Mayuri Pulliam DO Signed By: <Electronically signed by Mayuri Pulliam DO in OV> 05/14/24 1736 DD/ 1450 TD/TT: 05/08/24 1505 Etcher Apprentice Photoengraving: Kay Faust MD IMG BI PROCEDURES Final Result documented in this encounter Visit Diagnoses Diagnosis Blurry vision, bilateral- Primary Other specified visual disturbances documented in this encounter Additional Health Concerns Assessment Noted Time PHQ-9 Depression Total Score: 0 02/29/20 23 1:21 PM EST documented as of this encounter Care Teams Health Inspector Food Relationship Specialty Start Date End Date Kay Faust MD [address] [place] [address] PCP - General Family Medicine 12/02/22 documented as of this encounter
--- OUTSIDE RECORDS SUMMARY | 2024-07-21 20:59 | XMS_ITS | Encounter Summary ---
Author Organization [employer] Address [address] [place] [address] 7 [place] [address] Care Team Providers Care Valet Manager Name Role Phone Kay Faust MD Primary Care Provider Reason for Visit * Reason Onset Date Comments Med Refill 08/20/2023 Encounter Details Date Type Department Care Team ([facility] st Contact Info) Description 08/20/2023 Refill [facility] 230 [place], [place] [phone] Kay Faust MD 230 [place], [place] [phone] Moderate persistent asthma without complication Social History [...] Description 08/07/2024 1:45 PM EDT Office Visit [facility] OPTOMETRY [address] [place], [place] [phone] Shanda Mccarthy, OD [address] [place] [address] 09/28/2024 9:30 AM EDT Office Visit [facility] 230 [place] [address] Bindu Aceves MD [address] [place] [address] documented as of this encounter Visit Diagnoses Diagnosis Moderate persistent asthma without complication documented in this encounter Additional Health Concerns Assessment Noted Time PHQ-9 Depression Total Score: 0 02/29/20 23 1:21 PM EST documented as of this encounter Care Teams Valet Manager Relationship Specialty Start Date End Date Kay Faust MD [address] [place] [address] PCP - General Family Medicine 12/02/22 documented as of this encounter
--- OUTSIDE RECORDS SUMMARY | 2024-07-21 20:59 | XMS_ITS | Encounter Summary ---
Author Organization [employer] Address [address] [facility] 7t [place] [address] Care Team Providers Care Hop Separator Name Role Phone Kay Faust MD Primary Care Provider [phone] Encounter Details Date Type Department Care Team ([facility] st Contact Info) Description 05/28/2024 Orders Only [facility] 230 [place], [place] [phone] Kay Faust MD 230 [place], [place] [phone] Social History Tobacco Use Types Packs/Day Years [...] PM EDT Office Visit [facility] OPTOMETRY [address] [place] [address] Shanda Mccarthy, OD [address] [place] [address] 09/28/2024 9:30 AM EDT Office Visit [facility] MED[facility] 230 [place] [address] Bindu Aceves MD [address] [place] [address] documented as of this encounter Visit Diagnoses Not on filedocumented in this encounter Additional Health Concerns Assessment Noted Time PHQ-9 Depression Total Score: 0 02/29/20 1:21 PM EST documented as of this encounter Care Teams Hop Separator Relationship Specialty Start Date End Date Kay Faust MD [address] [place] [address] PCP - General Family Medicine 12/02/22 documented as of this encounter
--- OUTSIDE RECORDS SUMMARY | 2024-07-21 20:59 | XMS_ITS | Encounter Summary ---
Author Organization [employer] Address [address] [place] [address] 7t [place] [address] Care Team Providers Care Electromechanic Name Role Phone Kay Faust MD Primary Care Provider [phone] Reason for Visit * Reason Onset Date Comments Med Refill 09/14/2023 Encounter Details Date Type Department Care Team ([facility] st Contact Info) Description 09/14/2023 Refill [facility] 230 [place], [place] [phone] Kay Faust MD [address] [place], [place] [phone] Social History Tobacco Use Types Packs/Day Years [...] Description 08/07/2024 1:45 PM EDT Office Visit [facility] OPTOMETRY [address] [place] [address] Shanda Mccarthy, OD [address] [place] [address] 09/28/2024 9:30 AM EDT Office Visit [facility] 230 [place] [address] Bindu Aceves MD [address] [place] [address] documented as of this encounter Visit Diagnoses Not on filedocumented in this encounter Additional Health Concerns Assessment Noted Time PHQ-9 Depression Total Score: 0 02/29/20 23 1:21 PM EST documented as of this encounter Care Teams Electromechanic Relationship Specialty Start Date End Date Kay Faust MD [address] [place] [address] PCP - General Family Medicine 12/02/22 documented as of this encounter
--- OUTSIDE RECORDS SUMMARY | 2024-07-21 20:59 | XMS_ITS | Clinical Summary ---
Author Organization [facility] it Address [address] [place] [address] Care Team Providers Care Software Solutions Architect Name Role Phone Jagdish Evans MD Primary Care Provider [phone] Allergies No known active allergies Medications albuterol [...] 04/09/2024 Asthma 04/09/2024 Morbid obesity with body mas s index of 50.0-59.9 in adult ([facility] V24, [facility] V28) 04/09/2024 Cyst of right ovary 06/06/2020 Obstructive [...] Screening (Lipid Panel) 09/13/2023 09/12/2018 COVID-19 Vaccine ( season) 2023 02/13/2021, 07/07/2020 Depression Screening 02/29/2024 02/28/2023 Influenza Vaccine (Season Ended) 2024 02/05/2022, 12/18/2019, 01/22/2018, Additional history exists DTaP,Tdap,and Td Vaccines (2 - Td or [...] age to complete this topic Meningococcal B Vaccine Aged Out No l onger eligible based on patient's age to complete [...] (12/22/2020) Cervical Cancer Screening: HPV Negative, Abstracted us Historical Provider MD HEALTH MAINTENANCE Final Result [...] % Breast cancer risk category Low (<15%) Result [facility] Erica Richardsonnz CNM IMG XR PROCEDURES Final Result * (ABNORMAL) Lipid panel (09/12/2018) [facility] LDL/HDL Ratio 5(A) 0 - 4 Triglycerides 484(A) 0 - 150 mg/dL Cholesterol 185 0 - 200 mg/dL HDL 40 >=40 mg/dL LDL Cholesterol 49 0 - 100 mg/dL Blood Venous blood specimen / Unknown Result [facility] Historical Provider LAB BLOOD ORDERABLES Sudha l Result * HIV Screening (05/25/2016) [facility] HIV Screening Abstracted Result [facility] Provider HEALTH MAINTENANCE Final Result * Hepatitis C Screening (05/25/2016) [facility] Hepatitis C Screening Abstracted Result [facility] Historical Provider HEALTH MAINTENANCE Final Result from Last 3 Months or Most Recently Relevant to Health Maintenance Care Teams Software Solutions Architect Relationship Specialty Start Date End Date Jagdish Evans MD PCP - General Internal Medicine 05/13/14
--- OUTSIDE RECORDS SUMMARY | 2024-07-21 20:59 | XMS_ITS | Data Portability ---
Author Organization [facility], [address] Address [address] [place] [address] Assessment Encounter Date Assessment Date Assessment LastModified by Organization Details LastModified Time 05/04/2022 05/04/2022 Viral illness is likely, consider flu like illness. Symptomatic treatment reviewed, letter for work Not available 05/04/2022 11:39:55 Plan of Treatment Reminders Order Date Submit Date Provider Last Modified By Organization Details Last Modified Time Details Appointments None recorded. Lab rapid flu (A+B) 2022 023 lisseth ne1 [facility], [address] [place] [address], [place], [address], 11:35:29 Referral None recorded. Procedures None recorded. Surgeries None recorded. Imaging None recorded. Medication Orders prednisone 10 mg tablet 2022 023 [facility][id number], [address] [place], [address], 3 09:15:59 olopatadine 0.1 % eye drops 2022 023 [facility] #[id number], [address] [place], [address], 3 09:15:59 Patient TargetsNo targets recorded. Patient Instructions Encounter Date Encounter Id Patient Instructions Last Modified By Organization Details Last Modified Time 05/04/2022 [id number] nausea and vomiting: care instructions Not available [...] ear pain Not available 05/04/2022 11:40:17 06/29/2022 [id number] You are having a n asthma exacerbation [...] 5. light headedness. Thank you for using [facility] today - please don't hesitate to contact up or return to see if you have any questions or concerns. [email or web address] Not available 06/29/2022 09:14:38 Reason for Referral None Reported. Results Created Date Observation Date Name Description Value Unit Range Abnormal Flag Note LastModifiedBy Organization Detail LastModifiedTime 05/04/19 23 05/04/2022 rapid flu (A+B) Unknown Analyte Normal = Negati ve Not Available _juan pablo ruiz [address] [place], [address], 05/04/2022 11:00:32 05/04/19 23 05/04/2022 rapid flu (A+B) Unknown Analyte Normal = Negati ve Not Available _ju[facility] pablo ru[facility] [address] [place], [address], 05/04/2022 11:00:32 05/04/19 23 05/04/2022 rapid flu (A+B) Unknown Analyte negati ve Not Available _[facility] [address] [place], [address], 05/04/2022 11:00:32 05/04/19 23 05/04/2022 rapid flu (A+B) Unknown Analyte negati ve Not Available _juan pablo ruiz [address] [place], [address], 05/04/2022 11:00:32 Result Notes None recorded. Problems Name Problem SNOMED Code Status Onset Date Resolution Date Notes Provider Name and Address Organization Details Recorded Time Asthma 280865305 Active 023 FITO Juarez null, PA - [facility] 3 10:57:54 Acid reflux 048505439 Active 023 IRIS ARELY Juarez null, PA - [facility] 3 10:59:16 Arthritis 3774800 Active 023 FITO Juarez null, PA - [...] Updated DateTime 3 175.26 cm 49.5 kg/m2 130382. 44 g 5 20 /min 74 /min 99 % 99 % 97.8 [degF] 163 mm[Hg] 93 mm[Hg] Sandra Marlow PA - [facility] 3 08:35:50 Date Recorded Body height Body mass index (BMI) Body weight Body temperature Respiratory rate Heart rate Oxygen saturation Oxygen saturation in Arterial blood by Pulse oximetry Systolic blood pressure Diastolic blood pressure Provider Name and Address Organization Details Last Updated DateTime 3 175.26 cm 49.5 kg/m2 861994. 44 g 98.4 [degF] 20 /min 68 [...] or 50 mcg/0.25mL dose 2 completed Sandra Roxton null, PA - [facility] 06/29/2022 08:32:41 COVID-19, mRNA, LNP-S, PF, 100 mcg/0.5mL dose or 50 mcg/0.25mL dose 1 completed Sandra Roxton null, PA - [facility] 06/29/2022 08:32:41 COVID-19, mRNA, LNP-S, PF, 100 mcg/0.5mL dose or 50 mcg/0.25mL dose 1 completed Sandra Roxton null, PA - [facility] 06/29/2022 08:32:41 COVID-19, mRNA, LNP-S, PF, 100 mcg/0.5mL dose or 50 mcg/0.25mL dose 1 completed Sandra Ele null, PA - [facility] 06/29/2022 08:32:41 COVID-19, mRNA, LNP-S, bivalent, PF, 30 mcg/0.3 mL dose 2 completed Sandra Roxton null, PA - [facility] 06/29/2022 08:32:41 pneumococcal polysaccharide PPV23 6 completed Sandra Roxton null, PA - [facility] 06/29/2022 08:32:42 Tdap 5 completed Sandra Roxton null, PA - [facility] 06/29/2022 08:32:42 Influenza, split virus, trivalent, preservative 4 completed Sandra Ele null, PA - [facility] 06/29/2022 08:32:42 Influenza, split virus, trivalent, preservative 0 completed Sandra Ele null, PA - [facility] 06/29/2022 08:32:42 Influenza, split virus, trivalent, preservative 6 completed Sandra Ele null, PA - [facility] 06/29/2022 08:32:42 Influenza, split virus, trivalent, preservative 4 completed Sandra Roxton null, PA - [facility] 06/29/2022 08:32:42 Influenza, split virus, trivalent, preservative 5 completed Sandra Ele null, PA - [facility] 06/29/2022 08:32:42 Influenza, split virus, quadrivalent, PF 2 completed Sandra Ele null, PA - [facility] 06/29/2022 08:32:42 Past Encounters Encounter ID Performer Location Encounter Start Date Encounter Closed Date Diagnosis/Indication Diagnosis SNOMED-CT Code Diagnosis ICD10 Code Diagnosis Note [id number] [address] [address] [facility] [place] [address] 06/18/2021 09:28:53 06/18/2021 09:59:33 [id number] [address] [place] [address] 06/12/2019 10:34:03 06/12/2019 11:28:10 [id number] [address] [place] [address] [place] [address] 02/02/2021 09:16:12 02/02/2021 10:55:41 [id number] [address] [place] [address] [place] [address] 07/12/2017 09:26:55 07/12/2017 10:50:42 [id number] [address] [place] [address] [place] [address] 09/23/2020 16:41:56 09/23/2020 18:08:22 [id number] [address] [place] [address] 01/31/2018 10:45:03 01/31/2018 13:27:29 [id number] [address] [facility] [place] [address] 11/09/2019 08:07:21 11/09/2019 09:09:00 [id number] [address] [facility] [place] [address] 08/06/2021 10:08:32 08/06/2021 13:38:40 [id number] Subhash Gaines DO [address] [facility] [place] [address] 05/04/2022 10:38:50 05/04/2022 11:38:10 Acute upper respiratory infection 71545720 J06.9 [id number] [facility]TE[facility]O [address] [address] 06/29/2022 08:23:26 06/29/2022 09:17:45 Elevated blood-pressure reading without diagnosis of hypertension 613533177 R03.0 You blood pressure was elevated during [...] the results of your journal. Allergic rhinitis 022347 04 J30.9 Allergic conjunctivitis 526889349 H10.13 Exacerbati on of intermittent asthma 819950172 J45.21 follow up with your pulmonolog ist [...] Member ID Guarantor Name 06/18/2021 1 [facility] [id number] Xochilt A Senuta [id number] Xochilt A Senuta 08/06/2021 1 [facility] [id number] Xochilt A Senuta [id number] Xochilt A Senuta 05/04/2022 1 [facility] [id number] Xochilt A Senuta [id number] Xochilt A Senuta 06/29/2022 1 [facility] [id number] Xochilt A Senuta [id number] Xochilt A Senuta Notes Date Note Type Note Provider Name and Address Organization Details Recorded Time 05/04/2022 text/html Not feeling well x 3 days: cough, body aches, R ear pain, N/V x 2 yesterdayCovid negative yesterday. Taking Tylenol, Robitussin DM. Sleep disturbed by body aches. Juventinoanumarianna Gaines, DO [address] [place], [address], PA - [facility] 05/04/2022 11:40:33 06/29/2022 text/html Sinus Complaints [...] Feeling bad. Nebulizer machine is broken. Has electrical tryout person appointment tomorrow. Denies fever. Looking for relief. KILO MONTEIRO [address] [place], [address], [place] PA [facility] 06/29/2022 09:19:38 OBGyn Episode No OBEpisode recorded.
--- OUTSIDE RECORDS SUMMARY | 2024-07-21 20:59 | XMS_ITS | Encounter Summary ---
Author Organization [employer] Address [address] [place] [address] 7t [place] [address] Care Team Providers Care Marine Railway Operator Name Role Phone Kay Faust MD Primary Care Provider [phone] Encounter Details Date Type Department Care Team (Late st Contact Info) Description 07/21/2024 Orders Only GENERIC EXTERNAL DATA DEPARTMENT Provider, Generic External Data Social History Tobacco Use Types Packs/Day Years [...] is your housing situation today? I have keishaabel guidry 02/14/[address] you [...] Description 08/07/2024 1:45 PM EDT Office Visit [facility] OPT[facility] [address] [place] [address] Shanda Mccarthy, OD [address] [place] [address] 09/28/2024 9:30 AM EDT Office Visit [facility] MEDICINE [address] [place] [address] Bindu Aceves MD [address] [place] [address] documented as of this encounter Procedures Procedure Name Priority Date/Time Associated Diagnosis Comments CBC WITH AUTO DIFFERENTIAL Routine 07/21/2024 8:45 PM EDT documented in this encounter Results * (ABNORMAL) CBC auto differential (07/21/2024 8:45 PM EDT) White Blood Count 9.6 4.8 - 10.8 X10*3/uL [facility] Red Blood Count 4.72 4.20 - 5.50 X10*6/uL [facility] Hemoglobin 12.5 12.0 - 16.0 g/dl [facility] Hematocrit 37.7 37.0 - 47.0 % [facility] Mean Corpuscular Volume 79.9(L) 80.0 - 98.0 fL [facility] Mean Corpuscular Hemoglobin 26.5(L) 27.0 - 33.0 pg [facility] Mean Corpuscular HGB Conc 33.2 31.0 - 35.0 g/dl [facility] Red Cell Distribution Width 14.5 11.0 - 16.0 % [facility] Platelet Count 321 160 - 400 X10*3/uL [facility] Mean Platelet Volume 9.5 9.4 - 12.3 fL [facility] Neutrophils Percent Auto 55.9 45 - 73 % [facility] Imm Gran Pct Auto 0.2 0.0 - 0.4 % [facility] Lymphocytes Percent Auto 32.6 20 - 40 % [facility] Monocytes Percent Auto 8.1 2 - 11 % [facility] Eosinophils Percent Auto 2.7 0 - 4 % [facility] Basophils Percent Auto 0.5 0 - 2 % [facility] NRBC Pct Auto 0.0 0.0 - 0.2 /100WBC [facility] Neutrophils Absolute Auto 5.4 2.0 - 8.3 x10*3/uL [facility] Imm Gran Abs Auto 0.02 0.00 - 0.03 X10*3/uL [facility] Lymphocytes Absolute Auto 3.1 1.2 - 4.9 X10*3/uL [facility] Monocytes Absolute Auto 0.8 0.1 - 1.2 X10*3/uL [facility] Eosinophils Absolute Auto 0.3 0.0 - 0.4 X10*3/uL [facility] Basophils Absolute Auto 0.1 0.0 - 0.2 X10*3/uL [facility] NRBC Abs Auto 0.000 0.0 - 0.012 X10*3/uL [facility] 07/21/2024 8:45 PM EDT 07/21/2024 8:49 PM EDT us Generic External Data Provider LAB BLOOD ORDERAB LES Final Result [facility] [address] [place] [phone] [phone] documented in this encounter Visit Diagnoses Not on filedocumented in this encounter Additional Health Concerns Assessment Noted Time PHQ-9 Depression Total Score: 0 02/29/20 23 1:21 PM EST documented as of this encounter Care Teams Marine Railway Operator Relationship Specialty Start Date End Date Kay Faust MD [address] [place] [address] PCP - General Family Medicine 12/02/22 documented as of this encounter
--- OUTSIDE RECORDS SUMMARY | 2024-07-21 20:59 | XMS_ITS | Encounter Summary ---
Author Organization [employer] Address [address] [facility] 7t [place] [address] Care Team Providers Care Unleavened Dough Mixer Name Role Phone Kay Faust MD Primary Care Provider [phone] Encounter Details Date Type Department Care Team ([facility] st Contact Info) Description 05/18/2023 Telephone [facility] MED[facility]INE [address] [place], [place] [phone] Zane Harris MD [address] [place], [place] [phone] Social History Tobacco Use Types Packs/Day Years [...] Description 08/07/2024 1:45 PM EDT Office Visit [facility] OPTOMETRY [address] [place] [address] TarkaShanda, OD [address] [place] [address] 09/28/2024 9:30 AM EDT Office Visit [facility] MEDICINE [address] [place] [address] Bindu Aceves MD [address] [place] [address] documented as of this encounter Visit Diagnoses Not on filedocumented in this encounter Additional Health Concerns Assessment Noted Time PHQ-9 Depression Total Score: 0 02/29/20 23 1:21 PM EST documented as of this encounter Care Teams Unleavened Dough Mixer Relationship Specialty Start Date End Date Kay Faust MD [address] [place] [address] PCP - General Family Medicine 12/02/22 documented as of this encounter
[2024-07-21 21:09] LABS: Alanine Aminotransferase 21 U/L (0-31); Albumin Level 3.6 g/dL (3.5-5.0); Alkaline Phosphatase 62 U/L (39-117); Anion Gap 13 (12-20); Aspartate Amino Transferase 23 U/L (5-31); Bilirubin Direct < 0.2 mg/dL (0.0-0.5); Bilirubin Total 0.2 mg/dL (0.0-1.0); Blood Urea Nitrogen 11 mg/dL (9-16); Calcium 8.2 mg/dL (8.4-10.2); Carbon Dioxide 23 mmol/L (22-29); Chloride 109 mmol/L (96-108); Creatinine Clr Calc Pharmacy 130.1; Estimated Glomerular Filt Rate > 60; Glucose Random 133 mg/dL (60-115); Potassium 3.9 mmol/L (3.3-5.1); Sodium 141 mmol/L (135-145); Total Protein 6.3 g/dL (6.5-8.0)
[2024-07-21 21:18] LABS: Troponin-I High Sensitivity < 2.7 ng/L (<3.5-17.0)
[2024-07-21] MEDS: Ketorolac Tromethamine 60 MG/2 ML VIAL IM (21:39)
[2024-07-21 21:41] VITALS: BP 170/99; PULSE 70; RESP 18; TEMP 37.1; O2SAT 97
--- NOTE | 2024-07-21 21:53 | PC.NURSE ---
MD Barrientos notified of elevated BP, patient declined BP meds at discharge.
== END 2024-07-21 22:33 | disposition home or self-care (01) ==
PROVIDERS: Physician Assistant Medical; Emergency Provider Emergency Medicine; PCP General Practice
DX: M25.512 Pain in left shoulder (principal); R07.9 Chest pain, unspecified; Z79.899 Other long term (current) drug therapy
CPT/HCPCS: 36415; 73030; 80048; 80076; 83735; 84484; 85025; 93005; 96372; 99284; J1885

== ENCOUNTER → 2024-07-21 20:36 | Outpatient (BNV) | payer OTHER, SELFPAY | PROVIDERS: Emergency Provider Emergency Medicine; PCP General Practice; Visit Provider Radiology Diagnostic Radiology | DX: M25.512 Pain in left shoulder (principal) | CPT/HCPCS: 73030 ==

== ENCOUNTER → 2024-07-21 20:37 | Outpatient (BNV) | payer OTHER, SELFPAY | PROVIDERS: Emergency Provider Emergency Medicine; PCP General Practice; Visit Provider Internal Medicine Cardiovascular Disease | DX: R07.9 Chest pain, unspecified (principal) | CPT/HCPCS: 93010 ==

== ENCOUNTER 2024-08-01 15:43 | Outpatient (REF) | payer OTHER, SELFPAY ==
--- NOTE | 2024-08-01 16:29 | PFT_ITS ---
Spirometry [] Lung Volumes [] Diffusion Capacity [] Methacholine Challenge [] Flow Volume Loops [] MVV [] MIP/MEP(Max inspiratory pressure/Max expiratory pressure) [] 6 Minute Walk Test [] ABG [] Interpretation [] MTDD
--- OUTSIDE RECORDS SUMMARY | 2024-08-01 16:30 | XMS_ITS | Clinical Summary ---
Author Organization [employer] Address [address] [place] [address] [address] [place] [address] Care Team Providers Care Parking Worker Name Role Phone Kay Faust MD Primary Care Provider [phone] Allergies No known active allergies Medications omeprazole (PriLOSEC) [address] capsule Take 1 capsule (40 mg) by mouth before breakfast. Do not crush or chew. 90 capsule 3 06/08/19 24 Active fluticasone (Flonase) 50 MCG/ACT nasal spray Administer 1 spray into each nostril Once per day. 16 g 2 11/02/19 24 Active sodium chloride (Cal[place]a Nasal [place]) 0.65 % nasal spray Administer 1 spray into each nostril if needed for congestion. 30 mL 12 12/09/19 24 025 Active montelukast (Singulair) 10 MG tablet TAKE 1 TABLET BY MOUTH ONCE DAILY 90 tablet 3 01/06/20 24 Active albuterol 108 (90 Base) MCG/ACT inhalerIndicatio ns:Severe persistent asthma without complication Inhale 2 puffs every 4 (four) hours if needed for wheezing or shortness of breath. 36 g 11 02/20/20 24 025 Active Fluticasone-Salm eterol (Wixela Inhub) 500-50 MCG/ACT aerosol powder Inhale 1 Inhalation. 2 times daily. 60 each 2 03/13/20 24 Active ipratropium-albu terol (Duo-Neb) 0.5-2.5 mg/3 mL nebulizer solutionIndicati ons:Severe persistent asthma with exacerbation Take 3 mL by nebulization every 8 (eight) hours if needed for wheezing or shortness of breath. 180 mL 11 04/05/19 25 026 Active albuterol (2.5 MG/3ML) 0.083% nebulizer solutionIndicati ons:Severe persistent asthma with exacerbation Take 3 mL (2.5 mg) by nebulization every 6 (six) hours if needed for wheezing. 75 mL 11 04/05/19 25 026 Active losartan (Cozaar) 100 MG tablet Take 1 tablet (100 mg) by mouth Once per day. 90 tablet 3 05/28/19 25 026 Active triamcinolone (Kenalog) 0.1 % cream APPLY TOPICALLY TWICE DAILY 30 g 1 06/01/19 25 Active SUMAtriptan (Imitrex) 25 MG tabletIndication s:Acute intractable headache, unspecified headache type Take 1 tablet (25 mg) by mouth 1 (one) time if needed for migraine for up to 1 dose. May repeat dose once in 2 hours if no relief. Do not exceed 2 doses in 24 hours. 9 tablet 06/28/19 25 Active amoxicillin-clav ulanate (Augmentin) 875-125 MG tabletIndication s:Acute sinusitis, recurrence not specified, unspecified location Take 1 tablet by mouth 2 times daily for 5 days. 10 tablet 06/28/19 25 025 predniSONE (Deltasone) 20 MG tabletIndication s:Severe persistent asthma with exacerbation Take 2 tablets (40 mg) by mouth Once per day for 5 days. 10 tablet 06/28/19 25 025 Active Problems Problem Noted Date Diagnosed Date [...] fall and winter 2022 Will refer to [facility] for pulmonology FMLA paperwork completed for work Continue [employer], [employer] pr[employer] Consider smoking cessation Assessment & Plan (03/03/2023 12:37 PM EST): FMLA paperwork completed for work Assessment & Plan (11/27/2022 2:02 PM EDT): boris [employer] Trigger avoidance Has regular pulm f/u [...] Encounters Date Type Department Care Team Description 07/21/2024 Orders Only GENERIC EXTERNAL DATA DEPARTMENT Provider, Generic External Data 07/12/2024 Telephone [facility] [address] [place] [address] [phone] Kay Faust MD recall 06/29/2024 Telephone [facility] [address] [place] [address] [phone] Kay Faust MD 06/27/2024 11:00 AM EDT Office Visit [facility] [address] [place] [address] [place], BAUDILIO Acute intractable headache, unspecified headache type (Primary Dx); Severe persistent asthma with exacerbation; Acute sinusitis, recurrence not specified, unspecified location 06/27/2024 Travel 06/27/2024 Telephone [facility] [address] [place] [address] [phone] Kay Faust MD Nurse Triage 06/05/2024 6:00 PM EST Office Visit [facility] [address] [place] [phone] Abby Diego MD Moderate persistent asthma with exacerbation (Primary Dx); Primary hypertension; Cough in adult patient 05/30/2024 Refill [facility] [address] [place] [address] [phone] Zane Harris MD 05/28/2024 Orders Only [facility] [address] [place] [address] [phone] Kay Faust MD 05/25/[address] [address] Kay Faust MD recall from Last 3 Months Immunizations Name Administration [...] Sign Reading Time Taken Comments Blood Pressure 140/92 06/27/2024 11:12 AM EDT Pulse 88 06/27/2024 11:12 AM EDT Temperature 36.4 ??C (97.5 ??F) 06/27/2024 11:12 AM E DT Respiratory Rate 20 06/27/2024 11:12 AM EDT Oxygen Saturation 98% 06/27/2024 11:12 AM EDT Inhaled Oxygen Concentration - - Weight 156 kg (345 lb) 06/27/2024 11:12 AM EDT Height 175.3 cm (5' 9 ) 06/27/2024 11:12 AM EDT Body Mass Index 50.95 06/27/2024 11:12 AM EDT Plan of Treatment Upcoming Encounters Date Type Department Care Team (Late st Contact Info) Description 08/07/2024 1:45 PM EDT Office Visit [facility] [address] [place] [address] Shanda Mccarthy, OD [address] [place] [address] 09/28/2024 9:30 AM EDT Office Visit [facility] [address] [place] [address] Bindu Aceves MD [address] [place] [address] Health Maintenance Due Date Last Done Comments [...] Procedure Name Priority Date/Time Associated Diagnosis Comments XR SHOULDER 2+ VIEWS LEFT Routine 07/21/2024 9:29 PM EDT HIGH SENSITIVITY TROPONIN I Routine 07/21/2024 8:45 PM EDT MAGNESIUM Routine 07/21/2024 8:45 PM EDT BASIC METABOLIC PANEL Routine 07/21/2024 8:45 PM EDT HEPATIC FUNCTION PANEL Routine 8:45 PM EDT CBC WITH AUTO DIFFERENTIAL Routine 07/21/2024 8:45 PM EDT POCT INFLUENZA B (ID NOW RAPID MOLECULAR) Routine 06/27/2024 11:40 AM EDT Acute sinusitis, recurrence not specified, unspecified location POCT INFLUENZA A (ID NOW RAPID MOLECULAR) Routine 06/27/2024 11:37 AM EDT Acute sinusitis, recurrence not specified, unspecified location POCT RAPID COVID ANTIGEN Routine 06/27/2024 11:24 AM EDT Acute sinusitis, recurrence not specified, unspecified location POCT INFLUENZA B (ID NOW RAPID MOLECULAR) Routine 06/05/2024 5:53 PM EST Cough in adult patient POCT INFLUENZA A (ID NOW RAPID MOLECULAR) Routine 06/05/2024 5:53 PM EST Cough in adult patient POCT RAPID COVID ANTIGEN Routine 06/05/2024 5:52 PM EST Cough in adult patient BI MAMMOGRAM SCREENING TOMOSYNTHESIS BILATERAL Routine 05/08/2024 2:50 PM EST HEMOGLOBIN A1C Routine 09/16/2023 3:42 PM EDT [...] Recently Relevant to Health Maintenance Results * XR Shoulder 2+ Views Left (07/21/2024 9:29 PM EDT) Anatomical Region Laterality Modality Upper Extremities, Shoulder Left Radi ographic Imaging 07/21/2024 9:29 PM EDT Narrative 07/21/2024 9:31 PM EDT ? [facility] ?[address] ?[place] [address] ?XRay Report ? Signed ? Patient: Senuta,Xochilt Leola ?MR#: [id number] ?? [id number] ? : 1970 ?Acct:[id number] ? Age/Sex: 53 / F ?ADM Date: 07/21/24 ? Loc: HO.ED ? Attending Dr: ? Ordering Physician: Brea Villatoro ?? Date of Service: 07/21/24 ?? Procedure(s): XR shoulder LT min 2V ?? Accession Number(s): [id number] ? cc: Kay Faust; Brea Villatoro ? CLINICAL HISTORY: pain ? Left shoulder, 3 views ? COMPARISON: None ? FINDINGS: ?? No acute fracture. No dislocation. ?? Unremarkable soft tissues. ? IMPRESSION: ?? No acute findings. ? This document has been electronically signed by: Severino Coronel MD on ?? 07/21/2024 21:29:13 ? Dictated By: ?Severino Coronel MD ? Signed By: ?<Electronically signed by Severino Coronel MD in OV> ?07/21/24 2130 ? DD/ 28 ? TD/TT: 07/21/242128 ? Surgery Specialist: ? Procedure Note Rambo Webster - 07/21/[address] [address] XRay Report Signed Patient: Xochilt Thomas [facility]#: [id number] : 1970Acct:[id number] Age/Sex: 53 / FADM Date: 07/21/24 Loc: HO.ED Attending Dr: Ordering Physician: Brea Villatoro Date of Service: 07/21/24 Procedure(s): XR shoulder LT min 2V Accession Number(s): [id number] cc: Kay Faust; Brea Villatoro CLINICAL HISTORY: pain Left shoulder, 3 views COMPARISON: None FINDINGS: No acute fracture. No dislocation. Unremarkable soft tissues. IMPRESSION: No acute findings. This document has been electronically signed by: Severino Coronel MD on 07/21/2024 21:29:13 Dictated By: Severino Coronel MD Signed By: <Electronically signed by Severino Coronel MD in OV> 07/21/242129 DD/ 28 TD/TT: 07/21/242128 Surgery Specialist: [facility] External Provider IMG XR PROCEDURES Edited Result - Final * High Sensitivity Troponin I (07/21/2024 8:45 PM EDT) [facility] TROPONIN I HIGH SENSITIVITY <2.7 <3.5 - 17.0 ng/L [facility] Comment:The Campbell high sens itivity Troponin-I results should beused in conjunction with other diagnostic information suchas ECG, clinical observations and information, and patientsymptoms to aid in the diagnosis of [place]. 07/21/2024 8:45 PM EDT 07/21/2024 8:49 PM EDT Generic External Data Provider LAB BLOOD ORDERAB LES Final Result Performing Organization Address City/State/[facility] Co de Phone Number [facility] [address] [place] [phone] * (ABNORMAL) CBC auto differential (07/21/2024 8:45 PM EDT) [facility] White Blood Count 9.6 4.8 - 10.8 X10*3/uL [facility] Red Blood Count 4.72 4.20 - 5.50 X10*6/uL [facility] Hemoglobin 12.5 12.0 - 16.0 g/dl [facility] Hematocrit 37.7 37.0 - 47.0 % [facility] Mean Corpuscular Volume 79.9(L) 80.0 - 98.0 fL [facility] Mean Corpuscular Hemoglobin 26.5(L) 27.0 - 33.0 pg [facility] Mean Corpuscular HGB Conc 33.2 31.0 - 35.0 g/dl [facility] Red Cell Distribution Width 14.5 11.0 - 16.0 % [facility] Platelet Count 321 160 - 400 X10*3/uL [facility] Mean Platelet Volume 9.5 9.4 - 12.3 fL [facility] Neutrophils Percent Auto 55.9 45 - 73 % [facility] Imm Gran Pct Auto 0.2 0.0 - 0.4 % [facility] Lymphocytes Percent Auto 32.6 20 - 40 % [facility] Monocytes Percent Auto 8.1 2 - 11 % [facility] Eosinophils Percent Auto 2.7 0 - 4 % [facility] Basophils Percent Auto 0.5 0 - 2 % [facility] NRBC Pct Auto 0.0 0.0 - 0.2 /100WBC [facility] Neutrophils Absolute Auto 5.4 2.0 - 8.3 x10*3/uL [facility] Imm Gran Abs Auto 0.02 0.00 - 0.03 X10*3/uL [facility] Lymphocytes Absolute Auto 3.1 1.2 - 4.9 X10*3/uL [facility] Monocytes Absolute Auto 0.8 0.1 - 1.2 X10*3/uL [facility] Eosinophils Absolute Auto 0.3 0.0 - 0.4 X10*3/uL [facility] Basophils Absolute Auto 0.1 0.0 - 0.2 X10*3/uL [facility] NRBC Abs Auto 0.000 0.0 - 0.012 X10*3/uL [facility] 07/21/2024 8:45 PM EDT 07/21/2024 8:49 PM EDT us Generic External Data Provider LAB BLOOD ORDERAB LES Final Result [facility] [address] [place] [phone] * Magnesium (07/21/2024 8:45 PM EDT) Magnesium 2.0 1.6 - 2.6 mg/dL [facility] 07/21/2024 8:45 PM EDT 07/21/2024 8:49 PM EDT us Generic External Data Provider LAB BLOOD ORDERAB LES Final Result Performing Organization Address [facility]/ZIP Co de Phone Number [facility] [address] [place] [phone] * (ABNORMAL) Hepatic Function Panel (07/21/2024 8:45 PM EDT) Bilirubin, Total 0.2 0.0 - 1.0 mg/dL [facility] Bilirubin, Direct <0.2 0.0 - 0.5 mg/dL [facility] Aspartate Amino Transferase 23 5 - 31 U/L [facility] Alanine Aminotransferase 21 0 - 31 U/L [facility] Total Protein 6.3(L) 6.5 - 8.0 g/dL [facility] Albumin Level 3.6 3.5 - 5.0 g/dL [facility] Alkaline Phosphatase 62 39 - 117 U/L [facility] 07/21/2024 8:45 PM EDT 07/21/2024 8:49 PM EDT us Generic External Data Provider LAB BLOOD ORDERAB LES Final Result Performing Organization Address [facility] Co de Phone Number [facility] [address] [place] [phone] * (ABNORMAL) Basic Metabolic Panel (07/21/2024 8:45 PM EDT) Sodium 141 135 - 145 mmol/L [facility] Potassium 3.9 3.3 - 5.1 mmol/L [facility] Chloride 109(H) 96 - 108 mmol/L [facility] Carbon Dioxide 23 22 - 29 mmol/L [facility] Anion Gap 13 12 - 20 [facility] Urea Nitrogen (BUN) 11 9 - 16 mg/dL [facility] Creatinine, Serum 0.80 0.5 - 1.4 mg/dL [facility] Creatinine Clr Calc Pharmacy 130.1 [facility] Comment:Provided height and weight: 175.26 cm,154.221 kg.eGFR (calculated from the MDRD study equation) and eCrCl(calculated from the Cockcroft-Gault equation) are based ondifferent parameters and may not yield comparable results.If eCrCl result is absurd, please check patient'sheight/weight. Estimated Glomerular Filt Rate >60 [facility] Comment:Chronic Kidney Disea se: Estimated GFR < 60 mL/min/1.91b8Arvsyd Kidney Disease: Estimated GFR < 15 mL/min/1.73m2 Glucose 133(H) 60 - 115 mg/dL [facility] Calcium 8.2(L) 8.4 - 10.2 mg/dL [facility] 07/21/2024 8:45 PM EDT 07/21/2024 8:49 PM EDT Generic External Data Provider LAB BLOOD ORDERAB LES Final Result Performing Organization Address City/[facility]/ZIP Co de Phone Number [facility] [address] [place] [phone] * POCT Rapid Influenza B CAMPBELL ID NOW (06/27/2024 11:40 AM EDT) Only the most recent of2 resultswithin the time period is included. Influenza B Negative Negative, Indeterminate [facility] QC Media Lot # [id number] [facility] Lot# Expiration Date [facility] Swab 06/27/2024 11:4 0 AM EDT [facility] POINT OF CARE TEST ENTER/ EDIT ORDERABLES Final Result Performing Organization Address [facility] Co de Phone Number [facility] [address] [place] [phone] * POCT Rapid Influenza A CAMPBELL ID NOW (06/27/2024 11:37 AM EDT) Only the most recent of2 resultswithin the time period is included. [facility] Influenza A Negative Negative, Indeterminate [facility] QC Media Lot # [id number] [facility] Lot# Expiration Date 12012,025 [facility] Swab 06/27/2024 11:3 7 AM EDT [facility] POINT OF CARE TEST ENTER/ EDIT ORDERABLES Final Result [facility] [address] [place] [address] [phone] * POCT Rapid Covid-19 BinaxNOW (06/27/2024 11:24 AM EDT) Only the most recent of2 resultswithin the time period is included. [facility] Rapid COVID Ag Negative QC Media Lot # [id number] Lot# Expiration Date 6162,026 Swab 06/27/2024 11:2 4 AM EDT [facility] POINT OF CARE TEST ENTER/ EDIT ORDERABLES Final Result * BI Mammogram Screening Tomosynthesis Bilateral (05/08/2024 2:50 PM EST) Anatomical Region Laterality Modality Breast Bilateral Mammography 05/08/2024 2:50 PM EST Narrative 05/14/2024 5:39 PM EST ? [facility] [place] ? [address] ?[place] [address] ? Mammography Report ? Signed ? Patient: Senuta,Xochilt Leola ?MR#: [id number] ?? [id number] ? : 1970 ?Acct:[id number] ? Age/Sex: 53 / F ?ADM Date: 02/04/25 ? Loc: HO.MAMMO ? Attending Dr: Kay Faust MD ? Ordering Physician: Kay Faust ?Results: 1Negative ? Date of Service: 05/08/24 ?Follow Up: 1 Year From Orig ?? inal Mammogram ? Procedure(s): MM tomosynthesis screening BI ?? Accession Number(s): [id number] ? cc: Kay Faust ? EXAMINATION: ?? [...] DD/ 1450 ? TD/TT: 05/08/24 1505 ? Surgery Specialist: ? Procedure Note Donotkiater, Image - [facility]14/[facility] [address] [place] [address] Mammography Report Signed Patient: Xochilt Thomas AnnMR#: [id number] : 1970Acct:[id number] Age/Sex: 53 / FADM Date: 05/08/24 Loc: HO.MAMMO Attending Dr: Kay Faust MD Ordering Physician: Amelia Faustults: 1Negative Date of Service: 05/08/24Follow Up: 1 Year From Orig inal Mammogram Procedure(s): MM tomosynthesis screening BI Accession Number(s): [id number] cc: Kay Faust EXAMINATION: MM SCREENING DIGITAL [...] by: Mayuri Pulliam DO 05/14/2024 05:36 PM [facility] Dictated By: Mayuri Pulliam DO Signed By: <Electronically signed by Mayuri Pulliam DO in OV> 05/14/24 1736 DD/ 1450 TD/TT: 05/08/24 150 Surgery Specialist: us Kay Faust MD IMG BI PROCEDURES Final Result * (ABNORMAL) Hemoglobin A1c (09/16/2023 3:42 PM EDT) Hemoglobin A1c 6.2(H) <6.0 % [facility] Comment:Hemoglobin A1C Refer ence Range Adults: 4.8 - 6.0 % Non diabetic: < 6.0 % Goal: < 7.0 %Additional Action Suggested: > 8.0 %Note: Hemoglobin A1c results are invalid for patients with abnormal amounts of HbF. Blood transfusions may impact the HbA1c concentration in the patient sample. Estimated Average Glucose 131 mg/dL [facility] Comment:eAG = Estimated ave rage glucose which is %A1C expressed asaverage glucose, using the formula of the I3S-UmipnecMibigcs Glucose study (ADAG), Diabetes Care, Vol.31,#8,Nov. 2007 09/16/2023 3:42 PM EDT 09/16/2023 3:42 PM EDT Zane Harris MD LAB BLOOD ORDERABLES Final Resul t [facility] [address] [place] [phone] * Cologuard?? colon cancer screening (04/13/2023 11:53 AM EST) Cologuard Result Negative Negative 04/24/19 24 1:03 AM EST [employer] (CLIA #:[id number]) Comment: NEGATIVE TEST RESULT. A negative Cologuard [...] cancer. ??Following a negative Cologuard result, the [place] Cancer Society and U.S. Multi-Society Task Force screening guidelines recommend a Cologuard re-screening interval of 3 years. References: [place] [employer] Guideline for Colorectal Cancer Screening: https://www.cancer.org/cancer/erjtp-iuxhtl-zzvdzt/pqdesoyzm-auvbnxktf-msxntuq/ac s-rec ommendations.html.; Jose Manuel DK, Harpreet DUNNE, Bailee CummingsK, Colorectal Cancer Screening: Recommendations for Physicians and Patients from the U.S. Multi-Society Task Force on Colorectal Cancer Screening , Am J Gastroenterology 2017; 112:0560-2831. TEST DESCRIPTION: Composite algorithmic analysis of stool [...] screened with both Cologuard and colonoscopy. (Farideh Hawk, N Engl J Med 2014;370(14):7715-0436.) Cologuard may produce a false negative or false positive result (no colorectal cancer or precancerous polyp present at colonoscopy follow up). A negative Cologuard test result does not guarantee the absence of CRC or advanced adenoma (pre-cancer). The current Cologuard screening interval is every 3 years. ([place] Cancer Society and U.S. Multi-Society Task Force). Cologuard performance data in a 10,000 patient pivotal study using colonoscopy as the reference method can be accessed at the following location: www.[employer]..EPV SOLAR/results. Additional description of the Cologuard test process, warnings and precautions can be found at www.cologKengururd.com. Stool specimen (specimen) 04/13/2023 11:53 AM EST 04/14/2023 12:57 PM EST Kay Faust MD LAB MOLECULAR DIAGNOSTICS ORDE RABLES Final Result Performing Organization Address [facility] Co de Phone Number [employer] (CLIA #:[id number]) [address] [place] [address], * Hepatitis C Ab (02/28/2023 1:59 PM EST) Hepatitis C Antibody Nonreactive Nonreactive [facility] Comment:Antibodies to HCV no t detected; does not exclude early acuteHCV infection. Blood Venous blood specimen / Unknown 02/28/2023 1:59 PM EST 02/28/2023 4:15 PM EST Kay Faust MD LAB BLOOD ORDERABLES Final Res ult Performing Organization Address [facility]/ZIP Co de Phone Number [facility] [address] [place] [phone] * HIV-1/2 Antigen and Antibodies, Fourth Generation, with Reflexes (02/28/2023 1:59 PM EST) HIV AB/AG Nonreactive Nonreactive [facility] Comment:HIV-1 p24 Ag and/or HIV-1/HIV-2 Ab not detected.A test result that is nonreactive does not exclude thepossibility of exposure to or infection with HIV-1 and/orHIV-2. Nonreactive results in this assay for individualswith prior exposure to HIV-1 and/or HIV-2 may be due toantigen and antibody levels that are below the limit ofdetection of this assay.The [employer] Alinity HIV Ag/Ab Combo assay result andsupplemental assay results should be interpreted inconjunction with the patient's clinical presentation,history and other laboratory results. If the results areinconsistent with clinical evidence, additional testing issuggested to confirm the result. Blood Venous blood specimen / Unknown 02/28/2023 1:59 PM EST 02/28/2023 4:15 PM EST us Kay Faust MD LAB BLOOD ORDERABLES Final Res ult [facility] [address] [place] [phone] * (ABNORMAL) Lipid Panel, Standard (02/28/2023 1:59 PM EST) Triglycerides 232(H) <150 mg/dL [facility] Comment:Desirable Triglyceri de: less than 150 mg/dLBorderline High Triglyceride 150-199 mg/dLHigh Triglyceride: 200-499 mg/dLVery High Triglyceride: greater than or equal to 5OO mg/dL Cholesterol 186 <200 mg/dL [facility] Comment:Desirable Cholestero l: less than 200 mg/dLBorderline High Cholesterol: 200-239 mg/dLHigh Cholesterol: greater than 239 mg/dL LDL Cholesterol Calculated 93 <100 mg/dL [facility] Comment:Desirable LDL: less than 100 mg/dLNear Optimal/Above Optimal LDL: 110- 129 mg/dLBorderline High LDL: 130-159 mg/dLHigh LDL: 160-189 mg/dLVery High LDL: greater than or equal to 190 mg/dL HDL Cholesterol 47 >40 mg/dL [facility] Comment:Desirable HDL: great er than 40 mg/dL Note: This HDL assay may give artificially low results in patients with liver disease. Blood Venous blood specimen / Unknown 02/28/2023 1:59 PM EST 02/28/2023 4:15 PM EST us Kay Faust MD LAB BLOOD ORDERABLES Final Res ult [facility] [address] [facility] [place] [phone] [phone] * Hm Pap Smear (12/22/2020) Pap Negative for intraephithelial lesion or malignancy Negative for intraephithelial lesion or malignancy, Other HPV Not Detected Undetected, Indeterminate, Quantitative, Not Detected Historical Provider HEALTH MAINTENANCE Final Result from Last 3 Months or Most Recently Relevant to Health Maintenance Insurance [id number] [place] [address] [place] [address] TA Lopez Care Teams Parking Worker Relationship Specialty Start Date End Date Kay Faust MD [address] [place] [phone] PCP - General Family Medicine 12/02/22
--- OUTSIDE RECORDS SUMMARY | 2024-08-01 16:30 | XMS_ITS | Encounter Summary ---
Author Organization [employer] Address [address] [place] [address] 7 [place] [address] Care Team Providers Care Cement Breaker Name Role Phone Kay Faust MD Primary Care Provider Reason for Referral * Consultation (Routine) - Closed Specialty Diagnoses / Procedures Referred By Contac t Referred To Contact Optometry Diagnoses Blurry vision, bilateral Kay Faust MD [address] [place] [address] Phone: tel: fax: Referral ID Status Reason Start Date Expiration Date V isits Requested Visits Authorized [id number] Closed Specialty Services Required 05/02/2024 05/02/2025 1 1 Encounter Details Date Type Department Care Team (Late st Contact Info) Description 05/02/2024 Orders Only [facility] [address] [place] [address] Kay Faust MD [address] [place], [place] [phone] Blurry vision, bilateral (Primary Dx) Social History [...] Description 08/07/2024 1:45 PM EDT Office Visit [facility] [address] [place] [address] Shanda Mccarthy OD [address] [place] [address] 09/28/2024 9:30 AM EDT Office Visit [facility] [address] [place] [address] Bindu Aceves MD [address] [place] [address] Scheduled Referrals Name Type Priority Associated Diagnoses [...] EST Narrative 05/14/2024 5:39 PM EST ? [facility] [place] ? [address] ?[place] [address] ? Mammography Report ? Signed ? Patient: Senuta,Xochilt Leola ?MR#: [id number] ?? [id number] ? : 1970 ?Acct:[id number] ? Age/Sex: 53 / F ?ADM Date: 05/08/ ? Loc: HO.MAMMO ? Attending Dr: Kay Faust MD ? Ordering Physician: Kay Faust ?Results: 1Negative ? Date of Service: 05/08/ ?Follow Up: 1 Year From Orig ?? inal Mammogram ? Procedure(s): MM tomosynthesis screening BI ?? Accession Number(s): [id number] ? cc: Kay Faust ? EXAMINATION: ?? [...] DD/ 1450 ? TD/TT: 05/08/24 1505 ? Enrollment Manager: ? Procedure Note Darin, Image - 05/14/2024 [facility] [address] [place] [address] [place] [address] Mammography Report Signed Patient: Xochilt Thomas [facility]#: [id number] : 1970Acct:[id number] Age/Sex: 53 / FADM Date: 05/08/24 Loc: GABIO Attending Dr: Kay Faust MD Ordering Physician: Amelia Faustults: 1Negative Date of Service: 05/08/24Follow Up: 1 Year From Orig inal Mammogram Procedure(s): MM tomosynthesis screening BI Accession Number(s): [id number] cc: Kay Faust EXAMINATION: MM SCREENING DIGITAL [...] 05/14/24 1736 DD/ 1450 TD/TT: 05/08/24 1505 Enrollment Manager: Kay Faust MD IMG BI PROCEDURES Final Result documented in this encounter Visit Diagnoses Diagnosis Blurry vision, bilateral- Primary Other specified visual disturbances documented in this encounter Additional Health Concerns Assessment Noted Time PHQ-9 Depression Total Score: 0 02/29/20 23 1:21 PM EST documented as of this encounter Care Teams Cement Breaker Relationship Specialty Start Date End Date Kay Faust MD [address] [place] [address] PCP - General Family Medicine 12/02/22 documented as of this encounter
--- OUTSIDE RECORDS SUMMARY | 2024-08-01 16:31 | XMS_ITS | Encounter Summary ---
Author Organization [employer] Address [address] [place] [address] 7 [place] [address] Care Team Providers Care Research Home Economist Name Role Phone Kay Faust MD Primary Care Provider [phone] Reason for Visit * Reason Onset Date Comments Med Refill 08/20/2023 Encounter Details Date Type Department Care Team ([facility] st Contact Info) Description 08/20/2023 Refill [facility] [address] [place], [place] [phone] Kay Faust MD [address] [place], [place] [phone] Moderate persistent asthma without complication Social History [...] Description 08/07/2024 1:45 PM EDT Office Visit [facility] OPTOMETRY [address] [place], [place] [phone] Shanda Mccarthy, OD [address] [place] [address] 09/28/2024 9:30 AM EDT Office Visit [facility] MED[facility]INE [address] [place] [address] Bindu Aceves MD [address] [place] [address] documented as of this encounter Visit Diagnoses Diagnosis Moderate persistent asthma without complication documented in this encounter Additional Health Concerns Assessment Noted Time PHQ-9 Depression Total Score: 0 02/29/20 23 1:21 PM EST documented as of this encounter Care Teams Research Home Economist Relationship Specialty Start Date End Date Kay Faust MD [address] [place] [address] PCP - General Family Medicine 12/02/22 documented as of this encounter
--- OUTSIDE RECORDS SUMMARY | 2024-08-01 16:31 | XMS_ITS | Data Portability ---
Author Organization [facility], [address] Address [address] [place] [address] Assessment Encounter Date Assessment Date Assessment LastModified by Organization Details LastModified Time 05/04/2022 05/04/2022 Viral illness is likely, consider flu like illness. Symptomatic treatment reviewed, letter for work Not available 05/04/2022 11:39:55 Plan of Treatment Reminders Order Date Submit Date Provider Last Modified By Organization Details Last Modified Time Details Appointments None recorded. Lab rapid flu (A+B) 2022 023 lisseth ne1 [facility], [address] [place] [address], [place], [address], 11:35:29 Referral None recorded. Procedures None recorded. Surgeries None recorded. Imaging None recorded. Medication Orders prednisone 10 mg tablet 2022 023 [facility]armacy #[id number], [address] [place], [address], 3 09:15:59 olopatadine 0.1 % eye drops 2022 023 [facility]/Pharmacy #[id number], [address] [place], [address], 3 09:15:59 Patient TargetsNo targets recorded. Patient Instructions Encounter Date Encounter Id Patient Instructions Last Modified By Organization Details Last Modified Time 05/04/2022 [id number] nausea and vomiting: care instructions Not available [...] ear pain Not available 05/04/2022 11:40:17 06/29/2022 [id number] You are having a n asthma exacerbation [...] 5. light headedness. Thank you for using [facility] today - please don't hesitate to contact up or return to see if you have any questions or concerns. [email or web address] Not available 06/29/2022 09:14:38 Reason for Referral None Reported. Results Created Date Observation Date Name Description Value Unit Range Abnormal Flag Note LastModifiedBy Organization Detail LastModifiedTime 05/04/19 23 05/04/2022 rapid flu (A+B) Unknown Analyte Normal = Negati ve Not Available _[facility] pablo ru[facility] [address] [place], [address], 05/04/2022 11:00:32 05/04/19 23 05/04/2022 rapid flu (A+B) Unknown Analyte Normal = Negati ve Not Available [facility] [address] [place], [address], 05/04/2022 11:00:32 05/04/19 23 05/04/2022 rapid flu (A+B) Unknown Analyte negati ve Not Available _[facility]ablo [facility] [address] [place], [address], 05/04/2022 11:00:32 05/04/19 23 05/04/2022 rapid flu (A+B) Unknown Analyte negati ve Not Available _juan pablo ruiz [address] [place], [address], 05/04/2022 11:00:32 Result Notes None recorded. Problems Name Problem SNOMED Code Status Onset Date Resolution Date Notes Provider Name and Address Organization Details Recorded Time Asthma 641123518 Active 023 FITO Juarez null, [place] - [facility] 3 10:57:54 Acid reflux 449454945 Active 023 IRIS ARELY Juarez null, PA - [facility] 3 10:59:16 Arthritis 1283810 Active 023 FITO Juarez null, PA - [...] Updated DateTime 3 175.26 cm 49.5 kg/m2 928866. 44 g 5 20 /min 74 /min 99 % 99 % 97.8 [degF] 163 mm[Hg] 93 mm[Hg] Sandra Marlow PA - [facility] 3 08:35:50 Date Recorded Body height Body mass index (BMI) Body weight Body temperature Respiratory rate Heart rate Oxygen saturation Oxygen saturation in Arterial blood by Pulse oximetry Systolic blood pressure Diastolic blood pressure Provider Name and Address Organization Details Last Updated DateTime 3 175.26 cm 49.5 kg/m2 156211. 44 g 98.4 [degF] 20 /min 68 [...] Influenza, MDCK, quadrivalent, PF 1 completed Sandra Lee null, PA - [facility] 06/29/2022 08:32:41 Influenza, MDCK, quadrivalent, preservative 8 completed Sandra Ele null, PA - [facility] 06/29/2022 08:32:41 COVID-19, mRNA, LNP-S, PF, 100 mcg/0.5mL dose or 50 mcg/0.25mL dose 2 completed Sandra Addis null, PA - [facility] 06/29/2022 08:32:41 COVID-19, mRNA, LNP-S, PF, 100 mcg/0.5mL dose or 50 mcg/0.25mL dose 1 completed Sandra Addis null, PA - [facility] 06/29/2022 08:32:41 COVID-19, mRNA, LNP-S, PF, 100 mcg/0.5mL dose or 50 mcg/0.25mL dose 1 completed Sandra Addis null, PA - [facility] 06/29/2022 08:32:41 COVID-19, mRNA, LNP-S, PF, 100 mcg/0.5mL dose or 50 mcg/0.25mL dose 1 completed Sandra Ele null, PA - [facility] 06/29/2022 08:32:41 COVID-19, mRNA, LNP-S, bivalent, PF, 30 mcg/0.3 mL dose 2 completed Sandra Addis null, PA - [facility] 06/29/2022 08:32:41 pneumococcal polysaccharide PPV23 6 completed Sandra Addis null, PA - [facility] 06/29/2022 08:32:42 Tdap 5 completed Sandra Addis null, PA - [facility] 06/29/2022 08:32:42 Influenza, split virus, trivalent, preservative 4 completed Sandra Ele null, PA - [facility] 06/29/2022 08:32:42 Influenza, split virus, trivalent, preservative 0 completed Sandra Ele null, PA - [facility] 06/29/2022 08:32:42 Influenza, split virus, trivalent, preservative 6 completed Sandra Ele null, PA - [facility] 06/29/2022 08:32:42 Influenza, split virus, trivalent, preservative 4 completed Sandra Addis null, PA - [facility] 06/29/2022 08:32:42 Influenza, split virus, trivalent, preservative 5 completed Sandra Ele null, PA - [facility] 06/29/2022 08:32:42 Influenza, split virus, quadrivalent, PF 2 completed Sandra Ele null, PA - [facility] 06/29/2022 08:32:42 Past Encounters Encounter ID Performer Location Encounter Start Date Encounter Closed Date Diagnosis/Indication Diagnosis SNOMED-CT Code Diagnosis ICD10 Code Diagnosis Note [id number] [address] [place] [address] 06/18/2021 09:28:53 06/18/2021 09:59:33 [id number] [address] [place] [address] 06/12/2019 10:34:03 06/12/2019 11:28:10 [id number] [address] [place] [address] 02/02/2021 09:16:12 02/02/2021 10:55:41 [id number] [address] [place] [address] 07/12/2017 09:26:55 07/12/2017 10:50:42 [id number] [address] [place] [address] 09/23/2020 16:41:56 09/23/2020 18:08:22 [id number] [address] [place] [address] 01/31/2018 10:45:03 01/31/2018 13:27:29 [id number] [address] [place] [address] 11/09/2019 08:07:21 11/09/2019 09:09:00 [id number] [address] [place] [address] 08/06/2021 10:08:32 08/06/2021 13:38:40 [id number] Subhash Gaines [place] [address] [place] [address] 05/04/2022 10:38:50 05/04/2022 11:38:10 Acute upper respiratory infection 53648082 J06.9 [id number] KILO MONTEIRO [address] [place] [address] 06/29/2022 08:23:26 06/29/2022 09:17:45 Elevated blood-pressure reading without diagnosis of hypertension 001030064 R03.0 You blood pressure was elevated during [...] the results of your journal. Allergic rhinitis 568667 04 J30.9 Allergic conjunctivitis 517584476 H10.13 Exacerbati on of intermittent asthma 541723110 J45.21 follow up with your pulmonolog ist [...] Member ID Guarantor Name 06/18/2021 1 [facility] [id number] Xochilt A Senuta [id number] Xochilt A Senuta 08/06/2021 1 [facility] [id number] Xochilt A Senuta [id number] Xochilt A Senuta 05/04/2022 1 [facility] [id number] Xochilt A Senuta [id number] Xochilt A Senuta 06/29/2022 1 [facility] [id number] Xochilt Thomas [id number] Xochilt Thomas Notes Date Note Type Note Provider Name and Address Organization Details Recorded Time 05/04/2022 text/html Not feeling well x 3 days: cough, body aches, R ear pain, N/V x 2 yesterdayCovid negative yesterday. Taking Tylenol, Robitussin DM. Sleep disturbed by body aches. Subhash Gaines DO [address] [facility] [place], [address], [place] [facility] 05/04/2022 11:40:33 06/29/2022 text/html Sinus Complaints [...] Feeling bad. Nebulizer machine is broken. Has sweet pickled fruit maker appointment tomorrow. Denies fever. Looking for relief. KILO MONTEIRO [address] [place], [address], [place] [facility] 06/29/2022 09:19:38 OBGyn Episode No OBEpisode recorded.
--- OUTSIDE RECORDS SUMMARY | 2024-08-01 16:31 | XMS_ITS | Clinical Summary ---
Author Organization [facility] it Address [address] [place] [address] Care Team Providers Care Private Tutors And Teachers Name Role Phone Jagdish Evans MD Primary Care Provider [phone] Allergies No known active allergies Medications albuterol [...] mas s index of 50.0-59.9 in adult ([facility] V24, [facility] V28) 04/09/2024 Cyst of right ovary 06/06/2020 [...] Breast cancer risk category Low (<15%) Result [facility] Erica Richardsonnz CNM IMG XR PROCEDURES Final Result * (ABNORMAL) Lipid panel (09/12/2018) [facility] LDL/HDL Ratio 5(A) 0 - 4 Triglycerides 484(A) 0 - 150 mg/dL Cholesterol 185 0 - 200 mg/dL HDL 40 >=40 mg/dL LDL Cholesterol 49 0 - 100 mg/dL Blood Venous blood specimen / Unknown Result [facility] Historical Provider LAB BLOOD ORDERABLES Sudha l Result * HIV Screening (05/25/2016) [facility] HIV Screening Abstracted Result [facility] Provider HEALTH MAINTENANCE Final Result * Hepatitis C Screening (05/25/2016) [facility] Hepatitis C Screening Abstracted Result [facility] Historical Provider HEALTH MAINTENANCE Final Result from Last 3 Months or Most Recently Relevant to Health Maintenance Care Teams Private Tutors And Teachers Relationship Specialty Start Date End Date Jagdish Evans MD PCP - General Internal Medicine 05/13/14
--- OUTSIDE RECORDS SUMMARY | 2024-08-01 16:31 | XMS_ITS | Encounter Summary ---
Author Organization [employer] Address [address] [place] [address] 7t [place] [address] Care Team Providers Care Elementary Special Education Teacher Name Role Phone Kay Faust MD Primary Care Provider [phone] Reason for Visit * Reason Onset Date Comments Med Refill 09/14/2023 Encounter Details Date Type Department Care Team ([facility] st Contact Info) Description 09/14/2023 Refill [facility] [address] [place], [place] [phone] Kay Faust MD [address] [place], [place] [phone] Social History Tobacco Use Types Packs/Day Years [...] is your housing situation today? I have ekisha guidry 02/14/[address] you [...] Description 08/07/2024 1:45 PM EDT Office Visit [facility] OPTOMETRY [address] [place] [address] Shanda Mccarthy, OD [address] [place] [address] 09/28/2024 9:30 AM EDT Office Visit [facility] MED[facility]INE [address] [place] [address] Bindu Aceves MD [address] [place] [address] documented as of this encounter Visit Diagnoses Not on filedocumented in this encounter Additional Health Concerns Assessment Noted Time PHQ-9 Depression Total Score: 0 02/29/20 23 1:21 PM EST documented as of this encounter Care Teams Elementary Special Education Teacher Relationship Specialty Start Date End Date Kay Faust MD [address] [place] [address] PCP - General Family Medicine 12/02/22 documented as of this encounter
--- OUTSIDE RECORDS SUMMARY | 2024-08-01 16:31 | XMS_ITS | Encounter Summary ---
Author Organization [employer] Address [address] [place] [address] 7t [place] [address] Care Team Providers Care Delivery And Mail Sorter Name Role Phone Kay Faust MD Primary Care Provider [phone] Reason for Visit * Reason Comments Med Refill Encounter Details Date Type Department Care Team (Late st Contact Info) Description 11/16/2023 Refill [facility] MED[facility]INE [address] [place], [place] [phone] Kay Faust MD [address] [place], [place] [phone] Moderate persistent asthma without complication Social History [...] Description 08/07/2024 1:45 PM EDT Office Visit [facility] OPTOMETRY [address] [place] [address] Shanda Mccarthy, OD [address] [place] [address] 09/28/2024 9:30 AM EDT Office Visit [facility] MEDICINE [address] [place] [address] Bindu Aceves MD [address] [place] [address] documented as of this encounter Visit Diagnoses Diagnosis Moderate persistent asthma without complication documented in this encounter Additional Health Concerns Assessment Noted Time PHQ-9 Depression Total Score: 0 02/29/20 23 1:21 PM EST documented as of this encounter Care Teams Delivery And Mail Sorter Relationship Specialty Start Date End Date Kay Faust MD [address] [place] [place] [address] PCP - General Family Medicine 12/02/22 documented as of this encounter
--- OUTSIDE RECORDS SUMMARY | 2024-08-01 16:31 | XMS_ITS | Encounter Summary ---
Author Organization [employer] Address [address] [facility] 7t [place] [address] Care Team Providers Care Supervisor Anodizing Name Role Phone Kay Faust MD Primary Care Provider [phone] Encounter Details Date Type Department Care Team ([facility] st Contact Info) Description 05/18/2023 Telephone [facility] [address] [place], [place] [phone] Zane Harris MD [address] [place], [place] [phone] Social History Tobacco Use Types Packs/Day Years [...] Description 08/07/2024 1:45 PM EDT Office Visit [facility] OPTOMETRY [address] [place] [address] TarkaShanda, OD [address] [place] [address] 09/28/2024 9:30 AM EDT Office Visit [facility] [address] [place] [address] Bindu Aceves MD [address] [place] [address] documented as of this encounter Visit Diagnoses Not on filedocumented in this encounter Additional Health Concerns Assessment Noted Time PHQ-9 Depression Total Score: 0 02/29/20 23 1:21 PM EST documented as of this encounter Care Teams Supervisor Anodizing Relationship Specialty Start Date End Date Kay Faust MD [address] [place] [address] PCP - General Family Medicine 12/02/22 documented as of this encounter
--- OUTSIDE RECORDS SUMMARY | 2024-08-01 16:31 | XMS_ITS | Encounter Summary ---
Author Organization [employer] Address [address] [facility] 7t [place] [address] Care Team Providers Care Powder And Primer Canning Leader Name Role Phone Kay Faust MD Primary Care Provider [phone] Encounter Details Date Type Department Care Team ([facility] st Contact Info) Description 05/28/[address] [facility] MED[facility] [address] [place], [place] [phone] Kay Faust MD [address] [place], [place] [phone] Social History Tobacco Use Types Packs/Day Years [...] Description 08/07/2024 1:45 PM EDT Office Visit [facility] OPTOMETRY [address] [place] [address] Shanda Mccarthy, OD [address] [place] [address] 09/28/2024 9:30 AM EDT Office Visit [facility] [address] [place] [address] Bindu Aceves MD [address] [place] [address] documented as of this encounter Visit Diagnoses Not on filedocumented in this encounter Additional Health Concerns Assessment Noted Time PHQ-9 Depression Total Score: 0 02/29/20 1:21 PM EST documented as of this encounter Care Teams Powder And Primer Canning Leader Relationship Specialty Start Date End Date Kay Faust MD [address] [place] [address] PCP - General Family Medicine 12/02/22 documented as of this encounter
[2024-08-01 16:34] VITALS: PULSE 83; O2SAT 96
== END 2024-08-01 15:44 | disposition home or self-care (01) ==
LOC: HO.RESP 15:43
PROVIDERS: PCP General Practice; Visit Provider Hospitalist
DX: J45.50 Severe persistent asthma, uncomplicated (principal)
CPT/HCPCS: 94010; 94640; 94727; 94729

== ENCOUNTER → 2024-08-01 16:29 | Outpatient (BNV) | payer OTHER, SELFPAY | PROVIDERS: PCP General Practice; Visit Provider Internal Medicine Pulmonary Disease | DX: J45.50 Severe persistent asthma, uncomplicated (principal) | CPT/HCPCS: 94060; 94727; 94729 ==

== ENCOUNTER 2024-08-07 08:39 | Outpatient (AMB) | payer OTHER, SELFPAY ==
--- OUTSIDE RECORDS SUMMARY | 2024-08-07 09:05 | XMS_ITS | Encounter Summary ---
Author Organization [employer] Address [address] [place] [address] 7 [place] [address] Care Team Providers Care Facial Operator Name Role Phone Kay Faust MD Primary Care Provider Reason for Referral * Consultation (Routine) - Closed Specialty Diagnoses / Procedures Referred By Anai stallworth Referred To Contact Optometry Diagnoses Blurry vision, bilateral Kay Faust MD [address] [place] [address] Phone: tel: fax: Referral ID Status Reason Start Date Expiration Date V isits Requested Visits Authorized [id number] Closed Specialty Services Required 05/02/2024 05/02/2025 1 1 Encounter Details Date Type Department Care Team (Late st Contact Info) Description 05/02/2024 Orders Only [facility] [address] [place], [place] [phone] Kay Faust MD [address] [place], [place] [phone] Blurry vision, bilateral (Primary Dx) Social History [...] Office Visit [facility] OPTOMETRY [address] [place] [address] Shanda Mccarthy OD [address] [place] [address] 09/28/2024 9:30 AM EDT Office Visit [facility] MED[facility] [address] [place] [address] Bindu Aceves MD [address] [place] [address] Scheduled Referrals Name Type Priority Associated Diagnoses [...] Region Laterality Modality Breast Bilateral Mammography 05/08/2024 2:5 0 PM EST Narrative 05/14/2024 5:39 PM EST ? [facility] [place] ? [address] ?[place] [address] ? Mammography Report ? Signed ? Patient: Senuta,Xochilt Leola ?MR#: [id number] ?? [id number] ? : 1970 ?Acct:[id number] ? Age/Sex: 53 / F ?ADM Date: 05/08/ ? Loc: HO.MAMMO ? Attending Dr: Kay Faust MD ? Ordering Physician: Kay Faust ?Results: 1Negative ? Date of Service: 05/08/24 ?Follow Up: 1 Year From Orig ?? inal Mammogram ? Procedure(s): MM tomosynthesis screening BI ?? Accession Number(s): [id number] ? cc: Kay Faust ? EXAMINATION: ?? [...] DD/ 1450 ? TD/TT: 05/08/24 1505 ? Stock Replenisher: ? Procedure Note Darin, Image - 05/14/2024 [facility] [address] [place] [address] [place] [address] Mammography Report Signed Patient: Xochilt [facility]#: [id number] : 1970Acct:[id number] Age/Sex: 53 / FADM Date: 05/08/24 Loc: GABIO Attending Dr: Kay Faust MD Ordering Physician: Amelia Faustults: 1Negative Date of Service: 05/08/24Follow Up: 1 Year From Orig inal Mammogram Procedure(s): MM tomosynthesis screening BI Accession Number(s): [id number] cc: Kay Faust EXAMINATION: MM SCREENING DIGITAL [...] 05/14/24 1736 DD/ 1450 TD/TT: 05/08/24 1505 Stock Replenisher: Kay Faust MD IMG BI PROCEDURES Final Result documented in this encounter Visit Diagnoses Diagnosis Blurry vision, bilateral- Primary Other specified visual disturbances documented in this encounter Additional Health Concerns Assessment Noted Time PHQ-9 Depression Total Score: 0 02/29/20 23 1:21 PM EST documented as of this encounter Care Teams Facial Operator Relationship Specialty Start Date End Date Kay Faust MD [address] [place] [address] PCP - General Family Medicine 12/02/22 documented as of this encounter
--- OUTSIDE RECORDS SUMMARY | 2024-08-07 09:05 | XMS_ITS | Clinical Summary ---
Author Organization [employer] Address [address] [facility] [address] [place] [address] Care Team Providers Care Presto Log Operator Name Role Phone Kay Faust MD Primary Care Provider [phone] Allergies No known active allergies Medications omeprazole (PriLOSEC) [address] capsule Take 1 capsule (40 mg) by mouth before breakfast. Do not crush or chew. 90 capsule 3 4 Active fluticasone (Flonase) 50 MCG/ACT nasal spray Administer 1 spray into each nostril Once per day. 16 g 2 4 Active sodium chloride (Morrill Nasal [place]) 0.65 % nasal spray Administer 1 spray into each nostril if needed for congestion. 30 mL 12 4 025 Active montelukast (Singulair) 10 MG tablet TAKE 1 TABLET BY MOUTH ONCE DAILY 90 tablet 3 4 Active albuterol 108 (90 Base) MCG/ACT inhalerIndicatio ns:Severe persistent asthma without complication Inhale 2 puffs every 4 (four) hours if needed for wheezing or shortness of breath. 36 g 11 4 025 Active Fluticasone-Salm eterol (Wixela Inhub) 500-50 MCG/ACT aerosol powder Inhale 1 Inhalation. 2 times daily. 60 each 2 4 Active ipratropium-albu terol (Duo-Neb) 0.5-2.5 mg/3 mL nebulizer solutionIndicati ons:Severe persistent asthma with exacerbation Take 3 mL by nebulization every 8 (eight) hours if needed for wheezing or shortness of breath. 180 mL 11 5 026 Active albuterol (2.5 MG/3ML) 0.083% nebulizer solutionIndicati ons:Severe persistent asthma with exacerbation Take 3 mL (2.5 mg) by nebulization every 6 (six) hours if needed for wheezing. 75 mL 11 5 026 Active losartan (Cozaar) 100 MG tablet Take 1 tablet (100 mg) by mouth Once per day. 90 tablet 3 5 026 Active triamcinolone (Kenalog) 0.1 % cream APPLY TOPICALLY TWICE DAILY 30 g 1 5 Active SUMAtriptan (Imitrex) 25 MG tabletIndication s:Acute intractable headache, unspecified headache type Take 1 tablet (25 mg) by mouth 1 (one) time if needed for migraine for up to 1 dose. May repeat dose once in 2 hours if no relief. Do not exceed 2 doses in 24 hours. 9 tablet 5 Active Active Problems Problem Noted Date Diagnosed [...] fall and winter 2022 Will refer to [facility] for pulmonology FMLA paperwork completed for work [...] DEPARTMENT Provider, Generic External Data 07/12/2024 Telephone [facility] [address] [place] [phone] Kay Faust MD recall 06/29/2024 Telephone [facility] [address] [place] [address] Kay Faust MD 06/27/2024 11:00 AM EDT Office Visit [facility] [address] [place] [phone] Tonia Park CNP Acute intractable headache, unspecified headache type (Primary Dx); Severe persistent asthma with exacerbation; Acute sinusitis, recurrence not specified, unspecified location 06/27/2024 Travel 06/27/2024 Telephone [facility] [address] [place] [phone] Kay Faust MD Nurse Triage 06/05/2024 6:00 PM EST Office Visit [facility] [address] [place] [address] Abby Diego MD Moderate persistent asthma with exacerbation (Primary Dx); Primary hypertension; Cough in adult patient 05/30/2024 Refill [facility] [address] [place] [address] Zane Harris MD 05/28/2024 Orders Only [facility] [place] [facility] [place] [address] Kay Faust MD 05/25/2024 Telephone [facility] [address] [facility] [place] [address] Kay Faust MD recall from Last 3 [...] 1:45 PM EDT Office Visit [facility] [address] [place] [address] Shanda Mccarthy, OD [address] [place] [address] 09/28/2024 9:30 AM EDT Office Visit [facility] [address] [place] [address] Bindu Aceves MD [address] [place] [address] Health Maintenance Due Date Last Done Comments CT Colonography 1970 Colonoscopy 1970 FIT 1970 FOBT 1970 Sigmoidoscopy 1970 Hepatitis B Vaccines (1 of 3 - 19+ 3-dose series) 1989 Zoster Vaccines (1 of 2) 2020 COVID-19 Vaccine ( season) 2023 01/08/2022, 07/03/2021, 02/13/2021, Additional history exists SDOH Screening 02/15/2024 02/14/2023 Depression Screening 02/29/2024 02/28/2023, 02/29/20 Diabetes: Hemoglobin A1C 09/15/202409/15/2 024, 07/04/2023, 02/28/2023 [...] EDT Narrative 07/21/2024 9:31 PM EDT ? [facility] ?[address] ?[place] [address] ?XRay Report ? Signed ? Patient: Senuta,Xochilt Leola ?MR#: [id number] ?? [id number] ? : 1970 ?Acct:[id number] ? Age/Sex: 53 / F ?ADM Date: 04/19/25 ? Loc: HO.ED ? Attending Dr: ? Ordering Physician: Brea Villatoro ?? Date of Service: 07/21/24 ?? Procedure(s): XR shoulder LT min 2V ?? Accession Number(s): [id number] ? cc: Kay Faust; Brea Villatoro ? [...] signed by Severino Coronel MD in OV> ?07/21/240 ? DD/ 28 ? TD/TT: 07/21/242128 ? Medical Consultant: ? Procedure Note Dontrishater, Image - 07/21/[address] [address] XRay Report Signed Patient: Xochilt [facility]#: [id number] : 1970Acct:[id number] Age/Sex: 53 / FADM Date: 07/21/24 Loc: HO.ED Attending Dr: Ordering Physician: Brea Villatoro Date of Service: 07/21/24 Procedure(s): XR shoulder LT min 2V Accession Number(s): [id number] cc: Kay Faust; Brea Villatoro CLINICAL HISTORY: pain Left shoulder, 3 views COMPARISON: None FINDINGS: No acute fracture. No dislocation. Unremarkable soft tissues. IMPRESSION: No acute findings. This document has been electronically signed by: Severino Coronel MD on 07/21/2024 21:29:13 Dictated By: Severino Coronel MD Signed By: <Electronically signed by Severino Coronel MD in OV> 07/21/242129 DD/ 28 TD/TT: 07/21/242128 Medical Consultant: [facility] External Provider IMG XR PROCEDURES Edited Result - Final * High Sensitivity Troponin I (07/21/2024 8:45 PM EDT) TROPONIN I HIGH SENSITIVITY <2.7 <3.5 - 17.0 ng/L [facility] Comment:The Campbell high sens itivity Troponin-I results should beused in conjunction with other diagnostic information suchas ECG, clinical observations and information, and patientsymptoms to aid in the diagnosis of OR. 07/21/2024 8:45 PM EDT 07/21/2024 8:49 PM EDT us Generic External Data Provider LAB BLOOD ORDERAB LES Final Result [facility] [address] [place] [address] [phone] * (ABNORMAL) CBC auto differential (07/21/2024 8:45 PM EDT) White Blood Count 9.6 4.8 - 10.8 X10*3/uL [facility] Red Blood Count 4.72 4.20 - 5.50 X10*6/uL [facility] Hemoglobin 12.5 12.0 - 16.0 g/dl [facility] Hematocrit 37.7 37.0 - 47.0 % [facility] Mean Corpuscular Volume 79.9(L) 80.0 - 98.0 fL [facility] Mean Corpuscular Hemoglobin 26.5(L) 27.0 - 33.0 pg [facility] Mean Corpuscular HGB Conc 33.2 31.0 - 35.0 g/dl [facility] Red Cell Distribution Width 14.5 11.0 - 16.0 % [facility] Platelet Count 321 160 - 400 X10*3/uL [facility] Mean Platelet Volume 9.5 9.4 - 12.3 fL [facility] Neutrophils Percent Auto 55.9 45 - 73 % [facility] Imm Gran Pct Auto 0.2 0.0 - 0.4 % [facility] Lymphocytes Percent Auto 32.6 20 - 40 % [facility] Monocytes Percent Auto 8.1 2 - 11 % [facility] Eosinophils Percent Auto 2.7 0 - 4 % [facility] Basophils Percent Auto 0.5 0 - 2 % [facility] NRBC Pct Auto 0.0 0.0 - 0.2 /100WBC [facility] Neutrophils Absolute Auto 5.4 2.0 - 8.3 x10*3/uL [facility] Imm Gran Abs Auto 0.02 0.00 - 0.03 X10*3/uL [facility] Lymphocytes Absolute Auto 3.1 1.2 - 4.9 X10*3/uL [facility] Monocytes Absolute Auto 0.8 0.1 - 1.2 X10*3/uL [facility] Eosinophils Absolute Auto 0.3 0.0 - 0.4 X10*3/uL [facility] Basophils Absolute Auto 0.1 0.0 - 0.2 X10*3/uL [facility] NRBC Abs Auto 0.000 0.0 - 0.012 X10*3/uL [facility] 07/21/2024 8:45 PM EDT 07/21/2024 8:49 PM EDT Generic External Data Provider LAB BLOOD ORDERAB LES Final Result Performing Organization Address City/[facility] Co de Phone Number [facility] [address] [place] [phone] * Magnesium (07/21/2024 8:45 PM EDT) Magnesium 2.0 1.6 - 2.6 mg/dL [facility] 07/21/2024 8:45 PM EDT 07/21/2024 8:49 PM EDT Generic External Data Provider LAB BLOOD ORDERAB LES Final Result Performing Organization Address [facility] Co de Phone Number [facility] [address] [place] [phone] * (ABNORMAL) Hepatic Function Panel (07/21/2024 8:45 PM EDT) Bilirubin, Total 0.2 0.0 - 1.0 mg/dL [facility] Bilirubin, Direct <0.2 0.0 - 0.5 mg/dL [facility] Aspartate Amino Transferase 23 5 - 31 U/L [facility] Alanine Aminotransferase 21 0 - 31 U/L [facility] Total Protein 6.3(L) 6.5 - 8.0 g/dL [facility] Albumin Level 3.6 3.5 - 5.0 g/dL [facility] Alkaline Phosphatase 62 39 - 117 U/L [facility] 07/21/2024 8:45 PM EDT 07/21/2024 8:49 PM EDT us Generic External Data Provider LAB BLOOD ORDERAB LES Final Result [facility] [address] [place] [phone] * (ABNORMAL) Basic Metabolic Panel (07/21/2024 8:45 PM EDT) Pathologist [facility] Sodium 141 135 - 145 mmol/L [facility] Potassium 3.9 3.3 - 5.1 mmol/L [facility] Chloride 109(H) 96 - 108 mmol/L [facility] Carbon Dioxide 23 22 - 29 mmol/L [facility] Anion Gap 13 12 - 20 [facility] Urea Nitrogen (BUN) 11 9 - 16 mg/dL [facility] Creatinine, Serum 0.80 0.5 - 1.4 mg/dL [facility] Creatinine Clr Calc Pharmacy 130.1 [facility] Comment:Provided height and weight: 175.26 cm,154.221 kg.eGFR (calculated from the MDRD study equation) and eCrCl(calculated from the Cockcroft-Gault equation) are based ondifferent parameters and may not yield comparable results.If eCrCl result is absurd, please check patient'sheight/weight. Estimated Glomerular Filt Rate >60 [facility] Comment:Chronic Kidney Disea se: Estimated GFR < 60 mL/min/1.38a8[place] Kidney Disease: Estimated GFR < 15 mL/min/1.73m2 Glucose 133(H) 60 - 115 mg/dL [facility] Calcium 8.2(L) 8.4 - 10.2 mg/dL [facility] 07/21/2024 8:45 PM EDT 07/21/2024 8:49 PM EDT Generic External Data Provider LAB BLOOD ORDERAB LES Final Result Performing Organization Address [facility] Co de Phone Number [facility] [address] [place] [phone] * POCT Rapid Influenza B CAMPBELL ID NOW (06/27/2024 11:40 AM EDT) Only the most recent of2 resultswithin the time period is included. Influenza B Negative Negative, Indeterminate [facility] QC Media Lot # [id number] [facility] Lot# Expiration Date [facility] Swab 06/27/2024 11:4 0 AM EDT Result [facility] POINT OF CARE TEST ENTER/ EDIT ORDERABLES Final Result Performing Organization Address [facility] Co de Phone Number [facility] [address] [place] [phone] * POCT Rapid Influenza A CAMPBELL ID NOW (06/27/2024 11:37 AM EDT) Only the most recent of2 resultswithin the time period is included. Influenza A Negative Negative, Indeterminate [facility] QC Media Lot # [id number] [facility] Lot# Expiration Date [facility] Swab 06/27/2024 11:3 7 AM EDT [facility] POINT OF CARE TEST ENTER/ EDIT ORDERABLES Final Result Performing Organization Address [facility]/ZIP Co de Phone Number [facility] [address] [place] [address] [phone] * POCT Rapid Covid-19 BinaxNOW (06/27/2024 11:24 AM EDT) Only the most recent of2 resultswithin the time period is included. Rapid COVID Ag Negative QC Media Lot # [id number] Lot# Expiration Date [id number] Swab 06/27/2024 11:2 4 AM EDT [facility] POINT OF CARE TEST ENTER/ EDIT ORDERABLES Final Result * BI Mammogram Screening Tomosynthesis Bilateral (05/08/2024 2:50 PM EST) Anatomical Region Laterality Modality Breast Bilateral Mammography 05/08/2024 2:50 PM EST Narrative 05/14/2024 5:39 PM EST ? [facility] [place] ? [address] ?[place] [address] ? Mammography Report ? Signed ? Patient: Senuta,Xochilt Leola ?MR#: [id number] ?? [id number] ? : 1970 ?Acct:[id number] ? Age/Sex: 53 / F ?ADM Date: 05/08/ ? Loc: HO.MAMMO ? Attending Dr: Kay Faust MD ? Ordering Physician: Kay Faust ?Results: 1Negative ? Date of Service: 05/08/ ?Follow Up: 1 Year From Orig ?? inal Mammogram ? Procedure(s): MM tomosynthesis screening BI ?? Accession Number(s): [id number] ? cc: Kay Faust ? EXAMINATION: ?? [...] ??05/14/2024 05:36 PM EST ? Dictated By: ?Heraclio,Mayuri DO ? Signed By: ?<Electronically signed by Mayuri Pulliam, DO in OV> ? 05/14/24 1736 ? DD/ 1450 ? TD/TT: 05/08/24 1505 ? Medical Consultant: ? Procedure Note Rambo Webster - 05/14/2024 [facility] [address] [place] [address] Mammography Report Signed Patient: Xochilt Thomas Ann#: [id number] : 1970Acct:[id number] Age/Sex: 53 / FADM Date: 05/08/24 Loc: HO.MAMMO Attending Dr: Kay Faust MD Ordering Physician: Amelia Faustults: 1Negative Date of Service: 05/08/24Follow Up: 1 Year From Orig ina Mammogram Procedure(s): MM tomosynthesis screening BI Accession Number(s): [id number] cc: Kay Faust EXAMINATION: MM SCREENING DIGITAL [...] by: Mayuri Pulliam DO 05/14/2024 05:36 PM [facility] Dictated By: Mayuri Pulliam DO Signed By: <Electronically signed by Mayuri Pulliam DO in OV> 05/14/24 1736 DD/ 1450 TD/TT: 05/08/24 1505 Medical Consultant: us Kay Faust MD IMG BI PROCEDURES Final Result * (ABNORMAL) Hemoglobin A1c (09/16/2023 3:42 PM EDT) Hemoglobin A1c 6.2(H) <6.0 % [facility] Comment:Hemoglobin A1C Refer ence Range Adults: 4.8 - 6.0 % Non diabetic: < 6.0 % Goal: < 7.0 %Additional Action Suggested: > 8.0 %Note: Hemoglobin A1c results are invalid for patients with abnormal amounts of HbF. Blood transfusions may impact the HbA1c concentration in the patient sample. Estimated Average Glucose 131 mg/dL [facility] Comment:eAG = Estimated ave rage glucose which is %A1C expressed asaverage glucose, using the formula of the M4F-DypcuyrHxvjocq Glucose study (ADAG), Diabetes Care, Vol.31,#8,Nov. 2007 09/16/2023 3:42 PM EDT 09/16/2023 3:42 PM EDT us aZne Harris MD LAB BLOOD ORDERABLES Final Resul t [facility] [address] [place] [phone] * Cologuard?? colon cancer screening (04/13/2023 11:53 AM EST) Cologuard Result Negative Negative 04/24/19 1:03 AM EST [facility] (CLIA #:[id number]) Comment: NEGATIVE TEST RESULT. A negative Cologuard [...] screened with both Cologuard and colonoscopy. (Farideh Longoria et al, N Engl J Med 2014;370(14):1286- 1297) The normal value (reference range) for this assay is negative. COLOGUARD RE-SCREENING RECOMMENDATION: Periodic colorectal cancer screening is an important part of preventive healthcare for asymptomatic individuals at average risk for colorectal cancer. ??Following a negative Cologuard result, the [place] [employer] and U.S. Multi-Society Task Force screening guidelines recommend a Cologuard re-screening interval of 3 years. References: [place] [employer] Guideline for Colorectal Cancer Screening: https://www.cancer.org/cancer/ujuyz-mmlhav-zilpfu/jsckfzmmw-cxiusfpsr-nskqvpi/ac s-rec ommendations.html.; Jose Manuel YI, Harpreet DUNNE, Bailee GEORGE, Colorectal Cancer Screening: Recommendations for Physicians and Patients from the U.S. Multi-Society Task Force on Colorectal Cancer Screening , Am J Gastroenterology 2017; 112:0321-6284. TEST DESCRIPTION: Composite algorithmic analysis of stool [...] Cope. et al, N Engl J Med 2014;370(14):4781-6875.) Cologuard may produce a false negative or false positive result (no colorectal cancer or precancerous polyp present at colonoscopy follow up). A negative Cologuard test result does not guarantee the absence of CRC or advanced adenoma (pre-cancer). The current Cologuard screening interval is every 3 years. ([place] [employer] and U.S. Multi-Society Task Force). Cologuard performance data in a 10,000 patient pivotal study using colonoscopy as the reference method can be accessed at the following location: www.Exent/results. Additional description of the Cologuard test process, warnings and precautions can be found at www.cologuard.com. Stool specimen (specimen) 04/13/2023 11:53 AM EST 04/14/2023 12:57 PM EST Kay Faust MD LAB MOLECULAR DIAGNOSTICS ORDE RABLES Final Result [facility] (CLIA #:[id number]) [address] [place] [address], * Hepatitis C Ab (02/28/2023 1:59 PM EST) Hepatitis C Antibody Nonreactive Nonreactive [facility] Comment:Antibodies to HCV no t detected; does not exclude early acuteHCV infection. Blood Venous blood specimen / Unknown 02/28/2023 1:59 PM EST 02/28/2023 4:15 PM EST Kay Faust MD LAB BLOOD ORDERABLES Final Res ult Performing Organization Address [facility]/ZIP Co de Phone Number [facility] [address] [place] [phone] * HIV-1/2 Antigen and Antibodies, Fourth Generation, with Reflexes (02/28/2023 1:59 PM EST) HIV AB/AG Nonreactive Nonreactive [facility] Comment:HIV-1 p24 Ag and/or HIV-1/HIV-2 Ab not detected.A test result that is nonreactive does not exclude thepossibility of exposure to or infection with HIV-1 and/orHIV-2. Nonreactive results in this assay for individualswith prior exposure to HIV-1 and/or HIV-2 may be due toantigen and antibody levels that are below the limit ofdetection of this assay.The Sensum HIV Ag/Ab Combo assay result andsupplemental assay results should be interpreted inconjunction with the patient's clinical presentation,history and other laboratory results. If the results areinconsistent with clinical evidence, additional testing issuggested to confirm the result. Blood Venous blood specimen / Unknown 02/28/2023 1:59 PM EST 02/28/2023 4:15 PM EST Kay Faust MD LAB BLOOD ORDERABLES Final Res ult Performing Organization Address [facility] Co de Phone Number [facility] [address] [place] [address] [phone] * (ABNORMAL) Lipid Panel, Standard (02/28/2023 1:59 PM EST) Triglycerides 232(H) <150 mg/dL [facility] Comment:Desirable Triglyceri de: less than 150 mg/dLBorderline High Triglyceride 150-199 mg/dLHigh Triglyceride: 200-499 mg/dLVery High Triglyceride: greater than or equal to 5OO mg/dL Cholesterol 186 <200 mg/dL [facility] Comment:Desirable Cholestero l: less than 200 mg/dLBorderline High Cholesterol: 200-239 mg/dLHigh Cholesterol: greater than 239 mg/dL LDL Cholesterol Calculated 93 <100 mg/dL [facility] Comment:Desirable LDL: less than 100 mg/dLNear Optimal/Above Optimal LDL: 110- 129 mg/dLBorderline High LDL: 130-159 mg/dLHigh LDL: 160-189 mg/dLVery High LDL: greater than or equal to 190 mg/dL HDL Cholesterol 47 >40 mg/dL [facility] Comment:Desirable HDL: great er than 40 mg/dL Note: This HDL assay may give artificially low results in patients with liver disease. Blood Venous blood specimen / Unknown 02/28/2023 1:59 PM EST 02/28/2023 4:15 PM EST Kay Faust MD LAB BLOOD ORDERABLES Final Res ult Performing Organization Address [facility] Co de Phone Number [facility] [address] [place] [address] [phone] * Hm Pap Smear (12/22/2020) Pap Negative for intraephithelial lesion or malignancy Negative for intraephithelial lesion or malignancy, Other HPV Not Detected Undetected, Indeterminate, Quantitative, Not Detected us Historical Provider HEALTH MAINTENANCE Final Result from Last 3 Months or Most Recently Relevant to Health Maintenance Insurance [employer] Care Teams Presto Log Operator Relationship Specialty Start Date End Date Kay Faust MD [address] [place] [phone] PCP - General Family Medicine 12/02/22
--- OUTSIDE RECORDS SUMMARY | 2024-08-07 09:05 | XMS_ITS | Encounter Summary ---
Author Organization [employer] Address [address] [facility] 7 [place] [address] Care Team Providers Care Pool Technician Name Role Phone Kay Faust MD Primary Care Provider [phone] Reason for Visit * Reason Onset Date Comments Med Refill 08/20/2023 Encounter Details Date Type Department Care Team (Late st Contact Info) Description 08/20/2023 Refill [facility] [address] [place], [place] [phone] Kay Faust MD [address] [place], [place] [phone] Moderate persistent asthma without complication Social History [...] Description 08/07/2024 1:45 PM EDT Office Visit [facility] [address] [place] [address] Shanda Mccarthy, OD [address] [place] [address] 09/28/2024 9:30 AM EDT Office Visit [facility] [address] [place] [address] Bindu Aceves MD [address] [place] [address] documented as of this encounter Visit Diagnoses Diagnosis Moderate persistent asthma without complication documented in this encounter Additional Health Concerns Assessment Noted Time PHQ-9 Depression Total Score: 0 02/29/20 23 1:21 PM EST documented as of this encounter Care Teams Pool Technician Relationship Specialty Start Date End Date Kay Faust MD [address] [place] [phone] PCP - General Family Medicine 12/02/22 documented as of this encounter
--- OUTSIDE RECORDS SUMMARY | 2024-08-07 09:05 | XMS_ITS | Encounter Summary ---
Author Organization [employer] Address [address] [facility] 7 [place] [address] Care Team Providers Care Premium Representative Name Role Phone Kay Faust MD Primary Care Provider [phone] Reason for Visit * Reason Onset Date Comments Med Refill 09/14/2023 Encounter Details Date Type Department Care Team (Late st Contact Info) Description 09/14/2023 Refill [facility] [address] [place], [place] [phone] Kay Faust MD [address] [place], [place] [phone] Social History Tobacco Use Types Packs/Day Years [...] 1:45 PM EDT Office Visit [facility] [address] [place] [address] TarShanda sena, OD [address] [place] [address] 09/28/2024 9:30 AM EDT Office Visit [facility] [address] [place] [address] Bindu Aceves MD [address] [place] [address] documented as of this encounter Visit Diagnoses Not on filedocumented in this encounter Additional Health Concerns Assessment Noted Time PHQ-9 Depression Total Score: 0 02/29/20 23 1:21 PM EST documented as of this encounter Care Teams Premium Representative Relationship Specialty Start Date End Date Kay Faust MD [address] [place] [address] PCP - General Family Medicine 12/02/22 documented as of this encounter
--- OUTSIDE RECORDS SUMMARY | 2024-08-07 09:05 | XMS_ITS | Clinical Summary ---
Author Organization [facility] it Address [address] [place] [address] Care Team Providers Care Floor Trader Name Role Phone Jagdish Evans MD Primary Care Provider [phone] Allergies No known active allergies Medications albuterol [...] mas s index of 50.0-59.9 in adult ([facility] V24, [facility] V28) 04/09/2024 Cyst of right ovary 06/06/2020 [...] Breast cancer risk category Low (<15%) Result [facility] Erica Richardsonnz CNM IMG XR PROCEDURES Final Result * (ABNORMAL) Lipid panel (09/12/2018) [facility] LDL/HDL Ratio 5(A) 0 - 4 Triglycerides 484(A) 0 - 150 mg/dL Cholesterol 185 0 - 200 mg/dL HDL 40 >=40 mg/dL LDL Cholesterol 49 0 - 100 mg/dL Blood Venous blood specimen / Unknown Result [facility] Historical Provider LAB BLOOD ORDERABLES Sudha l Result * HIV Screening (05/25/2016) [facility] HIV Screening Abstracted Result [facility] Provider HEALTH MAINTENANCE Final Result * Hepatitis C Screening (05/25/2016) [facility] Hepatitis C Screening Abstracted Result [facility] Historical Provider HEALTH MAINTENANCE Final Result from Last 3 Months or Most Recently Relevant to Health Maintenance Care Teams Floor Trader Relationship Specialty Start Date End Date Jagdish Evans MD PCP - General Internal Medicine 05/13/14
--- OUTSIDE RECORDS SUMMARY | 2024-08-07 09:05 | XMS_ITS | Data Portability ---
Author Organization [facility] [address] Address [address] [place] [address] Assessment Encounter Date Assessment Date Assessment LastModified by Organization Details LastModified Time 05/04/2022 05/04/2022 Viral illness is likely, consider flu like illness. Symptomatic treatment reviewed, letter for work Not available 05/04/2022 11:39:55 Plan of Treatment Reminders Order Date Submit Date Provider Last Modified By Organization Details Last Modified Time Details Appointments None recorded. Lab rapid flu (A+B) 2022 0[address] [facility], [address] [place] [address], [place], [address], 11:35:29 Referral None recorded. Procedures None recorded. Surgeries None recorded. Imaging None recorded. Medication Orders prednisone 10 mg tablet 2022 023 [facility] #[id number], [address] [place], [address], 3 09:15:59 olopatadine 0.1 % eye drops [address] [facility][id number], [address] [place], [address], 3 09:15:59 Patient TargetsNo targets recorded. Patient Instructions Encounter Date Encounter Id Patient Instructions Last Modified By Organization Details Last Modified Time 05/04/2022 [id number] nausea and vomiting: care instructions Not available [...] ear pain Not available 05/04/2022 11:40:17 06/29/2022 [id number] You are having a n asthma exacerbation [...] 5. light headedness. Thank you for using [facility] today - please don't hesitate to contact up or return to see if you have any questions or concerns. [email or web address] Not available 06/29/2022 09:14:38 Reason for Referral None Reported. Results Created Date Observation Date Name Description Value Unit Range Abnormal Flag Note LastModifiedBy Organization Detail LastModifiedTime 05/04/19 23 05/04/2022 rapid flu (A+B) Unknown Analyte Normal = Negati ve Not Available _juan pablo ruiz [address] [place], [address], 05/04/2022 11:00:32 05/04/19 23 05/04/2022 rapid flu (A+B) Unknown Analyte Normal = Negati ve Not Available _juan pablo ruiz [address] [place], [address], 05/04/2022 11:00:32 05/04/19 23 05/04/2022 rapid flu (A+B) Unknown Analyte negati ve Not Available [address]juan pablo ruiz [address] [place], [address], 05/04/2022 11:00:32 05/04/19 23 05/04/2022 rapid flu (A+B) Unknown Analyte negati ve Not Available [address]ju[facility] [address] ruiz [address], [address], 05/04/2022 11:00:32 Result Notes None recorded. Problems Name Problem SNOMED Code Status Onset Date Resolution Date Notes Provider Name and Address Organization Details Recorded Time Asthma 804770878 Active 023 FITO Juarez null, [place] - [facility] 3 10:57:54 Acid reflux 279830843 Active 023 IRIS ARELY Juarez null, PA - [facility] 3 10:59:16 Arthritis 6297139 Active 023 FITO Juarez null, PA - [...] Updated DateTime 3 175.26 cm 49.5 kg/m2 030334. 44 g 5 20 /min 74 /min 99 % 99 % 97.8 [degF] 163 mm[Hg] 93 mm[Hg] Sandra Marlow PA - [facility] 3 08:35:50 Date Recorded Body height Body mass index (BMI) Body weight Body temperature Respiratory rate Heart rate Oxygen saturation Oxygen saturation in Arterial blood by Pulse oximetry Systolic blood pressure Diastolic blood pressure Provider Name and Address Organization Details Last Updated DateTime 3 175.26 cm 49.5 kg/m2 738691. 44 g 98.4 [degF] 20 /min 68 [...] Influenza, MDCK, quadrivalent, PF 1 completed Sandra [place] null, PA - [facility] 06/29/2022 08:32:41 Influenza, MDCK, quadrivalent, preservative 8 completed Sandra [place] null, PA - [facility] 06/29/2022 08:32:41 COVID-19, mRNA, LNP-S, PF, 100 mcg/0.5mL dose or 50 mcg/0.25mL dose 2 completed Sandra [place] null, PA - [facility] 06/29/2022 08:32:41 COVID-19, mRNA, LNP-S, PF, 100 mcg/0.5mL dose or 50 mcg/0.25mL dose 1 completed Sandra [place] null, PA - [facility] 06/29/2022 08:32:41 COVID-19, mRNA, LNP-S, PF, 100 mcg/0.5mL dose or 50 mcg/0.25mL dose 1 completed Sandra [place] null, PA - [facility] 06/29/2022 08:32:41 COVID-19, mRNA, LNP-S, PF, 100 mcg/0.5mL dose or 50 mcg/0.25mL dose 1 completed Sandra Ele null, PA - [facility] 06/29/2022 08:32:41 COVID-19, mRNA, LNP-S, bivalent, PF, 30 mcg/0.3 mL dose 2 completed Sandra Ele null, PA - [facility] 06/29/2022 08:32:41 pneumococcal polysaccharide PPV23 6 completed Sandra [place] null, PA - [facility] 06/29/2022 08:32:42 Tdap 5 completed Sandra [place] null, PA - [facility] 06/29/2022 08:32:42 Influenza, split virus, trivalent, preservative 4 completed Sandra [place] null, PA - [facility] 06/29/2022 08:32:42 Influenza, split virus, trivalent, preservative 0 completed Sandra Ele null, PA - [facility] 06/29/2022 08:32:42 Influenza, split virus, trivalent, preservative 6 completed Sandra Ele null, PA - [facility] 06/29/2022 08:32:42 Influenza, split virus, trivalent, preservative 4 completed Sandra Ele null, PA - [facility] 06/29/2022 08:32:42 Influenza, split virus, trivalent, preservative 5 completed Sandra [place] null, PA - [facility] 06/29/2022 08:32:42 Influenza, split virus, quadrivalent, PF 2 completed Sandra Ele null, PA - [facility] 06/29/2022 08:32:42 Past Encounters Encounter ID Performer Location Encounter Start Date Encounter Closed Date Diagnosis/Indication Diagnosis SNOMED-CT Code Diagnosis ICD10 Code Diagnosis Note [id number] [address] [place] [address] 06/18/2021 09:28:53 06/18/2021 09:59:33 [id number] [address] [place] [address] 06/12/2019 10:34:03 06/12/2019 11:28:10 [id number] [address] [place] [address] 02/02/2021 09:16:12 02/02/2021 10:55:41 [id number] [address] [place] [address] 07/12/2017 09:26:55 07/12/2017 10:50:42 [id number] [address] [place] [address] 09/23/2020 16:41:56 09/23/2020 18:08:22 [id number] [address] [place] [address] 01/31/2018 10:45:03 01/31/2018 13:27:29 [id number] [address] [place] [address] 11/09/2019 08:07:21 11/09/2019 09:09:00 [id number] [address] [place] [address] 08/06/2021 10:08:32 08/06/2021 13:38:40 [id number] [place]hash [place] [address] [place] [address] 05/04/2022 10:38:50 05/04/2022 11:38:10 Acute upper respiratory infection 35351620 J06.9 [id number] KILO MONTEIRO [address] [place] [address] 06/29/2022 08:23:26 06/29/2022 09:17:45 Elevated blood-pressure reading without diagnosis of hypertension 348705838 R03.0 You blood pressure was elevated during [...] the results of your journal. Allergic rhinitis 767648 04 J30.9 Allergic conjunctivitis 078761148 H10.13 Exacerbati on of intermittent asthma 444506646 J45.21 follow up with your pulmonolog ist [...] Kaur Member ID Guarantor Name 06/18/2021 1 [facility] [id number] Oxchilt A Senuta [id number] Xochilt A Senuta 08/06/2021 1 [facility] [id number] Xochilt A Senuta [id number] Xochilt A Senuta 05/04/2022 1 [facility] [id number] Xochilt A Senuta [id number] Xochilt A Senuta 06/29/2022 1 [facility] [id number] Xochilt Thomas [id number] Xochilt Thomas Notes Date Note Type Note Provider Name and Address Organization Details Recorded Time 05/04/2022 text/html Not feeling well x 3 days: cough, body aches, R ear pain, N/V x 2 yesterdayCovid negative yesterday. Taking Tylenol, Robitussin DM. Sleep disturbed by body aches. Subhash Gaines DO [address] [facility] [place], [id number], [place] [facility] 05/04/2022 11:40:33 06/29/2022 text/html Sinus [...] Feeling bad. Nebulizer machine is broken. 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 Denies fever. Looking for relief. KILO MONTEIRO [address] [place], [address], [place] [facility] 06/29/2022 09:19:38 OBGyn Episode No OBEpisode recorded.
--- OUTSIDE RECORDS SUMMARY | 2024-08-07 09:05 | XMS_ITS | Encounter Summary ---
Author Organization [employer] Address [address] [facility] [address]t [place] [address] Care Team Providers Care Crime Investigator Special Agent Name Role Phone Kay Faust MD Primary Care Provider [phone] Encounter Details Date Type Department Care Team ([facility] st Contact Info) Description 05/18/2023 Telephone [facility] MEDICINE [address] [place], [place] [phone] Zane Harris MD [address] [place], [place] [phone] Social History Tobacco Use Types Packs/Day Years [...] Description 08/07/2024 1:45 PM EDT Office Visit [facility] OPTOMETRY [address] [place] [address] Shanda Mccarthy, OD [address] [place] [address] 09/28/2024 9:30 AM EDT Office Visit [facility] MEDICINE [address] [place] [address] Bindu Aceves MD [address] [place] [address] documented as of this encounter Visit Diagnoses Not on filedocumented in this encounter Additional Health Concerns Assessment Noted Time PHQ-9 Depression Total Score: 0 02/29/20 23 1:21 PM EST documented as of this encounter Care Teams Crime Investigator Special Agent Relationship Specialty Start Date End Date Kay Faust MD [address] [place] [address] PCP - General Family Medicine 12/02/22 documented as of this encounter
--- OUTSIDE RECORDS SUMMARY | 2024-08-07 09:06 | XMS_ITS | Encounter Summary ---
Author Organization [employer] Address [address] [facility] 7t [place] [address] Care Team Providers Care Director Of Emergency Nursing Name Role Phone Kay Faust MD Primary Care Provider [phone] Encounter Details Date Type Department Care Team ([facility] st Contact Info) Description 05/28/2024 Orders Only [facility] MEDICINE [address] [place], [place] [phone] Kay Faust MD [address] [place], [place] [phone] Social History Tobacco Use Types Packs/Day Years [...] Office Visit [facility] OPTOMETRY [address] [place], [place] [phone] Tarka, Shanda, OD [address] [place] [address] 09/28/2024 9:30 AM EDT Office Visit [facility] MEDICINE [address] [place] [address] Bindu Aceves MD [address] [place] [address] documented as of this encounter Visit Diagnoses Not on filedocumented in this encounter Additional Health Concerns Assessment Noted Time PHQ-9 Depression Total Score: 0 02/29/20 1:21 PM EST documented as of this encounter Care Teams Director Of Emergency Nursing Relationship Specialty Start Date End Date Kay Faust MD [address] [place] [address] PCP - General Family Medicine 12/02/22 documented as of this encounter
--- OUTSIDE RECORDS SUMMARY | 2024-08-07 09:06 | XMS_ITS | Encounter Summary ---
Author Organization [employer] Address [address] [facility] [address] [place] [address] Care Team Providers Care Concrete Polisher Name Role Phone Kay Faust MD Primary Care Provider [phone] Reason for Visit * Reason Comments Med Refill Encounter Details Date Type Department Care Team ([facility] st Contact Info) Description 11/16/2023 Refill [facility] MEDICINE [address] [place], [place] [phone] Kay Faust MD [address] [place], [place] [phone] Moderate persistent asthma without complication Social History [...] Description 08/07/2024 1:45 PM EDT Office Visit [facility] OPTOMETRY [address] [place] [address] Shanda Mccarthy, OD [address] [place] [address] 09/28/2024 9:30 AM EDT Office Visit [facility] MEDICINE [address] [place] [address] Bindu Aceves MD [address] [place] [address] documented as of this encounter Visit Diagnoses Diagnosis Moderate persistent asthma without complication documented in this encounter Additional Health Concerns Assessment Noted Time PHQ-9 Depression Total Score: 0 02/29/20 23 1:21 PM EST documented as of this encounter Care Teams Concrete Polisher Relationship Specialty Start Date End Date Kay Faust MD [address] [place] [address] PCP - General Family Medicine 12/02/22 documented as of this encounter
--- NOTE | 2024-08-08 08:14 | A.OFFVIS_ITS ---
Vital Signs 08/08/24 08:18 Height 5 ft 9 in Pulse 83 Pulse Source Pulse Oximeter Pulse Oximetry (%) 97 Oxygen Delivery Method Room Air Intake Visit Reasons: dupixent teaching Allergies No Known Allergies Allergy (Unknown, Verified 08/08/24 08:18) Medication List - Last Reconciled 08/08/24 by Lorena Mazariegos LPN albuterol sulfate 90 mcg/actuation (ProAir HFA) 2 puffs inhalation Q4H PRN albuterol sulfate mg inhalation Q6H PRN cetirizine 10 mg PO DAILY cyclobenzaprine 5 mg PO TID PRN dupilumab (Dupixent) loading dose: 600mg SC x 1, then 300mg SC every 2 weeks 4 weeks fluticasone propion-salmeterol 500-50 mcg/dose (Wixela Inhub) 1 inh inhalation Q12H 30 days ipratropium-albuterol 0.5 mg-3 mg(2.5 mg base)/3 mL mL inhalation Q8H PRN ketorolac 10 mg PO Q8H PRN losartan 100 mg PO DAILY montelukast (Singulair) 10 mg PO DAILY nebulizers As directed olopatadine 0.1% 1 drp ophthalmic (eye) BID omeprazole 40 mg PO DAILY@0630 prednisone PO daily; Take 2 tabs daily x 5 days, then 1 tablet daily x 5 days 10 days umeclidinium 62.5 mcg/actuation (Incruse Ellipta) 1 inh inhalation DAILY 30 days HPI Comments Details: Xochilt? is here for a Dupixent teach she was educated on hand washing, injection preparation, administration, and disposal.?Xochilt was able to return demonstrate proper technique for hand washing, injection preparation, administration and disposal of needle and states she has no questions at this time. Medication Du pixent 300mg/2mL autoinjector (patient?s own meds) Loading dose of 600mg given by the patient in 2 SQ injections; injection #1 L abdomen ;? injection #2 R abdomen Lot# [id number] expires 01/01/2025. Patient aware her next injection is in 15 days. Nurse visit only.? PFSH Medical History Allergic Allergies GERD (gastroesophageal reflux disease) Back pain Asthma Social History Household Members: Significant Other Housing: House Do you presently have visiting nurse or other home services: No Alcohol intake: never Patient Tobacco Use Status: Former Tobacco user Tobacco use type: Cigarette Second Hand Smoke Exposure: No service: No Physical Exam Vital Signs: Last Vital Signs Pulse 83 08/08/24 08:18 Pulse Ox 97 08/08/24 08:18 Oxygen Delivery Method Room Air 08/08/24 08:18 Assessment & Plan Assessment & Plan (1) Asthma: Code(s): J45.909 - Unspecified asthma, uncomplicated Category: Medical Qualifiers: Asthma complication type: uncomplicated Asthma persistence: persistent Asthma severity: severe Qualified Code(s): J45.50 - Severe persistent asthma, uncomplicated Plan Dupixent Coding Level of Care Code Established Pt Est Pt Level 1 (04901) Patient Type Established Diagnoses Severe persistent asthma without complication J45.50 Asthma complication type: uncomplicated Asthma persistence: persistent Asthma severity: severe Comment NURSE VISIT ONLY
[2024-08-08 08:18] VITALS: PULSE 83; O2SAT 97
== END 2024-08-07 09:37 | disposition home or self-care (01) ==
PROVIDERS: PCP General Practice; Visit Provider Hospitalist
DX: J45.50 Severe persistent asthma, uncomplicated (principal)

== ENCOUNTER → 2024-08-07 08:39 | Outpatient (BNVA) | payer OTHER, SELFPAY | PROVIDERS: PCP General Practice; Visit Provider Hospitalist | DX: J45.50 Severe persistent asthma, uncomplicated (principal) | CPT/HCPCS: 99211 ==

== ENCOUNTER 2024-09-17 15:06 | Outpatient (AMB) | payer OTHER, SELFPAY ==
[2024-09-17 15:10] VITALS: BP 158/88; PULSE 74; O2SAT 97; BMI 52.2
--- NOTE | 2024-09-17 15:10 | A.OFFVIS_ITS ---
Vital Signs 09/17/24 15:10 Height 5 ft 9 in Weight 353 lb 13.471 oz BMI 52.2 BP 158/88 H Blood Pressure Location Lt brachial Position Sitting Pulse 74 Pulse Source Pulse Oximeter Pulse Oximetry (%) 97 Oxygen Delivery Method Room Air Intake Visit Reasons: asthma Health And Wellness Coach Required: No Accompanied by: Self / Same As Patient Allergies No Known Allergies Allergy (Unknown, Verified 09/17/24 15:14) HPI Comments Details: The patient is a 53 year woman with known severe persistent athma. she started with asthma. She had been followed closely by [facility] for many years. Although for the last several months she has been to the ER urgent care at least once or twice a month. She is required prednisone regularly. She feels like her asthma is not controlled. Currently she feels better and even a based on she does have some underlying wheezing. The patient has tried numerous inhalers. Usually the nebulizer more effective for her she does use it to 3 times a day. The patient may be a candidate for biologics in view of her severe persistent asthma that is poorly controlled at this time. Will go ahead and request blood work and will go ahead and try to maximize respiratory therapy for now she is also limited by financial expenses. Inhalers very expensive and therefore hard for her to manage the expenses. therefore, will be consider it with her financial limitations as well. I did reassure her that if she does qualify biologics we can try to get her some patient assistance. 01/05/2024 the patient is here for pulmonary follow-up visit. She is still having hard time with breathing. Still has significant symptoms on a daily basis. I did send her Wixela to the pharmacy. She ended up getting some Breo which is fine. Although still not effective for her. Will go ahead and optimize her therapy to [facility] at this time. We did look at her blood work. She has significant allergies with an elevated eosinophil count and also an elevated IgE count. She has severe persistent asthma with multiple exacerbations even this year. The patient will benefit from biologic therapy. I believe Dupixent would be a good option if she continues to be symptomatic and not responsive to respiratory therapy. She had to undergo pulmonary function s tudies. In the meantime the patient he has been complaining of a cough and also a itching sensation of her throat. Explained to her the importance of coming off the ANGELIQUE-inhibitor switching over to an ARB. She will call her primary care doctor. Otherwise if her symptoms worsen she can always call me and I can always switch her for now. Therefore, she will start the Trelegy and the next visit we can talk about biologic therapy. Symptoms are only getting worse she can always call me again start the process at earlier time. 06/18/2024 the patient is here for a pulmonary follow-up visit. Overall she is doing fair. She has had significant issues with breathing. Significant wheezing and multiple visits to urgent care and her primary care requiring prednisone. She is still having wheezing right now. She was not able to get the Trelegy but she has been on the Wixela at the higher dose. She is still having have to use her rescue inhaler on a daily basis. In addition to that she developed the dermatitis of an unclear etiology. We did look at her blood work and it looks as she does have significant eosinophilia and also significant elevations in her IgE from her allergies. Therefore based on the fact that she has atopic dermatitis severe asthma and not responding to respiratory therapy and requiring prednisone frequently she will be a great candidate for Dupixent. I will send a request to our nurse to start the process for authorization to start the Dupixent at this time. In the meantime also some prednisone to to start it also Incruse to further maximize her respiratory capacity. She will continue with the allergy medicines. The patient follow-up in 3-4 months. If she has any issues before that she will call for an earlier assessment. 09/17/2024 the patient is here for pulmonary follow-up visit. Since we last spoke she started the Dupixent. She has noticed already improvement in his allergy symptoms however she continues have significant asthma symptoms. She did also been using the Wixela and the Incruse on a regular basis. Although she still needs albuterol as well frequently. Sometimes she does not need her nebulizer machine. Last night she woke up short of breath and she had to use her nebulizer. She was tired this morning she could not go to work. She currently not on prednisone which is reassuring. I am hopeful that the Dupixent starts working a little better for her to see some improvement. It may take some time because of the severity of her asthma. The patient did have pulmonary function studies demonstrating a moderate fixed obstruction without any significant response to bronchodilators likely due to the chronicity of her asthma. Will go ahead and switch her over to Brovana and budesonide instead of Wixela in order to provide a different administration of the medication with the hopes that it can improve her broncho spastic disease. She will continue the Incruse for now. Will follow-up in 3-4 months. If she has any concerns or worsening issues she had can always call for an earlier assessment. [facility] Medical History Allergic Allergies GERD (gastroesophageal reflux disease) Back pain Asthma Social History Household Members: Significant Other Housing: House Do you presently have visiting nurse or other home services: No Alcohol intake: never Patient Tobacco Use Status: Former Tobacco user Tobacco use type: Cigarette Second Hand Smoke Exposure: No service: No Review of Systems Const Denies fever(s) Eyes Reports no additional complaints ENT Reports nasal congestion Card Denies chest pain and Reports dyspnea on exertion Resp Reports cough, Reports dyspnea on exertion and Reports wheezing GI Reports no additional complaints Musc Reports no additional complaints Skin/Breast Denies rash Endo Reports no additional complaints Aller/Immun Reports wheezing Physical Exam Vital Signs: Last Vital Signs Pulse 74 09/17/24 15:10 BP 158/88 H 09/17/24 15:10 Pulse Ox 97 09/17/24 15:10 Oxygen Delivery Method Room Air 09/17/24 15:10 BMI result Body Mass Index 52.2 Const General: comfortable HEENT Head: Yes normocephalic Neck Neck: Yes supple Chest Chest palpation & inspection: normal inspection of the chest Resp Effort & Inspection: normal respiratory effort and prolonged expiratory phase Auscultation: wheezes Cardio Heart sounds: S1 normal heart sound present and S2 normal heart sound present GI Palpation (GI): Soft to palpation Skin General skin exam: no rashes or lesions noted Extrem General: No clubbing Assessment & Plan Assessment & Plan (1) Asthma: Code(s): J45.909 - Unspecified asthma, uncomplicated Category: Medical Qualifiers: Asthma complication type: uncomplicated Asthma persistence: persistent Asthma severity: severe Qualified Code(s): J45.50 - Severe persistent asthma, uncomplicated (2) Allergies: Code(s): T78.40XA - Allergy, unspecified, initial encounter Category: Medical Qualifiers: Encounter type: initial encounter Qualified Code(s): T78.40XA - Allergy, unspecified, initial encounter Plan stop Wixela start BUdeside nebs BID start Brovana nebs BID continue Incruse SUN as needed continue Dupixent conitnue Singulair continue Xyzyl F/U 2-3 months Medications: New budesonide 0.5 mg (2 mL) inhalation BID 120 mL 11RF 30 days J44.9 - Chronic obstructive pulmonary disease, unspecified arformoterol (Brovana) 2 mL inhalation Q12H 120 mL 11RF 30 days J44.9 - Chronic obstructive pulmonary disease, unspecified Refilled umeclidinium 62.5 mcg/actuation (Incruse Ellipta) 1 inh inhalation DAILY 30 ea 11RF 30 days J45.909 - Unspecified asthma, uncomplicated Discontinued fluticasone propion-salmeterol 500-50 mcg/dose (Wixela Inhub) Discontinued Reason: Duplicate 1 inh inhalation Q12H 30 days 60 ea 11RF Coding Level of Care Code Est Pt Level 4 (95909) Complex EM visit Add On G2211 Diagnoses Severe persistent asthma without complication J45.50 Asthma complication type: uncomplicated Asthma persistence: persistent Asthma severity: severe Allergy, initial encounter T78.40XA Encounter type: initial encounter Time Spent (min) 17
--- OUTSIDE RECORDS SUMMARY | 2024-09-17 16:55 | XMS_ITS | Clinical Summary ---
Author Organization [employer] Address [address] [facility] 7[address] [place] [address] Care Team Providers Care Mash Processing Operator Name Role Phone Kay Faust MD Primary Care Provider [phone] Allergies No known active allergies Medications fluticasone (Flonase) 50 MCG/ACT nasal spray Administer 1 spray into each nostril Once per day. 16 g 2 11/02/19 24 Active sodium chloride (Rich Nasal Corder) 0.65 % nasal spray Administer 1 spray into each nostril if needed for congestion. 30 mL 12 12/09/19 24 2024 Active montelukast (Singulair) 10 MG tablet TAKE 1 TABLET BY MOUTH ONCE DAILY 90 tablet 3 01/06/20 24 Active albuterol 108 (90 Base) MCG/ACT inhalerIndicati ons:Severe persistent asthma without complication Inhale 2 puffs every 4 (four) hours if needed for wheezing or shortness of breath. 36 g 11 02/20/20 24 2024 Active ipratropium-alb uterol (Duo-Neb) 0.5-2.5 mg/3 mL nebulizer solutionIndicat ions:Severe persistent asthma with exacerbation Take 3 mL by nebulization every 8 (eight) hours if needed for wheezing or shortness of breath. 180 mL 11 04/05/19 25 2025 Active albuterol (2.5 MG/3ML) 0.083% nebulizer solutionIndicat ions:Severe persistent asthma with exacerbation Take 3 mL (2.5 mg) by nebulization every 6 (six) hours if needed for wheezing. 75 mL 11 04/05/19 25 2025 Active losartan (Cozaar) 100 MG tablet Take 1 tablet (100 mg) by mouth Once per day. 90 tablet 3 05/28/19 25 2025 Active SUMAtriptan (Imitrex) 25 MG tabletIndicatio ns:Acute intractable headache, unspecified headache type Take 1 tablet (25 mg) by mouth 1 (one) time if needed for migraine for up to 1 dose. May repeat dose once in 2 hours if no relief. Do not exceed 2 doses in 24 hours. 9 tablet 06/28/19 25 Active omeprazole (PriLOSEC) [address] capsule Take 1 capsule (40 mg) by mouth before breakfast. Do not crush or chew. 90 capsule 3 08/14/19 25 2025 Active levocetirizine (Xyzal Allergy 24HR) 5 MG tablet Take 1 tablet (5 mg) by mouth in the evening. 30 tablet 08/15/19 25 2025 Active ammonium lactate (Amlactin) 12 % cream Apply topically if needed for dry skin. 145 g 08/15/19 25 2025 Active triamcinolone (Kenalog) 0.1 % cream Apply topically Once per day. 30 g 08/15/19 25 Active amLODIPine (Norvasc) 5 MG tablet Take 1 tablet (5 mg) by mouth Once per day. 30 tablet 1 08/15/19 25 2025 Active Wixela Inhub 500-50 MCG/ACT aerosol powder INHALE 1 PUFF BY MOUTH TWICE DAILY. RINSE MOUTH AFTER USING. 60 each 2 09/01/19 25 Active Fluticasone-Jose G meterol (Wixela Inhub) 500-50 MCG/ACT aerosol powder Inhale 1 Inhalation. 2 times daily. 60 each 2 03/13/20 24 2024 Discontinued methylPREDNISol one (Medrol Dospak) 4 MG tablets Follow schedule on package instructions 21 tablet 08/15/19 25 2024 Active Problems Problem Noted Date Diagnosed Date Dyslipidemia 04/09/2024 Moderate persistent asthma with exacerbation Assessment & Plan (08/14/2024 6:52 PM EDT): Medrol pack x 1 week Continue Dupixent next week + Wixela inhaler + DuoNeb nebs every 6 hours + Singulair Assessment & Plan (06/05/2024 7:03 PM EST): [...] Metformin HTN (hypertension) 03/03/2023 Assessment & Plan (08/14/2024 6:53 PM EDT): Uncontrolled, I will add amlodipine 5 mg, continue losartan and follow-up in 2 to 3 weeks 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 Assessment & Plan (06/05/2024 7:02 PM EST): [...] fall and winter 2022 Will refer to [facility] for pulmonology [facility] paperwork completed for work Continue Breo, SUN prn Consider smoking cessation Assessment & Plan (03/03/2023 12:37 PM EST): [place] paperwork completed for work Assessment & Plan (11/27/2022 2:02 PM EDT): continue Breo, SUN Trigger avoidance Has regular pulm f/u Educated about WIC for exacerbation Seasonal allergies 11/27/2022 Assessment & Plan (08/14/2024 6:54 PM EDT): DC cetirizine start Xyzal Continue Flonase and ketotifen eyedrops Advised to take a shower and take of her close as soon as she gets home, she can use triamcinolone cream + Eucerin or CeraVe cream on face once per day only x 1 week max. Follow-up with PCP Assessment & Plan (11/27/2022 2:02 PM EDT): [...] Encounters Date Type Department Care Team Description 09/11/2024 Patient Outreach [facility] [address] [place] [phone] Kay Faust MD Pre-visit Planning ((Unable to reach for PVP screening, LVM)) 09/04/2024 3:00 PM EDT Clinical Support [facility] [address] [place] [phone] Salomon Calix RN Primary hypertension [I10] 09/04/2024 Travel 08/30/2024 Refill [facility] [address] [place] [phone] Jet Arechiga MD 08/14/2024 6:40 PM EDT Office Visit [facility]ALKIN [address] [address] Abby Diego MD Moderate persistent asthma with exacerbation (Primary Dx); Seasonal allergies; Primary hypertension 08/10/2024 Refill [facility] [address] [place] [phone] Kay Faust MD 08/07/2024 1:45 PM EDT Office Visit [facility] OPTOMETRY [address] [place] [phone] Shanda Mccarthy, OD Presbyopia (Primary Dx); Moll gland cyst of left eye 08/07/2024 Travel 07/21/2024 Orders Only GENERIC EXTERNAL DATA DEPARTMENT Provider, Generic External Data 07/12/2024 Telephone [facility] [address] [place] [phone] Kay Faust MD recall 06/29/2024 Telephone [facility] [address] [place] [address] Kay Faust MD 06/27/2024 11:00 AM EDT Office Visit [address] [address] [place], [place], [employer] Acute intractable headache, unspecified headache type (Primary Dx); Severe persistent asthma with exacerbation; Acute sinusitis, recurrence not specified, unspecified location 06/27/2024 Travel 06/27/2024 Telephone [facility] [address] [place] [address] Kay Faust MD Nurse Triage from Last 3 Months Immunizations Immunization Administration Dates Next Due INFLUENZA INJECTABLE QUADRIV ALANT CCIIV4 MDCK Multi-dose vial 01/22/2018,02/06/2017 Influenza Injectable Quadriv alant Preservative Free IIV4 MDCK 01/10/2021,12/15/2018 Influenza injectable quadriv alent preservative free 02/05/2022 Influenza, IIV3, injectable 02/05/2022,0 12/18/2019,01/11/2016,01/24,01/22/2014,04/16/2013 Influenza, seasonal, injecta ble, preservative free 02/16/2024 Pneumococcal Conjugate PCV 20 02/16/2024 Pneumococcal Polysaccharide PPSV23 05/02/2015 Tdap 01/30/2015 Family History Medical History Relation Name Comments Glaucoma Other Nephew Relation Name Status Comments Other Nephew Social History Tobacco Use Types Packs/Day Years [...] Sign Reading Time Taken Comments Blood Pressure 142/78 09/04/2024 3:31 PM EDT Pulse 93 08/14/2024 6:10 PM EDT Temperature 36.4 ??C (97.5 ??F) 08/14/2024 6:10 PM ED T Respiratory Rate 20 06/27/2024 11:12 AM EDT Oxygen Saturation 98% 08/14/2024 6:10 PM EDT RA Inhaled Oxygen Concentration - - Weight 156 kg (345 lb) 06/27/2024 11:12 AM EDT Height 175.3 cm (5' 9 ) 06/27/2024 11:12 AM EDT Body Mass Index 50.95 06/27/2024 11:12 AM EDT Plan of Treatment Upcoming Encounters Date Type Department Care Team (Late st Contact Info) Description 09/19/2024 3:30 PM EDT Office Visit [facility] [address] [place] [address] Kay Faust MD [address] [place] [address] 09/28/2024 9:30 AM EDT Office Visit [facility] [address] [place] [address] Bindu Aceves MD [address] [place] [address] 02/07/2025 3:30 PM EST Office Visit [facility] OPTOMETRY [address] [place] [address] TarjaidaShanda, OD [address] [place] [address] Health Maintenance Due Date Last Done Comments CT Colonography 1970 Colonoscopy 1970 FIT 1970 FOBT 1970 Sigmoidoscopy 1970 Disability Screening 1970 Hepatitis B Vaccines (1 of 3 - 19+ 3-dose series) 1989 Zoster Vaccines (1 of 2) 2020 COVID-19 Vaccine ( season) 2023 01/08/2022, 07/03/2021, 02/13/2021, Additional history exists SDOH Screening 02/15/2024 02/14/2023 Depression Screening 02/29/2024 02/28/2023, 02/29/20 23 DTaP/Tdap/Td Vaccines (2 - Td or Tdap) [...] Acute sinusitis, recurrence not specified, unspecified location BI MAMMOGRAM SCREENING TOMOSYNTHESIS BILATERAL Routine 05/08/2024 2:50 PM EST LAB COLOGUARD?? COLON CANCER SCREEN Routine 04/13/2023 [...] EDT Narrative 07/21/2024 9:31 PM EDT ? [facility] ?[address] ?[place] [address] ?XRay Report ? Signed ? Patient: Senuta,Xochilt Leola ?MR#: [id number] ?? [id number] ? : 1970 ?Acct:[id number] ? Age/Sex: 53 / F ?ADM Date: 04/19/25 ? Loc: HO.ED ? Attending Dr: ? Ordering Physician: Brea Villatoro ?? Date of Service: 07/21/24 ?? Procedure(s): XR shoulder LT min 2V ?? Accession Number(s): [id number] ? cc: Kay Faust; Brea Villatoro ? [...] ? DD/ 28 ? TD/TT: 07/21/242128 ? Television Maintenance Worker: ? Procedure Note Darin, Image - 07/21/[address] [address] XRay Report Signed Patient: Xochilt Thomas [facility]#: [id number] : 1970Acct:[id number] Age/Sex: 53 / FADM Date: 07/21/24 Loc: HO.ED Attending Dr: Ordering Physician: Brea Villatoro Date of Service: 07/21/24 Procedure(s): XR shoulder LT min 2V Accession Number(s): [id number] cc: Kay Faust; Brea Villatoro CLINICAL HISTORY: pain Left shoulder, 3 views COMPARISON: None FINDINGS: No acute fracture. No dislocation. Unremarkable soft tissues. IMPRESSION: No acute findings. This document has been electronically signed by: Severino Coronel MD on 07/21/2024 21:29:13 Dictated By: Severino Coronel MD Signed By: <Electronically signed by Severino Coronel MD in OV> 07/21/242129 DD/ 28 TD/TT: 07/21/242128 Television Maintenance Worker: [facility] External Provider IMG XR PROCEDURES Edited Result - Final * High Sensitivity Troponin I (07/21/2024 8:45 PM EDT) TROPONIN I HIGH SENSITIVITY <2.7 <3.5 - 17.0 ng/L [facility] Comment:The Campbell high sens itivity Troponin-I results should beused in conjunction with other diagnostic information suchas ECG, clinical observations and information, and patientsymptoms to aid in the diagnosis of MS. 07/21/2024 8:45 PM EDT 07/21/2024 8:49 PM EDT us Generic External Data Provider LAB BLOOD ORDERAB LES Final Result [facility] [address] [place] [phone] * (ABNORMAL) CBC auto differential (07/21/2024 8:45 PM EDT) [facility] White Blood Count 9.6 4.8 - 10.8 X10*3/uL [facility] Red Blood Count 4.72 4.20 - 5.50 X10*6/uL [facility] Hemoglobin 12.5 12.0 - 16.0 g/dl [facility] Hematocrit 37.7 37.0 - 47.0 % [facility] Mean Corpuscular Volume 79.9(L) 80.0 - 98.0 fL [facility] Mean Corpuscular Hemoglobin 26.5(L) 27.0 - 33.0 pg [facility] Mean Corpuscular HGB Conc 33.2 31.0 - 35.0 g/dl [facility] Red Cell Distribution Width 14.5 11.0 - 16.0 % [facility] Platelet Count 321 160 - 400 X10*3/uL [facility] Mean Platelet Volume 9.5 9.4 - 12.3 fL [facility] Neutrophils Percent Auto 55.9 45 - 73 % [facility] Imm Gran Pct Auto 0.2 0.0 - 0.4 % [facility] Lymphocytes Percent Auto 32.6 20 - 40 % [facility] Monocytes Percent Auto 8.1 2 - 11 % [facility] Eosinophils Percent Auto 2.7 0 - 4 % [facility] Basophils Percent Auto 0.5 0 - 2 % [facility] NRBC Pct Auto 0.0 0.0 - 0.2 /100WBC [facility] Neutrophils Absolute Auto 5.4 2.0 - 8.3 x10*3/uL [facility] Imm Gran Abs Auto 0.02 0.00 - 0.03 X10*3/uL [facility] Lymphocytes Absolute Auto 3.1 1.2 - 4.9 X10*3/uL [facility] Monocytes Absolute Auto 0.8 0.1 - 1.2 X10*3/uL [facility] Eosinophils Absolute Auto 0.3 0.0 - 0.4 X10*3/uL [facility] Basophils Absolute Auto 0.1 0.0 - 0.2 X10*3/uL [facility] NRBC Abs Auto 0.000 0.0 - 0.012 X10*3/uL [facility] 07/21/2024 8:45 PM EDT 07/21/2024 8:49 PM EDT us Generic External Data Provider LAB BLOOD ORDERAB LES Final Result Performing Organization Address City/[facility]/ZIP Co de Phone Number [facility] [address] [place] [phone] * Magnesium (07/21/2024 8:45 PM EDT) Magnesium 2.0 1.6 - 2.6 mg/dL [facility] 07/21/2024 8:45 PM EDT 07/21/2024 8:49 PM EDT us Generic External Data Provider LAB BLOOD ORDERAB LES Final Result Performing Organization Address [facility]/ZIP Co de Phone Number [facility] [address] [place] [phone] * (ABNORMAL) Hepatic Function Panel (07/21/2024 8:45 PM EDT) Bilirubin, Total 0.2 0.0 - 1.0 mg/dL [facility] Bilirubin, Direct <0.2 0.0 - 0.5 mg/dL [facility] Aspartate Amino Transferase 23 5 - 31 U/L [facility] Alanine Aminotransferase 21 0 - 31 U/L [facility] Total Protein 6.3(L) 6.5 - 8.0 g/dL [facility] Albumin Level 3.6 3.5 - 5.0 g/dL [facility] Alkaline Phosphatase 62 39 - 117 U/L [facility] 07/21/2024 8:45 PM EDT 07/21/2024 8:49 PM EDT us Generic External Data Provider LAB BLOOD ORDERAB LES Final Result [facility] [address] [place] [address] [phone] * (ABNORMAL) Basic Metabolic Panel (07/21/2024 8:45 PM EDT) Pathologist [facility] Sodium 141 135 - 145 mmol/L [facility] Potassium 3.9 3.3 - 5.1 mmol/L [facility] Chloride 109(H) 96 - 108 mmol/L [facility] Carbon Dioxide 23 22 - 29 mmol/L [facility] Anion Gap 13 12 - 20 [facility] Urea Nitrogen (BUN) 11 9 - 16 mg/dL [facility] Creatinine, Serum 0.80 0.5 - 1.4 mg/dL [facility] Creatinine Clr Calc Pharmacy 130.1 [facility] Comment:Provided height and weight: 175.26 cm,154.221 kg.eGFR (calculated from the MDRD study equation) and eCrCl(calculated from the Cockcroft-Gault equation) are based ondifferent parameters and may not yield comparable results.If eCrCl result is absurd, please check patient'sheight/weight. Estimated Glomerular Filt Rate >60 [facility] Comment:Chronic Kidney Disea se: Estimated GFR < 60 mL/min/1.26m6Lsaxoa Kidney Disease: Estimated GFR < 15 mL/min/1.73m2 Glucose 133(H) 60 - 115 mg/dL [facility] Calcium 8.2(L) 8.4 - 10.2 mg/dL [facility] 07/21/2024 8:45 PM EDT 07/21/2024 8:49 PM EDT Generic External Data Provider LAB BLOOD ORDERAB LES Final Result Performing Organization Address [facility] Co de Phone Number [facility] [address] [place] [phone] * POCT Rapid Influenza B CAMPBELL ID NOW (06/27/2024 11:40 AM EDT) Influenza B Negative Negative, Indeterminate [facility] QC Media Lot # [id number] [facility] Lot# Expiration Date [facility] Swab 06/27/2024 11:4 0 AM EDT [facility] POINT OF CARE TEST ENTER/ EDIT ORDERABLES Final Result Performing Organization Address [facility] de Phone Number [facility] [address] [place] [phone] * POCT Rapid Influenza A CAMPBELL ID NOW (06/27/2024 11:37 AM EDT) Influenza A Negative Negative, Indeterminate [facility] QC Media Lot # [id number] [facility] Lot# Expiration Date [facility] Swab 06/27/2024 11:3 7 AM EDT [facility] [employer] POINT OF CARE TEST ENTER/ EDIT ORDERABLES Final Result Performing Organization Address [facility] de Phone Number [facility] [address] [place] [phone] * POCT Rapid Covid-19 BinaxNOW (06/27/2024 11:24 AM EDT) Rapid COVID Ag Negative QC Media Lot # [id number] Lot# Expiration Date [id number] Swab 06/27/2024 11:2 4 AM EDT [facility] POINT OF CARE TEST ENTER/ EDIT ORDERABLES Final Result * BI Mammogram Screening Tomosynthesis Bilateral (05/08/2024 2:50 PM EST) Anatomical Region Laterality Modality Breast Bilateral Mammography 05/08/2024 2:50 PM EST Narrative 05/14/2024 5:39 PM EST ? [facility] [place] ? [address] ?[place] [address] ? Mammography Report ? Signed ? Patient: Senuta,Xochilt Leola ?MR#: [id number] ?? [id number] ? : 1970 ?Acct:[id number] ? Age/Sex: 53 / F ?ADM Date: 05/08/ ? Loc: HO.MAMMO ? Attending Dr: Kay Faust MD ? Ordering Physician: Kay Faust ?Results: 1Negative ? Date of Service: 05/08/ ?Follow Up: 1 Year From Orig ?? inal Mammogram ? Procedure(s): MM tomosynthesis screening BI ?? Accession Number(s): [id number] ? cc: Kay Faust ? EXAMINATION: ?? [...] DD/ 1450 ? TD/TT: 05/08/24 1505 ? Television Maintenance Worker: ? Procedure Note Darin, Image - 05/14/2024 [facility] [address] [place] [address] [place] [address] Mammography Report Signed Patient: Xochilt Thomas Leola#: [id number] : 1970Acct:[id number] Age/Sex: 53 / FADM Date: 05/08/24 Loc: GABIO Attending Dr: Kay Faust MD Ordering Physician: Amelia Faustults: 1Negative Date of Service: 05/08/24Follow Up: 1 Year From Orig ina Mammogram Procedure(s): MM tomosynthesis screening BI Accession Number(s): [id number] cc: Kay Faust EXAMINATION: MM SCREENING DIGITAL [...] 05/14/24 1736 DD/ 1450 TD/TT: 05/08/24 1505 Television Maintenance Worker: Kay Faust MD [facility] BI PROCEDURES Final Result * Cologuard?? colon cancer screening (04/13/2023 11:53 AM EST) Cologuard Result Negative Negative 04/24/19 24 1:03 AM EST [facility] (IA #:[id number]) Comment: NEGATIVE TEST RESULT. A negative Cologuard [...] cancer. ??Following a negative Cologuard result, the [place] Cancer Society and U.S. Multi-Society Task Force screening guidelines recommend a Cologuard re-screening interval of 3 years. References: [place] [employer] Guideline for Colorectal Cancer Screening: https://www.cancer.org/cancer/tdeiw-lbrdpg-vkmpcm/jrxorgngg-nxexrpmnr-gqcfrex/ac s-rec ommendations.html.; Jose Manuel YI, Harpreet DUNNE, Bailee CummingsK, Colorectal Cancer Screening: Recommendations for Physicians and Patients from the U.S. Multi-Society Task Force on Colorectal Cancer Screening , Am J Gastroenterology 2017; 112:5685-3950. TEST DESCRIPTION: Composite algorithmic analysis of stool [...] Longoria et al, N Engl J Med 2014;370(14):8114-0372.) Cologuard may produce a false negative or false positive result (no colorectal cancer or precancerous polyp present at colonoscopy follow up). A negative Cologuard test result does not guarantee the absence of CRC or advanced adenoma (pre-cancer). The current Cologuard screening interval is every 3 years. ([place] Cancer Society and U.S. Multi-Society Task Force). Cologuard performance data in a 10,000 patient pivotal study using colonoscopy as the reference method can be accessed at the following location: www.[employer]/results. Additional description of the Cologuard test process, warnings and precautions can be found at www.cologuard.[employer]. Stool specimen (specimen) 04/13/2023 11:53 AM EST 04/14/2023 12:57 PM EST Kay Faust MD LAB MOLECULAR DIAGNOSTICS BAMBI SERRA Final Result Performing Organization Address City/[facility]/ZIP Co de Phone Number [facility] (CLIA #:[id number]) [address] [place] [address], * Hepatitis C Ab (02/28/2023 1:59 PM EST) Hepatitis C Antibody Nonreactive Nonreactive [facility] Comment:Antibodies to HCV no t detected; does not exclude early acuteHCV infection. Blood Venous blood specimen / Unknown 02/28/2023 1:59 PM EST 02/28/2023 4:15 PM EST Kay Faust MD LAB BLOOD ORDERABLES Final Res ult [facility] [address] [place] [phone] * HIV-1/2 Antigen and Antibodies, Fourth Generation, with Reflexes (02/28/2023 1:59 PM EST) HIV AB/AG Nonreactive Nonreactive [facility] Comment:HIV-1 p24 Ag and/or HIV-1/HIV-2 Ab not detected.A test result that is nonreactive does not exclude thepossibility of exposure to or infection with HIV-1 and/orHIV-2. Nonreactive results in this assay for individualswith prior exposure to HIV-1 and/or HIV-2 may be due toantigen and antibody levels that are below the limit ofdetection of this assay.The kapturem HIV Ag/Ab Combo assay result andsupplemental assay results should be interpreted inconjunction with the patient's clinical presentation,history and other laboratory results. If the results areinconsistent with clinical evidence, additional testing issuggested to confirm the result. Blood Venous blood specimen / Unknown 02/28/2023 1:59 PM EST 02/28/2023 4:15 PM EST us Kay Faust MD LAB BLOOD ORDERABLES Final Res ult [facility] [address] [place] [address] [phone] * (ABNORMAL) Lipid Panel, Standard (02/28/2023 1:59 PM EST) Triglycerides 232(H) <150 mg/dL [facility] Comment:Desirable Triglyceri de: less than 150 mg/dLBorderline High Triglyceride 150-199 mg/dLHigh Triglyceride: 200-499 mg/dLVery High Triglyceride: greater than or equal to 5OO mg/dL Cholesterol 186 <200 mg/dL [facility] Comment:Desirable Cholestero l: less than 200 mg/dLBorderline High Cholesterol: 200-239 mg/dLHigh Cholesterol: greater than 239 mg/dL LDL Cholesterol Calculated 93 <100 mg/dL [facility] Comment:Desirable LDL: less than 100 [...] MD LAB BLOOD ORDERABLES Final Res ult [facility] [address] [place] [phone] [phone] * Pap Smear (12/22/2020) Pap Negative for intraephithelial lesion or malignancy Negative for intraephithelial lesion or malignancy, Other HPV Not Detected Undetected, Indeterminate, Quantitative, Not Detected Historical Provider HEALTH MAINTENANCE Final Result from Last 3 Months or Most Recently Relevant to Health Maintenance Insurance [employer] Care Teams Mash Processing Operator Relationship Specialty Start Date End Date Kay Faust MD [address] [place] [phone] PCP - General Family Medicine 12/02/22
== END 2024-09-17 15:42 | disposition home or self-care (01) ==
LOC: HO.HPS 15:07
PROVIDERS: PCP General Practice; Visit Provider Hospitalist
DX: J45.50 Severe persistent asthma, uncomplicated (principal); T78.40XA Allergy, unspecified, initial encounter
CPT/HCPCS: 99214

== ENCOUNTER 2024-10-22 09:56 | Outpatient (REF) | payer OTHER, SELFPAY ==
--- NOTE | ~2024-10-22 | XR_ITS ---
EXAMINATION: XR CHEST CLINICAL INFORMATION: cough, asthma COMPARISON: Numerous priors, most recently 07/18/2023. TECHNIQUE: 2 views of the chest were obtained. FINDINGS: The cardiac, hilar, and mediastinal contours are normal. Lungs demonstrate mild linear scarring in the left midlung, unchanged. Lungs otherwise clear. Mild to moderate small airway thickening suspected. There is no pneumothorax or pleural effusion. There is no focal osseous or soft tissue abnormality. XR/XR chest 2V IMPRESSION: Mild to moderate small airway thickening, in keeping with reactive airways disease. Lungs otherwise clear. Electronically signed by: Manny Bob MD 10/22/2024 10:19 AM EDT
--- OUTSIDE RECORDS SUMMARY | 2024-10-22 10:40 | XMS_ITS | Clinical Summary ---
Author Organization [facility] it Address [address] [place] [address] Care Team Providers Care Charter Representative Name Role Phone Jagdish Evans MD Primary Care Provider [phone] Allergies No known active allergies Medications albuterol [...] mas s index of 50.0-59.9 in adult ([facility] V24, [facility] V28) 04/09/2024 Cyst of right ovary 06/06/2020 [...] ( season) 2023 02/13/2021, 07/07/2020 Depression Screening 04/04/2024 Influenza Vaccine (#1) 2024 2, 12/18/2019, 01/22/2018, Additional history exists DTaP,Tdap,and Td [...] neoplasm of breast LIPID PANEL Routine 09/12/2018 HM HEPATITIS C SCREENING Routine 05/25/2016 HIV SCREENING [...] reviewed with CAD and compared to previous. The breasts are composed of fatty and fibroglandular tissue. No suspicious mass, architectural distortion or suspicious calcifications [...] Breast cancer risk category Low (<15%) Erica FERNANDOM IMG XR PROCEDURES Final Result * (ABNORMAL) Lipid panel (09/12/2018) LDL/HDL Ratio 5(A) 0 - 4 Triglycerides 484(A) 0 - 150 mg/dL Cholesterol 185 0 - 200 mg/dL HDL 40 >=40 mg/dL LDL Cholesterol 49 0 - 100 mg/dL Blood Venous blood specimen / Unknown [facility] Provider LAB BLOOD ORDERABLES Sudha l Result * HIV Screening (05/25/2016) Pathologist [facility] HIV Screening Abstracted [facility] Provider HEALTH MAINTENANCE Final Result * Hepatitis C Screening (05/25/2016) [facility] Hepatitis C Screening Abstracted [facility] Provider HEALTH MAINTENANCE Final Result from Last 3 Months or Most Recently Relevant to Health Maintenance Care Teams Charter Representative Relationship Specialty Start Date End Date Jagdish Evans MD PCP - General Internal Medicine 05/13/14
--- OUTSIDE RECORDS SUMMARY | 2024-10-22 10:40 | XMS_ITS | Data Portability ---
Author Organization [facility], [address] Address [address] [place] [address] Assessment Encounter Date Assessment Date Assessment LastModified by Organization Details LastModified Time 05/04/2022 05/04/2022 Viral illness is likely, consider flu like illness. Symptomatic treatment reviewed, letter for work [email or web address] Not available 05/04/2022 11:39:55 Plan of Treatment Reminders Order Date Submit Date Provider Last Modified By Organization Details Last Modified Time Details Appointments None recorded. Lab rapid flu (A+B) 2022 023 lisseth ne1 [address], [address] [place] [address], [place], [address], 11:35:29 Referral None recorded. Procedures None recorded. Surgeries None recorded. Imaging None recorded. Medication Orders prednisone 10 mg tablet 2022 023 [id number], [address] [place], [address], 3 09:15:59 olopatadine 0.1 % eye drops 2022 023 [facility][id number], [address] [place], [address], 3 09:15:59 Patient TargetsNo targets recorded. Patient Instructions Encounter Date Encounter Id Patient Instructions Last Modified By Organization Details Last Modified Time 05/04/2022 [id number] nausea and vomiting: care instructions [email or web address] Not available 05/04/2022 11:35:29 upper respirator y [...] ear pain Not available 05/04/2022 11:40:17 06/29/2022 [id number] You are having a n asthma exacerbation [...] 5. light headedness. Thank you for using [facility] today - please don't hesitate to contact up or return to see if you have any questions or concerns. [email or web address] Not available 06/29/2022 09:14:38 Reason for Referral None Reported. Results Created Date Observation Date Name Description Value Unit Range Abnormal Flag Note LastModifiedBy Organization Detail LastModifiedTime 05/04/19 23 05/04/2022 rapid flu (A+B) Unknown Analyte Normal = Negati ve Not Available _juan pablo ruiz [address], [address], 05/04/2022 11:00:32 05/04/19 23 05/04/2022 rapid flu (A+B) Unknown Analyte Normal = Negati ve Not Available juan pablo [address] [place], [address], 05/04/2022 11:00:32 05/04/19 23 05/04/2022 rapid flu (A+B) Unknown Analyte negati ve Not Available juan pablo [address] [place], [address], 05/04/2022 11:00:32 05/04/19 23 05/04/2022 rapid flu (A+B) Unknown Analyte negati ve Not Available juan pablo [address] [place], [address], 05/04/2022 11:00:32 Result Notes None recorded. Problems Name Problem SNOMED Code Status Onset Date Resolution Date Notes Provider Name and Address Organization Details Recorded Time Asthma 222670802 Active 023 FITO Juarez null, PA - [facility] 3 10:57:54 Acid reflux 863668047 Active 023 FITO Juarez null, PA - [facility] 3 10:59:16 Arthritis 8195422 Active 023 IRIS KORIVERTMERISSA R null, PA - [facility] 3 10:59:50 [...] in Arterial blood by Pulse oximetry Systolic And Diastolic Provider Name and Address Organization Details Last Updated DateTime 3 175.26 cm 49.5 kg/m2 432760. 44 g 98.4 [degF] 20 /min 68 /min 98 % 98 % 139/97 mm[Hg] FITO Juarez PA - [facility] 3 11:01:51 Date Recorded Body height Body mass index (BMI) Body weight Respiratory rate Heart rate Oxygen saturation Oxygen saturation in Arterial blood by Pulse oximetry Body temperature Systolic And Diastolic Provider Name and Address Organization Details Last Updated DateTime 3 175.26 cm 49.5 kg/m2 331181. 44 g 20 /min 74 /min 99 % 99 % 97.8 [degF] 163/93 mm[Hg] Sandra Marlow PA - [facility] 3 08:35:50 Social History Question Answer Notes LastModified by Organizat ion Details LastModified Time Tobacco Smoking Status Former Smoker FITO drake PA - [facility] 05/04/2022 11:00:02 What Is Your Water Source? City Information not available 05/04/2022 What Is Your Heat Source? Gas Information not available 05/04/2022 Have You Had Direct Contact, Or Contact During Intimacy, With Monkeypox Rash, Scabs, Or Body Fluids From A Person With Monkeypox? No Information not available 05/04/2022 Have You Recently Traveled Abroad? No Information not available 05/04/2022 Sex: Unknown Functional Status Question Answer Note LastModified by Organizat ion Details LastModified Time Do you use any illicit or recreational drugs? No Information not available 05/04/2022 Do you or have you ever used any other forms of tobacco or nicotine? No Information not available 05/04/2022 What is your level of alcohol consumption? None Information not available 05/04/2022 Mental Status None recorded. Family History Relationship [...] Influenza, MDCK, quadrivalent, PF 9 completed Sandra [place] null, PA - [facility] 06/29/2022 08:32:41 Influenza, MDCK, quadrivalent, PF 1 completed Sandra Ele null, PA - [facility] 06/29/2022 08:32:41 Influenza, MDCK, quadrivalent, preservative 8 completed Sandra Ele null, PA - [facility] 06/29/2022 08:32:41 COVID-19, mRNA, LNP-S, PF, 100 mcg/0.5mL dose or 50 mcg/0.25mL dose 2 completed Sandra [place] null, PA - [facility] 06/29/2022 08:32:41 [...] 30 mcg/0.3 mL dose 2 completed Sandra [place] null, PA - [facility] 06/29/2022 08:32:41 pneumococcal polysaccharide PPV23 6 completed Sandra Ele null, PA - [facility] 06/29/2022 08:32:42 Tdap 5 completed Sandra [place] null, PA - [facility] 06/29/2022 08:32:42 Influenza, split virus, trivalent, preservative 4 completed Sandra Ele null, PA - [facility] 06/29/2022 08:32:42 Influenza, split virus, trivalent, preservative 0 completed Sandra Ele null, PA - [facility] 06/29/2022 08:32:42 Influenza, split virus, trivalent, preservative 6 completed Sandra [place] null, PA - [facility] 06/29/2022 08:32:42 Influenza, split virus, trivalent, preservative 4 completed Sandra [place] null, PA - [facility] 06/29/2022 08:32:42 Influenza, split virus, trivalent, preservative 5 completed Sandra Ele null, PA - [facility] 06/29/2022 08:32:42 Influenza, split virus, quadrivalent, PF 2 completed Sandra Ele null, PA - [facility] 06/29/2022 08:32:42 Past Encounters Encounter ID Performer Location Encounter Start Date Encounter Closed Date Diagnosis/Indication Diagnosis SNOMED-CT Code Diagnosis ICD10 Code Diagnosis Note [id number] [address] [address] [address] [place] [address] 06/18/2021 09:28:53 06/18/2021 09:59:33 [id number] [address] [address] [place] [address] 06/12/2019 10:34:03 06/12/2019 11:28:10 [id number] [address] [place] [address] 02/02/2021 09:16:12 02/02/2021 10:55:41 [id number] [address] [facility] [place] [address] 07/12/2017 09:26:55 07/12/2017 10:50:42 [id number] [address] [facility] [address] [place] [address] 09/23/2020 16:41:56 09/23/2020 18:08:22 [id number] [address] [facility] [address] [place] [address] 01/31/2018 10:45:03 01/31/2018 13:27:29 [id number] [address] [facility] [address] [place] [address] 11/09/2019 08:07:21 11/09/2019 09:09:00 [id number] [address] [address] [address] [place] [address] 08/06/2021 10:08:32 08/06/2021 13:38:40 [id number] [place] [address] [place] [address] 05/04/2022 10:38:50 05/04/2022 11:38:10 Acute upper respiratory infection 27369439 J06.9 [id number] [facility]ILO MONTEIRO [address] [place] [address] 06/29/2022 08:23:26 06/29/2022 09:17:45 Elevated blood-pressure reading without diagnosis of hypertension 362943268 R03.0 You blood pressure was elevated during [...] the results of your journal. Allergic rhinitis 264112 04 J30.9 Allergic conjunctivitis 547464723 H10.13 Exacerbati on of intermittent asthma 027832870 J45.21 follow up with your pulmonolog ist tomorrow as scheduled. Take you broken nebulizer machine with you - so they may be able to switch it out. Health Concerns Section Related Observation LastModified by Organization Detai ls LastModified Time None Recorded Concern Status LastModified by Organization Details LastModified Time None Recorded Advance Directives Directive None Recorded Payers Insurance Date Sequence Insurance Name Policy Number Policy Kaur Covered Member ID Kaur Member ID Guarantor Name 06/29/2022 1 [facility] [id number] Xochilt A Senuta [id number] Xochilt A Martha Notes Date Note Type Note Provider Name and Address Organization Details Recorded Time 05/04/2022 text/html Not feeling well x 3 days: cough, body aches, R ear pain, N/V x 2 yesterdayCovid negative yesterday. Taking Tylenol, Robitussin DM. Sleep disturbed by body aches. Subhash Gaines DO [address], [address], [place] - [facility] 05/04/2022 11:40:33 06/29/2022 text/html Sinus [...] Feeling bad. Nebulizer machine is broken. Has mallet cutter appointment tomorrow. Denies fever. Looking for relief. KILO MONTEIRO [address] [place], [address], [place] - [facility] 06/29/2022 09:19:38 OBGyn Episode No OBEpisode recorded.
--- OUTSIDE RECORDS SUMMARY | 2024-10-22 10:40 | XMS_ITS | Clinical Summary ---
Author Organization [employer] Address [address] [facility] [address] [place] [address] Care Team Providers Care Grinder Set Up Operator Gear Tool Name Role Phone Kay Faust MD Primary Care Provider [phone] Allergies No known active allergies Medications * This document contains information received from the source organization and may not represent a complete record from that organization. sodium chloride ([place] Nasal [place]) 0.65 % nasal spray Administer 1 spray [...] doses in 24 hours. 9 tablet 06/28/19 Active omeprazole (PriLOSEC) [address] capsule [...] per day. 30 g 08/15/19 25 Active Wixela Inhub 500-50 MCG/ACT aerosol powder INHALE 1 PUFF BY MOUTH TWICE DAILY. RINSE MOUTH AFTER USING. 60 each 2 09/01/19 Active cyclobenzaprine (Flexeril) 5 MG tablet Take 5 mg by mouth if needed in the morning, at noon, and at bedtime for muscle spasms. 07/23/19 Active ketorolac (Toradol) 10 MG tablet TAKE 1 TABLET BY MOUTH EVERY 8 HOURS NEEDED FOR PAIN. DO NOT USE THIS MEDICATION WITH OTHER NSAIDS 07/23/19 25 Active Incruse Ellipta 62.5 MCG/ACT aerosol powderIndicatio ns:Severe persistent asthma without complication INHALE 1 PUFF BY MOUTH EVERY DAY AT THE SAME TIME RINSE MOUTH AFTER USING 08/08/19 25 Active arformoterol (Brovana) 15 MCG/2ML nebulizer solutionIndicat ions:Severe persistent asthma without complication INHALE 2 ML BY MOUTH EVERY TWELVE HOURS 09/18/19 Active budesonide (Pulmicort) 0.5 MG/2ML nebulizer solutionIndicat ions:Severe persistent asthma without complication INHALE 1 AMPULE USING A NEBULIZER TWICE DAILY 09/18/19 25 Active topiramate (Topamax) 50 MG tabletIndicatio ns:Class 3 severe obesity with serious comorbidity and body mass index (BMI) of 50.0 to 59.9 in adult, unspecified obesity type Take 1 tablet (50 mg) by mouth at bedtime. Take 1/2 tablet for first two weeks, if no side effects, may increase to 50mg nightly. For weight loss 60 tablet 09/20/19 25 Active fluticasone (Flonase) 50 MCG/ACT nasal spray INSTILL 1 SPRAY IN EACH NOSTRIL ONCE DAILY 16 g 2 10/02/19 25 Active amLODIPine (Norvasc) 5 MG tablet TAKE 1 TABLET BY MOUTH ONCE DAILY 90 tablet 3 10/16/19 25 Active predniSONE (Deltasone) 10 MG tablet Take 4 tablets (40 mg) by mouth Once per day for 3 days, THEN 3 tablets (30 mg) Once per day for 3 days, THEN 2 tablets (20 mg) Once per day for 3 days, THEN 1 tablet (10 mg) Once per day for 3 days. 30 tablet 10/18/19 25 2024 Active azithromycin (Zithromax Z-Ji) 250 MG tablet Take 2 tablets once on day 1, then 1 tablet 1x/day for 4 days. 6 tablet 10/18/19 25 Active fluticasone (Flonase) 50 MCG/ACT nasal spray Administer 1 spray into each nostril Once per day. 16 g 2 11/02/19 24 2024 Discontinued amLODIPine (Norvasc) 5 MG tablet Take 1 tablet (5 mg) by mouth Once per day. 30 tablet 1 08/15/19 25 2024 Discontinued amoxicillin-cla vulanate (Augmentin) 875-125 MG tabletIndicatio ns:Acute non-recurrent frontal sinusitis Take 1 tablet by mouth 2 times daily for 7 days. 14 tablet 09/20/19 25 2024 Active Problems Problem Noted Date Diagnosed Date Depression, major, single episode, moderate 09/03 Dyslipidemia 04/09/2024 Diuretic-induced hypokalemia 07/04/2023 Class 3 severe obesity with serious comorbidity and body mass index (BMI) of 50.0 to 59.9 in adult 06/10/2023 Assessment & Plan (09/21/2024 10:42 AM EDT): Not a candidate for phentermine due to uncontrolled BP Will trial Topimax 50mg nightly Assessment & Plan (02/26/2024 12:31 PM EST): [...] Metformin HTN (hypertension) 03/03/2023 Assessment & Plan (09/21/2024 10:44 AM EDT): Follow up with the Nurse for blood pressure check in 2 weeks. Continue with a low sodium diet and regular exercise as tolerated. For BP < or = to 139/89 (or 129/79 for diabetic patients) continue current medication regimen and follow up with PCP in 8 weeks. For BP > or = to 140/90 (or 130/80 for diabetic patients) increase Amlodipine to 10 mg once a day Follow up with the Nurse for a second blood pressure check in 2-4 weeks if BP 140-150/90+ (or 130-150/80+ for diabetic patients). Refer to CDTM for BP >150/90+. If second Nurse visit is needed: For BP < or = to 139/89 (or 129/79 for diabetic patients) continue current medication regimen and follow up with the PCP in 8 weeks. For BP > or = to 140/90 (or 130/80 for diabetic patients) start Metoprolol 25mg XL daily. Follow up with the PCP in 4 weeks. Assessment & Plan (08/14/2024 6:53 PM EDT): Uncontrolled, I will add amlodipine 5 mg, continue losartan and follow-up in 2 to 3 weeks with PCP expediter service order for blood pressure check Assessment & Plan [...] fall and winter 2022 Will refer to [facility] for pulmon[place] paperwork completed for work Continue [facility] [employer] prn Consider smoking cessation Assessment & Plan (03/03/2023 12:37 PM EST): FMLA paperwork completed for work Assessment & Plan (11/27/2022 2:02 PM EDT): continue JOSE Del ValleA Trigger avoidance Has regular pulm f/u Educated [...] 06/06/2020 Obstructive sleep apnea hypopnea, mild 6 Resolved Problems Problem Noted Date Diagnosed Date Resolved Date Morbid obesity with body mas s index of 50.0-59.9 in adult 04/09/2024 04/19/2024 Moderate persistent asthma with exacerbation 4 09/21/2024 Assessment & Plan (08/14/2024 6:52 PM EDT): [...] to wear a face mask/protective at work. Dizziness 07/29/2023 03/13/2024 Assessment & Plan (07/29/2023 1:40 PM EDT): Most likely patient is still dehydrated I advise to increase fluids Change position slowly Meclizine prescribed today to take PRN Excuse for work will be extended for patient to fully recover Nausea 07/29/2023 03/13/2024 Assessment & Plan (07/29/2023 1:39 PM EDT): Small sip and bites Metoclopramide PRN Heartburn 04/16/2013 09/21/2024 Encounters * This document contains information received from the source organization and may not represent a complete record from that organization. Date Type Department Care Team Description 10/22/2024 9:40 AM EDT Office Visit [facility] [address] [place] [phone] Sore throat (Primary Dx); Acute cough 10/17/2024 9:40 AM EDT Office Visit [facility] [address] [place] [phone] Zane Harris MD Severe persistent asthma with acute exacerbation (Primary Dx); Hypertension, unspecified type; Cough in adult patient 10/17/2024 Travel 10/14/2024 Refill [facility] [address] [place] [phone] Abby Diego MD 10/08/2024 3:00 PM EDT Clinical Support [address] [address] Sloane Serna RN Primary hypertension 10/08/2024 Travel 09/29/2024 Refill [facility] [address] [address] Abby Diego MD 09/21/[address] [address] Kay Faust MD Letter for School/Work 09/19/2024 3:30 PM EDT Office Visit [address] [address] Kay Faust MD Primary hypertension (Primary Dx); Dietary counseling; Exercise counseling; Class 3 severe obesity with serious comorbidity and body mass index (BMI) of 50.0 to 59.9 in adult, unspecified obesity type; Inadequate housing utilities; Pre-diabetes; Seasonal allergies; Class 3 severe obesity with serious comorbidity and body mass index (BMI) of 50.0 to 59.9 in adult; Severe persistent asthma without complication; Obstructive sleep apnea hypopnea, mild; Acute non-recurrent frontal sinusitis; Depression, major, single episode, moderate (CMS/FORMERLY [facility]) 09/19/2024 Travel 09/18/[address] [address] Kay Faust MD Chart prep 09/11/2024 Patient Outreach [address] [address] Kay Faust MD Pre-visit Planning ((Unable to reach for PVP screening, LVM)) 09/04/2024 3:00 PM EDT Clinical Support [facility] [address] [place] [address] Salomon Calix RN Primary hypertension [I10] 09/04/2024 Travel 08/30/2024 Refill [facility] [address] [place] [address] Jet Arechiga MD 08/14/2024 6:40 PM EDT Office Visit [facility] [address] [place] [address] Abby Diego MD Moderate persistent asthma with exacerbation (Primary Dx); Seasonal allergies; Primary hypertension 08/10/2024 Refill [facility] [address] [place] [address] Kay Faust MD 08/07/2024 1:45 PM EDT Office Visit [facility] [address] [place] [address] Shanda Mccarthy, OD Presbyopia (Primary Dx); Moll gland cyst of left eye 08/07/2024 Travel from Last 3 Months Immunizations Immunization Administration Dates Next Due INFLUENZA INJECTABLE QUADRIV ALANT CCIIV4 MDCK Multi-dose vial 01/22/2018,02/06/2017 Influenza Injectable Quadriv alant Preservative Free IIV4 MDCK 01/10/2021,12/15/2018 Influenza injectable quadriv alent preservative free 02/05/2022 Influenza, IIV3, injectable 02/05/2022,0 12/18/2019,01/11/2016,01/24,01/22/2014,04/16/2013 Influenza, seasonal, injecta ble, preservative free 02/16/2024,02/05/2022,12/18/2019,01/10,01/24/2015,01/22/2014,04/16/2013 Pneumococcal Conjugate PCV 20 02/16/2024 Pneumococcal Polysaccharide [...] Answer Date Recorded Patient Health Questionnaire-9 Score 12 09/19/2024 Patient Health Questionnaire-9 Score 12 09/19/2024 Last PHQ-9: Questionnaire Data Not on file 0 09/19/2024 Housing Stability Answer Date Recorded What is your housing situation today? I have keishaabel guidry 09/19/[address] you li ve. Do you have problems with any of the following? None of the above 09/19/2024 Food Insecurity Answer Date Recorded Within the past 12 months, y ou worried that your food would run out before you got money to buy more: Never True 09/19/2024 Within the past 12 months,th e food you bought just didn't last and you didn't have enough money to get more: Never True Transportation Answer Date Recorded In the past 12 months, has l ack of transportation kept you from medical appts, meetings, work or from getting things needed for daily living? No 09/19/2024 Utilities Answer Date Recorded In the past 12 months, has t he electric, gas, oil or water company threatened to shut off services in your home? No 09/19/2024 Depression Answer Date Recorded Patient Health Questionnaire-2 Score 3 09/19/2024 Internet Access Answer Date Recorded Internet Access Q1 No 09/19/2024 Internet Access Q2 I do not want or need it 09/02 Comments Unknown Sex and Gender Information Value Date Recorded Sex Assigned at Female 02/01/2022 10:19 AM EDT Legal Sex Female 10:19 AM EDT Gender Identity Female 02/01/2022 10:19 AM EDT Sexual Orientation Straight 02/01/2022 10 :19 AM EDT Last Filed Vital Signs Vital Sign Reading Time Taken Comments Blood Pressure 140/88 10/22/2024 9:19 AM EDT Pulse 74 10/22/2024 9:19 AM EDT Temperature 36.8 C (98.2 F) 10/22/2024 9:19 AM EDT Respiratory Rate 20 10/22/2024 9:19 AM EDT Oxygen Saturation 97% 10/22/2024 9:19 AM EDT Inhaled Oxygen Concentration - - Weight 159 kg (350 lb) 10/22/2024 9:19 AM EDT Height 175.3 cm (5' 9 ) 09/19/2024 3:08 PM EDT Body Mass Index 51.69 09/19/2024 3:08 PM EDT Plan of Treatment Upcoming Encounters Date Type Department Care Team (Late st Contact Info) Description 12/17/2024 3:15 PM EDT Office Visit [facility] [address] [place] [address] Kay Faust MD [address] [place] [address] 02/07/2025 3:30 PM EST Office Visit [facility] [address] [place] [address] Shanda Mccarthy, OD [address] [place] [address] Health Maintenance Due Date Last Done Comments CT Colonography 1970 Colonoscopy 1970 FIT 1970 Sigmoidoscopy 1970 Hepatitis B Vaccines (1 of 3 - 19+ 3-dose series) 1989 Zoster Vaccines (1 of 2) 2020 COVID-19 Vaccine ( season) 2023 01/08/2022, 07/03/2021, 02/13/2021, Additional history exists FOBT 04/13/2024 04/13/2023 Influenza Vaccine (#1) 2024 , 02/05/2022, 02/05/2022, Additional history exists DTaP/Tdap/Td Vaccines (2 - Td or Tdap) 01/30/2025 01/30/2015 Depression Monitoring 03/21/2025 09/19/2024, 025 Alcohol/Substance Use Screening 04/19/2025 04/19/2024 Mammogram 05/08/2025 05/08/2024, 05/03/2023 Diabetes: Hemoglobin A1C 09/19/2025 025, 09/16/2023, 07/04/2023, Additional history exists Disability Screening 09/19/2025 09/19/2024 SDOH Screening 09/19/2025 09/19/2024 Tobacco Screening 10/22/2025 10/22/2024 Cervical Cancer Screening 12/22/2025 HPV/Cotest 12/22/2025 12/22/2020 Pap Smear 12/22/2025 12/22/2020 Colorectal Cancer Screening 04/13/2026 FIT DNA/Cologuard 04/13/2026 04/13/2023 Lipid Panel 02/29/2028 02/28/2023 RSV Patients and Patients Aged 60 years or older (1 - 1-dose 75+ series) 2045 HIV Screening Completed 02/28/2023 Hepatitis C Screening Completed 02/28/2023 Pneumococcal Vaccine: 50+ Years Completed 02/16/2024, 05/02/2015 [...] Name Priority Date/Time Associated Diagnosis Comments POCT RAPID STREP A Routine 10/22/2024 9: 30 AM EDT Sore throat XR CHEST 2 VIEWS Routine 10/22/2024 9:18 AM EDT Acute cough POCT INFLUENZA B (ID NOW RAPID MOLECULAR) Routine 10/17/2024 9:09 AM EDT Cough in adult patient POCT INFLUENZA A (ID NOW RAPID MOLECULAR) Routine 10/17/2024 9:09 AM EDT Cough in adult patient POCT RAPID COVID ANTIGEN Routine 10/17/2024 8:59 AM EDT Cough in adult patient POCT GLYCATED HEMOGLOBIN, TOTAL Routine 09/19/2024 3:37 PM EDT Dietary counseling Class 3 severe obesity with serious comorbidity and body mass index (BMI) of 50.0 to 59.9 in adult, unspecified obesity type POCT GLUCOSE Routine 09/19/2024 3:36 PM EDT Dietary counseling Class 3 severe obesity with serious comorbidity and body mass index (BMI) of 50.0 to 59.9 in adult, unspecified obesity type BI MAMMOGRAM SCREENING TOMOSYNTHESIS BILATERAL Routine 05/08/2024 2:50 PM EST LAB COLOGUARD COLON CANCER SCREEN Routine 04/13/2023 11:53 AM [...] Relevant to Health Maintenance Results * POCT rapid strep A manually resulted (10/22/2024 9:30 AM EDT) Rapid Strep A Screen Negative Negative, None Detected Swab 10/22/2024 9:30 AM EDT Zane Harris MD POINT OF CARE TEST ENTER/EDIT OR DERABLES Final Result * XR Chest 2 Views (10/22/2024 9:18 AM EDT) Anatomical Region Laterality Modality Chest Radiographic Cynthia ging 10/22/2024 9:18 AM EDT Narrative 10/22/2024 10:22 AM EDT [address] [address] XRay Report Signed Patient: Xochilt Thomas MR#: [id number] : 1970 Acct:[id number] Age/Sex: 53 / F ADM Date: 10/22/24 [facility] Attending Dr: Zane Harris MD Ordering Physician: ZANE HARRIS MD Date of Service: 10/22/24 Procedure(s): XR chest 2V Accession Number(s): [id number] cc: ZANE HARRIS MD EXAMINATION: XR CHEST CLINICAL INFORMATION: cough, asthma COMPARISON: Numerous priors, most recently 07/18/2023. TECHNIQUE: 2 views of the chest were obtained. FINDINGS: The cardiac, hilar, and mediastinal contours are normal. Lungs demonstrate mild linear scarring in the left midlung, unchanged. Lungs otherwise clear. Mild to moderate small airway thickening suspected. There is no pneumothorax or pleural effusion. There is no focal osseous or soft tissue abnormality. XR/XR chest 2V IMPRESSION: Mild to moderate small airway thickening, in keeping with reactive airways disease. Lungs otherwise clear. Electronically signed by: Manny Bob MD 10/22/2024 10:19 AM EDT Dictated By: Manny Bob MD Signed By: <Electronically signed by Manny Bob MD in OV> 10/22/24 1019 DD/ 0918 TD/TT: 10/22/24 0920 Outpatient Coder: Procedure Note Donotuseinterpreter, Image - 10/22/2024 [facility] [address] [facility] [place] [address] XRay Report Signed Patient: Xochilt Thomas#: [id number] : 1970Acct:[id number] Age/Sex: 53 / FADM Date: 10/22/24 Loc: HO.[facility]HCX Attending Dr: Zane Harris MD Ordering Physician: ZANE HARRIS MD Date of Service: 10/22/24 Procedure(s): XR chest 2V Accession Number(s): [id number] cc: ZANE HARRIS MD EXAMINATION: XR CHEST CLINICAL INFORMATION: cough, asthma COMPARISON: Numerous priors, most recently 07/18/2023. TECHNIQUE: 2 views of the chest were obtained. FINDINGS: The cardiac, hilar, and mediastinal contours are normal. Lungs demonstrate mild linear scarring in the left midlung, unchanged. Lungs otherwise clear. Mild to moderate small airway thickening suspected. There is no pneumothorax or pleural effusion. There is no focal osseous or soft tissue abnormality. XR/XR chest 2V IMPRESSION: Mild to moderate small airway thickening, in keeping with reactive airways disease. Lungs otherwise clear. Electronically signed by: Manny Bob MD 10/22/2024 10:19 AM EDT Dictated By: Manny Bob MD Signed By: <Electronically signed by Manny Bob MD in OV> 10/22/24 1019 DD/ 0918 TD/TT: 10/22/24 0920 Outpatient Coder: Zane Harris MD IMG XR PROCEDURES Final Result * Influenza B (ID NOW Rapid Molecular) (10/17/2024 9:09 AM EDT) Influenza B Negative Negative, Indeterminate [facility] Swab 10/17/2024 9:09 AM EDT us Zane Harris MD POINT OF CARE TEST ENTER/EDIT OR DERABLES Final Result [facility] [address] [place] [address] [phone] * Influenza A (ID NOW Rapid Molecular) (10/17/2024 9:09 AM EDT) [facility] Influenza A Negative Negative, Indeterminate [facility] Swab 10/17/2024 9:09 AM EDT Zane Harris MD POINT OF CARE TEST ENTER/EDIT OR DERABLES Final Result [facility] [address] [place] [address] [phone] * POCT Rapid COVID Ag (10/17/2024 8:59 AM EDT) [facility] Rapid COVID Ag Negative Swab 10/17/2024 8:59 AM EDT us Zane Harris MD POINT OF CARE TEST ENTER/EDIT OR DERABLES Final Result * (ABNORMAL) POCT HGB A1C (09/19/2024 3:37 PM EDT) [facility] Hemoglobin A1C 6.1(A) 4.0 - 6.0 % QC Media Lot # [id number] Lot# Expiration Date Blood 09/19/2024 3:37 PM EDT Kay Faust MD POINT OF CARE TEST ENTER/EDIT ORDERABLES Final Result * POCT Glucose (09/19/2024 3:36 PM EDT) [facility] Glucose Blood, POC 151 60 - 200 mg/dL QC Media Lot # [id number] Lot# Expiration Date 025 Blood Capillary blood specimen / Unknown 09/19/2024 3:36 PM EDT us Kay Faust MD POINT OF CARE TEST ENTER/EDIT ORDERABLES Final Result * BI Mammogram Screening Tomosynthesis Bilateral (05/08/2024 2:50 PM EST) Anatomical Region Laterality Modality Breast Bilateral Mammography 05/08/2024 2:50 PM EST Narrative 05/14/2024 5:39 PM EST [facility] [address] [place] [address] Mammography Report Signed Patient: Xochilt Thomas MR#: [id number] : 1970 Acct:[id number] Age/Sex: 53 / F ADM Date: 05/08/24 Loc: HO.MAMMO Attending Dr: Kay Faust MD Ordering Physician: Kay Faust Results: 1Negative Date of Service: 05/08/24 Follow Up: 1 Year From Orig inal Mammogram Procedure(s): MM tomosynthesis screening BI Accession Number(s): [id number] cc: Kay Faust EXAMINATION: MM SCREENING DIGITAL [...] by Mayuri Pulliam DO in OV> 05/14/24 1602 DD/ 1450 TD/TT: 05/08/24 1505 Outpatient Coder: Procedure Note Donotuseinterpreter, Image - 05/14/2024 [facility] [address] [place] [address] Mammography Report Signed Patient: Xochilt Thomas [facility]#: [id number] : 1970Acct:[id number] Age/Sex: 53 / FADM Date: 05/08/24 Loc: HO.MAMMO Attending Dr: Kay Faust MD Ordering Physician: Amleia Faustults: 1Negative Date of Service: 05/08/24Follow Up: 1 Year From Orig inal Mammogram Procedure(s): MM tomosynthesis screening BI Accession Number(s): [id number] cc: Kay Faust EXAMINATION: MM SCREENING DIGITAL [...] 05/14/24 1736 DD/ 1450 TD/TT: 05/08/24 1505 Outpatient Coder: Kay Faust MD IMG BI PROCEDURES Final Result * Cologuard?? colon cancer screening (04/13/2023 11:53 AM EST) Cologuard Result Negative Negative 04/24/19 24 1:03 AM [facility] [place] [facility] (CLIA #:[id number]) Comment: NEGATIVE TEST RESULT. A negative Cologuard result indicates a low likelihood that a colorectal cancer (CRC) or advanced adenoma (adenomatous polyps with more advanced pre-malignant features) is present. The chance that a person with a negative Cologuard test has a colorectal cancer is less than 1 in 1500 (negative predictive value >99.9%) or has an advanced adenoma is less than 5.3% (negative predictive value 94.7%). These data are based on a prospective cross-sectional study of 10,000 individuals at average risk for colorectal cancer who were screened with both Cologuard and colonoscopy. (Farideh Cope. et al, N Engl J Med 2014;370(14):2038-0152) The normal value (reference range) for this assay is negative. COLOGUARD RE-SCREENING RECOMMENDATION: Periodic colorectal cancer screening is an important part of preventive healthcare for asymptomatic individuals at average risk for colorectal cancer. Following a negative Cologuard result, the [place] Cancer Society and U.S. Multi-Society Task Force screening guidelines recommend a Cologuard re-screening interval of 3 years. References: [place] [employer] Guideline for Colorectal Cancer Screening: https://www.cancer.org/cancer/zfzmd-hmfoae-dcxywc/mtvihktee-kbibnumcz-bjiewmx/ac s-rec ommendations.html.; Jose Manuel YI, Harpreet DUNNE, Bailee CummingsK, Colorectal Cancer Screening: Recommendations for Physicians and Patients from the U.S. Multi-Society Task Force on Colorectal Cancer Screening , Am J Gastroenterology 2017; 112:8395-3492. TEST DESCRIPTION: Composite algorithmic analysis of stool DNA-biomarkers with hemoglobin immunoassay. Quantitative values of individual biomarkers are not [...] (Farideh Castelan al, N Engl J Med 2014;370(14):4783-1432.) Cologuard may produce a false negative or false positive result (no colorectal cancer or precancerous polyp present at colonoscopy follow up). A negative Cologuard test result does not guarantee the absence of CRC or advanced adenoma (pre-cancer). The current Cologuard screening interval is every 3 years. ([place] [employer] and U.S. Multi-Society Task Force). Cologuard performance data in a 10,000 patient pivotal study using colonoscopy as the reference method can be accessed at the following location: www.[employer]/results. Additional description of the Cologuard test process, warnings and precautions can be found at www.ComViberd.com. Stool specimen (specimen) 04/13/2023 11:53 AM EST 04/14/2023 12:57 PM EST Kay Faust MD LAB MOLECULAR DIAGNOSTICS BAMBI SERRA Final Result [facility] (CLIA #:[id number]) [address] [place] [address], * Hepatitis C Ab (02/28/2023 1:59 PM EST) Hepatitis C Antibody Nonreactive Nonreactive [facility] Comment:Antibodies to HCV no t detected; does not exclude early acuteHCV infection. Blood Venous blood specimen / Unknown 02/28/2023 1:59 PM EST 02/28/2023 4:15 PM EST Kay Faust MD LAB BLOOD ORDERABLES Final Res ult Performing Organization Address [facility]/ZIP Co de Phone Number [facility] [address] [place] [phone] * HIV-1/2 Antigen and Antibodies, Fourth Generation, with Reflexes (02/28/2023 1:59 PM EST) HIV AB/AG Nonreactive Nonreactive [facility] Comment:HIV-1 p24 Ag and/or HIV-1/HIV-2 Ab not detected.A test result that is nonreactive does not exclude thepossibility of exposure to or infection with HIV-1 and/orHIV-2. Nonreactive results in this assay for individualswith prior exposure to HIV-1 and/or HIV-2 may be due toantigen and antibody levels that are below the limit ofdetection of this assay.The [employer] HIV Ag/Ab Combo assay result andsupplemental assay results should be interpreted inconjunction with the patient's clinical presentation,history and other laboratory results. If the results areinconsistent with clinical evidence, additional testing issuggested to confirm the result. Blood Venous blood specimen / Unknown 02/28/2023 1:59 PM EST 02/28/2023 4:15 PM EST us Kay Faust MD LAB BLOOD ORDERABLES Final Res ult Performing Organization Address City/[facility]/ZIP Co de Phone Number [facility] [address] [place] [phone] * (ABNORMAL) Lipid Panel, Standard (02/28/2023 1:59 PM EST) Triglycerides 232(H) <150 mg/dL [facility] Comment:Desirable Triglyceri de: less than 150 mg/dLBorderline High Triglyceride 150-199 mg/dLHigh Triglyceride: 200-499 mg/dLVery High Triglyceride: greater than or equal to 5OO mg/dL Cholesterol 186 <200 mg/dL [facility] Comment:Desirable Cholestero l: less than 200 mg/dLBorderline High Cholesterol: 200-239 mg/dLHigh Cholesterol: greater than 239 mg/dL LDL Cholesterol Calculated 93 <100 mg/dL [facility] Comment:Desirable LDL: less than 100 mg/dLNear Optimal/Above Optimal LDL: 110- 129 mg/dLBorderline High LDL: 130-159 mg/dLHigh LDL: 160-189 mg/dLVery High LDL: greater than or equal to 190 mg/dL HDL Cholesterol 47 >40 mg/dL [facility] Comment:Desirable HDL: great er than 40 mg/dL Note: This HDL assay may give artificially low results in patients with liver disease. Blood Venous blood specimen / Unknown 02/28/2023 1:59 PM EST 02/28/2023 4:15 PM EST Kay Faust MD LAB BLOOD ORDERABLES Final Res ult [facility] [address] [place] [address] [phone] * Pap Smear (12/22/2020) Pap Negative for intraephithelial lesion or malignancy Negative for intraephithelial lesion or malignancy, Other HPV Not Detected Undetected, Indeterminate, Quantitative, Not Detected Historical Provider HEALTH MAINTENANCE Final Result from Last 3 Months or Most Recently Relevant to Health Maintenance Insurance [employer] Care Teams Grinder Set Up Operator Gear Tool Relationship Specialty Start Date End Date Kay Faust MD [address] [place] [id number] PCP - General Family Medicine 12/02/22
== END 2024-10-22 09:57 | disposition home or self-care (01) ==
LOC: HO.HHCX 09:56
PROVIDERS: Visit Provider Emergency Medicine
DX: R05.1 Acute cough (principal)
CPT/HCPCS: 71046

== ENCOUNTER → 2024-10-22 09:56 | Outpatient (BNV) | payer OTHER, SELFPAY | PROVIDERS: Visit Provider Radiology Diagnostic Radiology | DX: R91.8 Other nonspecific abnormal finding of lung field (principal) | CPT/HCPCS: 71046 ==

== ENCOUNTER 2025-03-09 07:19 | Outpatient (REF) | payer OTHER, SELFPAY ==
--- OUTSIDE RECORDS SUMMARY | 2025-03-04 14:45 | XMS_ITS | Encounter Summary ---
Author Organization [email or web address] Address [address] [place] [address] 7 [place] [address] Care Team Providers Care Engineering Specialist Name Role Phone Kay Faust MD Primary Care Provider [phone] Reason for Visit * Reason Comments Follow-up Encounter Details Date Type Department Care Team ([facility] st Contact Info) Description 03/04/2025 2:45 PM EST Office Visit [facility] [address] [place], [place] [phone] Kay Faust MD [address] [place], [place] [phone] Type 2 diabetes mellitus without complication, without long-term current use of insulin (HCC) (Primary Dx); Class 3 severe obesity with serious comorbidity and body mass index (BMI) of 50.0 to 59.9 in adult, unspecified obesity type (HCC); Gastroesophageal reflux disease without esophagitis; Primary hypertension; Obstructive sleep apnea hypopnea, mild; Severe persistent asthma without complication (HCC); Depression, major, single episode, moderate (CMS/HCC) (HCC); Class 3 severe obesity with serious comorbidity and body mass index (BMI) of 50.0 to 59.9 in adult (HCC) Social History Tobacco Use Types Packs/Day Years [...] Answer Date Recorded Patient Health Questionnaire-9 Score 9 12/17/2024 Patient Health Questionnaire-9 Score 9 12/17/2024 Last PHQ-9: Questionnaire Data Not on file 0 12/17/2024 Housing Stability Answer Date Recorded What is your housing situation today? I have keisha guidry 09/19/[address] you [...] Answer Date Recorded Patient Health Questionnaire-2 Score 2 12/17/2024 Internet Access Answer Date Recorded Internet Access [...] Sign Reading Time Taken Comments Blood Pressure 128/80 03/04/2025 3:13 PM EST Pulse 71 03/04/2025 3:13 PM EST Temperature 36.5 C (97.7 F) 03/04/2025 3:13 PM EST Respiratory Rate 21 03/04/2025 3:13 PM EST Oxygen Saturation 98% 03/04/2025 3:13 PM EST Inhaled Oxygen Concentration - - Weight 163 kg (359 lb 12.8 oz) 03/04/2025 3:13 P M EST Height 175.3 cm (5' 9 ) 03/04/2025 3:13 PM EST Body Mass Index 53.13 03/04/2025 3:13 PM EST documented in this encounter Progress Notes * Kay Faust MD - 03/04/2025 2:45 PM EST SUBJECTIVE: Xochilt Thomas is a 54 y.o. female who presents for chronic disease management. Denies recent illness, ER visit, or hospitalization. Acute Concerns: Would like to appeal Comfort hand from 12/27/24 as she is still in need of DM2 management and sheis not able to tolerate Metformin 500mg due to GI side effects 2. Her GI symptoms continue unabated, helped her to scheduled her RUQUS for May 02, 2024. Will refer to [facility] general surgery based on the results Chronic Conditions and Plans: DM2 Diagnosed in 2023, was on Metformin 500mg x months, but could not tolerate due to GI side effects. - Comfort BOATENG initiated 12/25/24, denied 01/2025. 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 Garcia 01/06/24 pulm: start Trelegy ; stop Wixela. Trying to get Trlelgy covered through [employer] good candidate for Biologic therapy: Dupixent would likely be most effective for her PFTs showed fixed obstructive defect 06/18/24 pulm: add incruse to wixela, start Dupixent 08/08/24 started dupixent Has been sick multiple times this winter and spring with Flu, COVID, other viral infections Will get Flu/PCV20 vaccines in Dec 2023 her RAST panel shows multiple allergens Quit smoking 17 years ago, November 03, 2007 Dermatitis Rash--Red spots on her arms, upper back intermittently, not painful or itchy, start as small blisters, open and then scab or crust Trialed Triamcinolone cream for possible allergic reaction or eczema. This has not changed her rash. Ammonium lactate is most helpful, continue this prn Allergies On Zyzal and Claritin GERD Gastrointestinal symptoms - Reports pain from gallbladder bothering her - Experiencing nausea and Right upper quadrant abdominal pain after eating - Diarrhea Back pain/arthritis daily Depression Feeling depressed and like she doesn't want to do anything, staying in her room a lot Patient Health Questionnaire-9 Score: 9 (12/17/2024 3:58 PM) Declines BE at this time, states getting outside is most helpful FH: mom triple bypass surgery, brother double bypass, sister kidney failure Health Maintenance Mammo- 05/2024 Birads 1 Pap- 12/2020 NILM, HPV neg Colon- 04/2023 Cologuard negative Imms-due for COVID, zoster, Hep B Patient Active Problem List Diagnosis Date Noted Type 2 diabetes mellitus without complication, without long-term current use of insulin ([facility]) 12/19/2024 Bug bite 12/19/2024 Depression, major, single episode, moderate (CMS/HCC) ([facility]) 09/21/2024 Dyslipidemia 04/09/2024 Diuretic-induced hypokalemia 07/04/2023 Class 3 severe obesity with serious comorbidity and body mass index (BMI) of 50.0 to 59.9 in adult ([facility]) 06/10/2023 HTN (hypertension) 03/03/2023 Severe persistent asthma without complication ([facility]) 11/27/2022 Seasonal allergies 11/27/2022 Gastroesophageal reflux disease without esophagitis 11/27/2022 Cyst of right ovary 06/06/2020 Obstructive sleep apnea hypopnea, mild 10/23/2015 Surgical History[1] Social History Social History Narrative Lives with BF and dog Sister lives nearby, brothers [employer], employment Review of Systems Constitutional: Negative. Eyes: Negative. Respiratory: Negative. Cardiovascular: Negative. Gastrointestinal: Positive for abdominal pain, diarrhea and nausea. Genitourinary: Negative. Musculoskeletal: Positive for arthralgias and back pain. Skin: Negative. Psychiatric/Behavioral: Positive for dysphoric mood. OBJECTIVE: Vitals: 03/04/25 1513 BP: 128/80 BP Location: Left arm Patient Position: Sitting BP Cuff Size: Large adult Pulse: 71 Resp: 21 Temp: 97.7 ??F (36.5 ??C) TempSrc: Oral SpO2: 98% Weight: 359 lb 12.8 oz (163 kg) Height: 5' 9 (1.753 m) Physical Exam Vitals reviewed. Constitutional: Appearance: Normal appearance. HENT: Head: Normocephalic and atraumatic. Cardiovascular: Rate and Rhythm: Normal rate and regular rhythm. Pulses: Normal pulses. Heart sounds: Normal heart sounds. Pulmonary: Effort: Pulmonary effort is normal. Breath sounds: Normal breath sounds. Skin: General: Skin is warm and dry. Neurological: General: No focal deficit present. Mental Status: She is alert and oriented to person, place, and time. Psychiatric: Mood and Affect: Mood normal. Behavior: Behavior normal. ASSESSMENT/PLAN Problem List Items Addressed This Visit Severe persistent asthma without complication ([facility]) Gastroesophageal reflux disease without esophagitis HTN (hypertension) Class 3 severe obesity with serious comorbidity and body mass index (BMI) of 50.0 to 59.9 in adult ([facility]) Relevant Medications Tirzepatide (Mounjaro) 2.5 MG/0.5ML solution auto-injector Obstructive sleep apnea hypopnea, mild Depression, major, single episode, moderate (CMS/HCC) ([facility]) Type 2 diabetes mellitus without complication, without long-term current use of insulin ([facility]) - Primary Current Assessment & Plan Current A1c: 6.1 (09/2024), 6.5 (09/2023) was on Metformin 500mg for 3 months, could not tolerate dueto GI side effects. - [place] appeal initiated 03/05/2025 for Mounjaro for ongoing DM2 management BMP: Lab Results Component Value Date CREATININE 0.80 07/21/2024 K 3.9 07/21/2024 Microalbumin: due Statin: Yes ASA: Yes ANGELIQUE/ARB: Yes Encouraged regular aerobic exercise for improved glycemic control Encouraged daily foot checks Encouraged lean protein snacks and to avoid foods high in sugar and simple carbohydrates Treatment Goals: A1c goal: <7% FBG goal: <130 2 hour post prandial goal: <180 Relevant Medications Tirzepatide (Mounjaro) 2.5 MG/0.5ML solution auto-injector Other Relevant Orders POCT Glucose (Completed) Lipid Panel, Standard Albumin, Random Urine W/Creatinine Follow Up: 3 months or sooner prn NKDA [1] History reviewed. No pertinent surgical history. documented in this encounter Miscellaneous Notes * Assessment & Plan Note - Kay Faust MD - 03/05/2025 7:44 AM ESTAssociated Problem(s): Type 2 diabetes mellitus without complication, without long-term current useof insulin (HCC) Current A1c: 6.1 (09/2024), 6.5 (09/2023) was on Metformin 500mg for 3 months, could not tolerate dueto GI side effects. - [place] initiated 03/05/2025 for Comfort for ongoing DM2 management BMP: Lab Results Component Value Date CREATININE 0.80 07/21/2024 K 3.9 07/21/2024 Microalbumin: due Statin: Yes ASA: Yes ANGELIQUE/ARB: Yes Encouraged regular aerobic exercise for improved glycemic control Encouraged daily foot checks Encouraged lean protein snacks and to avoid foods high in sugar and simple carbohydrates Treatment Goals: A1c goal: <7% FBG goal: <130 2 hour post prandial goal: <180 documented in this encounter Plan of Treatment Scheduled Orders Name Type Priority Associated Diagnoses Orde r Schedule Lipid Panel, Standard Lab Routine Type 2 diabetes mellitus without complication, without long-term current use of insulin (HCC) Expected: 03/05/2025 (Approximate), Expires: 03/05/2026 Albumin, Random Urine W/Creatinine Lab Routine Type 2 diabetes mellitus without complication, without long-term current use of insulin (HCC) Expected: 03/05/2025 (Approximate), Expires: 03/05/2026 documented as of this encounter Goals Goal Patient Goal Type Associated Problems Recent Progress Patient-Stated? Author Help patients manage their type 2 diabetes Care Plan Help patients manage their type 2 diabetes No Kay Faust MD Weekly blood pressure task Care Plan Weekly blood pressure task No Kay Faust MD Help patients manage their type 2 diabetes Care Plan Help patients manage their type 2 diabetes Kay Hoang MD Patient has chronic kidney disease Care Plan Patient has chronic kidney disease Kay Hoang MD Weekly blood pressure task Care Plan Weekly blood pressure task Kay Hoang MD Patient has chronic kidney disease Care Plan Patient has chronic kidney disease Kay Hoang MD documented as of this encounter Procedures Procedure Name Priority Date/Time Associated Diagnosis Comments POCT GLUCOSE Routine 03/04/2025 3:16 PM EST Type 2 diabetes mellitus without complication, without long-term current use of insulin (HCC) documented in this encounter Results * POCT Glucose (03/04/2025 3:16 PM EST) [facility] Glucose Blood, POC 107 60 - 200 mg/dL QC Media Lot # [id number] Lot# Expiration Date Blood Capillary blood specimen / Unknown 03/04/2025 3:16 PM EST Kay Faust MD POINT OF CARE TEST ENTER/EDIT ORDERABLES Final Result documented in this encounter Visit Diagnoses Diagnosis Type 2 diabetes mellitus without complication, without long-term current use of insulin (HCC)- Primary Class 3 severe obesity with serious comorbidity and body mass index (BMI) of 50.0 to 59.9 in adult, unspecified obesity type (HCC) Gastroesophageal reflux disease without esophagitis Esophageal reflux Primary hypertension Unspecified essential hypertension Obstructive sleep apnea hypopnea, mild Severe persistent asthma without complication (HCC) Depression, major, single episode, moderate (CMS/HCC) (HCC) documented in this encounter Additional Health Concerns Active Problems Noted Date Diagnosed Date Help patients manage their type 2 diabetes 03/03 Weekly blood pressure task 03/03/2025 Help patients manage their type 2 diabetes 03/03 Patient has chronic kidney disease 03/03/2025 Weekly blood pressure task 03/03/2025 Patient has chronic kidney disease 03/03/2025 Assessment Noted Time PHQ-9 Depression Total Score: 9 12/18/19 25 3:58 PM EDT documented as of this encounter Care Teams Engineering Specialist Relationship Specialty Start Date End Date Kay Faust MD [address] [place] [address] PCP - General Family Medicine 12/02/22 documented as of this encounter
--- OUTSIDE RECORDS SUMMARY | 2025-03-09 07:23 | XMS_ITS | Encounter Summary ---
Author Organization [employer] Address [address] [facility] 7 [place] [address] Care Team Providers Care Cloth Presser Name Role Phone Kay Faust MD Primary Care Provider [phone] Encounter Details Date Type Department Care Team ([facility] st Contact Info) Description 05/18/2023 Telephone [facility] [address] [place], [place] [phone] Zane Harris MD [address] [place], [place] [phone] Social History Tobacco Use Types Packs/Day Years [...] as of this encounter Plan of Treatment Not on file documented as of this encounter Visit Diagnoses Not on filedocumented in this encounter Additional Health Concerns Assessment Noted Time PHQ-9 Depression Total Score: 0 02/29/20 23 1:21 PM EST documented as of this encounter Care Teams Cloth Presser Relationship Specialty Start Date End Date Kay Faust MD [address] [place] [address] PCP - General Family Medicine 12/02/22 documented as of this encounter
--- OUTSIDE RECORDS SUMMARY | 2025-03-09 07:23 | XMS_ITS | Encounter Summary ---
Author Organization [employer] Address [address] [place] [address] 7 [place] [address] Care Team Providers Care Production Team Member Name Role Phone Kay Faust MD Primary Care Provider [phone] Reason for Visit * Reason Onset Date Comments Med Refill 09/14/2023 Encounter Details Date Type Department Care Team ([facility] st Contact Info) Description 09/14/2023 Refill [facility] [address] [place], [place] [phone] Kay Faust MD [address] [place], [place] [phone] Social History Tobacco Use Types Packs/Day Years [...] documented as of this encounter Care Teams Production Team Member Relationship Specialty Start Date End Date Kay Faust MD [address] [place] [id number] PCP - General Family Medicine 12/02/22 documented as of this encounter
--- OUTSIDE RECORDS SUMMARY | 2025-03-09 07:23 | XMS_ITS | Encounter Summary ---
Author Organization [employer] Address [address] [facility] 7t [place] [address] Care Team Providers Care Stenocaptioner Name Role Phone Kay Faust MD Primary Care Provider [phone] Encounter Details Date Type Department Care Team (Latest Contact Info) Description 03/04/2025 Travel Social History Tobacco Use Types Packs/Day Years [...] on file documented as of this encounter Goals Goal [...] type 2 diabetes No Kay Faust MD Patient has chronic kidney disease Care Plan Patient has chronic kidney disease No Kay Faust MD Weekly blood pressure task Care Plan Weekly blood pressure task No Kay Faust MD Patient has chronic kidney disease Care Plan Patient has chronic kidney disease No Kay Faust MD documented as of this encounter Visit Diagnoses Not on filedocumented in this encounter Additional Health Concerns Active [...] documented as of this encounter Care Teams Stenocaptioner Relationship Specialty Start Date End Date Kay Faust MD [address] [place] [id number] PCP - General Family Medicine 12/02/22 documented as of this encounter
--- OUTSIDE RECORDS SUMMARY | 2025-03-09 07:23 | XMS_ITS | Encounter Summary ---
Author Organization [employer] Address [address] [place] [address] 7 [place] [address] Care Team Providers Care Terminal Worker Name Role Phone Kay Faust MD Primary Care Provider [phone] Reason for Visit * Reason Onset Date Comments Lab Orders 03/08/2025 Encounter Details Date Type Department Care Team ([facility] st Contact Info) Description 03/08/2025 Telephone [facility] [address] [place], [place] [phone] Karie Acharya RN [address] [place], [place] [phone] Lab Orders Social History Tobacco Use Types Packs/Day Years [...] the past 12 months, has t he [employer], gas, oil or water [employer] threatened to shut off services in your [...] encounter Miscellaneous Notes * Telephone Encounter - Karie Acharya RN - 03/08/2025 11:15 AM EST Notified by PA specialist that [facility]. Pt. Is overdue, last A1c in September. Pt. Has oustanding bloodwork ordered from last appointment 03/04/25. A1c order added. TC placed to pt. And she plans to come to [facility] lab tomorrow morning to get it done. documented in this encounter Plan of Treatment Scheduled Orders Name Type Priority Associated Diagnoses Orde r Schedule Hemoglobin A1c Lab Routine Type 2 diabetes mellitus without complication, without long-term current use of insulin (HCC) Expected: 03/08/2025 (Approximate), Expires: 03/08/2026 documented as of this encounter Goals Goal Patient Goal Type Associated Problems Recent Progress Patient-Stated? Author Help patients manage their type 2 diabetes Care Plan Help patients manage their type 2 diabetes Kay Hoang MD Weekly blood pressure task [...] Care Plan Weekly blood pressure task No Karie Acharya RN Weekly blood pressure task Care Plan Weekly blood pressure task No Karie Acharya RN Patient has chronic kidney disease Care Plan Patient has chronic kidney disease No Karie Acharya RN Patient has chronic kidney disease Care Plan Patient has chronic kidney disease No Karie Acharya RN documented as of this encounter Visit Diagnoses Diagnosis Type 2 diabetes mellitus without complication, without long-term current use of insulin (HCC) documented in this encounter Additional Health Concerns Active Problems Noted Date Diagnosed Date Help patients manage their type 2 diabetes 03/03 Weekly blood pressure task 03/03/2025 Help patients manage their type 2 diabetes 03/03 Patient has chronic kidney disease 03/03/2025 Weekly blood pressure task 03/03/2025 Patient has chronic kidney disease 03/03/2025 Weekly blood pressure task 03/08/2025 Weekly blood pressure task 03/08/2025 Patient has chronic kidney disease 03/08/2025 Patient has chronic kidney disease 03/08/2025 Assessment Noted Time PHQ-9 Depression Total Score: 9 12/18/19 25 3:58 PM EDT documented as of this encounter Care Teams Terminal Worker Relationship Specialty Start Date End Date Kay Faust MD [address] [place] [id number] PCP - General Family Medicine 12/02/22 documented as of this encounter
--- OUTSIDE RECORDS SUMMARY | 2025-03-09 07:23 | XMS_ITS | Encounter Summary ---
Author Organization [employer] Address [address] [place] [address] 7 [place] [address] Care Team Providers Care Checkout Operator Name Role Phone Kay Faust MD Primary Care Provider [phone] Reason for Visit * Reason Onset Date Comments Med Refill 08/20/2023 Encounter Details Date Type Department Care Team ([facility] st Contact Info) Description 08/20/2023 Refill [facility] [address] [place], [place] [phone] Kay Faust MD [address] [place], [place] [phone] Moderate persistent asthma without complication Social History [...] documented as of this encounter Care Teams Checkout Operator Relationship Specialty Start Date End Date Kay Faust MD [address] [place] [address] PCP - General Family Medicine 12/02/22 documented as of this encounter
--- OUTSIDE RECORDS SUMMARY | 2025-03-09 07:23 | XMS_ITS | Encounter Summary ---
Author Organization [employer] Address [address] [facility] 7 [place] [address] Care Team Providers Care Shoe Laster Name Role Phone Kay Faust MD Primary Care Provider [phone] Reason for Visit * Reason Onset Date Comments Med Refill 01/01/2025 Encounter Details Date Type Department Care Team ([facility] st Contact Info) Description 01/01/2025 Refill [facility] [address] [place], [place] [phone] Dg Meier MD [address] [place], [place] [phone] Severe persistent asthma with exacerbation Social History Tobacco Use Types Packs/Day Years [...] as of this encounter Visit Diagnoses Diagnosis Severe persistent asthma with exacerbation (HCC) Unspecified asthma, with exacerbation documented in this encounter Additional Health Concerns Assessment Noted Time PHQ-9 Depression Total Score: 9 12/18/19 25 3:58 PM EDT documented as of this encounter Care Teams Shoe Laster Relationship Specialty Start Date End Date Kay Faust MD [address] [place] [id number] PCP - General Family Medicine 12/02/22 documented as of this encounter
--- OUTSIDE RECORDS SUMMARY | 2025-03-09 07:23 | XMS_ITS | Encounter Summary ---
Author Organization [employer] Address [address] [facility] 7 [place] [address] Care Team Providers Care Adhesive Sprayer Name Role Phone Kay Faust MD Primary Care Provider [phone] Encounter Details Date Type Department Care Team ([facility] st Contact Info) Description 05/28/2024 Orders Only [facility] [address] [place], [place] [phone] Kay Faust MD [address] [place], [place] [phone] Social History Tobacco Use Types Packs/Day Years [...] documented as of this encounter Care Teams Adhesive Sprayer Relationship Specialty Start Date End Date Kay Faust MD [address] [place] [address] PCP - General Family Medicine 12/02/22 documented as of this encounter
--- OUTSIDE RECORDS SUMMARY | 2025-03-09 07:23 | XMS_ITS | Clinical Summary ---
Author Organization [facility] it Address [address] [place] [address] Care Team Providers Care Printer'S Devil Name Role Phone Jagdish Evans MD Primary Care Provider [phone] Allergies No known active allergies Medications albuterol [...] mas s index of 50.0-59.9 in adult ([facility] V24, [facility] V28) 04/09/2024 Cyst of right ovary 06/06/2020 Obstructive sleep apnea hypopnea, mild 6 Allergic rhinitis due to allergen 01/30/2015 Heartburn 04/16/2013 Immunizations Immunization Administration Dates Next Due Influenza Quadravalent, MDCK [...] History Surgery Date Site/Laterality Comments BREAST BIOPSY 2015 Left PROCEDURE: BX BREAST; PERC NEEDLE CORE [...] Health Maintenance Due Date Last Done Comments Colorectal Cancer Screening: Colonoscopy 1970 Hepatitis B Vaccines (1 of 3 - 19+ 3-dose series) 1989 Pneumococcal Vaccine: 50+ Years (2 of 2 - PCV) 05/02/2016 05/02/2015 RSV Immunization Adult Patients (1 - Risk 50-74 years 1-dose series) 2020 Zoster Vaccines (1 of 2) 2020 Breast Cancer Screening 02/21/2021 02/22/20 19, 02/16/2018, 02/14/2017 Social Influencers of Health Screening 03/07/2022 Cholesterol Screening (Lipid Panel) 09/13/2023 09/12/2018 Depression Screening 04/04/2024 COVID-19 Vaccine (3 - season) 2024 02/13/2021, 07/07/2020 Influenza Vaccine (#1) 2024 , 12/18/2019, 01/22/2018, Additional history exists DTaP,Tdap,and Td [...] PM EST) Anatomical Region Laterality Modality Radiographic Cynhtia ging 02/16/2018 3:10 PM EST Narrative 02/22/2019 [...] Breast cancer risk category Low (<15%) Erica Watson CNM IMG XR PROCEDURES Final Result * (ABNORMAL) Lipid panel (09/12/2018) [facility] LDL/HDL Ratio 5(A) 0 - 4 Triglycerides 484(A) 0 - 150 mg/dL Cholesterol 185 0 - 200 mg/dL HDL 40 >=40 mg/dL LDL Cholesterol 49 0 - 100 mg/dL Blood Venous blood specimen / Unknown [facility] Provider LAB BLOOD ORDERABLES Sudha l Result * HIV Screening (05/25/2016) [facility] HIV Screening Abstracted Result [facility] Provider HEALTH MAINTENANCE Final Result * Hepatitis C Screening (05/25/2016) [facility] Hepatitis C Screening Abstracted Result [facility] Provider HEALTH MAINTENANCE Final Result from Last 3 Months or Most Recently Relevant to Health Maintenance Care Teams Printer'S Devil Relationship Specialty Start Date End Date Jagdish Evans MD PCP - General Internal Medicine 05/13/14
--- OUTSIDE RECORDS SUMMARY | 2025-03-09 07:23 | XMS_ITS | Encounter Summary ---
Author Organization [employer] Address [address] [place] [address] [address] [place] [address] Care Team Providers Care Loom Operator Name Role Phone Kay Faust MD Primary Care Provider [phone] Reason for Referral * Consultation (Routine) - Closed Specialty Diagnoses / Procedures Referred By Anai stallworth Referred To Contact Optometry Diagnoses Blurry vision, bilateral Kay Faust MD [address] [place] [address] Phone: tel: fax: Referral ID Status Reason Start Date Expiration Date V isits Requested Visits Authorized [id number] Closed Specialty Services Required 05/02/2024 05/02/2025 1 1 Encounter Details Date Type Department Care Team (Late st Contact Info) Description 05/02/2024 Orders Only [facility] [address] [place], [place] [phone] Kay Faust MD [address] [place], [place] [phone] Blurry vision, bilateral (Primary Dx) Social History [...] as of this encounter Plan of Treatment Scheduled Referrals Name Type Priority Associated Diagnoses [...] PM EST Narrative 05/14/2024 5:39 PM EST [address] [place] [address] Mammography Report Signed Patient: Xochilt Thomas MR#: [id number] : 1970 Acct:[id number] Age/Sex: 53 / F ADM Date: 05/08/24 Loc: HO.MAMMO Attending Dr: Kay Faust MD Ordering Physician: Kay Faust Results: 1Negative Date of Service: 05/08/24 Follow Up: 1 Year From Orig inal Mammogram Procedure(s): MM tomosynthesis screening BI Accession Number(s): [id number] cc: Kay Faust EXAMINATION: MM SCREENING DIGITAL [...] 05/14/24 1736 DD/ 1450 TD/TT: 05/08/24 1505 Mission Coordinator: Procedure Note Donotuseinterpreter, Image - 05/14/[address] [place] [address] Mammography Report Signed Patient: Xochilt Thomas [facility]#: [id number] : 1970Acct:[id number] Age/Sex: 53 / FADM Date: 05/08/24 Loc: HO.MAMMO Attending Dr: Kay Faust MD Ordering Physician: Amelia Faustults: 1Negative Date of Service: 05/08/24Follow Up: 1 Year From Orig inal Mammogram Procedure(s): MM tomosynthesis screening BI Accession Number(s): [id number] cc: Kay Faust EXAMINATION: MM SCREENING DIGITAL [...] 05/14/24 1736 DD/ 1450 TD/TT: 05/08/24 1505 Mission Coordinator: Kay Faust MD IMG BI PROCEDURES Final Result documented in this encounter Visit Diagnoses Diagnosis Blurry vision, bilateral- Primary Other specified visual disturbances documented in this encounter Additional Health Concerns Assessment Noted Time PHQ-9 Depression Total Score: 0 02/29/20 23 1:21 PM EST documented as of this encounter Care Teams Loom Operator Relationship Specialty Start Date End Date Kay Faust MD [address] [place] [address] PCP - General Family Medicine 12/02/22 documented as of this encounter
--- OUTSIDE RECORDS SUMMARY | 2025-03-09 07:23 | XMS_ITS | Encounter Summary ---
Author Organization [employer] Address [address] [facility] 7 [place] [address] Care Team Providers Care Train Gateman Name Role Phone Kay Faust MD Primary Care Provider [phone] Reason for Visit * Reason Comments Med Refill Encounter Details Date Type Department Care Team ([facility] st Contact Info) Description 11/16/2023 Refill [facility] [address] [place], [place] [phone] Kay Faust MD [address] [place], [place] [phone] Moderate persistent asthma without complication Social History [...] documented as of this encounter Care Teams Train Gateman Relationship Specialty Start Date End Date Kay Faust MD [address] [place] [address] PCP - General Family Medicine 12/02/22 documented as of this encounter
--- OUTSIDE RECORDS SUMMARY | 2025-03-09 07:23 | XMS_ITS | Data Portability ---
Author Organization [facility], [address] Address [address] [place] [address] Assessment Encounter Date Assessment Date Assessment LastModified by Organization Details LastModified Time 05/04/2022 05/04/2022 Viral illness is likely, consider flu like illness. Symptomatic treatment reviewed, letter for work [email or web address] Not available 05/04/2022 11:39:55 Plan of Treatment Reminders Order Date Submit Date Provider Last Modified By Organization Details Last Modified Time Details Appointments None recorded. Lab rapid flu (A+B) 2022 023 lisseth ne1 [address], [address] [place] [address], [place], [address], 11:35:29 Referral None recorded. Procedures None recorded. Surgeries None recorded. Imaging None recorded. Medication Orders prednisone 10 mg tablet 2022 023 [facility][id number], [address] [place], [address], 3 09:15:59 olopatadine 0.1 % eye drops 2022 023 [facility] #[id number], [address] [place], [address], 3 09:15:59 Patient TargetsNo targets recorded. Patient Instructions Encounter Date Encounter Id Patient Instructions Last Modified By Organization Details Last Modified Time 05/04/2022 [id number] nausea and vomiting: care instructions [email or web address] Not [...] ear pain Not available 05/04/2022 11:40:17 06/29/2022 [id number] You are having a n asthma exacerbation [...] 5. light headedness. Thank you for using [employer] today - please don't hesitate to contact up or return to see if you have any questions or concerns. Not available 06/29/2022 09:14:38 Reason for Referral None Reported. Results Created Date Observation Date Name Description Value Unit Range Abnormal Flag Note LastModifiedBy Organization Detail LastModifiedTime 05/04/19 23 05/04/2022 rapid flu (A+B) Unknown Analyte Normal = Negati ve Not Available _juan pablo ruiz [address], [address], 05/04/2022 11:00:32 05/04/19 23 05/04/2022 rapid flu (A+B) Unknown Analyte Normal = Negati ve Not Available juan pablo [address] [place], [address], 05/04/2022 11:00:32 05/04/19 23 05/04/2022 rapid flu (A+B) Unknown Analyte negati ve Not Available juan pablo [address] [place], [address], 05/04/2022 11:00:32 05/04/19 23 05/04/2022 rapid flu (A+B) Unknown Analyte negati ve Not Available juan pablo [address] [place], [address], 05/04/2022 11:00:32 Result Notes None recorded. Problems Name Problem SNOMED Code Status Onset Date Resolution Date Notes Provider Name and Address Organization Details Recorded Time Asthma 155448244 Active 023 FITO Juarez null, [place] - [facility] 3 10:57:54 Acid reflux 294253884 Active 023 FITO Juarez null, PA - [facility] 3 10:59:16 Arthritis 3238534 Active 023 IRIS KORIVERTMERISSA R null, PA [...] temperature Respiratory rate Heart rate Oxygen saturation Systolic And Diastolic Provider Name and Address Organization Details Last Updated DateTime 3 175.26 cm 49.5 kg/m2 233796. 44 g 98.4 [degF] 20 /min 68 /min 98 % 139/97 mm[Hg] FITO Juarez PA - [facility] 3 11:01:51 Date Recorded Body height Body mass index (BMI) Body weight Pain severity - 0-10 verbal numeric rating [Score] - Reported Respiratory rate Heart rate Oxygen saturation Body temperature Systolic And Diastolic Provider Name and Address Organization Details Last Updated DateTime 3 175.26 cm 49.5 kg/m2 126607. 44 g 5 20 /min 74 /min 99 % 97.8 [degF] 163/93 mm[Hg] Sandra [...] or 50 mcg/0.25mL dose 2 completed Sandra Gowrie null, PA - [facility] 06/29/2022 08:32:41 COVID-19, mRNA, LNP-S, PF, 100 mcg/0.5mL dose or 50 mcg/0.25mL dose 1 completed Sandra Gowrie null, PA - [facility] 06/29/2022 08:32:41 COVID-19, mRNA, LNP-S, PF, 100 mcg/0.5mL dose or 50 mcg/0.25mL dose 1 completed Sandra Ele null, PA - [facility] 06/29/2022 08:32:41 COVID-19, mRNA, LNP-S, PF, 100 mcg/0.5mL dose or 50 mcg/0.25mL dose 1 completed Sandra Ele null, PA - [facility] 06/29/2022 08:32:41 COVID-19, mRNA, LNP-S, bivalent, PF, 30 mcg/0.3 mL dose 2 completed Sandra Gowrie null, PA - [facility] 06/29/2022 08:32:41 pneumococcal polysaccharide PPV23 6 completed Sandra Ele null, PA - [facility] 06/29/2022 08:32:42 Tdap 5 completed Sandra Ele null, PA - [facility] 06/29/2022 08:32:42 Influenza, split virus, trivalent, preservative 4 completed Sandra Ele null, PA - [facility] 06/29/2022 08:32:42 Influenza, split virus, trivalent, preservative 0 completed Sandra Ele null, PA - [facility] 06/29/2022 08:32:42 Influenza, split virus, trivalent, preservative 6 completed Sandra Gowrie null, PA - [facility] 06/29/2022 08:32:42 Influenza, split virus, trivalent, preservative 4 completed Sandra Gowrie null, PA - [facility] 06/29/2022 08:32:42 Influenza, split virus, trivalent, preservative 5 completed Sandra Gowrie null, PA - [facility] 06/29/2022 08:32:42 Influenza, split virus, quadrivalent, PF 2 completed Sandra Ele null, PA - [facility] 06/29/2022 08:32:42 Past Encounters Encounter ID Performer Location Encounter Start Date Encounter Closed Date Diagnosis/Indication Diagnosis SNOMED-CT Code Diagnosis ICD10 Code Diagnosis IMO Codes Diagnosis Note [id number] [address] [address] [address] [place] [address] 06/18/2021 09:28:53 06/18/2021 09:59:33 [id number] [address] [address] [address] [address] [place] [address] 06/12/2019 10:34:03 06/12/2019 11:28:10 [id number] [address] [address] [place] [address] 02/02/2021 09:16:12 02/02/2021 10:55:41 [id number] [address] [facility] [address] [place] [address] 07/12/2017 09:26:55 07/12/2017 10:50:42 [id number] [address] [address] [place] [address] 09/23/2020 16:41:56 09/23/2020 18:08:22 [id number] [address] [address] [place] [address] 01/31/2018 10:45:03 01/31/2018 13:27:29 [id number] [address] [place] [address] 11/09/2019 08:07:21 11/09/2019 09:09:00 [id number] [address] [facility] [address] [place] [address] 08/06/2021 10:08:32 08/06/2021 13:38:40 [id number] Subhash Gaines DO [address] [place] [address] 05/04/2022 10:38:50 05/04/2022 11:38:10 Acute upper respiratory infection 00132588 J06.9 [id number] [facility] [address] [place] [address] 06/29/2022 08:23:26 06/29/2022 09:17:45 Elevated blood-pressure reading without diagnosis of hypertension 047046448 R03.0 You blood pressure was elevated during [...] the results of your journal. Allergic rhinitis 873435 04 J30.9 Allergic conjunctivitis 562530915 H10.13 Exacerbati on of intermittent asthma 047496478 J45.21 follow up with your pulmonolog ist [...] ID Kaur Member ID Guarantor Name 06/29/[address] [place] [address] [id number] Xochilt A Senuta [id number] Xochilt A Senuta Notes Date Note Type Note Provider Name and Address Organization Details Recorded Time 05/04/2022 text/html Nausea UCReporte d by Patient Not feeling well x 3 days: cough, body aches, R ear pain, N/V x 2 yesterdayCovid negative yesterday. Taking Tylenol, Robitussin DM. Sleep disturbed by body aches. Subhash Gaines DO [address] [place], [address], [place] - [facility] 05/04/2022 11:40:33 06/29/2022 text/html Sinus Complaints UCReported by PatientHPIFor location, patient reportssinus pain. For associated symptoms, patient reportsnasal discharge from both nostrils,difficulty breathing,post nasal drip,nasal passage blockage bilaterally, andeye itching. For quality, patient reportsworsening. For context, patient reportsworse with seasonal allergen exposureandworse with environmental exposure. For onset/timing, patient reportsworse in amandinitially started 2days ago. For duration, patient reportschronic. For alleviating factors, (cold compresses to eyes.).The patient reports was helping her niece move from her old apartment. She was in her old apartment and there was dust and mice feces and all kinds of environmental exposures. Started to develop asthma exacerbation and her eyes and nose have been running non stop. Feeling bad. Nebulizer machine is broken. Has collection supervisor appointment tomorrow. Denies fever. Looking for relief. KILO MONTEIRO [address] [place], [address], [place] PA - [facility] 06/29/2022 09:19:38 OBGyn Episode No OBEpisode recorded.
--- OUTSIDE RECORDS SUMMARY | 2025-03-09 07:23 | XMS_ITS | Clinical Summary ---
Author Organization [employer] Address [address] [facility] [address] [place] [address] Care Team Providers Care Cinder Crew Worker Name Role Phone Kay Faust MD Primary Care Provider [phone] Allergies No known active allergies Medications * This document contains information received from the source organization and may not represent a complete record from that organization. ipratropium-alb uterol (Duo-Neb) 0.5-2.5 mg/3 mL nebulizer solutionIndicat ions:Severe persistent asthma with exacerbation (HCC) Take 3 mL by nebulization every 8 (eight) hours if needed for wheezing or shortness of breath. 180 mL 11 025 2025 Active albuterol (2.5 MG/3ML) 0.083% nebulizer solutionIndicat ions:Severe persistent asthma with exacerbation (HCC) Take 3 mL (2.5 mg) by nebulization every 6 (six) hours if needed for wheezing. 75 mL 11 025 2025 Active losartan (Cozaar) 100 MG tablet Take 1 tablet (100 mg) by mouth Once per day. 90 tablet 3 025 2025 Active SUMAtriptan (Imitrex) 25 MG tabletIndicatio ns:Acute intractable headache, unspecified headache type Take 1 tablet (25 mg) by mouth 1 (one) time if needed for migraine for up to 1 dose. May repeat dose once in 2 hours if no relief. Do not exceed 2 doses in 24 hours. 9 tablet Active ammonium lactate (Amlactin) 12 % cream Apply topically if needed for dry skin. 145 g 025 2025 Active Incruse Ellipta 62.5 MCG/ACT aerosol powderIndicatio ns:Severe persistent asthma without complication (HCC) INHALE 1 PUFF BY MOUTH EVERY DAY AT THE SAME TIME RINSE MOUTH AFTER USING 025 Active arformoterol (Brovana) 15 MCG/2ML nebulizer solutionIndicat ions:Severe persistent asthma without complication (HCC) INHALE 2 ML BY MOUTH EVERY TWELVE HOURS 025 Active budesonide (Pulmicort) 0.5 MG/2ML nebulizer solutionIndicat ions:Severe persistent asthma without complication (HCC) INHALE 1 AMPULE USING A NEBULIZER TWICE DAILY 025 Active topiramate (Topamax) 50 MG tabletIndicatio ns:Class 3 severe obesity with serious comorbidity and body mass index (BMI) of 50.0 to 59.9 in adult, unspecified obesity type (HCC) Take 1 tablet (50 mg) by mouth at bedtime. Take 1/2 tablet for first two weeks, if no side effects, may increase to 50mg nightly. For weight loss 60 tablet 025 Active fluticasone (Flonase) 50 MCG/ACT nasal spray INSTILL 1 SPRAY IN EACH NOSTRIL ONCE DAILY 16 g 2 025 Active amLODIPine (Norvasc) 5 MG tablet TAKE 1 TABLET BY MOUTH ONCE DAILY 90 tablet 3 025 Active triamcinolone (Kenalog) 0.1 % creamIndication s:Bug bite, initial encounter Apply topically Once per day. 30 g 025 Active diphenhydrAMINE (BENADryl) 25 MG tabletIndicatio ns:Bug bite, initial encounter Take 1 tablet (25 mg) by mouth if needed at bedtime for itching. 30 tablet 025 Active levocetirizine (Xyzal Allergy 24HR) 5 MG tablet TAKE 1 TABLET BY MOUTH EVERY EVENING 90 tablet 3 025 Active albuterol 108 (90 Base) MCG/ACT inhalerIndicati ons:Severe persistent asthma without complication (HCC) INHALE 2 PUFFS BY MOUTH EVERY 4 HOURS NEEDED FOR WHEEZING OR SHORTNESS OF BREATH 36 g 11 025 Active Tirzepatide (Mounjaro) 2.5 MG/0.5ML solution auto-injectorIn dications:Type 2 diabetes mellitus without complication, without long-term current use of insulin ([facility]),Class 3 severe obesity with serious comorbidity and body mass index (BMI) of 50.0 to 59.9 in adult ([facility]) Inject 2.5 mg under the skin 1 (one) time per week. 2 mL 2 025 Active Tirzepatide (Mounjaro) 2.5 MG/0.5ML solution auto-injectorIn dications:Class 3 severe obesity with serious comorbidity and body mass index (BMI) of 50.0 to 59.9 in adult (HCC),Type 2 diabetes mellitus without complication, without long-term current use of insulin ([facility]) Inject 2.5 mg under the skin 1 (one) time per week. 2 mL 2 025 2024 Discontinued(R eorder (will not trigger notification to Pharmacy)) Hospital, Clinic, or Other Facility Administered Medication Ordered Dose Route Frequency Start Date End Date Status ipratropium-albuterol (Duo-Neb) 0.5-2.5 mg/3 mL nebulizer solution 3 mgIndications:Severe persistent asthma with exacerbation ([facility]) 3 mg NEBULIZATION Continuous 01/30/2025 Active Active Problems Problem Noted Date Diagnosed Date Type 2 diabetes mellitus wit hout complication, without long-term current use of insulin 12/19/2024 Assessment & Plan (03/05/2025 7:44 AM EST): Current A1c: 6.1 (09/2024), 6.5 (09/2023) was on Metformin 500mg for 3 months, could not tolerate due to GI side effects. - PA appeal initiated [...] <130 2 hour post prandial goal: <180 Assessment & Plan (12/19/2024 1:36 PM EDT): Current A1c: 6.1, on Metformin for a time BMP: Microalbumin: Statin: Yes ASA: Yes ANGELIQUE/ARB: Yes Encouraged regular aerobic exercise for improved glycemic control Encouraged daily foot checks Encouraged lean protein snacks and to avoid foods high in sugar and simple carbohydrates Treatment Goals: A1c goal: <7% FBG goal: <130 2 hour post prandial goal: <180 Bug bite 12/19/2024 Depression, major, single episode, moderate (CMS /HCC) 09/21/2024 Dyslipidemia 04/09/2024 Diuretic-induced hypokalemia 07/04/2023 Class [...] like to know more about medication options HTN (hypertension) 03/03/2023 Assessment & Plan (12/19/2024 1:35 PM EDT): Maintenance: Losartan 100mg and Amlodipine 5mg BMP: Lipid Panel: ASCVD Risk: The 10-year ASCVD risk score (Ban DK, et al., 2019) is: 5.2% Values used to calculate the score: Age: 54 years Sex: Female Is Non- : No Diabetic: Yes Tobacco smoker: No Systolic Blood Pressure: 130 mmHg Is BP treated: Yes HDL Cholesterol: 47 mg/dL Total Cholesterol: 186 mg/dL EKG: Obtain baseline at f/u - Aerobic exercise to reduce BP. Initial goal of 30 min walk 3-5x/week. Increase as tolerated. - low-sodium diet (goal: <2g/day) and heart healthy diet such as DASH to reduce BP and prevent ASCVD. - Home BP monitoring 1-2 x day with goal of <140/90. - Seek immediate medical attention for chest pain, palpitations, SOB, syncope, or sudden changes in mental status. - Do not change or discontinue current prescriptions without first consulting health care provider Assessment & Plan (09/21/2024 10:44 AM EDT): [...] in 2 to 3 weeks with PCP computer systems support specialist for blood pressure check Assessment & Plan [...] fall and winter 2022 Will refer to [facility] for pulmonology FMLA paperwork completed for [...] Problem Noted Date Diagnosed Date Resolved Date Severe persistent asthma with exacerbation 01/30/2025 03/05/2025 Morbid obesity with body mas s index [...] EDT): Small sip and bites Metoclopramide PRN Pre-diabetes 06/10/2023 03/05/2025 Assessment & Plan (10/22/2023 4:26 PM EDT): [...] 12:31 PM EST): A1C 6.2 Consider Metformin Heartburn 04/16/2013 09/21/2024 Encounters Date Type Department Care Team Description 03/08/2025 Telephone [facility] [address] [place] [phone] Karie Acharya, cbx operator Orders 03/04/2025 2:45 PM EST Office Visit [facility] [address] [place] [phone] Kay Faust MD Type 2 diabetes mellitus without complication, without [...] of 50.0 to 59.9 in adult (HCC) 03/04/2025 Travel 02/01/[address] [address] Kay Faust MD appt 02/01/[address] [address] Kay Faust MD R/S APPT 01/31/[address] [address] Kay Faust MD Prior Authorization (Comfort Status Check) 01/30/2025 5:20 PM EDT Office Visit [facility] [address] [place] [phone] Kay Faust MD Severe persistent asthma with exacerbation (HCC) (Primary Dx); Pre-diabetes; Type 2 diabetes mellitus without complication, without long-term current use of insulin (HCC); Right upper quadrant pain; Severe persistent asthma without complication (HCC) 01/30/2025 Travel 01/07/[address] [address] Kay Faust MD Letter for School/Work 01/01/2025 8:40 AM EDT Office Visit [facility] [address] [place] [phone] Donna Coulter MD COPD exacerbation (CMS/HCC) 01/01/2025 Travel 01/01/2025 Refill [facility] [address] [place] [phone] Abby Diego MD Severe persistent asthma without complication 01/01/2025 Refill [facility] [address] [place] [phone] Dg Meier MD Severe persistent asthma with exacerbation 01/01/2025 Refill [facility] [address] [place] [phone] Kay Faust MD Severe persistent asthma without complication 12/25/[address] [address] Kay Faust MD Prior Authorization (Opal BOATENG: Comfort) 12/17/2024 3:15 PM EDT Office Visit [facility] [address] [place] [address] [phone] Kay Faust MD Class 3 severe obesity with serious comorbidity and body mass index (BMI) of 50.0 to 59.9 in adult (Primary Dx); Primary hypertension; Pre-diabetes; Type 2 diabetes mellitus without complication, without long-term current use of insulin ([facility]); Bug bite, initial encounter 12/17/2024 Travel 12/14/2024 Telephone [facility] [address] [place] [phone] Kay Faust MD chart prep from Last 3 Months Immunizations Immunization Administration [...] Mass Index 53.13 03/04/2025 3:13 PM EST Plan of Treatment Health Maintenance Due Date Last Done Comments CT Colonography 1970 Colonoscopy 1970 FIT 1970 Sigmoidoscopy 1970 Diabetes: Foot Exam 1980 Diabetes: Urine Protein Screening 1989 Hepatitis B Vaccines (1 of 3 - 19+ 3-dose series) 1989 RSV Patients and Patients Aged 60 years or older (1 - Risk 50-74 years 1-dose series) 2020 Zoster Vaccines (1 of 2) 2020 Lipid Panel 02/29/2024 02/28/2023 FOBT 04/13/2024 04/13/2023 COVID-19 Vaccine ( - season) 2024 01/08/2022, 07/03/2021, 02/13/2021, Additional history exists DTaP/Tdap/Td Vaccines (2 - Td or Tdap) 01/30/2025 01/30/2015 Diabetes: Hemoglobin A1C 03/21/2025 025, 09/16/2023, 07/04/2023, Additional history exists Alcohol/Substance Use Screening 04/19/2025 04/19/2024 Mammogram 05/08/2025 05/08/2024, 05/03/2023 Depression Monitoring 06/16/2025 12/17/2024, 025 Disability Screening 09/19/2025 09/19/2024 SDOH Screening 09/19/2025 09/19/2024 Cervical Cancer Screening 12/22/2025 HPV/Cotest 12/22/2025 12/22/2020 Pap Smear 12/22/2025 12/22/2020 Tobacco Screening 03/05/2026 03/05/2025 Colorectal Cancer Screening 04/13/2026 FIT DNA/Cologuard 04/13/2026 04/13/2023 Eye Exam 08/07/2026 08/07/2024, 05/0 09/2024, 08/07/2024, Additional history exists HIV Screening Completed 02/28/2023 Hepatitis C Screening Completed 02/28/2023 Pneumococcal Vaccine: 50+ Years Completed 02/16/2024, 05/02/2015 Influenza Vaccine Completed 01/21/2025, , 02/05/2022, Additional history exists HIB Vaccines Aged Out No longer eligi [...] on patient's age to complete this topic Goals Goal Patient Goal Type Associated Problems [...] Care Plan Weekly blood pressure task No Kya Faust MD Patient has chronic kidney disease [...] chronic kidney disease No Karie Acharya RN Procedures Procedure Name Priority Date/Time Associated Diagnosis Comments POCT GLUCOSE Routine 03/04/2025 3:16 PM EST Type 2 diabetes mellitus without complication, without long-term current use of insulin (HCC) POCT INFLUENZA B (ID NOW RAPID MOLECULAR) Routine 01/01/2025 9:06 AM EDT COPD exacerbation (CMS/HCC) POCT INFLUENZA A (ID NOW RAPID MOLECULAR) Routine 01/01/2025 9:06 AM EDT COPD exacerbation (CMS/HCC) POCT RAPID COVID ANTIGEN Routine 01/01/2025 8:51 AM EDT COPD exacerbation (CMS/HCC) POCT GLYCATED HEMOGLOBIN, TOTAL Routine 09/19/2024 3:37 [...] Relevant to Health Maintenance Results * POCT Glucose (03/04/2025 3:16 PM EST) [facility] Glucose Blood, POC 107 60 - 200 mg/dL QC Media Lot # [id number] Lot# Expiration Date Blood Capillary blood specimen / Unknown 03/04/2025 3:16 PM EST Kay Faust MD POINT OF CARE TEST ENTER/EDIT ORDERABLES Final Result * Influenza B (ID NOW Rapid Molecular) (01/01/2025 9:06 AM EDT) [facility] Influenza B Negative Negative, Indeterminate [facility] Swab 01/01/2025 9:06 AM EDT Donna Coulter MD POINT OF CARE TEST ENTER/E DIT ORDERABLES Final Result Performing Organization Address [facility]/ZIP Co de Phone Number [facility] [address] [place] [phone] * Influenza A (ID NOW Rapid Molecular) (01/01/2025 9:06 AM EDT) [facility] Influenza A Negative Negative, Indeterminate [facility] Swab 01/01/2025 9:06 AM EDT Donna Coulter MD POINT OF CARE TEST ENTER/E DIT ORDERABLES Final Result Performing Organization Address City[facility] Co de Phone Number [facility] [address] [place] [phone] * POCT Rapid COVID Ag (01/01/2025 8:51 AM EDT) [facility] Rapid COVID Ag Negative Swab 01/01/2025 8:51 AM EDT Donna Coulter MD POINT OF CARE TEST ENTER/E DIT ORDERABLES Final Result * (ABNORMAL) POCT HGB A1C (09/19/2024 3:37 PM EDT) Hemoglobin A1C 6.1(A) 4.0 - 6.0 % QC Media Lot # [id number] Lot# Expiration Date Blood 09/19/2024 3:37 PM EDT Kay Faust MD POINT OF CARE TEST ENTER/EDIT ORDERABLES Final Result * BI Mammogram Screening Tomosynthesis Bilateral (05/08/2024 2:50 PM EST) Anatomical Region Laterality Modality Breast Bilateral Mammography 05/08/2024 2:50 PM EST Narrative 05/14/2024 5:39 PM EST [facility]'s [address] [place] [address] Mammography Report Signed Patient: Xochilt Thomas MR#: [id number] : 1970 Acct:[id number] Age/Sex: 53 / F ADM Date: 05/08/24 Loc: HO.MAMMO Attending Dr: Kay Faust MD Ordering Physician: Kay Faust Results: 1Negative Date of Service: 05/08/24 Follow Up: 1 Year From Orig ina Mammogram Procedure(s): MM tomosynthesis screening BI Accession Number(s): [id number] cc: Kay Faust EXAMINATION: MM SCREENING DIGITAL [...] 05/14/24 1736 DD/ 1450 TD/TT: 05/08/24 1505 Outreach Rep: Procedure Note Donotuseinterpreter, Image - 05/14/[facility] [address] [place] [address] Mammography Report Signed Patient: Xochilt Thomas [facility]#: [id number] : 1970Acct:[id number] Age/Sex: 53 / FADM Date: 05/08/24 Loc: HONatMAMMO Attending Dr: Kay Faust MD Ordering Physician: Amelia Faustults: 1Negative Date of Service: 05/08/24Follow Up: 1 Year From Orig inal Mammogram Procedure(s): MM tomosynthesis screening BI Accession Number(s): [id number] cc: Kay Faust EXAMINATION: MM SCREENING DIGITAL [...] 05/14/24 1736 DD/ 1450 TD/TT: 05/08/24 1505 Outreach Rep: Kay Faust MD IMG BI PROCEDURES Final Result * Cologuard?? colon cancer screening (04/13/2023 11:53 AM EST) Cologuard Result Negative Negative 04/24/19 1:03 AM EST [facility] (CLIA #:[id number]) Comment: NEGATIVE TEST RESULT. A negative Cologuard [...] Cope. et al, N Engl J Med 2014;370(14):1563-6994) The normal value (reference range) for this assay is negative. COLOGUARD RE-SCREENING RECOMMENDATION: Periodic colorectal cancer screening is an important part of preventive healthcare for asymptomatic individuals at average risk for colorectal cancer. Following a negative Cologuard result, the [place] Cancer Society and U.S. Multi-Society Task Force screening guidelines recommend a Cologuard re-screening interval of 3 years. References: [place] Cancer Society Guideline for Colorectal Cancer Screening: https://www.cancer.org/cancer/ebhnm-mhxofx-dtnpts/xxesqqrgi-jwmhcsfhj-bajrasl/ac s-rec ommendations.html.; Jose Manuel YI, Harpreet DUNNE, Bailee GEORGE, Colorectal Cancer Screening: Recommendations for Physicians and Patients from the U.S. Multi-Society Task Force on Colorectal Cancer Screening , Am J Gastroenterology 2017; 112:2064-2315. TEST DESCRIPTION: Composite algorithmic analysis of stool [...] Longoria et al, N Engl J Med 2014;370(14):2324-2440.) Cologuard may produce a false negative or false positive result (no colorectal cancer or precancerous polyp present at colonoscopy follow up). A negative Cologuard test result does not guarantee the absence of CRC or advanced adenoma (pre-cancer). The current Cologuard screening interval is every 3 years. ([place] Cancer Society and U.S. Multi-Society Task Force). Cologuard performance data in a 10,000 patient pivotal study using colonoscopy as the reference method can be accessed at the following location: www.[facility]/results. Additional description of the Cologuard test process, warnings and precautions can be found at www.[employer].com. Stool specimen (specimen) 04/13/2023 11:53 AM EST 04/14/2023 12:57 PM EST us Kay Faust MD LAB MOLECULAR DIAGNOSTICS BAMBI SERRA Final Result [facility] (CLIA #:[id number]) [address] [place] [address], * Hepatitis C Ab (02/28/2023 1:59 PM EST) Hepatitis C Antibody Nonreactive Nonreactive [facility] Comment:Antibodies to HCV no t detected; does not exclude early acuteHCV infection. Blood Venous blood specimen / Unknown 02/28/2023 1:59 PM EST 02/28/2023 4:15 PM EST Kay Faust MD LAB BLOOD ORDERABLES Final Res ult Performing Organization Address [facility]/ZIP Co de Phone Number [facility] [address] [place] [phone] * HIV-1/2 Antigen and Antibodies, Fourth Generation, with Reflexes (02/28/2023 1:59 PM EST) HIV AB/AG Nonreactive Nonreactive [facility] Comment:HIV-1 p24 Ag and/or HIV-1/HIV-2 Ab not detected.A test result that is nonreactive does not exclude thepossibility of exposure to or infection with HIV-1 and/orHIV-2. Nonreactive results in this assay for individualswith prior exposure to HIV-1 and/or HIV-2 may be due toantigen and antibody levels that are below the limit ofdetection of this assay.The [employer]21 HIV Ag/Ab Combo assay result andsupplemental assay results should be interpreted inconjunction with the patient's clinical presentation,history and other laboratory results. If the results areinconsistent with clinical evidence, additional testing issuggested to confirm the result. Blood Venous blood specimen / Unknown 02/28/2023 1:59 PM EST 02/28/2023 4:15 PM EST Kay Faust MD LAB BLOOD ORDERABLES Final Res ult Performing Organization Address [facility]/ZIP Co de Phone Number [facility] [address] [place] [phone] * (ABNORMAL) Lipid Panel, Standard (02/28/2023 1:59 PM EST) Triglycerides 232(H) <150 mg/dL [facility] Comment:Desirable Triglyceri de: less than 150 mg/dLBorderline High Triglyceride 150-199 mg/dLHigh Triglyceride: 200-499 mg/dLVery High Triglyceride: greater than or equal to 5OO mg/dL Cholesterol 186 <200 mg/dL [facility] Comment:Desirable Cholestero l: less than 200 mg/dLBorderline High Cholesterol: 200-239 mg/dLHigh Cholesterol: greater than 239 mg/dL LDL Cholesterol Calculated 93 <100 mg/dL [facility] Comment:Desirable LDL: less than 100 mg/dLNear Optimal/Above Optimal LDL: 110- 129 mg/dLBorderline High LDL: 130-159 mg/dLHigh LDL: 160-189 mg/dLVery High LDL: greater than or equal to 190 mg/dL HDL Cholesterol 47 >40 mg/dL [facility] Comment:Desirable HDL: great er than 40 mg/dL Note: This HDL assay may give artificially low results in patients with liver disease. Blood Venous blood specimen / Unknown 02/28/2023 1:59 PM EST 02/28/2023 4:15 PM EST Kay Faust MD LAB BLOOD ORDERABLES Final Res ult [facility] [address] [place] [phone] * Hm Pap Smear (12/22/2020) Pap Negative for intraephithelial lesion or malignancy Negative for intraephithelial lesion or malignancy, Other HPV Not Detected Undetected, Indeterminate, Quantitative, Not Detected Mary Provider HEALTH MAINTENANCE Final Result from Last 3 Months or Most Recently Relevant to Health Maintenance Additional Health Concerns Active Problems Noted Date [...] 03/08/2025 Patient has chronic kidney disease 03/08/2025 Insurance [employer] Care Teams Cinder Crew Worker Relationship Specialty Start Date End Date Kay Faust MD [address] [place] [phone] PCP - General Family Medicine 12/02/22
--- OUTSIDE RECORDS SUMMARY | 2025-03-09 07:23 | XMS_ITS | Encounter Summary ---
Author Organization [employer] Address [address] [facility] [address] [place] [address] Care Team Providers Care Mc Kay Machine Operator Name Role Phone Kay Faust MD Primary Care Provider [phone] Reason for Visit * Reason Onset Date Comments Med Refill 01/01/2025 Encounter Details Date Type Department Care Team ([facility] st Contact Info) Description 01/01/2025 Refill [facility] [address], [place] [phone] Kay Faust MD [address] [place], [place] [phone] Severe persistent asthma without complication Social History Tobacco [...] your housing situation today? I have keisha guirdy 09/19/[address] you li [...] encounter Visit Diagnoses Diagnosis Severe persistent asthma without complication (HCC) documented in this encounter Additional Health Concerns Assessment Noted Time PHQ-9 Depression Total Score: 9 12/18/19 25 3:58 PM EDT documented as of this encounter Care Teams Mc Kay Machine Operator Relationship Specialty Start Date End Date Kay Faust MD [address] [place] [phone] PCP - General Family Medicine 12/02/22 documented as of this encounter
[2025-03-09 08:21] LABS: Cholesterol 213 mg/dL (<200); HDL Cholesterol 50 mg/dL (>40); Triglycerides 249 mg/dL (<150)
[2025-03-09 11:01] LABS: Microalbum/Creatinine Ratio Ur 3.9 ug/mg cr (<30)
== END 2025-03-09 07:20 | disposition home or self-care (01) ==
LOC: HO.LAB 07:19
PROVIDERS: PCP General Practice; Visit Provider General Practice
DX: E11.9 Type 2 diabetes mellitus without complications (principal)
CPT/HCPCS: 36415; 80061; 82043; 82570; 83036